=== PATIENT | female | born 1990 | race Caucasian/White ===

== ENCOUNTER 2022-11-22 07:41 | Outpatient (OUT) | payer OTHER, SELFPAY ==
[2022-11-23 08:09] LABS: Progesterone 0.1 ng/mL (.)
== END 2022-11-22 07:42 ==
LOC: LAB 07:45
PROVIDERS: PCP Family Medicine; Visit Provider Obstetrics & Gynecology
DX: N97.0 Female infertility associated with anovulation (principal)
CPT/HCPCS: 36415; 84144

== ENCOUNTER 2023-01-09 09:49 | Outpatient (OUT) | payer OTHER, SELFPAY ==
[2023-01-09 11:03] LABS: Thyroid Stimulating Hormone 0.934 uIU/mL (0.358-3.740)
[2023-01-12 12:07] LABS: Anti-Mullerian Hormone (AMH) 23.1 ng/mL (.)
== END 2023-01-09 09:50 | disposition home or self-care (01) ==
LOC: LAB 09:50
PROVIDERS: PCP Family Medicine; Visit Provider Obstetrics & Gynecology
DX: N97.9 Female infertility, unspecified (principal)
CPT/HCPCS: 36415; 84443

== ENCOUNTER 2023-02-27 15:25 | Outpatient (OUT) | payer OTHER, SELFPAY ==
[2023-02-28 05:07] LABS: Progesterone <0.1 ng/mL (.)
== END 2023-02-27 15:26 | disposition home or self-care (01) ==
LOC: LAB 15:26
PROVIDERS: PCP Family Medicine; Visit Provider Obstetrics & Gynecology
DX: N97.0 Female infertility associated with anovulation (principal)
CPT/HCPCS: 36415; 84144

== ENCOUNTER 2023-05-04 06:59 | Outpatient (OUT) | payer OTHER, SELFPAY ==
[2023-05-05 12:10] LABS: Progesterone 0.1 ng/mL (.)
== END 2023-05-04 07:00 | disposition home or self-care (01) ==
PROVIDERS: PCP Family Medicine; Visit Provider Obstetrics & Gynecology
DX: N97.0 Female infertility associated with anovulation (principal)
CPT/HCPCS: 36415; 84144

== ENCOUNTER 2023-06-22 06:44 | Outpatient (OUT) | payer OTHER, SELFPAY ==
--- OUTSIDE RECORDS SUMMARY | 2023-06-22 06:48 | XMS_ITS | CCD ---
Author Name Unknown Address [address] [place] [address] Organization [facility] Care Team Providers Care Manufacturing Director Name Role Phone Lalit Bedolla MD Primary Care Provider [phone] BARTOLOME GUTIERREZ Referring Unavailable LALIT BEDOLLA Primary Care Unavailable WILBER ., DR LOPEZ Admitting Unavailable WILBER ., DR LOPEZ Attending Unavailable [facility], DR VAZQUEZ Primary Care Unavailable WILBER ., DR LOPEZ Consulting Unavailable LALIT BEDOLLA Attending Unavailable JESSICA MERINO Attending Unavailable Medications Current Medications Medication Drug Class(es) Dates Sig (Normalized) Sig (Original) 24 hr metFORMIN hydrochloride 500 mg extended release oral tablet (1 source) Biguanide Start: 07-15-2021 take 2 tablets by mouth twice daily, then take 2 tablets by mouth twice daily metFORMIN (GLUCOPHAGE-XR) 500 MG extended release tablet Take 2 tablets by mouth 2 times daily Take 2 tablets by mouth twice daily. 60 tablet 12 07/15/2021 Active Problems Problem Classification Problem Date Documented Date Episodic/Chronic Female infertility (4 sources) Female infertility associated with anovulation; Translations: [FE INFERTILITY ASSOC W/ANOVULATION] Onset: 09-30-2022 Chronic Immunizations and screening for infectious disease (2 sources) Encounter for screening for human papillomavirus (HPV); Translations: [Encounter for screening for human papillomavirus (HPV)] Onset: 07-15-2022 Episodic Menstrual disorders (1 source) Irregular periods; Translations: [Irregular menstruation, unspecified] Onset: 10-19-2019 10-19-2019 Chronic Other endocrine disorders (1 source) Polycystic ovary syndrome; Translations: [Polycystic ovarian syndrome] Onset: 10-19-2019 10-19-2019 Chronic Results Test Name Value Interpretation Reference Range Facil ity PROGESTERONEon 10-01-2022 Progesterone 0.2 ng/mL Normal [facility] Comment on above: Result Comment: Foll icular phase 0.1 - 0.9 Luteal phase 1.8 - 23.9 Ovulation phase 0.1 - 12.0 First trimester 11.0 - 44.3 Second trimester 25.4 - 83.3 Third trimester 58.7 - 214.0 Postmenopausal 0.0 - 0.1 Performed By: #### P LORRI #### [facility] [address] [address] [address] Ruth Conte HPV DNA High Riskon 07-17-19 23 HPV Interp Normal [facility] Comment on above: Result Comment: This test amplifies and detects DNA of 14 high-risk HPV types associated with cervical cancer and its precursor lesions (HPV types 16,18, 31, 33, 35, 39, 45, 51, 52, 56, 58, 59, 66, and 68). Sensitivity may be affected by specimen collection methods, stage of infection, and the presence of interfering substances. Results should be interpreted in conjunction with other available laboratory and clinical data. A negative high-risk HPV result does not exclude the possibility of future cytologic HSIL or underlying CIN2-3 or cancer. This test is intended for medical purposes only and is not valid for the evaluation of suspected sexual abuse or for other forensic purposes. Performed By: #### H PVH #### [facility] [address] [place] [address] [phone] Paint Crew Supervisor: Gopi Yoder MD HPV Type 16 Not detected Normal [facility] Comment on above: Performed By: #### H PVH #### [facility] [address] [place] [address] [phone] Paint Crew Supervisor: Gopi Yoder MD HPV Type 18 Not detected Normal [facility] Comment on above: Performed By: #### H PVH #### [facility] [address] [place] [address] [phone] Paint Crew Supervisor: Gopi Yoder MD Other High Risk HPV Not detected Normal [facility] Comment on above: Performed By: #### H PVH #### [facility] [address] [place] [address] Paint Crew Supervisor: Gopi Yoder MD HPV DNA High Riskon 07-16-19 Source .GENITAL - NOT SPECIFIED Normal [facility] Comment on above: Performed By: #### H PVH #### [facility] [address] [place], [place] [phone] Paint Crew Supervisor: Gopi Yoder MD HPV Sample .THIN PREP Normal [facility] Comment on above: Performed By: #### H PVH #### [facility] [employer] [address] [place], [place] [phone] Paint Crew Supervisor: Gopi Yoder MD Cytologyon 07-15-2022 Cytology (NOTE) INTERPRETATION Cervical material, (ThinPrep vial, Imaging-assisted review): Specimen Adequacy: Satisfactory for evaluation. - Endocervical/transfor mation zone component present. Descriptive Diagnosis: Negative for intraepithelial lesion or malignancy. Poster: LUCIANO Roman(ASCP) Electronically Signed Out [facility]/07/22/2022 Procedure/Addendum HPV Procedure Report Date Ordered: 07/16/2022 Status: Signed Out Date Complete: 07/17/2022 By: System Interface Date Reported: 07/17/2022 Sample: HPV Type 16 Result: Not Detected Ref Range: (Not Detected) Sample: HPV Type 18 Result: Not Detected Ref Range: (Not Detected) Sample: Other High Risk HPV Result: Not Detected Ref Range: (Not Detected) Sample: HPV Interp Result: Ref Range: (Not Detected) This test amplifies and detects DNA of 14 high-risk HPV types associated with cervical cancer and its precursor lesions (HPV types 16,18, 31, 33, 35, 39, 45, 51, 52, 56, 58, 59, 66, and 68). Sensitivity may be affected by specimen collection methods, stage of infection, and the presence of interfering substances. Results should be interpreted in conjunction with other available laboratory and clinical data. A negative high-risk HPV result does not exclude the possibility of future cytologic HSIL or underlying CIN2-3 or cancer. This test is intended for medical purposes only and is not valid for the evaluation of suspected sexual abuse or for other forensic purposes. Source: A: Cervical material, (ThinPrep vial, Imaging-assisted review) Clinical History Irregular menses Z01.419 Routine coding tech exam without abnormal findings Co-Test: ThinPrep Pap with high risk HPV testing Z11.51 Encounter for screening for HPV GYNECOLOGIC CYTOLOGY REPORT Patient Name: BARBARA DELEON [facility] Rec: [id number] Path Number: [id number] [facility] ANATOMIC PATHOLOGY [address] [place] [phone] Normal [facility] Comment on above: Performed By: #### P PPVP #### [facility] [address] [place] [address] [phone] Paint Crew Supervisor: Gopi Yoder MD Encounters Encounter Date Encounter Type Care Provider Facility Start: 05-20-2023 End: 05-20-2023 ambulatory JESSICA MERINO Not Available Start: 05-05-2023 End: 05-05-2023 ambulatory LALIT BEDOLLA Not Available Start: 09-30-2022 End: 10-01-[address] JESSICA MERINO . Facility: Start: 07-15-2022 End: 07-16-2022 ambulatory [facility] Start: 07-15-2022 End: 07-16-2022 Encounter for gynecological examination (general) (routine) without abnormal findings [facility] Start: 07-15-2022 End: 07-15-2022 Subsequent hospital visit by physician Lalit Bedolla MD Other Phone: [facility] Procedures Date Procedure Procedure Detail Performing Clinician Start: 07-23-2021 Microscopic observat ion [Identifier] in Cervix by Cyto stain Lalit Bedolla MD Other Phone: Plan of Treatment Date Care Activity Detail Author Start: 11-27-2031 DTaP/Tdap/Td vaccine (7 - Td or Tdap) DTaP/Tdap/Td vaccine (7 - Td or Tdap) [facility] Start: 07-23-2024 [facility] Start: 07-18-2024 Screening for malign ant neoplasm of cervix HPV (without or with Pap) [facility] Start: 07-15-2023 End: 07-15-2023 Patient encounter procedure 07/15/2023 Office Visit Obstetrics and Gynecology Alessandro Gutierrezie Todd, LADLE WATCHER - MANAGER OF CASE MANAGEMENT [address] [place] [address] [place] [facility] Start: 01-13-2022 Influenza vaccination Flu vaccine (# 1) [facility] Start: 2005 HIV screening [facility] Start: 2002 Depression Screen Depression Screen [facility] [email or web address] Start: 09-24-1991 Varicella vaccine (1 of 2 - 2-dose childhood series) Varicella vaccine (1 of 2 - 2-dose childhood series) [facility] Immunizations Immunization Date Immunization Notes Care Provider Fa cility 09-17-1995 diphtheria, tetanus toxoids and acellular pertussis vaccine Lalit Bedolla MD Other Phone: [facility] Phone: 09-17-1995 poliovirus vaccine, inactivated Lalit Bedolla MD Other Phone: [facility] Phone: 03-29-1992 diphtheria, tetanus toxoids and acellular pertussis vaccine Lalit Bedolla MD Other Phone: [facility] Phone: 03-29-1992 poliovirus vaccine, inactivated Lalit Bedolla MD Other Phone: [facility] Phone: 12-26-1991 Hib, unspecified Lalit lopez MD Other Phone: [facility] Phone: 12-26-1991 measles, mumps and rubella virus vaccine Lalit Bedolla MD Other Phone: [employer] Phone: 03-31-1991 diphtheria, tetanus toxoids and acellular pertussis vaccine Lalit Bedolla MD Other Phone: [employer] Phone: 03-31-1991 Hib, unspecified Lalit lopez MD Other Phone: [employer] Phone: 01-25-1991 diphtheria, tetanus toxoids and acellular pertussis vaccine Lalit Bedolla MD Other Phone: [employer] Phone: 01-25-1991 Hib, unspecified Lalit lopez MD Other Phone: [employer] Phone: 01-25-1991 poliovirus vaccine, inactivated Lalit Bedolla MD Other Phone: [employer] Phone: 1990 diphtheria, tetanus toxoids and acellular pertussis vaccine Lalit Bedolla MD Other Phone: [employer] 1990 Hib, unspecified Lalit lopez MD Other Phone: [employer] Phone: 1990 poliovirus vaccine, inactivated Lalit Bedolla MD Other Phone: [employer] Phone: Payers Date Payer Category Payer Unknown [id number] 1990 Unknown [id number] 1990 Unknown [id number] 1990 Unknown [id number] 1990 Unknown [id number] 1959 Unknown [id number] Social History Date Type Detail Facility Tobacco smoking stat [facility] Never smoked tobacco [employer] Start: 07-15-2022 Alcohol intake Current drinke r of alcohol (finding) [employer] Phone: Start: 07-15-2022 History SDOH Financial 5 [employer] Phone: Start: 07-15-2022 History SDOH Food Worry 1 [employer] Phone: Start: 07-15-2022 Alcohol Comment I may have one drink every couple weeks [employer] Phone: Start: 1990 Sex Assigned At Not on file B ON [employer] Phone: Summary Purpose Family History No Family History Records FoundNo Family History Records FoundNo Family History Records Found Advance Directives No Advanced Directives Records FoundNo Advanced Directives Records FoundNo Advanced Directives Records Found Additional Source Comments Care Teams (unrecognized sec tion and content) Manufacturing Director Relationship Specialty [place] [id number] [address] PCP - General Family Medicine 04/01/16 INFORMATION SOURCE (unrecogn ized section and content) DATE CREATED AUTHOR 07/23/2022 [facility] DATE CREATED AUTHOR AUTHOR'S ORGANIZ ATION 10/05/2022 [facility] DATE CREATED AUTHOR AUTHOR'S ORGANIZ ATION 05/22/2023 [facility] Special[facility] EPIC FOR RECORDS PERTAINING TO PATIENTS WHO ARE OR HAVE BEEN ENROLLED IN A CHEMICAL DEPENDENCY/SUBSTANCEABUSE PROGRAM, SOME INFORMATION MAY BE OMITTED. This clinical summary was aggregated from multiple sources. Caution should be exercised in using it in the provision of clinical care. This summary normalizes information from multiple sources, and as a consequence, information in this document may materially change the coding, format and clinical context of patient data. In addition, data may be omitted in some cases. CLINICAL DECISIONS SHOULD BE BASED ON THE PRIMARY CLINICAL RECORDS. [facility] [employer] [facility]. provides no warranty or guarantee of the accuracy or completeness of information in this document.
[2023-06-23 04:09] LABS: Progesterone 0.1 ng/mL (.)
== END 2023-06-22 06:45 | disposition home or self-care (01) ==
LOC: LAB 06:45
PROVIDERS: PCP Family Medicine; Visit Provider Obstetrics & Gynecology
DX: N97.0 Female infertility associated with anovulation (principal)
CPT/HCPCS: 36415; 84144

== ENCOUNTER 2023-08-08 11:47 | Outpatient (OUT) | payer OTHER, SELFPAY ==
--- OUTSIDE RECORDS SUMMARY | 2023-08-08 11:51 | XMS_ITS | CCD ---
Author Name Unknown Address [address] [place], [place] [id number] Organization [facility] Care Team Providers Care Diabetes Nurse Name Role Phone Lalit Bedolla MD Primary Care Provider WILBER ., DR LOPEZ Admitting Unavailable WILBER ., DR LOPEZ Attending [facility]available [facility] VAZQUEZ Primary Care Unavailable WILBER ., DR LOPEZ Consulting Unavailable LALIT BEDOLLA Attending Unavailable JESSICA MERINO Attending Unavailable LALIT BEDOLLA Primary Care Unavailable NADJA GUTIERREZ Referring Unavailable Medications Current Medications Medication Drug Class(es) [...] for screening for human papillomavirus (HPV)] Onset: 07-15-2023 Episodic Menstrual disorders (1 source) Irregular periods; Translations: [Irregular menstruation, unspecified] Onset: 10-19-2019 10-19-2019 Chronic Other endocrine disorders (1 source) Polycystic ovary syndrome; Translations: [Polycystic ovarian syndrome] Onset: 10-19-2019 10-19-2019 Chronic Results Test Name Value Interpretation Reference Range Facil ity HPV DNA High Riskon 02-02-20 24 HPV Interp [facility] Comment on above: Result Comment: This test [...] purposes. Performed By: #### H PVH #### [facility] [employer] [address] [address] Loss Prevention/Safety District Manager: Gopi Yoder MD HPV Type 16 Not detected [facility] Comment on above: Performed By: #### H PVH #### [facility] [employer] [address] [address] Loss Prevention/Safety District Manager: Gopi Yoder MD HPV Type 18 Not detected [facility] Comment on above: Performed By: #### H PVH #### [facility] [address] [place] [address] Loss Prevention/Safety District Manager: Gopi Yoder MD Other High Risk HPV Not detected [facility] Comment on above: Performed By: #### H PVH #### [employer] [address] [place] [address] Loss Prevention/Safety District Manager: Gopi Yoder MD HPV DNA High Riskon 07-16-19 24 HPV Sample .THIN PREP [facility] Comment on above: Performed By: #### H PVH #### [facility] [address] [place] [address] Loss Prevention/Safety District Manager: oGpi Yoder MD Source CERVICAL MATERIAL [facility] Comment on above: Performed By: #### H PVH #### [facility] [address] [place] [address] Loss Prevention/Safety District Manager: Gopi Yoder MD PROGESTERONEon 10-01-2022 Progesterone 0.2 ng/mL Normal [facility] Comment on above: Result Comment: Foll icular phase 0.1 - 0.9 Luteal phase 1.8 - 23.9 Ovulation phase 0.1 - 12.0 First trimester 11.0 - 44.3 Second trimester 25.4 - 83.3 Third trimester 58.7 - 214.0 Postmenopausal 0.0 - 0.1 Performed By: #### P ROGES #### [facility] [address] [place], [place] [address] Dr. Ruth Conte Encounters Encounter Date Encounter Type Care Provider Facility Start: 07-15-2023 End: 07-16-2023 ambulatory [facility]IT [facility] Start: 07-15-2023 End: 07-16-2023 Encounter for gynecological examination (general) (routine) without abnormal findings LALIT BEDOLLA [facility] Start: 05-20-2023 End: 05-20-2023 ambulatory JESSICA MERINO Not Available Start: 05-05-2023 End: 05-05-2023 ambulatory LALIT BEDOLLA Not Available Start: 09-30-2022 End: 10-01-[address] JESSICA MERINO . Facility: Start: 07-15-2022 End: 07-15-2022 Subsequent hospital visit by physician Lalit Bedolla MD Other Phone: [facility] Procedures Date Procedure Procedure Detail Performing Clinician Start: 07-23-2021 Microscopic observat ion [Identifier] in Cervix by Cyto stain Lalit Bedolla MD Other Phone: Plan of Treatment Date Care Activity Detail Author Start: 11-27-2031 DTaP/Tdap/Td vaccine (7 - Td or Tdap) DTaP/Tdap/Td vaccine (7 - Td or Tdap) [facility] Start: 07-23-2024 Screening for malign ant neoplasm of cervix [facility] Start: 07-18-2024 Screening for malign ant neoplasm of cervix HPV (without or with Pap) [facility] Start: 07-15-2023 End: 07-15-2023 Patient encounter procedure 07/15/2023 Office Visit Obstetrics and Gynecology Nadja GutierrezCEZARN - CHILD AND YOUTH PROGRAM ASSISTANT [address] [place] [address] [facility] Start: 01-13-2022 Influenza vaccination Flu vaccine (# 1) [facility] Start: 2005 HIV screening HIV screen [facility] [employer] Start: 2002 Depression Screen [facility] Start: 09-24-1991 Varicella vaccine (1 of 2 - 2-dose childhood series) Varicella vaccine (1 of 2 - 2-dose childhood series) [facility] Immunizations Immunization Date Immunization Notes Care Provider Fa cility 09-17-1995 diphtheria, tetanus toxoids and acellular pertussis vaccine Lalit Bedolla MD Other Phone: [facility] [employer] Phone: 09-17-1995 poliovirus vaccine, inactivated Lalit Bedolla MD Other Phone: [facility] [employer] Phone: 03-29-1992 diphtheria, tetanus toxoids and acellular pertussis vaccine Lalit Bedolla MD Other Phone: [facility] [employer] Phone: 03-29-1992 poliovirus vaccine, inactivated Lalit Bedolla MD Other Phone: [facility] [employer] Phone: 12-26-1991 Hib, unspecified Lalit lopez MD Other Phone: [facility] [employer] Phone: 12-26-1991 measles, mumps and rubella virus vaccine Lalit Bedolla MD Other Phone: [employer] Phone: 03-31-1991 diphtheria, tetanus toxoids and acellular pertussis vaccine Lalit Bedolla MD Other Phone: [employer] Phone: 03-31-1991 Hib, unspecified Lalit lopez MD Other Phone: [employer] Phone: 01-25-1991 diphtheria, tetanus toxoids and acellular pertussis vaccine Lalit Bedolla MD Other Phone: [employer] Phone: 01-25-1991 Hib, unspecified Lalit lopez MD Other Phone: [employer] Phone: 01-25-1991 poliovirus vaccine, inactivated Lalit Bedolla MD Other Phone: [employer] Phone: 1990 diphtheria, tetanus toxoids and acellular pertussis vaccine Lalit Bedolla MD Other Phone: [employer] 1990 Hib, unspecified Lalit lopez MD Other Phone: [employer] Phone: 1990 poliovirus vaccine, inactivated Lalit Bedolla MD Other Phone: [employer] Phone: Payers Date Payer Category Payer Unknown [id number] 1990 Unknown [id number] 1990 Unknown [id number] 1990 Unknown [id number] 1990 Unknown [id number] [id number] 1959 Unknown [id number] Social History Date Type Detail Facility [facility] [employer] Start: 07-15-2022 Alcohol intake Current drinke r of alcohol (finding) [employer] Phone: Start: 07-15-2022 History SDOH Financial 5 [employer] Phone: Start: 07-15-2022 History SDOH Food Worry 1 [employer] Phone: Start: 07-15-2022 Alcohol Comment I may have one drink every couple weeks [employer] Phone: Start: 1990 Sex Assigned At Not on file B ON [employer] Phone: Summary Purpose Family History No Family History Records FoundNo Family History Records FoundNo Family History Records Found Advance Directives No Advanced Directives Records FoundNo Advanced Directives Records FoundNo Advanced Directives Records Found Additional Source Comments Care Teams (unrecognized sec tion and content) Diabetes Nurse Relationship Specialty Start [place] [address] [place] [address] PCP - General Family Medicine 04/01/16 INFORMATION SOURCE (unrecogn ized section and content) DATE CREATED AUTHOR 10/05/2022 [facility] pital DATE CREATED AUTHOR AUTHOR'S ORGANIZ ATION 05/22/2023 [facility] dical Specialists EPIC DATE CREATED AUTHOR AUTHOR'S ORGANIZ ATION 07/18/2023 [facility] FOR RECORDS PERTAINING TO PATIENTS WHO ARE [...] BE BASED ON THE PRIMARY CLINICAL RECORDS. [employer] [facility]. provides no warranty or guarantee of the accuracy or completeness of information in this document.
[2023-08-08 13:01] LABS: Alanine Aminotransferase 37 U/L (14-59); Albumin Globulin Ratio 0.9; Albumin Level 3.8 g/dL (3.4-5.0); Alkaline Phosphatase 71 U/L (46-116); Anion Gap 13.4; Aspartate Amino Transferase 32 U/L (15-37); BUN Creatinine Ratio 18.5; Bilirubin Total 0.7 mg/dL (0.2-1.0); Calcium 8.9 mg/dL (8.5-10.1); Carbon Dioxide 27.4 mmol/L (21.0-32.0); Chloride 103 mmol/L (98-107); Estimated GFR (African America >60 (>=60); Estimated GFR (Non-African Ame >60 (>=60); Globulin 4.2 g/dL; Glucose 77 mg/dL (74-106); Potassium 3.8 mmol/L (3.5-5.1); Sodium 140 mmol/L (136-145)
== END 2023-08-08 11:48 | disposition home or self-care (01) ==
LOC: LAB 11:48
PROVIDERS: PCP Family Medicine
DX: E28.2 Polycystic ovarian syndrome (principal)
CPT/HCPCS: 36415; 80053

== ENCOUNTER 2023-08-08 11:50 | Outpatient (OUT) | payer OTHER, SELFPAY ==
--- OUTSIDE RECORDS SUMMARY | 2023-08-08 11:54 | XMS_ITS | CCD ---
Author Name Unknown Address [address] [place], [place] [id number] Organization [facility] Care Team Providers Care Ccnp Name Role Phone Lalit Bedolla MD Primary Care Provider [phone] WILBER ., DR LOPEZ Admitting Unavailable WILBER ., DR LOPEZ Attending Unavailable [facility] DR VAZQUEZ Primary Care Unavailable WILBER ., DR LOPEZ Consulting Unavailable LAILT BEDOLLA Attending Unavailable JESSICA MERINO Attending Unavailable [...] DNA High Riskon 02-02-20 24 HPV Interp [facility] Comment on above: Result Comment: This [...] purposes. Performed By: #### H PVH #### [facility] [address] [address] [employer] Operator: Gopi Yoder MD HPV Type 16 Not detected [facility] Comment on above: Performed By: #### H PVH #### [facility] [address] [address] [employer] Operator: Gopi Yoder MD HPV Type 18 Not detected [facility] Comment on above: Performed By: #### H PVH #### [facility] [address] [place] [address] [employer] Operator: Gopi Yoder MD Other High Risk HPV Not detected [facility] Comment on above: Performed By: #### H PVH #### [facility] [address] [place] [address] [employer] Operator: Gopi Yoder MD HPV DNA High Riskon 07-16-19 24 HPV Sample .THIN PREP [facility] Comment on above: Performed By: #### H PVH #### [facility] [address] [place] [address] [employer] Operator: Gopi Yoder MD Source CERVICAL MATERIAL [facility] Comment on above: Performed By: #### H PVH #### [facility] [address] [place] [address] [employer]orem[employer] Operator: Gopi Yoder MD PROGESTERONEon 10-01-2022 Progesterone 0.2 ng/mL Normal [facility] Comment on above: Result Comment: Foll icular phase 0.1 - 0.9 Luteal phase 1.8 - 23.9 Ovulation phase 0.1 - 12.0 First trimester 11.0 - 44.3 Second trimester 25.4 - 83.3 Third trimester 58.7 - 214.0 Postmenopausal 0.0 - 0.1 Performed By: #### P ROGES #### [facility] [address] [place], [place] [address] Dr. Ruth Conte Encounters Encounter Date Encounter Type Care Provider Facility Start: 07-15-2023 End: 07-16-2023 [facility] Start: 07-15-2023 End: 07-16-2023 Encounter for gynecological examination (general) (routine) without abnormal findings LALIT BEDOLLA [facility] Start: 05-20-2023 End: 05-20-2023 ambulatory JESSICA MERNIO Not Available Start: 05-05-2023 End: 05-05-2023 ambulatory LALIT BEDOLLA Not Available Start: 09-30-2022 End: 10-01-[address] JESSICA MERINO . Facility: Start: 07-15-2022 End: 07-15-2022 Subsequent hospital visit by physician Lalit Bedolla MD Other Phone: [facility] Procedures Date Procedure Procedure Detail Performing Clinician Start: 07-23-2021 Microscopic observat ion [Identifier] in Cervix by Cyto stain Lalit Bedolla MD Other Phone: Plan of Treatment Date Care Activity Detail Author Start: 11-27-2031 DTaP/Tdap/Td vaccine (7 - Td or Tdap) DTaP/Tdap/Td vaccine (7 - Td or Tdap) [facility] Start: 07-23-2024 Screening for malign ant neoplasm of cervix [facility] Start: 07-18-2024 Screening for malign ant neoplasm of cervix HPV (without or with Pap) [facility] Start: 07-15-2023 End: 07-15-2023 Patient encounter procedure 07/15/2023 Office Visit Obstetrics and Gynecology Nadja GutierrezCE[facility] - [facility] [address] [place] [address] [facility]etric[facility] Start: 01-13-2022 Influenza vaccination Flu vaccine (# 1) [facility] Start: 2005 HIV screening HIV screen [facility] [employer] Start: 2002 Depression Screen Depression Screen [facility] Start: 09-24-1991 Varicella vaccine (1 of 2 - 2-dose childhood series) Varicella vaccine (1 of 2 - 2-dose childhood series) [facility] Immun[facility] Immunization Date Immunization Notes Care Provider Fa cility 09-17-1995 diphtheria, tetanus toxoids and acellular pertussis vaccine Lalit Bedolla MD Other Phone: [facility] [employer] Phone: 09-17-1995 poliovirus vaccine, inactivated Lalit Bedolla MD Other Phone: [facility] [employer] Phone: 03-29-1992 diphtheria, tetanus toxoids and acellular pertussis vaccine Lalit Bedolla MD Other Phone: [facility] [employer] Phone: 03-29-1992 poliovirus vaccine, inactivated Lalit Bedolla MD Other Phone: [facility] [employer] Phone: 12-26-1991 Hib, unspecified Lalit lopez MD Other Phone: [facility] [employer] Phone: 12-26-1991 measles, mumps and rubella virus vaccine Lalit Bedolla MD Other Phone: [employer] Phone: 03-31-1991 diphtheria, tetanus toxoids and acellular pertussis vaccine Lalit Bedolla MD Other Phone: [employer] Phone: 03-31-1991 Hib, unspecified Lalit lopez MD Other Phone: [employer] Phone: 01-25-1991 diphtheria, tetanus toxoids and acellular pertussis vaccine Lalit Bedolla MD Other Phone: [employer] Phone: 01-25-1991 Hib, unspecified Lalit lopez MD Other Phone: [employer] Phone: 01-25-1991 poliovirus vaccine, inactivated Lalit Bedolla MD Other Phone: [employer] Phone: 1990 diphtheria, tetanus toxoids and acellular pertussis vaccine Lalit Bedolla MD Other Phone: [facility] 1990 Hib, unspecified Lalit lopez MD Other Phone: [employer] Phone: 1990 poliovirus vaccine, inactivated Lalit Bedolla MD Other Phone: [employer] Phone: Payers Date Payer Category Payer Unknown [id number] 1990 Unknown [id number] 1990 Unknown [id number] 1990 Unknown [id number] 1990 Unknown [id number] 1959 Unknown [id number] Social History Date Type Detail Facility [facility] Start: 07-15-2022 Alcohol intake Current drinke r of alcohol (finding) [employer] Phone: Start: 07-15-2022 History SDOH Financial 5 [employer] Phone: Start: 07-15-2022 History SDOH Food Worry 1 [employer] Phone: Start: 07-15-2022 Alcohol Comment I may have one drink every couple weeks [employer] Phone: Start: 1990 Sex Assigned At Not on file B ON [employer] Phone: Summary Purpose Family History No Family History Records FoundNo Family History Records FoundNo Family History Records Found Advance Directives No Advanced Directives Records FoundNo Advanced Directives Records FoundNo Advanced Directives Records Found Additional Source Comments Care Teams (unrecognized sec tion and content) Ccnp Relationship Specialty [place] [address] [place] [address] PCP - General Family Medicine 04/01/16 INFORMATION SOURCE (unrecogn ized section and content) DATE CREATED AUTHOR 10/05/2022 [facility] DATE CREATED AUTHOR AUTHOR'S ORGANIZ ATION 05/22/2023 [facility] EPIC DATE CREATED AUTHOR AUTHOR'S ORGANIZ ATION 07/18/2023 [facility] FOR RECORDS PERTAINING TO PATIENTS WHO ARE [...] BE BASED ON THE PRIMARY CLINICAL RECORDS. [employer] [facility]. provides no warranty or guarantee of the accuracy or completeness of information in this document.
[2023-08-09 08:10] LABS: Progesterone 0.2 ng/mL (.)
== END 2023-08-08 11:51 | disposition home or self-care (01) ==
LOC: LAB 11:52
PROVIDERS: PCP Family Medicine; Visit Provider Obstetrics & Gynecology
DX: E28.2 Polycystic ovarian syndrome (principal); N97.0 Female infertility associated with anovulation
CPT/HCPCS: 36415; 80053; 84144

== ENCOUNTER 2023-11-23 06:40 | Outpatient (OUT) | payer OTHER, SELFPAY ==
--- OUTSIDE RECORDS SUMMARY | 2023-11-23 06:50 | XMS_ITS | CCD ---
Author Organization [facility] Care Team Providers Care Java Software Name Role Phone Kurtis Bedolla MD Primary Care Provider [phone] WILBER ., DR LOPEZ Admitting Unavailable WILBER ., DR LOPEZ Attending Unavailable [facility], DR VAZQUEZ Primary Care Unavailable WILBER Boyce, DR LOPEZ Consulting Unavailable KURTIS BEDOLLA Attending Unavailable JESSICA MERINO Attending Unavailable KURTIS BEDOLLA Primary Care Unavailable BARTOLOME BREWSTER Referring Unavailable Kurtis Bedolla MD Primary Care Provider KURTIS BEDOLLA Referring Unavailable KURTIS BEDOLLA Primary Care Unavailable LUIZA HERNANDEZ Attending Unavail able Medications Current Medications Medication Drug Class(es) Dates Sig (Normalized) Sig (Original) brompheniramine maleate 0.4 mg/ml / dextromethorphan hydrobromide 2 mg/ml / pseudoephedrine hydrochloride 6 mg/ml oral solution (1 source) alpha-Adrenergic Agonist, Uncompetitive X-hyccra-P-asparta te Receptor Antagonist, Sigma-1 Agonist Start: 09-14-19 24 End: 09-24-19 24 take 5-10 mL by mouth four times daily as needed for congestion brompheniramine-pseudo eph-DM 2-30-10 mg/5 mL syrup Indications: Acute rhinosinusitis Take 5-10 mL by mouth 4 (four) times a day as needed for congestion for up to 10 days. 120 mL 0 09/14/2023 09/24/2023 Active clomiPHENE citrate 50 mg oral tablet (1 source) Estrogen Agonist/Antagonist Start: 03-06-20 21 clomiPHENE (CLOMID) 50 mg tablet 1 tab daily starting day 3 of cycle for 5 days 5 tablet 0 03/06/2021 Active Inositol (1 source) INOSITOL ORAL Ta ke by mouth. 0 Active ipratropium bromide 0.021 mg/actuat metered dose nasal spray (1 source) Anticholinergic Start: 09-14-19 End: 09-24-19 take 2 spray(s) nasal route three times daily ipratropium (ATROVENT) 21 mcg (0.03 %) nasal spray Indications: Acute rhinosinusitis Administer 2 sprays into each nostril 3 (three) times a day for 10 days. 30 mL 0 09/14/2023 09/24/2023 Active medroxyPROGESTERone acetate 10 mg oral tablet (2 sources) Progestin Start: 08-29-19 Medroxyprogesterone Active MG PO August 29, 2023 12:00am Start: 04-03-2021 medroxyPROGEST ERone (PROVERA) 10 mg tablet 1 tab daily for 20 days 20 tablet 0 04/03/2021 Active 24 hr metFORMIN hydrochlorid e 500 mg extended release oral tablet (3 sources) Biguanide Start: 08-29-2023 Metformin Acti ve MG PO August 29, 2023 12:00am Start: 07-15-2021 take 2 tablets by mo uth twice daily, then take 2 tablets by mouth twice daily metFORMIN (GLUCOPHAGE-XR) 500 MG extended release tablet Take 2 tablets by mouth 2 times daily Take 2 tablets by mouth twice daily. 60 tablet 12 07/15/2021 Active Start: 07-13-2020 take 1 tablet by clifford every twenty-four hours metFORMIN XR (GLUCOPHAGE-XR) 750 mg 24 hr tablet Take 1 tablet (750 mg total) by mouth. 0 07/13/2020 Active vit 91/iron/folic/d cotto ( + DHA ORAL) (1 source) Start: 07-13-2020 vit 9 1/iron/folic/dha ( + DHA ORAL) Take 1 tablet by mouth. 0 07/13/2020 Active Problems Active Problems Problem Classification Problem Date Documented [...] [Polycystic ovarian syndrome] Onset: 10-19-2019 10-19-2019 Chronic Other upper respiratory infections (2 sources) Acute rhinosinusitis; Translations: [Acute sinusitis, unspecified] Onset: 09-14-2023 09-14-2023 Episodic Otitis media and related conditions (2 sources) Dysfunction of eustachian tube; Translations: [Unspecified Eustachian tube disorder, unspecified ear] Onset: 09-14-2023 09-14-2023 Episodic Unclassified (1 source) Earache Onset: 09-14-2023 Past or Other Problems Problem Classification Problem Date Documented Da te Episodic/Chronic Unclassified (1 source) Onset: 03-06-2021 03-06-2021 Results Test Name Value Interpretation Reference Range Facility Influenza virus B Ag [Presen ce] in Upper respiratory specimen by Rapid immunoassayon 08-29-2023 FLUBV Ag IA.rapid Ql (Nph) Negative [facility] No Panel Informationon 08-28 Influenza Type A (Rapid) Negative [facility] POC SARS CoV-2 Antigen Negative [facility] No Panel InformationOrdered By: Polly Jurado on 08-29-2023 Quick Strep (POC) [facility] HPV DNA High Riskon 07-17-19 24 HPV Interp Normal [facility] Comment on above: Result Comment: This test [...] purposes. Performed By: #### H PVH #### [address] [address] Driver/Sales Workers: Gopi Yoder MD HPV Type 16 Not detected Normal [facility] [place] [facility] Comment on above: Performed By: #### H PVH #### [address] [address] Driver/Sales Workers: Gopi Yoder MD HPV Type 18 Not detected Normal [facility] [place] [facility] Comment on above: Performed By: #### H PVH #### [address] [address] Driver/Sales Workers: Gopi Yoder MD Other High Risk HPV Not detected Normal [facility] Comment on above: Performed By: #### H PVH #### [address] [address] Driver/Sales Workers: Gopi Yoder MD HPV DNA High Riskon 07-16-19 24 HPV Sample .THIN PREP [facility] Comment on above: Performed By: #### H PVH #### [address] [address] Driver/Sales Workers: Gopi Yoder MD Source CERVICAL MATERIAL Normal [facility] Comment on above: Performed By: #### H PVH #### [address] [address] Driver/Sales Workers: Gopi Yoder MD Cytology Reporton 07-15-2023 Cytology report Cyto stain.thin prep Doc (Cvx/Vag) (NOTE) Path Number: [id number] DIAGNOSIS Imaged ThinPrep Pap - Cervical (1 monolayer slide): Specimen Adequacy: Satisfactory for evaluation. - Endocervical/transfo rmation zone component present. Descriptive Diagnosis: Negative for intraepithelial lesion or malignancy. Comments: Specimen was screened at [facility], [address] [place] [id number] [employer] Screener: CS Rescreened By: LR1 Electronically Signed Out LUCIANO Shepherd(ASCP) lr1/08/19/2023 Procedure/Addendum HPV Procedure Report Date Ordered: 07/16/2023 Status: Signed Out Date Complete: 07/17/2023 By: System Interface Date Reported: 07/17/2023 Sample: HPV Type 16 Result: Not Detected [...] abuse or for other forensic purposes. Performed at [facility], [address] [place] [address] . Source of Specimen: A: Imaged ThinPrep Pap - Cervical (1 monolayer slide) HPV Reflex?............. .........HPV Regardless Clinical History Z01.419 Routine automobile appraiser exam without abnormal findings Z11.51 Encounter for screening for HPV Processing Lab: [facility] [address] [place] [address] Interpretation performed at [facility], [address] [place], [place] [id number] This Pap Test has been evaluated with the assistance of the ThinPrep Pap Test Imaging System. The Pap smear is a screening test primarily for squamous epithelial lesions, which is subject to both false negative and false positive results. Your patient should be reminded to consult you immediately if she experiences any suspicious signs or symptoms, regardless of her Pap smear result. GYNECOLOGIC CYTOLOGY REPORT Patient Name: BARBARA FISCHER [facility] Rec: [id number] [facility] [employer] [facility] ANATOMIC PATHOLOGY [address] [place] [id number] Normal [facility] PROGESTERONEon 10-01-2022 Progesterone 0.2 ng/mL Normal [facility] Comment on above: Result Comment: Foll icular phase 0.1 - 0.9 Luteal phase 1.8 - 23.9 Ovulation phase 0.1 - 12.0 First trimester 11.0 - 44.3 Second trimester 25.4 - 83.3 Third trimester 58.7 - 214.0 Postmenopausal 0.0 - 0.1 Performed By: #### P LORRI #### [facility] [address] [place], [place] [address] Dr. Ruth Conte Vital Signs Date Time Vital Sign Value Performing Clinician Lisa ugarte 09-14-2023 08:08-0400 Body mass index (BMI) [Ratio] 54.91 kg/m2 Luiza Hernandez PATIENT REGISTRATION SPECIALIST-APPLICATIONS ENGINEERING MANAGER Work Phone: [employer] 09-14-2023 08:08-0400 Body temperature 97.5 [degF] Luiza Hernandez PATIENT REGISTRATION SPECIALIST-APPLICATIONS ENGINEERING MANAGER Work Phone: [facility] 09-14-2023 08:08-0400 Body weight 149.69 kg Luiza Hernandez PATIENT REGISTRATION SPECIALIST-APPLICATIONS ENGINEERING MANAGER [facility] Phone: [facility] 09-14-2023 08:08-0400 Diastolic blood pressure 84 mm[Hg] Luiza Hernandez PATIENT REGISTRATION SPECIALIST-APPLICATIONS ENGINEERING MANAGER Work Phone: [employer] 09-14-2023 08:08-0400 Heart rate 72 /min Luiza Hernandez PATIENT REGISTRATION SPECIALIST-APPLICATIONS ENGINEERING MANAGER Work Phone: [employer] 09-14-2023 08:08-0400 Respiratory rate 18 /min Luiza Hernandez PATIENT REGISTRATION SPECIALIST-APPLICATIONS ENGINEERING MANAGER Work Phone: [facility] 09-14-2023 08:08-0400 SaO2% (BldA) [Mass fraction] 100 % Luiza Hernandez PATIENT REGISTRATION SPECIALIST-APPLICATIONS ENGINEERING MANAGER Work Phone: [facility] 09-14-2023 08:08-0400 Systolic blood pressure 113 mm[Hg] Luiza Hernandez PATIENT REGISTRATION SPECIALIST-APPLICATIONS ENGINEERING MANAGER Work Phone: [facility] 08-29-2023 11:25-0400 Body height 165.1 cm [facility] 08-29-2023 11:25-0400 Body mass index (BMI) [Ratio] 54.1 kg/m2 [facility] 08-29-2023 11:25-0400 Body temperature 98 [degF] [facility] 08-29-2023 11:25-0400 Body weight 147.41 kg [facility] 08-29-2023 11:25-0400 Heart rate 101 /min [facility] 08-29-2023 11:25-0400 Respiratory rate 18 /min [facility] 08-29-2023 11:25-0400 SaO2% (BldA) [Mass fraction] 97 % [facility] Encounters Encounter Date Encounter Type Care Provider Facility Start: 09-14-2023 End: 09-14-2023 ambulatory [facility] Start: 09-14-2023 End: 09-14-2023 Office outpatient visit 15 minutes Luiza Hernandez APRN-APPLICATIONS ENGINEERING MANAGER Work Phone: [facility] Comment on above: Dysfunction of Eusta chian tube, unspecified laterality (Primary Dx); Acute rhinosinusitis Start: 08-29-2023 End: 08-29-2023 ambulatory [facility] Work Phone: Start: 08-29-2023 End: 08-29-2023 Patient encounter procedure [facility] Work Phone: Start: 07-15-2023 End: 07-16-2023 ambulatory KURTIS M MEINKE [facility] Start: 07-15-2023 End: 07-16-2023 Encounter for gynecological examination (general) (routine) without abnormal findings KURTIS BEDOLLA [facility] Start: 05-20-2023 End: 05-20-2023 ambulatory JESSICA MERINO Not Available Start: 05-05-2023 End: 05-05-2023 ambulatory KURTIS Soria MAGYRejiMICHAEL Not Available Start: 09-30-2022 End: 10-01-[address] JESSICA MERINO . Facility: Start: 07-15-2022 End: 07-15-2022 Subsequent hospital visit by physician Kurtis Bedolla MD Other Phone: [facility] Procedures Date Procedure Procedure Detail Performing Clinician Start: 08-29-2023 Quick Strep (POC) Start: 07-15-2023 Microscopic observat ion [Identifier] in Cervix by Cyto stain Luiza SCHREIBER Work Phone: Start: 07-23-2021 Microscopic observat ion [Identifier] in Cervix by Cyto stain Kurtis Bedolla MD Other Phone: Plan of Treatment Date Care Activity Detail Author Start: 11-27-2031 DTaP,Tdap and Td Vaccines (7 - Td or Tdap) DTaP,Tdap and Td Vaccines (7 - Td or Tdap) [facility] Start: 11-27-2031 DTaP/Tdap/Td vaccine (7 - Td or Tdap) DTaP/Tdap/Td vaccine (7 - Td or Tdap) [facility] Start: 07-15-2026 Screening for malign ant neoplasm of cervix Pap Smear [facility] Start: 07-23-2024 Screening for malign ant neoplasm of cervix [facility] Start: 07-18-2024 Screening for malign ant neoplasm of cervix HPV (without or with Pap) [facility] Start: 05-25-2024 Adult BMI Screening Adult BMI Screen ing [facility] Start: 05-25-2024 Tobacco Screening Tobacco Screening [facility] Start: 02-14-2024 Influenza vaccination Influenza Vacc ine [facility] Start: 07-15-2023 End: 07-15-2023 Patient encounter procedure 07/15/2023 Office Visit Obstetrics and Gynecology Bartolome Brewster, PATIENT REGISTRATION SPECIALIST - APPLICATIONS ENGINEERING MANAGER [address] [place] [address] [facility] Start: 02-13-2023 COVID-19 Vaccine ( season) COVID-19 Vaccine ( season) [facility] Start: 01-13-2022 Influenza vaccination Flu vaccine (# 1) [facility] Start: 2008 Adult BMI Follow Up Plan Adult [facility] Plan [facility] Start: 2005 HIV screening HIV screen [facility] [employer] [facility] [employer] Start: 2002 [facility] Screen [facility] Start: 2002 Depression Screening Depression Scre ening [facility] Start: 09-24-1991 Varicella vaccine (1 of 2 - 2-dose childhood series) Varicella vaccine (1 of 2 - 2-dose childhood series) [facility] Liquid [employer] Immunizations Immunization Date Immunization Notes Care Provider Fa cility 09-17-1995 diphtheria, tetanus toxoids and acellular pertussis vaccine Kurtis Bedolla MD Other Phone: [facility] Phone: 09-17-1995 poliovirus vaccine, inactivated Kurtis Bedolla MD Other Phone: [facility] Phone: 03-29-1992 diphtheria, tetanus toxoids and acellular pertussis vaccine Kurtis Bedolla MD Other Phone: [facility] Phone: 03-29-1992 poliovirus vaccine, inactivated Kurtis Bedolla MD Other Phone: [facility] Phone: 12-26-1991 Hib, unspecified Kurtis lopez MD Other Phone: [facility] Phone: 12-26-1991 measles, mumps and rubella virus vaccine Kurtis Bedolla MD Other Phone: [facility] Phone: 03-31-1991 diphtheria, tetanus toxoids and acellular pertussis vaccine Kurtis Bedolla MD Other Phone: [facility] Phone: 03-31-1991 Hib, unspecified Kurtis lopez MD Other Phone: [facility] Phone: 01-25-1991 diphtheria, tetanus toxoids and acellular pertussis vaccine Kurtis Bedolla MD Other Phone: [facility] Phone: 01-25-1991 Hib, unspecified Kurtis lopez MD Other Phone: [facility] Phone: 01-25-1991 poliovirus vaccine, inactivated Kurtis Bedolla MD Other Phone: [facility] Phone: 1990 diphtheria, tetanus toxoids and acellular pertussis vaccine Kurtis Bedolla MD Other Phone: [facility] 1990 Hib, unspecified Kurtis lopez MD Other Phone: [facility] Phone: 1990 poliovirus vaccine, inactivated Kurtis Bedolla MD Other Phone: [facility] Phone: Payers Date Payer Category Payer Unknown [facility] [id number] 2021-Present [phone] [address] [place] [address] [id number] 2021 Unknown [id number] 1990 Unknown [id number] 1990 Unknown [id number] 1990 Unknown [id number] 1990 Unknown [id number] 1990 Unknown [id number] 1959 Unknown [id number] Social History Date Type Detail Facility Start: 03-06-2021 End: 08-29-2023 Tobacco smoking status [facility] Never smoked tobacco [facility] Start: 07-15-2022 Alcohol intake Current drinke r of alcohol (finding) [facility] Phone: Start: 07-15-2022 History SDOH Financial 5 [facility] Work Phone: Start: 07-15-2022 History SDOH Food Worry 1 [facility] Phone: Start: 07-15-2022 Alcohol Comment I may have one drink every couple weeks [facility] Phone: Start: 1990 Sex Assigned At Not on file [facility] Phone: Start: 1990 Sex Assigned At Female F [facility] Start: 03-06-2021 Tobacco use and exposure Smokeless tobacco non-user [facility] Start: 07-16-2020 End: 09-14-2023 History of Social function [facility] Start: 07-16-2020 End: 09-14-2023 Tobacco use panel [facility] Childcare Unknown [facility] Start: 03-06-2021 Gender identity Identifies as female gender (finding) [facility] Start: 03-06-2021 Sexual orientation Heterosexual (fin ding) [facility] History of Present illness Narrative 09-14-2023 Luiza Hernandez, PATIENT REGISTRATION SPECIALIST-APPLICATIONS ENGINEERING MANAGER - 09/14/2023 8:00 AM EDT Note Date & Type Note Facility 09-14-2023 History of Present illness Narrative Subjective: Patient ID: Barbara Fischer is a 32 y.o. female. Chief Complaint Patient presents with Earache Pt presents with c/o sinus congestion and ear pressure. Reports she was treated 3 weeks ago with augmentin and steroid pack. Noted some improvement in discomfort but still experiencing cloudiness and pressure Earache There is pain in the right ear. This is a recurrent problem. The current episode started 1 to 4 weeks ago. The problem occurs constantly. The problem has been unchanged. There has been no fever. The pain is mild. Associated symptoms include coughing, headaches and rhinorrhea. Pertinent negatives include no diarrhea, rash or vomiting. She has tried antibiotics for the symptoms. The treatment provided moderate relief. There is no history of a chronic ear infection. The following portions of the patient's history were reviewed and updated as appropriate: allergies, current medications, past family history, past medical history, past social history, past surgical history and problem list. Review of Systems Constitutional: Negative for chills and fever. HENT: Positive for congestion, ear pain and rhinorrhea. Negative for trouble swallowing. Respiratory: Positive for cough. Negative for shortness of breath. Cardiovascular: Negative for chest pain. Gastrointestinal: Negative for diarrhea, nausea and vomiting. Genitourinary: Negative for decreased urine volume. Musculoskeletal: Negative for myalgias. Skin: Negative for rash. Allergic/Immunologic: Negative for immunocompromised state. Neurological: Positive for headaches. Negative for dizziness. Hematological: Does not bruise/bleed easily. History reviewed. No pertinent past medical history. History reviewed. No pertinent surgical history. Social History Tobacco Use Smoking status: Never Smokeless tobacco: Never History reviewed. No pertinent family history. No Known Allergies Current Outpatient Medications on File Prior to Visit Medication Sig Dispense Refill metFORMIN XR (GLUCOPHAGE-XR) 750 mg 24 hr tablet Take 1 tablet (750 mg total) by mouth. clomiPHENE (CLOMID) 50 mg tablet 1 tab daily starting day 3 of cycle for 5 days (Patient not taking: Reported on 05/25/2023) 5 tablet 0 INOSITOL ORAL Take by mouth. (Patient not taking: Reported on 05/25/2023) medroxyPROGESTERone (PROVERA) 10 mg tablet 1 tab daily for 20 days (Patient not taking: Reported on 09/14/2023) 20 tablet 0 vit 91/iron/folic/dha ( + DHA ORAL) Take 1 tablet by mouth. (Patient not taking: Reported on 05/25/2023) No current facility-administered medications on file prior to visit. Objective: Vitals: 09/14/23 0808 BP: 113/84 Pulse: 72 Resp: 18 Temp: 36.4 C (97.5 F) TempSrc: Temporal SpO2: 100% Weight: (Abnormal) 149.7 kg (330 lb) Patient's last menstrual period was 09/07/2023 (within days). The patient was not asked if she was . Body mass index is 54.91 kg/m . Facility age limit for growth %madhu is 20 years. Physical Exam Vitals and nursing note reviewed. Constitutional: General: She is not in acute distress. Appearance: Normal appearance. She is well-developed. She is not ill-appearing or toxic-appearing. HENT: Head: Normocephalic and atraumatic. Right Ear: Ear canal and external ear normal. Tympanic membrane is bulging. Tympanic membrane is not erythematous. Left Ear: Ear canal and external ear normal. Tympanic membrane is bulging. Tympanic membrane is not erythematous. Nose: Mucosal edema and rhinorrhea present. Rhinorrhea is clear. Mouth/Throat: Lips: [place]. Mouth: Mucous membranes are moist. Pharynx: Oropharynx is clear. Eyes: Conjunctiva/sclera: Conjunctivae normal. Cardiovascular: Rate and Rhythm: Normal rate and regular rhythm. Heart sounds: Normal heart sounds. Pulmonary: Effort: Pulmonary effort is normal. No respiratory distress. Breath sounds: Normal breath sounds. Musculoskeletal: Cervical back: Neck supple. Lymphadenopathy: Cervical: No cervical adenopathy. Skin: General: Skin is warm and dry. Capillary Refill: Capillary refill takes less than 2 seconds. Neurological: General: No focal deficit present. Mental Status: She is alert. Psychiatric: Mood and Affect: Mood normal. Assessment/Plan: Labs for this visit: Barbara was seen today for earache. Diagnoses and all orders for this visit: Dysfunction of Eustachian tube, unspecified laterality Acute rhinosinusitis - brezknumvbwpods-qkmphttwi-QI 2-30-10 mg/5 mL syrup; Take 5-10 mL by mouth 4 (four) times a day as needed for congestion for up to 10 days. - ipratropium (ATROVENT) 21 mcg (0.03 %) nasal spray; Administer 2 sprays into each nostril 3 (three) times a day for 10 days. Orders Placed or Reconciled This Encounter Medications ejkiaxlrfpiffif-mcbmxxjvt-CX 2-30-10 mg/5 mL syrup Sig: Take 5-10 mL by mouth 4 (four) times a day as needed for congestion for up to 10 days. Dispense: 120 mL Refill: 0 ipratropium (ATROVENT) 21 mcg (0.03 %) nasal spray Sig: Administer 2 sprays into each nostril 3 (three) times a day for 10 days. Dispense: 30 mL Refill: 0 Patient Instructions Follow up care is usually required after a visit to the Urgent care or Emergency Department. It is your responsibility to call the number(s) below for a follow up appointment. Your diagnosis today is a provisional one based on information available to the Emergency Department Provider or Urgent care provider. The diagnosis may change as more information becomes available to your private physician. If you develop any new, worsening, or concerning symptoms of illness, and are unable to follow up with a private physician, please return here or to the nearest Emergency Department for further care immediately. This note is dictated with the use of M*Modal.Please note that this dictation was completed with computer voice recognition software. Quite often unanticipated grammatical, syntax, homophones, and other interpretive errors are inadvertently transcribed by the computer software. Please disregard these errors. Please excuse any errors that have escaped final proofreading. I personally discussed test results with patient/parent. Suspect some lingering symptoms from recent AOM, URI Will attempt supportive therapies for ETD Education handout and discharge papers given. Paperwork explained. Denies questions or concerns. Discussed that follow up care is usually required after a visit to the Urgent care. It is your responsibility to contact your primary care provider for follow up. If symptoms are not improving, worsening, or concerning symptoms of illness develop, follow up with your primary care provider or go to the nearest Emergency Department for further care immediately. ABDOUL Pate 09/14/23 0824 documented in this encounter [employer] Instructions 09-14-2023 Patient InstructionsAttachments Note Date & Type Note Facility 09-14-2023 Instructions ABDOUL Pate - 09/14/2023 8:00 AM EDT Follow up care is usually required after a visit to the Urgent care or Emergency Department. It is your responsibility to call the number(s) below for a follow up appointment. Your diagnosis today is a provisional one based on information available to the Emergency Department Provider or Urgent care provider. The diagnosis may change as more information becomes available to your private physician. If you develop any new, worsening, or concerning symptoms of illness, and are unable to follow up with a private physician, please return here or to the nearest Emergency Department for further care immediately. The following attachments cannot be sent through Care Everywhere.Eustachian Tube Problems Discharge Instructions (Turkish)documented in this encounter [employer] Evaluation note Note Date & Type Note Facility Evaluation note No assessment information [facility] Work Phone: Evaluation note Note Date & Type Note Facility Evaluation note Diagnosis Dysfunction of Eustachian tube, unspecified laterality- Primary Acute rhinosinusitis documented in this encounter [employer] Summary Purpose Family History No Family History Records FoundNo Family History Records FoundNo Family History Records FoundNo Family History Records Found Advance Directives No Advanced Directives Records Found Advance Directive Response Recorded Date/ Time Advance Directives No August 28 11:00am Chief Complaint and Reason for Visit Chief Complaint left ear pain, runny nose, congestion, cough Additional Source Comments Care Teams (unrecognized sec tion and content) Java Software Relationship Specialty [place] [id number] [address] PCP - General Family Medicine 04/01/16 Team Status: Active Member Role Status Dates Outreach Community Primary Care Provider Active Team Status: Inactive Member Role Status Dates Polly Jurado NP-C Attending Provider Active S tart: August 29, 2023 End: August 29, 2023 Outreach Community Primary Care Provider Active Start: August 29, 2023 End: August 29, 2023 Java Software Relationship Specialty [place] [id number] [address] PCP - General Family Medicine 07/23/19 INFORMATION SOURCE (unrecogn ized section and content) DATE CREATED AUTHOR 10/05/2022 [facility] DATE CREATED AUTHOR AUTHOR'S ORGANIZ ATION 05/22/2023 [facility] EPIC DATE CREATED AUTHOR AUTHOR'S ORGANIZ ATION 08/20/2023 [facility] DATE CREATED AUTHOR AUTHOR'S ORGANIZ ATION 09/14/2023 [facility] Goals (unrecognized section and content) Goals may be documented in a n alternate sectionNot on filedocumented as of this encounter Reason for Visit (unrecogniz ed section and content) Reason Comments Earache I also have sinus co ngestion. I went to urgent 3 weeks ago for an ear infections and my ear has still be cloudy. - Entered by patientSinus irritation started 1 week ago. FOR RECORDS PERTAINING TO PATIENTS WHO ARE [...] BE BASED ON THE PRIMARY CLINICAL RECORDS. [facility]. provides no warranty or guarantee of the accuracy or completeness of information in this document.
[2023-11-24 04:08] LABS: Progesterone 0.1 ng/mL (.)
== END 2023-11-23 06:41 | disposition home or self-care (01) ==
LOC: LAB 06:44
PROVIDERS: PCP Family Medicine; Visit Provider Obstetrics & Gynecology
DX: E28.2 Polycystic ovarian syndrome (principal); N91.2 Amenorrhea, unspecified
CPT/HCPCS: 36415; 84144

== ENCOUNTER 2024-01-08 13:07 | Outpatient (OUT) | payer OTHER, SELFPAY ==
--- OUTSIDE RECORDS SUMMARY | 2024-01-08 13:27 | XMS_ITS | CCD ---
Author Organization [facility] Care Team Providers Care Metrology Manager Name Role Phone Kurtis Bedolla MD Primary Care Provider WILBER ., DR LOPEZ Admitting Unavailable WILBER ., DR LOPEZ Attending Unavailable [facility], DR VAZQUEZ Primary Care Unavailable WILBER ., DR LOPEZ Consulting Unavailable KURTIS BEDOLLA Attending Unavailable JESSICA MERINO Attending Unavailable KURTIS BEDOLLA Primary Care Unavailable BARTOLOME BREWSTER Referring Unavailable Kurtis Bedolla MD Primary Care Provider KURTIS BEDOLLA Referring Unavailable KURTIS BEDOLLA Primary Care Unavailable LUIZA HERNANDEZ Attending Unavail able ROSLYN RODRIGUEZ Attending Unavailable Medications Current Medications Medication Drug Class(es) Dates Sig (Normalized) Sig (Original) brompheniramine maleate 0.4 mg/ml / dextromethorphan hydrobromide 2 mg/ml / pseudoephedrine hydrochloride 6 mg/ml oral solution (1 source) alpha-Adrenergic Agonist, Uncompetitive C-xgexxz-D-asparta te Receptor Antagonist, Sigma-1 Agonist Start: 09-14-19 [...] Start: 07-13-2020 take 1 tablet by clifford th every twenty-four hours metFORMIN XR (GLUCOPHAGE-XR) 750 mg 24 hr tablet Take 1 tablet (750 mg total) by mouth. 0 07/13/2020 Active vit 91/iron/folic/d cotto ( + DHA ORAL) (1 source) Start: 07-13-2020 vit 9 1/iron/folic/dha ( + DHA ORAL) Take 1 tablet by mouth. 0 07/13/2020 Active Problems Active Problems Problem Classification Problem Date Documented Date Episodic/Chronic Contraceptive and procreative management (2 sources) Encounter for fertility testing; Translations: [Encounter for fertility testing] Onset: 12-10-2023 Episodic Female infertility (4 sources) Female infertility associated with anovulation; Translations: [FE INFERTILITY ASSOC W/ANOVULATION] Onset: 09-30-2022 Chronic Immunizations and screening for infectious disease (6 sources) Encounter for screening for human papillomavirus (HPV); Translations: [Encounter for screening for other viral diseases] Onset: 07-15-2023 Episodic Menstrual disorders (3 sources) Irregular periods; Translations: [Irregular menstruation, unspecified] Onset: 10-19-2019 10-19-2019 Chronic Other endocrine disorders (1 source) Polycystic ovary syndrome; Translations: [Polycystic ovarian syndrome] Onset: 10-19-2019 10-19-2019 Chronic Other nutritional; endocrine; and metabolic disorders (2 sources) Morbid (severe) obesity due to excess calories; Translations: [Morbid (severe) obesity due to excess calories (Multi)] Onset: 12-10-2023 Chronic Other nutritional; endocrine; and metabolic disorders (2 sources) Body mass index (BMI) 50.0-59.9, adult; Translations: [Body mass index (BMI) 50.0-59.9, adult (Multi)] Onset: 12-10-2023 Chronic Other screening for suspected conditions (not mental disorders or infectious disease) (6 sources) Encounter for screening for other suspected endocrine disorder; Translations: [Encounter for screening for diabetes mellitus] Onset: 12-10-2023 Episodic Other upper respiratory infections (2 sources) Acute [...] 08-29-2023 FLUBV Ag IA.rapid Ql (Nph) Negative [facility] No Panel Informationon 08-28 Influenza Type A (Rapid) Negative [facility] POC SARS CoV-2 Antigen Negative [facility] No Panel InformationOrdered By: Polly Jurado on 08-29-2023 Quick Strep (POC) [facility] HPV DNA High Riskon 07-17-19 24 HPV Interp Normal [facility] Comment on above: Result Comment: This test [...] purposes. Performed By: #### H PVH #### [facility] [address] [place] [address] Information Manager: Gopi Yoder MD HPV Type 16 Not detected [facility] Comment on above: Performed By: #### H [facility] #### [facility] [address] [place] [address] Information Manager: Gopi Yoder MD HPV Type 18 Not detected [facility] Comment on above: Performed By: #### H PV[facility] #### [facility] [address] [place] [address] Information Manager: Gopi Yoder MD Other High Risk HPV Not detected Normal [facility] Comment on above: Performed By: #### H PVH #### [facility] [address] [place] [address] Information Manager: Gopi Yoder MD HPV DNA High Riskon 07-16-19 24 HPV Sample .THIN PREP [facility] Comment on above: Performed By: #### H PVH #### [facility] [address] [place] [address] Information Manager: Gopi Yoder MD Source CERVICAL MATERIAL Normal [facility] Comment on above: Performed By: #### H [facility] #### [address] [address] Information Manager: Gopi Yoder MD Cytology Reporton 07-15-2023 Cytology report Cyto stain.thin prep Doc (Cvx/Vag) (NOTE) Path Number: [id number] DIAGNOSIS Imaged ThinPrep Pap - Cervical (1 monolayer slide): Specimen Adequacy: Satisfactory for evaluation. - Endocervical/transfo rmation zone component present. Descriptive Diagnosis: Negative for intraepithelial lesion or malignancy. Comments: Specimen was screened at [facility], [address] [place] [address] [employer] Screener: JAIR Rescreened By: ANATOLIY Electronically Signed Out LUCIANO Shepherd(ASCP) lr1/08/19/2023 Procedure/Addendum [...] or for other forensic purposes. Performed at [facility], [address] [place] [address] . Source of Specimen: A: Imaged ThinPrep Pap - Cervical (1 monolayer slide) HPV Reflex?............. .........HPV Regardless Clinical History Z01.419 Routine rum processing operator exam without abnormal findings Z11.51 Encounter for screening for HPV Processing Lab: [place] [place] [address] Interpretation performed at [facility], [facility] [place] [address] This Pap Test has been evaluated with [...] GYNECOLOGIC CYTOLOGY REPORT Patient Name: BARBARA FISCHER [facility] Rec: [id number] [facility] ANATOMIC PATHOLOGY [address] [place], [place] [address] Normal [facility] PROGESTERONEon 10-01-2022 Progesterone 0.2 ng/mL Normal [facility] Comment on above: Result Comment: Foll icular phase 0.1 - 0.9 Luteal phase 1.8 - 23.9 Ovulation phase 0.1 - 12.0 First trimester 11.0 - 44.3 Second trimester 25.4 - 83.3 Third trimester 58.7 - 214.0 Postmenopausal 0.0 - 0.1 Performed By: #### P LORRI #### [facility] [address] [place], [place] [address] Dr. Ruth Conte Vital Signs Date Time Vital Sign Value Performing Clinician Lisa ugarte 09-14-2023 08:08-0400 Body mass index (BMI) [Ratio] 54.91 kg/m2 Luiza Hernandez APRN-TARUN Work Phone: [facility] 09-14-2023 08:08-0400 Body temperature 97.5 [degF] Luiza Hernandez APRN-CONTROL INSPECTOR Work Phone: [facility] 09-14-2023 08:08-0400 Body weight 149.69 kg Luiza Hernandez RUG CLEANER-CONTROL INSPECTOR Work Phone: [facility] [employer] [facility] 09-14-2023 08:08-0400 Diastolic blood pressure 84 mm[Hg] Luiza Hernandez RUG CLEANER-CONTROL INSPECTOR Work Phone: [facility] 09-14-2023 08:08-0400 Heart rate 72 /min Luiza Hernandez RUG CLEANER-CONTROL INSPECTOR Work Phone: [facility] 09-14-2023 08:08-0400 Respiratory rate 18 /min Luiza Hernandez RUG CLEANER-CONTROL INSPECTOR Work Phone: [facility] 09-14-2023 08:08-0400 SaO2% (BldA) [Mass fraction] 100 % Luiza Hernandez RUG CLEANER-CONTROL INSPECTOR Work Phone: [facility] 09-14-2023 08:08-0400 Systolic blood pressure 113 mm[Hg] Luiza Hernandez RUG CLEANER-CONTROL INSPECTOR Work Phone: [facility] 08-29-2023 11:25-0400 Body height 165.[address] [facility] 08-29-2023 11:25-0400 Body mass index (BMI) [Ratio] 54.1 kg/m2 [facility] 08-29-2023 11:25-0400 Body temperature 98 [degF] [facility] 08-29-2023 11:25-0400 Body weight 147.[address] [facility] 08-29-2023 11:25-0400 Heart rate 101 /min [facility] 08-29-2023 11:25-0400 Respiratory rate 18 /min [facility] 08-29-2023 11:25-0400 SaO2% (BldA) [Mass fraction] 97 % [facility] Encounters Encounter Date Encounter Type Care Provider Facility Start: 12-10-2023 End: 12-10-2023 ambulatory [facility] Start: 12-10-2023 End: 12-10-2023 Encounter for blood typing ORSLYN Ty [facility] Start: 09-14-2023 End: 09-14-2023 ambulatory KURTIS BEDOLLA [facility] Start: 09-14-2023 End: 09-14-2023 Office outpatient visit 15 minutes Luiza Hernandez RUG CLEANER-CONTROL INSPECTOR Work Phone: [facility] Comment on above: Dysfunction of Eusta chian tube, unspecified laterality (Primary Dx); Acute rhinosinusitis Start: 08-29-2023 End: 08-29-2023 ambulatory [facility] Work Phone: Start: 08-29-2023 End: 08-29-2023 Patient encounter procedure [facility] Work Phone: Start: 07-15-2023 End: 07-16-2023 ambulatory KURTIS BEDOLLA [facility] Start: 07-15-2023 End: 07-16-2023 Encounter for gynecological examination (general) (routine) without abnormal findings KURTIS BEDOLLA [facility] Start: 05-20-2023 End: 05-20-2023 ambulatory JESSICA MERINO Not Available Start: 05-05-2023 End: 05-05-2023 ambulatory KURTIS BEDOLLA Not Available Start: 09-30-2022 End: 10-01-[address] JESSICA MERINO . Facility: Start: 07-15-2022 End: 07-15-2022 Subsequent hospital visit by physician Kurtis Bedolla MD Other Phone: [facility] Procedures Date Procedure Procedure Detail Performing Clinician Start: 08-29-2023 Quick Strep (POC) Start: 07-15-2023 Microscopic observat ion [Identifier] in Cervix by Cyto stain Luiza Hernandez RUG CLEANER-CONTROL INSPECTOR Work Phone: Start: 07-23-2021 Microscopic observat ion [Identifier] in Cervix by Cyto stain Kurtis Bedolla MD Other Phone: Plan of Treatment Date Care Activity Detail Author Start: 11-27-2031 DTaP,Tdap and Td Vaccines (7 - Td or Tdap) DTaP,Tdap and Td Vaccines (7 - Td or Tdap) [facility] Start: 11-27-2031 DTaP/Tdap/Td vaccine (7 - Td or Tdap) DTaP/Tdap/Td vaccine (7 - Td or Tdap) [facility] Start: 07-15-2026 Screening for malign ant neoplasm of cervix Pap Smear [facility] Start: 07-23-2024 Screening for malign [facility] Start: 07-18-2024 Screening for malign ant neoplasm of cervix HPV (without or with Pap) [facility] Start: 05-25-2024 Adult BMI Screening Adult BMI Screen ing [facility] Start: 05-25-2024 Tobacco Screening Tobacco Screening [facility] Start: 02-14-2024 Influenza vaccination Influenza Vacc ine [facility] Start: 07-15-2023 End: 07-15-2023 Patient encounter procedure 07/15/2023 Office Visit Obstetrics and Gynecology Bartolome Brewster, RUG CLEANER - CONTROL INSPECTOR [address] [place] [address] [facility] Start: 02-13-2023 COVID-19 Vaccine ( season) COVID-19 Vaccine ( season) [facility] Start: 01-13-2022 Influenza vaccination Flu vaccine (# 1) [facility] Start: 2008 Adult BMI Follow Up Plan Adult BMI Follow Up Plan [facility] Start: 2005 HIV screening HIV screen [facility] Start: 2002 Depression Screen Depression Screen [facility] Start: 2002 Depression Screening Depression Scre ening [facility] Start: 09-24-1991 Varicella vaccine (1 of 2 - 2-dose childhood series) Varicella vaccine (1 of 2 - 2-dose childhood series) [facility] Immunizations Immunization Date Immunization Notes Care Provider Tim shah 09-17-1995 diphtheria, tetanus toxoids and acellular pertussis vaccine Kurtis Bedolla MD Other Phone: [employer] Phone: 09-17-1995 poliovirus vaccine, inactivated Kurtis Bedolla MD Other Phone: [employer] Phone: 03-29-1992 diphtheria, tetanus toxoids and acellular pertussis vaccine Kurtis Bedolla MD Other Phone: [employer] Phone: 03-29-1992 poliovirus vaccine, inactivated Kurtis Bedolla MD Other Phone: [employer] Phone: 12-26-1991 Hib, unspecified Kurtis lopez MD Other Phone: [employer] Phone: 12-26-1991 measles, mumps and rubella virus vaccine Kurtis Bedolla MD Other Phone: [employer] Phone: 03-31-1991 diphtheria, tetanus toxoids and acellular pertussis vaccine Kurtis Bedolla MD Other Phone: [employer] Phone: 03-31-1991 Hib, unspecified Kurtis lopez MD Other Phone: [employer] Phone: 01-25-1991 diphtheria, tetanus toxoids and acellular pertussis vaccine Kurtis Bedolla MD Other Phone: [employer] Phone: 01-25-1991 Hib, unspecified Kurtis lopez MD Other Phone: [employer] Phone: 01-25-1991 poliovirus vaccine, inactivated Kurtis Bedolla MD Other Phone: [employer] Phone: 1990 diphtheria, tetanus toxoids and acellular pertussis vaccine Kurtis Bedolla MD Other Phone: [employer] 1990 Hib, unspecified Kurtis lopez MD Other Phone: [employer] Phone: 1990 poliovirus vaccine, inactivated Kurtis Bedolla MD Other Phone: [employer] Phone: Payers Date Payer Category Payer Unknown [facility] [id number] 2021-Present [phone] [address] [place] [address] [id number] 2021 Unknown [id number] 1990 Unknown [id number] 1990 Unknown [id number] 1990 Unknown [id number] 1990 Unknown [id number] 1990 Unknown [id number] 1990 Unknown [id number] 1959 Unknown [id number] Social History Date Type Detail Facility Start: 03-06-2021 End: 08-29-2023 Tobacco smoking status NHIS Never smoked tobacco [employer] Start: 07-15-2022 Alcohol intake Current drinke r of alcohol (finding) [employer] Phone: Start: 07-15-2022 History SDOH Financial 5 [employer] Work Phone: Start: 07-15-2022 History SDOH Food Worry 1 [employer] Phone: Start: 07-15-2022 Alcohol Comment I may have one drink every couple weeks [employer] Phone: Start: 1990 Sex Assigned At Not on file B ON [employer] Phone: Start: 1990 Sex Assigned At Female F [facility] Start: 03-06-2021 Tobacco use and exposure Smokeless tobacco non-user [facility] Start: 07-16-2020 End: 09-14-2023 History of Social function [facility] Start: 07-16-2020 End: 09-14-2023 Tobacco use panel [facility] Childcare Unknown [facility] Start: 03-06-2021 Gender identity Identifies as [facility] (finding[facility] Start: 03-06-2021 Sexual orientation Heterosexual (fin ding) [facility] History of Present illness Narrative 09-14-2023 Luiza Hernandez, RUG CLEANER-CONTROL INSPECTOR - 09/14/2023 8:00 AM EDT Note Date [...] rhinorrhea present. Rhinorrhea is clear. Mouth/Throat: Lips: [place]. Mouth: Mucous membranes are moist. Pharynx: Oropharynx [...] Eustachian tube, unspecified laterality Acute rhinosinusitis - yslyuoagpskewbr-ilfbsukvt-NT 2-30-10 mg/5 mL syrup; Take 5-10 mL by mouth 4 (four) times a day as needed for congestion for up to 10 days. - ipratropium (ATROVENT) 21 mcg (0.03 %) nasal spray; Administer 2 sprays into each nostril 3 (three) times a day for 10 days. Orders Placed or Reconciled This Encounter Medications fjswcidsmzshljm-grjtpkxaa-NP 2-30-10 mg/5 mL syrup Sig: Take 5-10 [...] Pate 09/14/23 0824 documented in this encounter [employer] Instructions 09-14-2023 Patient InstructionsAttachments Note Date & [...] through Care Everywhere.Eustachian Tube Problems Discharge Instructions (South Korean)documented in this encounter [facility] Evaluation note Note Date & Type Note Facility Evaluation note No assessment information [facility] Work Phone: Evaluation note Note Date & Type Note Facility Evaluation note Diagnosis Dysfunction of Eustachian tube, unspecified laterality- Primary Acute rhinosinusitis documented in this encounter [facility] Summary Purpose Family History No Family History [...] Care Teams (unrecognized sec tion and content) Metrology Manager Relationship Specialty [place] [address] [address] PCP - General Family Medicine 04/01/16 Team Status: Active Member Role Status Dates Outreach [facility] Primary Care Provider Active Team Status: Inactive Member Role Status Dates TERELL Mason Attending Provider Active S tart: August 29, 2023 End: August 29, 2023 Outreach Community Primary Care Provider Active Start: August 29, 2023 End: August 29, 2023 Metrology Manager Relationship Specialty [place] [address] [address] PCP - General Family Medicine 07/23/19 INFORMATION SOURCE (unrecogn ized section and content) DATE CREATED AUTHOR 10/05/2022 [facility] DATE CREATED AUTHOR AUTHOR'S ORGANIZ ATION 05/22/2023 [facility] EPIC DATE CREATED AUTHOR AUTHOR'S ORGANIZ ATION 08/20/2023 [facility] DATE CREATED AUTHOR AUTHOR'S ORGANIZ ATION 09/14/2023 [facility] DATE CREATED AUTHOR AUTHOR'S ORGANIZ ATION 12/11/2023 [facility] Goals (unrecognized section and content) Goals may [...] BE BASED ON THE PRIMARY CLINICAL RECORDS. [employer] provides no warranty or guarantee of the accuracy or completeness of information in this document.
[2024-01-08 14:06] LABS: Estimated Average Glucose 114 mg/dL; Glycohemoglobin A1C 5.6 % (4.5-6.2)
[2024-01-08 14:28] LABS: TSH W/ REFLEX FT4 0.874 uIU/mL (0.358-3.740)
[2024-01-09 04:08] LABS: Progesterone 0.2 ng/mL (.); Prolactin 16.7 ng/mL (4.8-33.4)
[2024-01-09 06:09] LABS: Rubella Antibodies, IgG 3.46 index (Immune >0.99); Varicella-Zoster V Ab, IgG 1836 index (Immune >165)
[2024-01-11 22:08] LABS: Free Testosterone(Direct) 0.5 pg/mL (0.0-4.2); Testosterone 38 ng/dL (8-60)
[2024-01-12 14:09] LABS: Anti-Mullerian Hormone (AMH) 19.8 ng/mL (.)
== END 2024-01-08 13:08 | disposition home or self-care (01) ==
LOC: LAB 13:10
PROVIDERS: PCP Family Medicine
DX: Z01.83 Encounter for blood typing (principal); N91.4 Secondary oligomenorrhea; Z13.1 Encounter for screening for diabetes mellitus; Z11.59 Encounter for screening for other viral diseases
CPT/HCPCS: 36415; 82397; 82627; 83036; 83498; 84144; 84146; 84402; 84403; 84443; 86762; 86787; 86850; 86900; 86901

== ENCOUNTER 2024-06-10 07:07 | Outpatient (OUT) | payer OTHER, SELFPAY ==
--- OUTSIDE RECORDS SUMMARY | 2024-06-10 07:11 | XMS_ITS | CCD ---
Author Organization [facility] Care Team Providers Care Clarity Specialists Name Role Phone Kurtis Bedolla MD Primary Care Provider WILBER ., DR LOPEZ Admitting Unavailable WILBER ., DR LOPEZ Attending Unavailable [facility], DR VAZQUEZ Primary Care Unavailable WILBER ., DR LOPEZ Consulting Unavailable KURTIS BEDOLLA Attending Unavailable JESSICA MERINO Attending Unavailable KURTIS BEDOLLA Primary Care Unavailable BARTOLOME BREWSTER Referring Unavailable Kurtis Bedolla MD Primary Care Provider KURTIS BEDOLLA Referring Unavailable KURTIS BEDOLLA Primary Care Unavailable LUIZA HERNANDEZ Attending Unavail able ROSLYN RODRIGUEZ Attending Unavailable CLAUDIA OROZCO Attending Unav PHIL Hannon Attending Unavailable CLAUDIA OROZCO Referring Unav ailable Unavailable Primary Care Provider Unavailabl e Medications Current Medications Medication Drug Class(es) Dates Sig (Normalized) Sig (Original) brompheniramine maleate 0.4 mg/ml / dextromethorphan hydrobromide 2 mg/ml / pseudoephedrine hydrochloride 6 mg/ml oral solution (1 source) alpha-Adrenergic Agonist, Uncompetitive L-kbnghp-E-asparta te Receptor Antagonist, Sigma-1 Agonist Start: 09-14-19 [...] tablet (1 source) Estrogen Agonist/Antagonist Start: 03-06-20 clomiPHENE (CLOMID) 50 mg tablet 1 tab daily starting day 3 of cycle for 5 days 5 tablet 0 03/06/2021 Active Ethinyl Estradiol / norgestimate (2 sources) Progestin, Estrogen Start: 12-10-19 End: 12-10-19 take 1 tablet by mouth once daily norgestimate-ethinyl estradioL (Sprintec, 28,) 0.25-35 mg-mcg tablet Indications: Secondary oligomenorrhea Take 1 tablet by mouth once daily. 28 tablet 12 12/10/2023 12/09/2024 Active Inositol (1 source) INOSITOL ORAL Ta [...] Start: 07-15-2021 take 2 tablets by [facility] twice daily, then take 2 tablets by [...] Documented Date Episodic/Chronic Contraceptive and procreative management (3 sources) Encounter for fertility testing; Translations: [Patient encounter status] Onset: 12-10-2023 Episodic Female infertility (4 sources) Female infertility associated with anovulation; Translations: [FE INFERTILITY ASSOC W/ANOVULATION] Onset: 09-30-2022 Chronic Immunizations and screening for infectious disease (8 sources) Encounter for screening for human papillomavirus (HPV); Translations: [Encounter for screening for other viral diseases] Onset: 07-15-2023 Episodic Menstrual disorders (4 sources) Irregular periods; Translations: [Irregular menstruation, unspecified] Onset: 10-19-2019 10-19-2019 Chronic Other endocrine disorders (1 source) Polycystic ovary syndrome; Translations: [Polycystic ovarian syndrome] Onset: 10-19-2019 10-19-2019 Chronic Other nutritional; endocrine; and metabolic disorders (2 sources) Morbid (severe) obesity due to excess calories; Translations: [Morbid (severe) obesity due to excess calories (Multi)] Onset: 12-10-2023 Chronic Other nutritional; endocrine; and metabolic disorders (4 sources) Body mass index (BMI) 50.0-59.9, adult; Translations: [Body mass index (BMI) 50.0-59.9, adult (Multi)] Onset: 12-10-2023 Chronic Other nutritional; endocrine; and metabolic disorders (2 sources) Obesity, unspecified; Translations: [Obesity, unspecified] Onset: 12-22-2023 Chronic Other nutritional; endocrine; and metabolic disorders (1 source) Severe obesity; Translations: [Morbid (severe) obesity due to excess calories] 12-10-2023 Chronic Other nutritional; endocrine; and metabolic disorders (1 source) Body mass index 40+ - severely obese; Translations: [Body mass index (BMI) 50.0-59.9, adult] 12-22-2023 Chronic Other nutritional; endocrine; and metabolic disorders (1 source) Morbid obesity; Translations: [Obesity, unspecified] 12-22-2023 Chronic Other screening for suspected conditions (not mental disorders or infectious disease) (9 sources) Encounter for screening for other suspected [...] Classification Problem Date Documented Da te Episodic/Chronic Administrative/social admission (3 sources) Persons encountering health services in other specified circumstances; Translations: [Patient encounter status] Onset: 12-22-2023 Episodic Unclassified (1 source) Onset: 03-06-2021 03-06-2021 Results Test Name Value Interpretation Reference Range Facility Influenza virus B Ag [Presen ce] in Upper respiratory specimen by Rapid immunoassayon 08-29-2023 FLUBV Ag IA.rapid Ql (Nph) Negative [facility] No Panel Informationon 08-28 Influenza Type A (Rapid) Negative [facility] POC SARS CoV-2 Antigen Negative [facility] No Panel InformationOrdered By: Polly Jurado on 08-29-2023 Quick Strep (POC) [facility] HPV DNA High Riskon 07-17-19 24 HPV Interp Normal [facility] Comment on above: Result Comment: This [...] purposes. Performed By: #### H PVH #### [address] [address] Patient Support Specialist: Gopi Yoder MD HPV Type 16 Not detected Normal [facility] Comment on above: Performed By: #### H PVH #### [address] [address] Patient Support Specialist: Gopi Yoder MD HPV Type 18 Not detected Normal [facility] Comment on above: Performed By: #### H PVH #### [address] [address] Patient Support Specialist: Gopi Yoder MD Other High Risk HPV Not detected Normal [facility] Comment on above: Performed By: #### H PVH #### [address] [address] Patient Support Specialist: Gopi Yoder MD HPV DNA High Riskon 07-16-19 24 HPV Sample .THIN PREP [facility] Comment on above: Performed By: #### H PVH #### [address] [address] Patient Support Specialist: Gopi Yoder MD Source CERVICAL MATERIAL Normal [facility] Comment on above: Performed By: #### H PVH #### [address] [address] Patient Support Specialist: Gopi Yoder MD Cytology Reporton 07-15-2023 Cytology report Cyto stain.thin prep Doc (Cvx/Vag) (NOTE) Path Number: [id number] DIAGNOSIS Imaged ThinPrep Pap - Cervical (1 monolayer slide): Specimen Adequacy: Satisfactory for evaluation. - Endocervical/transfo rmation zone component present. Descriptive Diagnosis: Negative for intraepithelial lesion or malignancy. Comments: Specimen was screened at [facility], [address] [place] [id number] [employer] Screener: CS Rescreened By: LR1 Electronically [...] or for other forensic purposes. Performed at [facility], [address] [place] [address] . Source of Specimen: A: Imaged ThinPrep Pap - Cervical (1 monolayer slide) HPV Reflex?............. .........HPV Regardless Clinical History Z01.419 Routine it security consulting director exam without abnormal findings Z11.51 Encounter for screening for HPV Processing Lab: [facility] [address] [place] [address] Interpretation performed at [facility], [address] [place] [address] This Pap Test has been evaluated with [...] smear result. GYNECOLOGIC CYTOLOGY REPORT Patient Name: BARBAAR FISCHER [facility] Rec: [id number] [facility] ANATOMIC PATHOLOGY [address] [place] [id number] Normal [facility] PROGESTERONEon 10-01-2022 Progesterone 0.2 ng/mL Normal [facility] Comment on above: Result Comment: Foll icular phase 0.1 - 0.9 Luteal phase 1.8 - 23.9 Ovulation phase 0.1 - 12.0 First trimester 11.0 - 44.3 Second trimester 25.4 - 83.3 Third trimester 58.7 - 214.0 Postmenopausal 0.0 - 0.1 Performed By: #### P LORRI #### [facility] [address] [place], [place] [address] Dr. Ruth Conte Vital Signs Date Time Vital Sign Value Performing Clinician Faci lity 12-22-2023 12:17-0400 Body height 165.1 cm Claudia Kern MD Work Phone: [facility] 12-22-2023 12:17-0400 Body mass index (BMI) [Ratio] 54.91 kg/m2 Claudia Kern MD Work Phone: [facility] 12-22-2023 12:17-0400 Body weight 149.69 kg Claudia Kern MD Work Phone: [facility] 12-10-2023 09:24-0400 Body height 165.1 cm Roslyn Rodriguez MD Work Phone: [facility] 12-10-2023 09:24-0400 Body mass index (BMI) [Ratio] 54.91 kg/m2 Roslyn Rodriguez MD Work Phone: [facility] 12-10-2023 09:24-0400 Body weight 149.69 kg Roslyn Rodriguez MD Work Phone: [facility] 12-10-2023 09:24-0400 Diastolic blood pressure 76 mm[Hg] Roslyn Rodriguez MD Work Phone: [facility] 12-10-2023 09:24-0400 Heart rate 47 /min Roslyn Rodriguez MD Work Phone: [facility] 12-10-2023 09:24-0400 Systolic blood pressure 116 mm[Hg] Roslyn Rodriguez MD Work Phone: [facility] 09-14-2023 08:08-0400 Body mass index (BMI) [Ratio] 54.91 kg/m2 Luiza Hernandez LICENSED PSYCHIATRIC TECHNICIAN-INPATIENT SERVICES RN Work Phone: [facility] 09-14-2023 08:08-0400 Body temperature 97.5 [degF] Luiza Hernandez LICENSED PSYCHIATRIC TECHNICIAN-INPATIENT SERVICES RN Work Phone: [facility] 09-14-2023 08:08-0400 Body weight 149.69 kg Luiza Hernandez LICENSED PSYCHIATRIC TECHNICIAN-INPATIENT SERVICES RN Work Phone: [facility] 09-14-2023 08:08-0400 Diastolic blood pressure 84 mm[Hg] Luiza Hernandez LICENSED PSYCHIATRIC TECHNICIAN-INPATIENT SERVICES RN Work Phone: [facility] 09-14-2023 08:08-0400 Heart rate 72 /min Luiza Hernandez LICENSED PSYCHIATRIC TECHNICIAN-INPATIENT SERVICES RN Work Phone: [facility] 09-14-2023 08:08-0400 Respiratory rate 18 /min Luiza Hernandez LICENSED PSYCHIATRIC TECHNICIAN-INPATIENT SERVICES RN Work Phone: [facility] 09-14-2023 08:08-0400 SaO2% (BldA) [Mass fraction] 100 % Luiza Hernandez LICENSED PSYCHIATRIC TECHNICIAN-INPATIENT SERVICES RN Work Phone: [facility] 09-14-2023 08:08-0400 Systolic blood pressure 113 mm[Hg] Luiza Hernandez LICENSED PSYCHIATRIC TECHNICIAN-INPATIENT SERVICES RN Work Phone: [facility] 08-29-2023 11:25-0400 Body height 165.1 cm [facility] 08-29-2023 11:250400 Body mass index (BMI) [Ratio] 54.1 kg/m2 [facility] 08-29-2023 11:25040 Body temperature 98 [degF] [facility] 08-29-2023 11:040 Body weight 147.41 kg [facility] 08-29-2023 11:25040 Heart rate 101 /min [facility] 08-29-2023 11:040 Respiratory rate 18 /min [facility] 08-29-2023 11:25040 SaO2% (BldA) [Mass fraction] 97 % [facility] Encounters Encounter Date Encounter Type Care Provider Facility Start: 01-14-2024 End: 01-14-2024 ambulatory [facility] Start: 12-22-2023 End: 12-22-2023 Office consultation new/estab patient 60 min Claudia Kern MD Work Phone: [facility] Comment on above: BMI 50.0-59.9, adult (Multi) (Primary Dx); Encounter for weight management; Super obesity Start: 12-22-2023 End: 12-22-2023 ambulatory CLAUDIA BURGER [facility] Ambulatory Start: 12-10-2023 End: 12-10-2023 Patient encounter procedure Roslyn Rodriguez MD Work Phone: [facility] Comment on above: Secondary oligomenor alicia (Primary Dx); Fertility testing; Screening for thyroid disorder; Screening for diabetes mellitus; Encounter for screening for other viral diseases; Encounter for Rh blood typing; Screening for STDs (sexually transmitted diseases); Screening for genetic disease carrier status; Class 3 severe obesity due to excess calories with body mass index (BMI) of 50.0 to 59.9 in adult, unspecified whether serious comorbidity present (Multi) [E66.01, Z68.43] Start: 12-10-2023 End: 12-10-2023 Patient encounter status Roslyn Rodriguez MD Work Phone: [facility] Work Phone: Start: 12-10-2023 End: 12-10-2023 ambulatory ROSLYN Ty [facility] Start: 12-10-2023 End: 12-10-2023 Encounter for blood typing ROSLYN Ty [facility] Start: 09-14-2023 End: 09-14-2023 ambulatory KURTIS BEDOLLA [facility] Start: 09-14-2023 End: 09-14-2023 Office outpatient visit 15 minutes Luiza Hernandez APRN-INPATIENT SERVICES RN Work Phone: [facility] Urgent [facility] Comment on above: Dysfunction of Eusta chian tube, unspecified laterality (Primary Dx); Acute rhinosinusitis Start: 08-29-2023 End: 08-29-2023 ambulatory [facility] Work Phone: Start: 08-29-2023 End: 08-29-2023 Patient encounter procedure [facility] Physician [facility] Work Phone: Start: 07-15-2023 End: 07-16-2023 ambulatory KURTIS BEDOLLA [facility] Start: 07-15-2023 End: 07-16-2023 Encounter for gynecological examination (general) (routine) without abnormal findings KURTIS BEDOLLA [facility] Start: 05-20-2023 End: 05-20-2023 ambulatory JESSICA MERINO Not Available Start: 05-05-2023 End: 05-05-2023 ambulatory KURTIS BEDOLLA Not Available Start: 09-30-2022 End: 10-01-[address] JESSICA MERINO . Facility: Start: 07-15-2022 End: 07-15-2022 Subsequent hospital visit by physician Kurtis Bedolla MD Other Phone: [facility] Procedures Date Procedure Procedure Detail Performing Clinician Start: 08-29-2023 Quick Strep (POC) Start: 07-15-2023 Microscopic observat ion [Identifier] in Cervix by Cyto stain Luiza Hernandez LICENSED PSYCHIATRIC TECHNICIAN-INPATIENT SERVICES RN Work Phone: Start: 07-23-2021 Microscopic observat ion [Identifier] in Cervix by Cyto stain Kurtis Bedolla MD Other Phone: Plan of Treatment Date Care Activity Detail Author Start: 2040 Zoster Vaccines (1 of 2) Zoster Vaccines (1 of 2) [facility] Start: 11-27-2031 DTaP,Tdap and Td Vaccines (7 - Td or Tdap) DTaP,Tdap and Td Vaccines (7 - Td or Tdap) [facility] Start: 11-27-2031 DTaP/Tdap/Td vaccine (7 - Td or Tdap) DTaP/Tdap/Td vaccine (7 - Td or Tdap) [facility] Start: 11-27-2031 DTaP/Tdap/Td Vaccines (7 - Td or Tdap) DTaP/Tdap/Td Vaccines (7 - Td or Tdap) [facility] Start: 07-15-2026 Screening for malignant neoplasm of cervix Pap Smear [facility] Start: 07-23-2024 Screening for malignant neoplasm of cervix [facility] Start: 07-18-2024 Screening for malignant neoplasm of cervix HPV (without or with Pap) [facility] Start: 05-25-2024 Adult BMI Screening Adult BMI Screening [facility] Start: 05-25-2024 Tobacco Screening Tobacco Screening [facility] Start: 02-14-2024 Influenza vaccination [facility] Start: 12-10-2023 End: 12-09-2024 17-Hydroxyprogesterone [Mass/volume] in Serum or Plasma 17-Hydroxyprogesterone Lab Routine Secondary oligomenorrhea Expected: 12/10/2023 (Approximate), Expires: 12/09/2024 [facility] Work Phone: Comment on above: Expected: 12/10/2023 (Approximate), Expi res: 12/09/2024 Start: 12-10-2023 End: 12-09-2024 Blood type and Indirect antibody screen panel - Blood Type And Screen Lab Routine Encounter for Rh blood typing Expected: 12/10/2023 (Approximate), Expires: 12/09/2024 [facility] Work Phone: Comment on above: Expected: 12/10/2023 (Approximate), Expi res: 12/09/2024 Start: 12-10-2023 End: 12-09-2024 Dehydroepiandrosterone sulfate (DHEA-S) [Mass/volume] in Serum or Plasma Dhea-Sulfate Lab Routine Secondary oligomenorrhea Expected: 12/10/2023 (Approximate), Expires: 12/09/2024 [facility] Work Phone: Comment on above: Expected: 12/10/2023 (Approximate), Expi res: 12/09/2024 Start: 12-10-2023 End: 12-09-2024 Hemoglobin A1c/Hemoglobin.total in Blood Hemoglobin A1C Lab Routine Screening for diabetes mellitus Expected: 12/10/2023 (Approximate), Expires: 12/09/2024 [facility] Work Phone: Comment on above: Expected: 12/10/2023 (Approximate), Expi res: 12/09/2024 Start: 12-10-2023 End: 12-09-2024 Mullerian inhibiting substance [Mass/volume] in Serum or Plasma Antimullerian Hormone (Amh) Lab Routine Fertility testing Expected: 12/10/2023 (Approximate), Expires: 12/09/2024 [facility] Work Phone: Comment on above: Expected: 12/10/2023 (Approximate), Expi res: 12/09/2024 Start: 12-10-2023 End: 12-09-2024 Progesterone [Mass/volume] in Serum or Plasma Progesterone Lab Routine Fertility testing Expected: 12/10/2023 (Approximate), Expires: 12/09/2024 [facility] Work Phone: Comment on above: Expected: 12/10/2023 (Approximate), Expi res: 12/09/2024 Start: 12-10-2023 End: 12-09-2024 Prolactin [Mass/volume] in Serum or Plasma Prolactin Lab Routine Secondary oligomenorrhea Expected: 12/10/2023 (Approximate), Expires: 12/09/2024 [facility] Work Phone: Comment on above: Expected: 12/10/2023 (Approximate), Expi res: 12/09/2024 Start: 12-10-2023 End: 12-09-2024 Rubella virus IgG Ab [Units/volume] in Serum Rubella Antibody, Igg Lab Routine Encounter for screening for other viral diseases Expected: 12/10/2023 (Approximate), Expires: 12/09/2024 [facility] Work Phone: Comment on above: Expected: 12/10/2023 (Approximate), Expi res: 12/09/2024 Start: 12-10-2023 End: 12-09-2024 Testosterone,Free and Total Testosterone,Free and Total Lab Routine Secondary oligomenorrhea Expected: 12/10/2023 (Approximate), Expires: 12/09/2024 [facility] Work Phone: Comment on above: Expected: 12/10/2023 (Approximate), Expi res: 12/09/2024 Start: 12-10-2023 End: 12-09-2024 TSH with reflex to Free T4 if abnormal TSH with reflex to Free T4 if abnormal Lab Routine Secondary oligomenorrhea Expected: 12/10/2023 (Approximate), Expires: 12/09/2024 [facility] Work Phone: Comment on above: Expected: 12/10/2023 (Approximate), Expi res: 12/09/2024 Start: 12-10-2023 End: 12-09-2024 Varicella zoster virus IgG Ab [Presence] in Serum by Immunoassay Varicella Zoster Antibody, Igg Lab Routine Encounter for screening for other viral diseases Expected: 12/10/2023 (Approximate), Expires: 12/09/2024 [facility] Work Phone: Comment on above: Expected: 12/10/2023 (Approximate), Expi res: 12/09/2024 Start: 07-15-2023 End: 07-15-2023 Patient encounter procedure 07/15/2023 Office Visit Obstetrics and Gynecology Bartolome Brewster, LICENSED PSYCHIATRIC TECHNICIAN - INPATIENT SERVICES RN [phone] [place] [address] [facility] Obstetrics [facility] Gyne[facility] Start: 02-13-2023 COVID-19 Vaccine ( season) COVID-19 Vaccine ( season) [facility] Start: 02-13-2023 COVID-19 Vaccine ( season) COVID-19 [facility]ine ( [facility] Start: 01-13-2022 Influenza vaccination Flu vaccine (#1) [facility] Start: 09-24-2011 Screening for malignant neoplasm of cervix [facility] Start: 2009 Hepatitis B Vaccines (1 of 3 - 19+ 3-dose series) Hepatitis B Vaccines (1 of 3 - 19+ 3-dose series) [facility] Start: 2008 Adult BMI Follow Up Plan Adult BMI Follow Up Plan [facility] Start: 2008 Hepatitis C screening Hepatitis C Screening [facility] Start: 2005 HIV screening HIV screen [facility] Start: 09-24-2003 Varicella vaccination Varicella Vaccines (1 of 2 - 13+ 2-dose series) [facility] Start: 2002 Depression Screen Depression Screen [facility] Start: 2002 Depression Screening Depression Screening [facility] Start: 09-24-1991 Varicella vaccine (1 of 2 - 2-dose childhood series) Varicella vaccine (1 of 2 - 2-dose childhood series) [facility] Start: 1990 HIV screening HIV Screening [facility] Start: 1990 Lipid panel Lipid Panel [facility] Start: 1990 Yearly Adult Physical Yearly Adult Physical [facility] Immunizations Immunization Date Immunization Notes Care Provider Fa cility 09-17-1995 diphtheria, tetanus toxoids and acellular pertussis vaccine Kurtis Bedolla MD Other Phone: [facility] Work Phone: 09-17-1995 poliovirus vaccine, inactivated Kurtis Bedolla MD Other Phone: [facility] Phone: 03-29-1992 diphtheria, tetanus toxoids and acellular pertussis vaccine Kurtis Bedolla MD Other Phone: [facility] Phone: 03-29-1992 poliovirus vaccine, inactivated Kurtis Bedolla MD Other Phone: [facility] Phone: 12-26-1991 Hib, unspecified Kurtis lopez MD Other Phone: [facility] Phone: 12-26-1991 measles, mumps and rubella virus vaccine Kurtis Bedolla MD Other Phone: [facility] Phone: 03-31-1991 diphtheria, tetanus toxoids and acellular pertussis vaccine Kurtis Bedolla MD Other Phone: [facility] Phone: 03-31-1991 Hib, unspecified Kurtis lopez MD Other Phone: [facility] Phone: 01-25-1991 diphtheria, tetanus toxoids and acellular pertussis vaccine Kurtis Bedolla MD Other Phone: [facility] Phone: 01-25-1991 Hib, unspecified Kurtis lopez MD Other Phone: [facility] Phone: 01-25-1991 poliovirus vaccine, inactivated Kurtis Bedolla MD Other Phone: [facility] Phone: 1990 diphtheria, tetanus toxoids and acellular pertussis vaccine Kurtis Bedolla MD Other Phone: [facility] [employer] 1990 Hib, unspecified Kurtis lopez MD Other Phone: [facility] Work Phone: 1990 poliovirus vaccine, inactivated Kurtis Bedolla MD Other Phone: [facility] Phone: Payers Date Payer Category Payer Unknown [id number] 2021 Unknown [id number] 1990 Unknown [id number] 1990 Unknown [id number] 1990 Unknown [id number] 1990 Unknown [id number] 1990 Unknown [id number] 2.16.8 [id number] 1990 Unknown [id number] 2.16.8 [id number] 1990 Unknown [id number] 2.16.8 [id number] 1990 Unknown [id number] 1959 Unknown [id number] Social History Date Type Detail Facility Start: 08-29-2023 End: 12-10-2023 Tobacco smoking status LAIS Never smoked tobacco [facility] Start: 07-15-2022 End: 12-10-2023 Alcohol intake Current drinker of alcohol (finding) [facility] Phone: Start: 07-15-2022 History SDOH Financial 5 [facility] Work Phone: Start: 07-15-2022 History SDOH Food Worry 1 [employer] Phone: Start: 07-15-2022 Alcohol Comment I may have one drink every couple weeks [facility] Work Phone: Start: 1990 Sex Assigned At Not on file [facility] Phone: Start: 1990 Sex Assigned At Female [facility] Start: 03-06-2021 End: 12-10-2023 Tobacco use and exposure [facility]ok[facility] Start: 09-14-2023 End: 12-10-2023 History of Social function [facility] Start: 09-14-2023 End: 12-10-2023 Tobacco use panel [facility] Start: 03-06-2021 Gender identity Identifies as female gender (finding) [facility] Start: 03-06-2021 Sexual orientation Heterosexual (finding) [facility] Start: 12-10-2023 Alcohol Comment Occassionally [facility] Work Phone: Start: 11-30-2023 End: 12-22-2023 Exposure to SARS-CoV-2 (event) Not sure [facility] History of Present illness Narrative 12-10-2023 Roslyn Rodriguez MD - 12/10/2023 9:15 AM EDT Note Date & Type Note Facility 12-10-2023 History of Present illness Narrative Visit Type: In Person NEW FERTILITY PATIENT VISIT Referred by: Referred by:: Jessica Jamil Accompanied today by: Who is accompanying you to your visit:: Spouse, Aamir Fischer is a 33 y.o. female who presents with Please tell us your reason for this visit today: Infertility Have you had any concerns about your fertility treatments so far? Have you had any concerns about your fertility treatments so far: No What are you goals for today's visit? What are you goals for today's visit: Options What causes of infertility have been identified on your workup so far? What causes of infertility have been identified on your workup so far: PCOS Past Infertility Treatments: Have you undergone any treatments for fertility: Yes Please summarize your fertility treatments to date. 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) FET#1- 02/2022: Programmed FET with oral estrace and IM P4--> euploid, negative FET#2- 2021- Programmed FET, added another medication (not sure what it was)--> Euploid transfer, negative Has 2 embryos remaining, 1 euploid and 1 likely mosaic Since then has tried Letrozole./Clomid and Letrozole clomid combination without ovulating Hysterosalpingogram: None Saline Infused Sonography: Thinks she had this done in [place] and was told tubes patent Has had normal diagnostic hysteroscopy at [facility] -Reports she did have lysis of adhesions on a hysteroscopy prior to FETs 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 The Uterus is homogeneous and anteverted (9.89 x 5.78 x 4.15 cm) 2. The Endometrial Stripe measurement is 0.79 cm 3. The Left Ovary is without masses or cysts 4. The Right Ovary is without masses or cysts 5. 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 Have you ever been diagnosed with a sexually transmitted disease?: No Please select all that are applicable: Have you ever had Pelvic Inflammatory Disease? Have you ever had Pelvic Inflammatory Disease?: No Have you had an abnormal PAP smear? Have you had an abnormal PAP smear?: No Date & Result of last PAP smear: 06/2023 per patient normal Have you ever had an abnormal Mammogram? Have you ever had an abnormal mammogram?: No Date & result of your last mammogram: Do you have pelvic pain? Do you have pelvic pain?: No How many times per week do you have intercourse? If applicable, how many times a week are you having intercourse, trying to get during your fertile window?: Every 2 days Do you have pain with intercourse? Do you have pain with intercourse?: No Do you use lubricants with intercourse? If applicable, what type of lubricant are you using?: Ky Do you have pain with bowel movements? Do you have pain with bowel movements?: No Do you have pain with a full bladder? Do you have pain with a full bladder?: No MENSTRUAL HISTORY LMP: When was your last menstrual period?: I do not get periods. Takes Provera monthly to get menses Menarche: If applicable, when was your first occurrence of menstruation?: Age 15 Contraception: Cycle length: Describe your bleeding: Describe your bleeding:: Average Dysmenorrhea: Are your menstrual periods painful?: No ENDOCRINE/INFERTILITY HISTORY Duration of infertility: If applicable, what is the approximate date you began trying to get ?: 1-5 years Coital Activity/week: If applicable, how many times a week are you having intercourse, trying to get during your fertile window?: Every 2 days Nipple Discharge: Do you experience any loss of milk or liquid discharge from the breasts?: No Vision changes: Are you experiencing any vision changes?: No Headaches: Are you experiencing headaches?: Yes -occasional diet related; can get migraines Excess hair growth: Are you experiencing persistent or worsening hair growth on the face, breasts or lower abdomen?: Yes Excessive hair loss: Are you experiencing loss of hair from your scalp?: Yes Acne: Are you experiencing acne?: Yes Oily skin: Oily skin?: Yes Recent weight change Weight gain: Are you experiencing any increase in weight?: Yes -Gained 15-20 lbs recently Weight loss: Are you experiencing any decrease in weight?: No Exercise more than 3 times a week: Exercise more than 3 times a week?: Yes PMH Past Medical History: Diagnosis Date Insulin resistance Polycystic ovary syndrome MEDICATIONS No current outpatient medications on file prior to visit. No current facility-administered medications on file prior to visit. 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 Have you ever been incarcerated?: No Do you have a history of domestic violence? Do you have a history of domestic violence?: No Do you feel safe at home? Do you feel safe at home?: Yes Do you have a history of any negative sexual experience such as incest or rape? 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 CANCER HISTORY Breast: Breast Cancer: Please answer Yes, No or Unsure. If Yes, please, identify which family member.: No Ovarian: Ovarian Cancer: Please answer Yes, No or Unsure. If Yes, please, identify which family member.: No Colon: Colon Cancer: Please answer Yes, No or Unsure. If Yes, please, identify which family member.: No Endometrial: Endometrial Cancer: Please answer Yes, No or Unsure. If Yes, please, identify which family member.: No FAMILY VTE HISTORY Family History of Blood Clots: Blood Clots: Please answer Yes, No or Unsure. If Yes, please, identify which family member.: Yes, Father -Patient had negative Factor V leiden and Prothrombin gene mutations testing GENETIC HISTORY Ethnic Background Patient: Partner: Genetic Disease in Family Patient: None Partner: None Defects in Family Patient: None Partner: None Genetic screening performed previously: None BMI: BMI Readings from Last 1 Encounters: 12/10/23 54.91 kg/m VITALS: BP 116/76 (BP Location: Right arm, Patient Position: Sitting, BP Cuff Size: Adult) Pulse (!) 47 Ht 1.651 m (5' 5 ) Wt 150 kg (330 lb) LMP 11/04/2023 (Approximate) BMI 54.91 kg/m ASSESSMENT 33 y.o. female with primary infertility x 4, suspected oligoovulation and the following pertinent medical issues: Obesity BMI=54 . Partner SA: Normal COUNSELING We discussed causes of infertility including hormonal, egg quality issues, structural problems such as endometriosis, adhesions, or tubal problems, uterine factors such as polyps or fibroids, and sperm issues. Reviewed evaluation of such as well. We discussed various methods for achieving in some detail including, ovulation induction, insemination, superovulation and IVF. Discussed diagnosis of PCOS and implications for fertility and long-term health including risks of endometrial hyperplasia, obesity, diabetes and cardiovascular disease. Discussed diet and exercise are first-line treatments for PCOS. Medical management may be indicated, particularly for glucose intolerance if that is found in testing. Ovulation induction is the primary treatment for fertility. We discussed the impact of obesity on fertility and outcomes, including increased risk of miscarriage, gestational diabetes, preeclampsia, IUGR, and still . We discussed the importance of weight loss for optimizing fertility and outcomes. Routine Testing Fertility Center STDs Within 1 year Genetic carrier Waiver/Completed T&S Within 1 year AMH Within 1 year TSH Within 1 year Rubella/Varicella Within 5 years PLAN Orders Placed This Encounter Procedures Antimullerian Hormone (Amh) TSH with reflex to Free T4 if abnormal Prolactin Testosterone,Free and Total Dhea-Sulfate 17-Hydroxyprogesterone Hemoglobin A1C Progesterone Type And Screen Rubella Antibody, Igg Varicella Zoster Antibody, Igg GENETIC SCREENING PATIENT Waiver PARTNER Yes Semen Analysis: Completed previous Yes Genetic screening: Waiver FOLLOW UP Consults: Weight Management consult Chart to primary nurse for care coordination and patient check list/education Enroll in Engaged MD Take vitamins, vitamin D 2000 IUs daily Discussed that pap and mammogram must be updated per ACOG guidelines before treatment can begin Discussed that treatment cannot proceed until checklist items are complete 6 week follow up with Any provider Additional testing for BMI < 18 or > 40: Will complete when ready to start fertility treatments Completion: Ectopic Risk: No Medically Complex: Yes obesity Fertility Plan Update: Plan to work on weight loss for at least 6 months Recommend GLP1 agonist or other mediical route. Can consider bariatric surgery Once weight loss (5-10% body weight minimum, recommend BMI <45 ideal) achieved can try ovulation induction with letrozole If no success would consider FET with remaining embryos After that can consider IVF again (retrieval) Counseled about contraception and menstrual cycle management- patient would like to try OCP; counseled about increased risks of DVT/PE with estrogen-containing OCP Roslyn Rodriguez 12/10/2023 9:38 AM documented in this encounter [facility] Work Phone: Instructions 12-10-2023 Patient Instructions Note Date & Type Note Facility 12-10-2023 Instructions Roslyn Rodriguez MD - 12/10/2023 9:15 AM EDT ASSESSMENT 33 y.o. female with primary infertility x 4, suspected oligoovulation and the following pertinent medical issues: Obesity BMI=54 . Partner SA: Normal COUNSELING We discussed causes of infertility including hormonal, egg quality issues, structural problems such as endometriosis, adhesions, or tubal problems, uterine factors such as polyps or fibroids, and sperm issues. Reviewed evaluation of such as well. We discussed various methods for achieving in some detail including, ovulation induction, insemination, superovulation and IVF. Discussed diagnosis of PCOS and implications for fertility and long-term health including risks of endometrial hyperplasia, obesity, diabetes and cardiovascular disease. Discussed diet and exercise are first-line treatments for PCOS. Medical management may be indicated, particularly for glucose intolerance if that is found in testing. Ovulation induction is the primary treatment for fertility. We discussed the impact of obesity on fertility and outcomes, including increased risk of miscarriage, gestational diabetes, preeclampsia, IUGR, and still . We discussed the importance of weight loss for optimizing fertility and outcomes. Routine Testing Fertility Center STDs Within 1 year Genetic carrier Waiver/Completed T&S Within 1 year AMH Within 1 year TSH Within 1 year Rubella/Varicella Within 5 years PLAN Orders Placed This Encounter Procedures Antimullerian Hormone (Amh) TSH with reflex to Free T4 if abnormal Prolactin Testosterone,Free and Total Dhea-Sulfate 17-Hydroxyprogesterone Hemoglobin A1C Progesterone Type And Screen Rubella Antibody, Igg Varicella Zoster Antibody, Igg GENETIC SCREENING PATIENT Waiver PARTNER Yes Semen Analysis: Completed previous Yes Genetic screening: Waiver FOLLOW UP Consults: Weight Management consult Chart to primary nurse for care coordination and patient check list/education Enroll in Engaged MD Take vitamins, vitamin D 2000 IUs daily Discussed that pap and mammogram must be updated per ACOG guidelines before treatment can begin Discussed that treatment cannot proceed until checklist items are complete 6 week follow up with Any provider Additional testing for BMI < 18 or > 40: Will complete when ready to start fertility treatments MD Completion: Ectopic Risk: No Medically Complex: Yes obesity Fertility Plan Update: Plan to work on weight loss for at least 6 months Recommend GLP1 agonist or other mediical route. Can consider bariatric surgery Once weight loss (5-10% body weight minimum, recommend BMI <45 ideal) achieved can try ovulation induction with letrozole If no success would consider FET with remaining embryos After that can consider IVF again (retrieval) Counseled about contraception and menstrual cycle management- patient would like to try OCP; counseled about increased risks of DVT/PE with estrogen-containing OCP Roslyn Rodriguez 12/10/2023 9:38 AM documented in this encounter [facility] Work Phone: History of Present illness Narrative 09-14-2023 Luiza Hernandez APRN-TARUN - 09/14/2023 8:00 AM EDT Note Date [...] rhinorrhea present. Rhinorrhea is clear. Mouth/Throat: Lips: [place]. Mouth: Mucous membranes are moist. Pharynx: Oropharynx [...] Eustachian tube, unspecified laterality Acute rhinosinusitis - fnmrjrfpiawicsj-uomqvoirc-KA 2-30-10 mg/5 mL syrup; Take 5-10 mL by mouth 4 (four) times a day as needed for congestion for up to 10 days. - ipratropium (ATROVENT) 21 mcg (0.03 %) nasal spray; Administer 2 sprays into each nostril 3 (three) times a day for 10 days. Orders Placed or Reconciled This Encounter Medications axqjrkjdmuxryhl-nzggdojii-[id number] 2-30-10 mg/5 mL syrup Sig: Take 5-10 [...] Department for further care immediately. ABDOUL Pate 09/14/2324 documented in this encounter [facility] Instructions 09-14-2023 Patient InstructionsAttachments Note Date & [...] through Care Everywhere.Eustachian Tube Problems Discharge Instructions (Ecuadorean)documented in this encounter [facility] Evaluation note Note Date & Type Note Facility Evaluation note No assessment information [facility] Work Phone: Evaluation note Note Date & Type Note Facility Evaluation note Diagnosis Dysfunction of Eustachian tube, unspecified laterality- Primary Acute rhinosinusitis documented in this encounter [facility] Evaluation note Note Date & Type Note Facility Evaluation note Diagnosis Secondary oligomenorrhea- Primary [place] or infrequent menstruation Fertility testing Screening for thyroid disorder Screening for diabetes mellitus Encounter for screening for other viral diseases Encounter for Rh blood typing Encounter for blood typing Screening for STDs (sexually transmitted diseases) Screening examination for venereal disease Screening for genetic disease carrier status Class 3 severe obesity due to excess calories with body mass index (BMI) of 50.0 to 59.9 in adult, unspecified whether serious comorbidity present (Multi) [E66.01, Z68.43] documented in this encounter [facility] Work Phone: Evaluation note Note Date & Type Note Facility Evaluation note Diagnosis BMI 50.0-59.9, adult (Multi)- Primary Encounter for weight management Super obesity documented in this encounter [facility] Work Phone: History of Present illness Narrative Claudia Kern MD - 12/22/2023 2:30 PM EDT Note Date & Type Note Facility History of Present illness Narrative Patient is seen at the request of Dr. Rodriguez for my opinion regarding weight management. My final recommendations will be communicated back to the requesting provider by way of shared medical record. NEW: Virtual: Holli Fischer is a 33 y.o. female with a hx of PCOS, insulin resistance, infertility who presents for weight management and obesity. Referral by Dr. Rodriguez 1. Weight history: Has struggled with weight since high school. --Any previous programs: Tried WW in high school- lost 30-40lb, 2. 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 Exercise: swims, rides bike and walks dogs 5. Appetite control: Has a problem with portion control Doing IF, stops eating after 9pm and starts eating at noon Lunch: salad/lunch meat/ chicken tenders with mac and cheese/ hard boiled eggs Dinner: protein with vegetable and carb Take out: pizza once a week Drinks: water/ coffee a couple days in the morning/ occasionally diet pop Alcohol: occasionally Any personal history of pancreatitis?: no Any personal or family history of medullary thyroid cancer or MEN (multiple endocrine neoplasia)?: no Current Outpatient Medications: norgestimate-ethinyl estradioL (Sprintec, 28,) 0.25-35 mg-mcg tablet, Take 1 tablet by mouth once daily. (Patient not taking: Reported on 12/22/2023), Disp: 28 tablet, Rfl: 12 ROS: System: normal Eyes : no visual changes Neck : no tenderness, no new lumps/bumps Respiratory : no SOB Cardiovascular : no chest pain, no palpitations Gastro-Intestinal : no abdominal concerns Neurological : no numbness or tingling in the extremities Musculoskeletal : no joint paint, no muscle pain Skin : no unusual rashes Psychiatric : no depression, no anxiety See HPI for Endocrine ROS Past Medical History: Diagnosis Date Insulin resistance Polycystic ovary syndrome Past Surgical History: Procedure Laterality Date HYSTEROSCOPY Bilateral TONSILLECTOMY Social History Socioeconomic History Marital status: Spouse name: Not on file Number of children: Not on file Years of education: Not on file Highest education level: Not on file Occupational History Not on file Tobacco Use Smoking status: Never Smokeless tobacco: Never Substance and Sexual Activity Alcohol use: Yes Comment: Occassionally Drug use: Never Sexual activity: Not on file Other Topics Concern Not on file Social History Narrative Not on file Social Determinants of Health Financial Resource Strain: Low Risk (07/15/2022) Received from [facility] Overall Financial Resource Strain (CARDIA) Difficulty of Paying Living Expenses: Not hard at all Food Insecurity: No Food Insecurity (05/25/2023) Received from [facility] [place] Hunger Screening Within the past 12 months we worried whether our food would run out before we got money to buy more.: Never True Within the past 12 months the food we bought just didn't last and we didn't have money to get more.: Never True Transportation Needs: Not on file Physical Activity: Not on file Stress: Not on file Social Connections: Not on file Intimate Partner Violence: Not on file Housing Stability: Not on file Objective Physical Exam: Last menstrual period 11/04/2023. Video Exam (Examination performed via Video enabled technology) General appearance: alert, oriented, pleasant, in NAD : yes Ill appearing : no Lethargic appearing : no Respiratory distress : no Assessment/Plan Barbara Fischer is a 33 y.o. female with a hx of PCOS, insulin resistance, infertility who presents for weight management and obesity. 1. Weight Management : Reviewed the principles of energy metabolism, caloric intake and expenditure, and rationale for a treatment program. Also reinforced need for reduced calorie, low fat diet and increased physical activity. We reviewed the possibility of starting an interdisciplinary lifestyle intervention program involving improvement of the diet, a personalized exercise program, efforts to reduce the stress and the possibility of using appetite suppressant medications in an effort to help with the weight loss process. The patient expressed interest in the plan. 2. Nutrition : I discussed trying one of the diet approaches we have here in the program : Mediterranean lifestyle, ketosis diet. The patient will be referred to the Associate Programmer for education on their diet of choice. The dietary booklet was provided in the visit today. 12/22/23: 330lb, 54.91kg/m2 3. 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 Exercise : swims, rides bike and walks dogs 6. Appetite : check hga1c Discussed AOMs She will wait on re-attempting IVF until she loses weight. Follow up in a group visit. Claudia Kern MD documented in this encounter [facility] Work Phone: Reason for referral (narrative) Consultation (Routine) - Authorized Note Date & Type Note Facility Reason for referral (narrati ve) Specialty Diagnoses / Procedures Referred By Pily lott Referred To Contact Nutrition Diagnoses BMI 50.0-59.9, adult (Multi) Claudia Orozco MD [address] [facility] [address] [place] [address] Referral ID Status Reason Start Date Expiration Date Visits Requested Visits Authorized [id number] Authorized Specialty Services Required 12/22/2023 12/21/2024 1 1 [facility] Work Phone: Summary Purpose Family History No Family History Records FoundNo Family History Records FoundNo Family History Records FoundNo Family History Records FoundNo Family History Records FoundNo Family History Records Found Advance Directives Advance Directive Response Recorded Date/ Time Advance Directives No August 28 11:00am Chief Complaint and Reason for Visit Chief Complaint left ear pain, runny nose, congestion, cough Additional Source Comments Care Teams (unrecognized sec tion and content) [facility] Relationship Specialty Start [place] [address] [address] PCP - General Family Medicine 04/01/16 Team Status: Active Member Role Status Dates Out[facility] Primary Care Provider Active Team Status: Inactive Member Role Status Dates MARLI MasonC Attending Provider Active S tart: August 29, 2023 End: August 29, 2023 [facility] Primary Care Provider Active Start: August 29, 2023 End: August 29, 2023 [facility] Relationship Specialty Start [place] [address] [address] PCP - General Family Medicine 07/23/19 INFORMATION SOURCE (unrecogn ized section and content) DATE CREATED AUTHOR 10/05/2022 [facility] DATE CREATED AUTHOR AUTHOR'S ORGANIZ ATION 05/22/2023 [facility] EPIC DATE CREATED AUTHOR AUTHOR'S ORGANIZ ATION 08/20/2023 [facility] DATE CREATED AUTHOR AUTHOR'S ORGANIZ ATION 09/14/2023 [facility] DATE CREATED AUTHOR AUTHOR'S ORGANIZ ATION [facility] DATE CREATED AUTHOR AUTHOR'S ORGANIZ ATION 04/01/2024 [facility] Ambulatory Goals (unrecognized section and content) Goals may [...] by patientSinus irritation started 1 week ago. Reason Comments [facility] Fertility Consultation Reason Comments Consult Weight management FOR RECORDS PERTAINING TO PATIENTS WHO ARE [...] BE BASED ON THE PRIMARY CLINICAL RECORDS. [employer] provides no warranty or guarantee of the accuracy or completeness of information in this document.
[2024-06-11 04:07] LABS: Progesterone 0.2 ng/mL (.)
== END 2024-06-10 07:08 | disposition home or self-care (01) ==
LOC: LAB 07:09
PROVIDERS: PCP Family Medicine; Visit Provider Obstetrics & Gynecology
DX: E28.2 Polycystic ovarian syndrome (principal)
CPT/HCPCS: 36415; 84144

== ENCOUNTER 2024-08-01 08:07 | Outpatient (OUT) | payer OTHER, SELFPAY ==
--- OUTSIDE RECORDS SUMMARY | 2024-08-01 08:23 | XMS_ITS | CCD ---
Author Organization [facility] Care Team Providers Care Supervisor Steffen House Name Role Phone Kurtis Bedolla MD Primary Care Provider [phone] WILBER ., DR LOPEZ Admitting Unavailable WILBER ., DR LOPEZ Attending Unavailable [facility] VAZQUEZ Primary Care Unavailable WILBER ., DR LOPEZ Consulting Unavailable KURTIS BEDOLLA Attending Unavailable JESSICA MARTINEZ Attending Unavailable Kurtis Bedolla MD Primary Care Provider KURTIS BEDOLLA Referring Unavailable KURTIS BEDOLLA Primary Care Unavailable LUIZA HERNANDEZ Attending Unavail able ROSLYN RODRIGUEZ Attending Unavailable Unavailable Primary Care Provider UnavailKurtis Newman MD Primary Care Provider CLAUDIA OROZCO Attending PHIL Wilkinson Attending Unavailable CLAUDIA OROZCO Referring Allyv ailKurtis Breaux MD Primary Care Provider BARTOLOME BREWSTER Referring Unavailable KURTIS BEDOLLA Primary Care Unavailable Medications Current Medications Medication Drug Class(es) Dates Sig (Normalized) Sig (Original) [id number] 200 actuat albuterol 0.09 mg/actuat metered dose inhaler (1 source) beta2-Adrenergic Agonist Start: 05-24-20 take 1-2 puff(s) by mouth every four to six hours as needed for cough albuterol sulfate HFA (PROVENTIL;VENTOLIN;WY OAIR) 108 (90 Base) MCG/ACT inhaler INHALE 1 TO 2 PUFFS BY MOUTH EVERY 4 TO 6 HOURS NEEDED FOR WHEEZING FOR COUGH FOR SHORTNESS OF BREATH 05/24/2024 Active brompheniramine maleate 0.4 mg/ml / dextromethorphan hydrobromide 2 mg/ml / pseudoephedrine hydrochloride 6 mg/ml oral solution (1 source) alpha-Adrenergic Agonist, Uncompetitive A-rsqfuf-O-asparta te Receptor Antagonist, Sigma-1 Agonist Start: 09-14-19 End: 09-24-19 24 take 5-10 mL by [...] Active medroxyPROGESTERone acetate 10 mg oral tablet (3 sources) Progestin Start: 08-29-19 Medroxyprogesterone Active MG PO August 29, 2023 12:00am Start: 04-03-2021 take 1 tablet by clifford th once daily in the morning medroxyPROGESTERone (PROVERA) 10 MG tablet Take 1 tablet by mouth every morning 07/06/2023 Active 24 hr metFORMIN hydrochlorid e 500 [...] 1 tablet by mouth. 0 07/13/2020 Active Tirzepatide (MOUNJARO) 7.5 MG/0.5ML SOAJ (1 source) Start: 01-23-2024 Tirzepatide (M OUNJARO) 7.5 MG/0.5ML SOAJ Inject into the skin 01/23/2024 Active Problems Active Problems Problem Classification Problem Date Documented Date Episodic/Chronic Contraceptive and procreative management (3 sources) Encounter for fertility testing; Translations: [Patient encounter status] Onset: 12-10-2023 Episodic Female infertility (4 sources) Female infertility associated with anovulation; Translations: [FE INFERTILITY ASSOC W/ANOVULATION] Onset: 09-30-2022 Chronic Headache; including migraine (3 sources) Migraine with aura; Translations: [Migraine with aura, not intractable, without status migrainosus] Onset: 05-05-2023 05-05-2023 Chronic Immunizations and screening for infectious disease (8 sources) Encounter for screening for other viral diseases; Translations: [Encounter for screening for infections with a predominantly sexual mode of transmission] Onset: 12-10-2023 Episodic Menstrual disorders (7 sources) Irregular periods; Translations: [Irregular menstruation, unspecified] Onset: 10-19-2019 10-19-2019 Chronic Other endocrine disorders (4 sources) Polycystic ovary syndrome; Translations: [Polycystic ovarian syndrome] [...] obesity; Translations: [Obesity, unspecified] 12-22-2023 Chronic Other nutritional; endocrine; and metabolic disorders (3 sources) Obesity caused by energy imbalance; Translations: [Morbid (severe) obesity due to excess calories] Onset: 05-05-2023 05-05-2023 Chronic Other nutritional; endocrine; and metabolic disorders (2 sources) Obesity, unspecified; Translations: [Obesity, unspecified] Onset: 12-22-2023 Chronic Other screening for suspected conditions [...] Da te Episodic/Chronic Administrative/social admission (3 sources) Patient encounter status; Translations: [Persons encountering health services in other specified circumstances] Onset: 12-22-2023 12-22-2023 Episodic Unclassified (1 source) Onset: 03-06-2021 03-06-2021 Results Test Name Value Interpretation Reference Range Facility HPV DNA High Riskon 07-20-19 25 HPV Interp Normal [facility] Comment on above: Result Comment: This test [...] purposes. Performed By: #### H PVH #### [facility] [address] [place] [id number] Psychological Operations Officer: Gopi Yoder MD HPV Type 16 Not detected Normal [facility] Comment on above: Performed By: #### H PVH #### [facility] [address] [place] [id number] Psychological Operations Officer: Gopi Yodre MD HPV Type 18 Not detected Normal [facility] Comment on above: Performed By: #### H PVH #### [facility] [address] [place] [address] Psychological Operations Officer: Gopi Yoder MD Other High Risk HPV Not detected Normal [facility] Comment on above: Performed By: #### H PVH #### [facility] [address] [place] [address] [phone] Psychological Operations Officer: Gopi Yoder MD PT HPV DNA HIGH RISKon [facility] HPV INTERP [facility] Comment on above: This test amplifies and detects DNA of [...] sexual abuse or for other forensic purposes. PT HPV SAMPLE .THIN PREP [facility] HPV TYPE 16 Not detected NOTWAT [facility] HPV TYPE 18 [facility] OTHER HIGH RISK [facility] Original Ordering Provider: BARTOLOME BREWSTER [facility] HPV DNA High Riskon 07-19-19 25 HPV Sample .THIN PREP Normal [facility] Comment on above: Performed By: #### H PVH #### [facility] [employer] [address] [place] [address] [phone] Psychological Operations Officer: Gopi Yoder MD Source CERVICAL MATERIAL Normal [facility] Comment on above: Performed By: #### H PVH #### [facility] [employer] [address] [place] [address] [phone] Psychological Operations Officer: Gopi Yoder MD Cytology Reporton 07-18-2024 Cytology report Cyto stain.thin prep Doc (Cvx/Vag) (NOTE) Path Number: [id number] DIAGNOSIS Imaged ThinPrep Pap - Cervical (1 monolayer slide): Specimen Adequacy: Satisfactory for evaluation. - Endocervical/transfo rmation zone component present. Descriptive Diagnosis: Negative for intraepithelial lesion or malignancy. Comments: Specimen was screened at [facility], [address] [place] [phone] [employer] Screener: CS Rescreened By: HOOD Electronically Signed Out LUCIANO Hinojosa(ASCP) hood/07/25/2024 Procedure/Addendum HPV Procedure Report Date Ordered: 07/19/2024 Status: Signed Out Date Complete: 07/20/2024 By: System Interface Date Reported: 07/20/2024 Sample: HPV Type 16 Result: Not Detected Ref Range: Not Detected Sample: HPV Type 18 Result: Not Detected Ref Range: Not Detected Sample: Other High Risk HPV Result: Not Detected Ref Range: Not Detected Sample: HPV Interp Result: Ref Range: This test amplifies and detects DNA of [...] or for other forensic purposes. Performed at [facility], [address] [place] [address] . Source of Specimen: A: Imaged ThinPrep Pap - Cervical (1 monolayer slide) HPV Reflex?............. .........HPV Regardless Clinical History Z01.419 Routine raw products director exam without abnormal findings Z11.51 Encounter for screening for HPV Processing Lab: [facility] [address] [place] [address] Interpretation performed at [facility], [facility] [place] [address] This Pap Test has been evaluated with [...] GYNECOLOGIC CYTOLOGY REPORT Patient Name: BARBARA FISCHER [facility] Rec: [id number] [facility] [employer] ANATOMIC PATHOLOGY [facility]. [place], [place] [address] Normal [facility] ALL PROGESTERONEon PROGESTERONE 0.2 ng/mL . [facility] Comment on above: Follicular phase 0.1 - 0.9 Luteal phase 1.8 - 23.9 Ovulation phase 0.1 - 12.0 First trimester 11.0 - 44.3 Second trimester 25.4 - 83.3 Third trimester 58.7 - 214.0 Postmenopausal 0.0 - 0.1 Performed at: [facility] [address] [phone] Psychological Operations Officer: Michel Carlos PhD, Phone: [phone] [facility] Influenza virus B Ag [Presen ce] in Upper respiratory specimen by Rapid immunoassayon 08-29-2023 FLUBV Ag IA.rapid Ql (Nph) Negative [facility] No Panel Informationon 08-28 Influenza Type A (Rapid) Negative [facility] POC SARS CoV-2 Antigen Negative [facility] No Panel InformationOrdered By: Polly Jurado on 08-29-2023 Quick Strep (POC) [facility] PROGESTERONEon 10-01-2022 Progesterone 0.2 ng/mL Normal [facility] Comment on above: Result Comment: Foll icular phase 0.1 - 0.9 Luteal phase 1.8 - 23.9 Ovulation phase 0.1 - 12.0 First trimester 11.0 - 44.3 Second trimester 25.4 - 83.3 Third trimester 58.7 - 214.0 Postmenopausal 0.0 - 0.1 Performed By: #### P LORRI #### [facility] [address] [place], [place] [address] Dr. Ruth Conte Vital Signs Date Time Vital Sign Value Performing Clinician Lisa ugarte 12-22-2023 12:17-040 Body height 165.1 cm Claudia Kern MD Work Phone: [facility] 12-22-2023 12:17-0400 Body mass index (BMI) [Ratio] 54.91 kg/m2 Claudia Kern MD Work Phone: [facility] 12-22-2023 12:17-0400 Body weight 149.69 kg Claudia Kern MD Work Phone: [facility] 12-10-2023 09:24-0400 Body height 165.1 cm Roslyn Rodriguez MD Work Phone: [facility] 12-10-2023 09:24-0400 Body mass index (BMI) [Ratio] 54.91 kg/m2 Roslyn Rodriguez MD Work Phone: [facility] 12-10-2023 09:24-0400 Body weight 149.69 kg Roslyn Rodriguez MD Work Phone: [facility] 12-10-2023 09:24-0400 Diastolic blood pressure 76 mm[Hg] Roslyn Rodriguez MD Work Phone: [facility] 12-10-2023 09:24-0400 Heart rate 47 /min Roslyn Rodriguez MD Work Phone: [facility] 12-10-2023 09:24-0400 Systolic blood pressure 116 mm[Hg] Roslyn Rodriguez MD Work Phone: [facility] 09-14-2023 08:08-0400 Body mass index (BMI) [Ratio] 54.91 kg/m2 Luiza Hernandez SOLE CONDITIONER-LUMBER KILN OPERATOR Work Phone: [facility] 09-14-2023 08:08-0400 Body temperature 97.5 [degF] Luiza Hernandez SOLE CONDITIONER-LUMBER KILN OPERATOR Work Phone: [facility] 09-14-2023 08:08-0400 Body weight 149.69 kg Luiza Hernandez SOLE CONDITIONER-LUMBER KILN OPERATOR Work Phone: [facility] 09-14-2023 08:08-0400 Diastolic blood pressure 84 mm[Hg] Luiza Hernandez SOLE CONDITIONER-LUMBER KILN OPERATOR Work Phone: [facility] 09-14-2023 08:08-0400 Heart rate 72 /min Luiza Hernandez SOLE CONDITIONER-LUMBER KILN OPERATOR Work Phone: [facility] 09-14-2023 08:08-0400 Respiratory rate 18 /min Luiza Hernandez SOLE CONDITIONER-LUMBER KILN OPERATOR Work Phone: [facility] 09-14-2023 08:08-0400 SaO2% (BldA) [Mass fraction] 100 % Luiza Hernandez SOLE CONDITIONER-LUMBER KILN OPERATOR Work Phone: [facility] 09-14-2023 08:08-0400 Systolic blood pressure 113 mm[Hg] Luiza Hernandez SOLE CONDITIONER-LUMBER KILN OPERATOR Work Phone: [facility] 08-29-2023 11:25-0400 Body height 165.1 cm [facility] [place] [facility] 08-29-2023 11:25-0400 Body mass index (BMI) [Ratio] 54.1 kg/m2 [facility] 08-29-2023 11:25-0400 Body temperature 98 [degF] [facility] 08-29-2023 11:25-0400 Body weight 147.41 kg [facility] [place] [facility] 08-29-2023 11:25-0400 Heart rate 101 /min [facility] [place] [facility] 08-29-2023 11:25-0400 Respiratory rate 18 /min [facility] 08-29-2023 11:25-0400 SaO2% (BldA) [Mass fraction] 97 % [facility] Encounters Encounter Date Encounter Type Care Provider Facility Start: 07-18-2024 End: 07-18-2024 ambulatory [facility] Start: 07-18-2024 End: 07-18-2024 Encounter for gynecological examination (general) (routine) without abnormal findings [facility] Start: 07-18-2024 End: 07-18-2024 Subsequent hospital visit by physician Kurtis Bedolla MD Work Phone: [facility] Start: 07-18-2024 End: 07-20-2024 [facility] Result Encounter Generic External Data Provider [facility] External Department Unsolicited Start: 07-18-2024 End: 07-20-2024 [facility] Result Encounter Generic External Data Provider [facility] External Department Unsolicited Start: 06-10-2024 End: 06-11-2024 [facility] Result Encounter Jessica Martinez DO Work Phone: [facility] External Department Unsolicited Start: 06-10-2024 End: 06-11-2024 [facility] Result Encounter Jessica Martinez DO Work Phone: [facility] External Department Unsolicited Start: 01-14-2024 End: 01-14-2024 ambulatory [facility] Ambulatory Start: 12-22-2023 End: 12-22-2023 Office consultation new/estab patient 60 min Claudia Kern MD Work Phone: [facility] Comment on above: BMI 50.0-59.9, adult (Multi) (Primary Dx); Encounter for weight management; Super obesity Start: 12-22-2023 End: 12-22-2023 ambulatory [facility] Amb[facility] Start: 12-10-2023 End: 12-10-2023 Patient encounter procedure Roslyn Rodriguez MD Work Phone: [facility] Comment on above: Secondary oligomenor alicia (Primary [...] encounter status Roslyn Rodriguez MD Work Phone: [facility] Work Phone: Start: 12-10-2023 End: 12-10-2023 ambulatory ROSLYN Ty [facility] Start: 12-10-2023 End: 12-10-2023 Encounter for blood typing ROSLYN Ty [facility] Start: 09-14-2023 End: 09-14-2023 ambulatory KURTIS BEDOLLA [facility] Start: 09-14-2023 End: 09-14-2023 Office outpatient visit 15 minutes Luiza Hernandez SOLE CONDITIONER-LUMBER KILN OPERATOR Work Phone: [facility] Comment on above: Dysfunction of Eusta chian tube, unspecified laterality (Primary Dx); Acute rhinosinusitis Start: 08-29-2023 End: 08-29-2023 ambulatory [facility] Work Phone: Start: 08-29-2023 End: 08-29-2023 Patient encounter procedure [facility] Work Phone: Start: 05-20-2023 End: 05-20-2023 ambulatory JESSICA MARTINEZ Not Available Start: 05-05-2023 End: 05-05-2023 ambulatory KURTIS BEDOLLA Not Available Start: 09-30-2022 End: 10-01-[address] JESSICA MARTINEZ . Facility: Start: 07-15-2022 End: 07-15-2022 Subsequent hospital visit by physician Kurtis Bedolla MD Other Phone: [facility] Procedures Date Procedure Procedure Detail Performing Clinician Start: 07-18-2024 MHPT HPV DNA HIGH RISK Generic External Data Provider Start: 06-10-2024 ALL PROGESTERONE Generi c External Data Provider Start: 08-29-2023 Quick Strep (POC) Start: 07-15-2023 Microscopic observat ion [Identifier] in Cervix by Cyto stain Luiza Hernandez SOLE CONDITIONER-LUMBER KILN OPERATOR Work Phone: Start: 07-23-2021 Microscopic observat ion [Identifier] in Cervix by Cyto stain Kurtis Bedolla MD Other Phone: Plan of Treatment Date Care Activity Detail Author Start: 2040 Zoster Vaccines (1 of 2) Zoster Vaccines (1 of 2) [facility] Start: 11-27-2031 DTaP,Tdap and Td Vaccines (7 - Td or Tdap) DTaP,Tdap and Td Vaccines (7 - Td or Tdap) [facility] Start: 11-27-2031 DTaP/Tdap/Td vaccine (7 - Td or Tdap) DTaP/Tdap/Td vaccine (7 - Td or Tdap) [facility] Start: 11-27-2031 DTaP/Tdap/Td Vaccines (7 - Td or Tdap) DTaP/Tdap/Td Vaccines (7 - Td or Tdap) [facility] Start: 07-15-2028 Screening for malignant neoplasm of cervix [facility] Start: 07-15-2026 Screening for malignant neoplasm of cervix Pap Smear [facility] Start: 07-18-2025 Depression Screen Depression Screen [facility] Start: 07-18-2025 End: 07-18-2025 Patient encounter procedure 07/18/2025 8:30 AM EST Office Visit [facility] [address] [facility] [address] [place] [address] [phone] Bartolome Brewster APRN - TARUN [address] [id number] annual [facility] Comment on above: annual Start: 07-23-2024 Screening for malignant neoplasm of cervix [facility] Start: 07-18-2024 Screening for malignant neoplasm of cervix HPV (without or with Pap) [facility] Start: 05-25-2024 Adult BMI Screening Adult BMI Screening [facility] Start: 05-25-2024 Tobacco Screening Tobacco Screening [facility] Start: 02-14-2024 COVID-19 Vaccine ( season) COVID-19 [facility]ine ( [facility] Start: 02-14-2024 Influenza vaccination [facility] Start: 01-14-2024 Influenza vaccination Flu vaccine (#1) [facility] Start: 12-10-2023 End: 12-09-2024 17-Hydroxyprogesterone [Mass/volume] in Serum or Plasma 17-Hydroxyprogesterone Lab Routine Secondary oligomenorrhea Expected: 12/10/2023 (Approximate), Expires: 12/09/2024 [facility] Work Phone: Comment on above: Expected: 12/10/2023 (Approximate), Expi res: 12/09/2024 Start: 12-10-2023 End: 12-09-2024 Blood type and Indirect antibody screen panel - Blood Type And Screen Lab Routine Encounter for Rh blood typing Expected: 12/10/2023 (Approximate), Expires: 12/09/2024 [facility] Work Phone: Comment on above: Expected: 12/10/2023 (Approximate), Expi res: 12/09/2024 Start: 12-10-2023 End: 12-09-2024 Dehydroepiandrosterone sulfate (DHEA-S) [Mass/volume] in Serum or Plasma Dhea-Sulfate Lab Routine Secondary oligomenorrhea Expected: 12/10/2023 (Approximate), Expires: 12/09/2024 [facility] Work Phone: Comment on above: Expected: 12/10/2023 (Approximate), Expi res: 12/09/2024 Start: 12-10-2023 End: 12-09-2024 Hemoglobin A1c/Hemoglobin.total in Blood Hemoglobin A1C Lab Routine Screening for diabetes mellitus Expected: 12/10/2023 (Approximate), Expires: 12/09/2024 [facility] Work Phone: Comment on above: Expected: 12/10/2023 (Approximate), Expi res: 12/09/2024 Start: 12-10-2023 End: 12-09-2024 Mullerian inhibiting substance [Mass/volume] in Serum or Plasma Antimullerian Hormone (Amh) Lab Routine Fertility testing Expected: 12/10/2023 (Approximate), Expires: 12/09/2024 [facility] Service Area Work Phone: Comment on above: Expected: 12/10/2023 (Approximate), Expi res: 12/09/2024 Start: 12-10-2023 End: 12-09-2024 Progesterone [Mass/volume] in Serum or Plasma Progesterone Lab Routine Fertility testing Expected: 12/10/2023 (Approximate), Expires: 12/09/2024 [facility] Work Phone: Comment on above: Expected: 12/10/2023 (Approximate), Expi res: 12/09/2024 Start: 12-10-2023 End: 12-09-2024 Prolactin [Mass/volume] in Serum or Plasma Prolactin Lab Routine Secondary oligomenorrhea Expected: 12/10/2023 (Approximate), Expires: 12/09/2024 [facility] Work Phone: Comment on above: Expected: 12/10/2023 (Approximate), Expi res: 12/09/2024 Start: 12-10-2023 End: 12-09-2024 Rubella virus IgG Ab [Units/volume] in Serum Rubella Antibody, Igg Lab Routine Encounter for screening for other viral diseases Expected: 12/10/2023 (Approximate), Expires: 12/09/2024 [facility] Work Phone: Comment on above: Expected: 12/10/2023 (Approximate), Expi res: 12/09/2024 Start: 12-10-2023 End: 12-09-2024 Testosterone,Free and Total Testosterone,Free and Total Lab Routine Secondary oligomenorrhea Expected: 12/10/2023 (Approximate), Expires: 12/09/2024 [facility] Work Phone: Comment on above: Expected: 12/10/2023 (Approximate), Expi res: 12/09/2024 Start: 12-10-2023 End: 12-09-2024 TSH with reflex to Free T4 if abnormal TSH with reflex to Free T4 if abnormal Lab Routine Secondary oligomenorrhea Expected: 12/10/2023 (Approximate), Expires: 12/09/2024 [facility] Work Phone: Comment on above: Expected: 12/10/2023 (Approximate), Expi res: 12/09/2024 Start: 12-10-2023 End: 12-09-2024 Varicella zoster virus IgG Ab [Presence] in Serum by Immunoassay Varicella Zoster Antibody, Igg Lab Routine Encounter for screening for other viral diseases Expected: 12/10/2023 (Approximate), Expires: 12/09/2024 [facility] Work Phone: Comment on above: Expected: 12/10/2023 (Approximate), Expi res: 12/09/2024 Start: 07-15-2023 End: 07-15-2023 Patient encounter procedure 07/15/2023 Office Visit Obstetrics and Gynecology Bartolome Brewster, SOLE CONDITIONER - LUMBER KILN OPERATOR [address] [place] [address] [facility] Start: 02-13-2023 COVID-19 Vaccine ( season) COVID-19 Vaccine (3 - 2022- season) [facility] Start: 02-13-2023 COVID-19 Vaccine ( season) COVID-19 Vaccine (2022- season[facility] Start: 01-13-2022 Influenza vaccination Flu vaccine (#1) [facility] Start: 09-24-2011 Screening for malignant neoplasm of cervix [facility] Start: 2009 Hepatitis B vaccine (1 of 3 - 19+ 3-dose series) Hepatitis B vaccine (1 of 3 - 19+ 3-dose series) [facility] Start: 2009 Hepatitis B Vaccines (1 of 3 - 19+ 3-dose series) Hepatitis B Vaccines (1 of 3 - 19+ 3-dose series) [facility] Start: 2008 Adult BMI Follow Up Plan Adult BMI [facility] Up Plan [facility] Start: 2008 Hepatitis C screening [facility] Start: 2005 HIV screening HIV screen [facility] Start: 09-24-2003 Varicella vaccination Varicella Vaccines (1 of 2 - 13+ 2-dose series) [facility] Start: 09-24-2003 Varicella vaccine (1 of 2 - 13+ 2-dose series) Varicella vaccine (1 of 2 - 13+ 2-dose series) [employer] Start: 2002 Depression Screen Depression Screen [facility] Start: 2002 Depression Screening Depression Screening [facility] Start: 09-24-1991 Varicella vaccine (1 of 2 - 2-dose childhood series) Varicella vaccine (1 of 2 - 2-dose childhood series) [facility] Start: 1990 HIV screening HIV Screening [facility] Start: 1990 Lipid panel Lipid Panel [facility] Start: 1990 Yearly Adult Physical Yearly Adult Physical [facility] Immunizations Immunization Date Immunization Notes Care Provider Fa cilimarcio 09-17-1995 diphtheria, tetanus toxoids and acellular pertussis vaccine Kurtis Bedolla MD Other Phone: [facility] Phone: 09-17-1995 poliovirus vaccine, inactivated Kurtis Bedolla MD Other Phone: [facility] Phone: 03-29-1992 diphtheria, tetanus toxoids and acellular pertussis vaccine Krutis Bedolla MD Other Phone: [facility] Phone: 03-29-1992 poliovirus vaccine, inactivated Kurtis Bedolla MD Other Phone: [facility] Phone: 12-26-1991 Hib, unspecified Kurtis lopez MD Other Phone: [facility] Phone: 12-26-1991 measles, mumps and rubella virus vaccine Kurtis Bedolla MD Other Phone: [facility] Phone: 03-31-1991 diphtheria, tetanus toxoids and acellular pertussis vaccine Kurtis Bedolla MD Other Phone: [facility] Phone: 03-31-1991 Hib, unspecified Kurtis lopez MD Other Phone: [facility] Box Phone: 01-25-1991 diphtheria, tetanus toxoids and acellular pertussis vaccine Kurtis Bedolla MD Other Phone: [facility] [employer] Phone: 01-25-1991 Hib, unspecified Kurtis lopez MD Other Phone: [facility] Box Phone: 01-25-1991 poliovirus vaccine, inactivated Kurtis Bedolla MD Other Phone: [facility] Box Phone: 1990 diphtheria, tetanus toxoids and acellular pertussis vaccine Kurtis Bedolla MD Other Phone: [facility] 1990 Hib, unspecified Kurtis lopez MD Other Phone: [facility] Box Phone: 1990 poliovirus vaccine, inactivated Kurtis Bedolla MD Other Phone: [facility] Box Phone: Payers Date Payer Category Payer Private Health Insurance [facility] Activity [employer]ocket [id number] 2021 Unknown [id number] 2021 Unknown [id number] 1990 Unknown [id number] [id number]. 2.593 1990 Unknown [id number] [id number]. 2.1259 1990 Unknown [id number] [id number]. 2.1259 1990 Unknown [id number] [id number]. 2.1286 1990 Unknown [id number] [id number]. 2.1245 1990 Unknown [id number] [id number]. 2.1244 1990 Unknown [id number] [id number]. 2.1244 1990 Unknown [id number]. [id number] 1959 Unknown [id number] Social History Date Type Detail Facility Start: 05-05-2023 End: 08-29-2023 Tobacco smoking status [facility] Never smoked tobacco [facility] Start: 07-15-2022 End: 05-20-2023 Alcohol intake Current drinker of alcohol (finding) [facility] Phone: Start: 07-15-2022 History SDOH Financial 5 [facility] [employer] Phone: Start: 07-15-2022 History SDOH Food Worry 1 [employer] Phone: Start: 07-15-2022 Alcohol Comment I may have one drink every couple weeks [facility] Work Phone: Start: 1990 Sex Assigned At Not on file [facility] [employer] Phone: Start: 1990 Sex Assigned At Female [facility] Start: 03-06-2021 End: 05-05-2023 Tobacco use and exposure Smokeless tobacco non-user [facility] [employer] Start: 05-05-2023 End: 09-14-2023 History of Social function [facility] [employer] Start: 05-05-2023 End: 09-14-2023 Tobacco use panel [facility] Unknown [facility] Start: 03-06-2021 Gender identity Identifies as female gender (finding) [facility] Start: 03-06-2021 Sexual orientation Heterosexual (finding) [facility] Start: 12-10-2023 Alcohol Comment Occassionally [facility] Work Phone: Start: 11-30-2023 End: 12-22-2023 Exposure to SARS-CoV-2 (event) Not sure [facility] Start: 05-06-2023 Alcohol Comment caffeine: 1-2 cups per day iced tea, coffee, diet pop [facility] (I/We) worried wheth er (my/our) food would run out before (I/we) got money to buy more. 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 Prior fertility history: None PMH: None PSH: None Smoking: None Alcohol Use: None Drug Use: None Medications: None Injuries: None STD: Have you ever been diagnosed with a sexually transmitted disease?: No Please select all that are applicable: SA: SA Results: Done in 2020 Was told normal FAMILY HISTORY No [...] 12/10/2023 9:38 AM documented in this encounter [facility] Work Phone: Instructions 12-10-2023 Patient Instructions Note [...] 12/10/2023 9:38 AM documented in this encounter [facility] Work Phone: History of Present illness Narrative 09-14-2023 Luiza Hernandez APRN-LUMBER KILN OPERATOR - 09/14/2023 8:00 AM EDT Note Date [...] rhinorrhea present. Rhinorrhea is clear. Mouth/Throat: Lips: [place]. Mouth: Mucous membranes are moist. Pharynx: Oropharynx [...] Eustachian tube, unspecified laterality Acute rhinosinusitis - harenjzoviivces-btioovffv-ON 2-30-10 mg/5 mL syrup; Take 5-10 mL by mouth 4 (four) times a day as needed for congestion for up to 10 days. - ipratropium (ATROVENT) 21 mcg (0.03 %) nasal spray; Administer 2 sprays into each nostril 3 (three) times a day for 10 days. Orders Placed or Reconciled This Encounter Medications emyrkarcrqlwosx-ibmahqbwl-YF 2-30-10 mg/5 mL syrup Sig: Take 5-10 [...] Pate 09/14/23 0824 documented in this encounter [facility] [employer] Instructions 09-14-2023 Patient InstructionsAttachments Note Date & [...] through Care Everywhere.Eustachian Tube Problems Discharge Instructions ([place]enezuelan)documented in this encounter [facility] Evaluation note Note Date & Type Note Facility Evaluation note No assessment information availa [facility] Work Phone: Evaluation note Note Date & Type Note Facility Evaluation note Diagnosis Dysfunction of Eustachian tube, unspecified laterality- Primary Acute rhinosinusitis documented in this encounter [facility] Evaluation note Note Date & Type [...] (Multi) [E66.01, Z68.43] documented in this encounter [facility] Work Phone: Evaluation note Note Date & Type Note Facility Evaluation note Diagnosis BMI 50.0-59.9, adult (Multi)- Primary Encounter for weight management Super obesity documented in this encounter [facility] Work Phone: History of Present illness Narrative [...] Resource Strain: Low Risk (07/15/2022) Received from [facility] Overall Financial Resource Strain (CARDIA) Difficulty of Paying Living Expenses: Not hard at all Food Insecurity: No Food Insecurity (05/25/2023) Received from [facility] Hunger Screening Within the past 12 months [...] The patient will be referred to the Wastewater Technician for education on their diet of choice. [...] Claudia Kern MD documented in this encounter [facility] Work Phone: Reason for referral (narrative) Consultation (Routine) - Authorized Note Date & Type Note Facility Reason for referral (narrati ve) Specialty Diagnoses / Procedures Referred By Pily t Referred To Contact Nutrition Diagnoses BMI 50.0-59.9, adult (Multi) Claudia Orozco MD [address] [facility] [address] [place] [address] Referral ID Status Reason Start Date Expiration Date Visits Requested Visits Authorized [id number] Authorized Specialty Services Required 12/22/2023 12/21/2024 1 1 [facility] Work Phone: Summary Purpose Family History No [...] Care Teams (unrecognized sec tion and content) Supervisor Steffen House Relationship Specialty Start Date End Date Kurtis Bedolla MD [address] [address] PCP - General Family Medicine 04/01/16 Team Status: Active Member Role Status Dates Outreach [facility] Primary Care Provider Active Team Status: Inactive Member Role Status Dates MARLI MasonC Attending Provider Active S tart: August 29, 2023 End: August 29, 2023 Outreach Community Primary Care Provider Active Start: August 29, 2023 End: August 29, 2023 Supervisor Steffen House Relationship Specialty [place] [id number] [address] PCP - General Family Medicine 07/23/19 Supervisor Steffen House Relationship Specialty Start [place] [address] [address] PCP - General Family Medicine 10/21/22 Supervisor Steffen House Relationship Specialty Start Date End Date Kurtis Bedolla MD PCP - General Family Medicine 04/01/16 INFORMATION SOURCE (unrecogn ized section and content) DATE CREATED AUTHOR 10/05/2022 [facility] DATE CREATED AUTHOR AUTHOR'S ORGANIZ ATION 05/22/2023 [facility] EPIC DATE CREATED AUTHOR AUTHOR'S ORGANIZ ATION 09/14/2023 [facility] DATE CREATED AUTHOR AUTHOR'S ORGANIZ ATION 12/11/2023 [facility] DATE CREATED AUTHOR AUTHOR'S ORGANIZ ATION 06/25/2024 [facility] DATE CREATED AUTHOR AUTHOR'S ORGANIZ ATION 07/26/2024 [facility] Goals (unrecognized section and content) Goals may [...] BE BASED ON THE PRIMARY CLINICAL RECORDS. [employer] provides no warranty or guarantee of the accuracy or completeness of information in this document.
[2024-08-01 08:59] LABS: HCG Quantitative <1 mIU/mL
== END 2024-08-01 08:08 | disposition home or self-care (01) ==
LOC: LAB 08:09
PROVIDERS: PCP Family Medicine
DX: N94.6 Dysmenorrhea, unspecified (principal)
CPT/HCPCS: 36415; 84702

== ENCOUNTER 2024-09-17 07:58 | Outpatient (OUT) | payer OTHER, SELFPAY ==
--- OUTSIDE RECORDS SUMMARY | 2024-09-17 08:02 | XMS_ITS | CCD ---
Author Organization [facility] Care Team Providers Care Marine Animal Trainer Name Role Phone Kurtis Bedolla MD Primary Care Provider JUAN ., DR LOPEZ Admitting Unavailable JUAN ., DR LOPEZ Attending Unavailable [facility] [place] DR VAZQUEZ Primary Care Unavailable JUAN ., DR LOPEZ Consulting Unavailable KURTIS BEDOLLA Referring Unavailable KURTIS BEDOLLA Primary Care Unavailable JOSÉ HERNANDEZ Attending Unavail able ROSLYN RODRIGUEZ Attending Unavailable Unavailable Primary Care Provider UnavailKurtis Newman MD Primary Care Provider Kurtis Bedolla MD Primary Care Provider BARTOLOME BREWSTER Referring Unavailable KURTIS BEDOLLA Primary Care Unavailable Unavailable Primary Care Provider UnavailCLAUDIA Patterson Attending Unav PHIL Hannon Attending Unavailable CLAUDIA OROZCO Referring Unav ailable CLAUDIA OROZCO Attending Unav ailable JESSICA MARTINEZ Referring Unavailable Dipika Cox LPN Unavailable Un available Medications Current Medications Medication Drug Class(es) Dates Sig (Normalized) Sig (Original) [id number] 200 actuat albuterol 0.09 mg/actuat metered dose inhaler (1 source) beta2-Adrener gic Agonist Start: take 1-2 puff(s) by mouth every four to six hours as needed for cough albuterol sulfate HFA (PROVENTIL;VENTOLIN;PRO AIR) 108 (90 Base) MCG/ACT inhaler INHALE 1 TO 2 PUFFS BY MOUTH EVERY 4 TO 6 HOURS NEEDED FOR WHEEZING FOR COUGH FOR SHORTNESS OF BREATH 05/24/2024 Active Ethinyl Estradiol / norgestimate (4 sources) Progestin, Estrogen Start: 4 End: 5 take 1 tablet by mouth once daily norgestimate-ethinyl estradioL (Sprintec, 28,) 0.25-35 mg-mcg tablet Indications: Secondary oligomenorrhea Take 1 tablet by mouth once daily. 28 tablet 12 12/10/2023 12/09/2024 Active medroxyPROGESTERone acetate 10 mg oral tablet (5 sources) Progestin Start: 4 Medroxyprogesterone Active MG PO August 29, 2023 12:00am Start: 07-06-2023 End: 06-24-2025 take 1 tablet by mouth once daily medroxyPROGESTERone (Provera) 10 mg tablet Indications: Female infertility Take 1 tablet (10 mg) by mouth once daily. Take days for 10 days each month get menses 10 tablet 06/24/2024 06/24/2025 Active 24 hr metFORMIN hydrochlorid e 500 mg extended release oral tablet (2 sources) Biguanide Start: 08-29-2023 Metformin Acti ve MG PO August 29, 2023 12:00am Start: 07-15-2021 take 2 tablets by mo [facility] twice daily, then take 2 tablets by mouth twice daily metFORMIN (GLUCOPHAGE-XR) 500 MG extended release tablet Take 2 tablets by mouth 2 times daily Take 2 tablets by mouth twice daily. 60 tablet 12 07/15/2021 Active tirzepatide (Mounjaro) 7.5 mg/0.5 mL pen injector (2 sources) Start: 06-19-2024 inject 7.5 mg by subcutaneous injection every week tirzepatide (Mounjaro) 7.5 mg/0.5 mL pen injector Indications: Constitutional obesity Inject 7.5 mg under the skin 1 (one) time per week. 2 mL 2 06/19/2024 Active Tirzepatide (MOUNJARO) 7.5 MG/0.5ML SOAJ (1 source) Start: 01-23-2024 Tirzepatide (M OUNJARO) 7.5 MG/0.5ML SOAJ Inject into the skin 01/23/2024 Active Completed/Discontinued Medications Medication Drug Class(es) Dates Sig (Normalized) Sig (Original) tirzepatide (Mounjaro) 5 mg/0.5 mL pen injector (1 source) Start: 03-30-2024 End: 08-08-2024 tirzepatide (Mounjaro) 5 mg/0.5 mL pen injector Indications: BMI 50.0-59.9, adult (Multi) Inject 5 mg under the skin every 7 days. 2 mL 2 03/30/2024 08/08/2024 Discontinued (Med List Cleanup) Problems Active Problems Problem Classification Problem Date Documented Date Episodic/Chronic Contraceptive and procreative management (4 sources) Encounter for fertility testing; Translations: [Patient encounter status] Onset: 12-10-2023 Episodic Female infertility (4 sources) Female infertility associated with anovulation; Translations: [FE INFERTILITY ASSOC W/ANOVULATION] Onset: 09-30-2022 Chronic Headache; including migraine (4 sources) Migraine with aura; Translations: [Migraine with aura, not intractable, without status migrainosus] Onset: 05-05-2023 05-05-2023 Chronic Immunizations and screening for infectious disease (9 sources) Encounter for screening for other viral diseases; Translations: [Encounter for screening for infections with a predominantly sexual mode of transmission] Onset: 12-10-2023 Episodic Menstrual disorders (9 sources) Irregular periods; Translations: [Irregular menstruation, unspecified] Onset: 10-19-2019 10-19-2019 Chronic Other endocrine disorders (6 sources) Polycystic ovary syndrome; Translations: [Polycystic ovarian [...] nutritional; endocrine; and metabolic disorders (2 sources) Severe obesity; Translations: [Morbid (severe) obesity due to excess calories] 12-10-2023 Chronic Other nutritional; endocrine; and metabolic disorders (2 sources) Body mass index 40+ - severely obese; Translations: [Body mass index (BMI) 50.0-59.9, adult] 12-22-2023 Chronic Other nutritional; endocrine; and metabolic disorders (1 source) Morbid obesity; Translations: [Obesity, unspecified] 12-22-2023 Chronic Other nutritional; endocrine; and metabolic disorders (4 sources) Obesity caused by energy imbalance; Translations: [Morbid (severe) obesity due to excess calories] Onset: 05-05-2023 05-05-2023 Chronic Other nutritional; endocrine; and metabolic disorders (1 source) Obese class III; Translations: [Class 3 obesity] 08-09-2024 Chronic Other nutritional; endocrine; and metabolic disorders (2 sources) Body mass index (BMI) 40.0-44.9, adult; Translations: [Body mass index (BMI) 40.0-44.9, adult (Multi)] Onset: 08-09-2024 Chronic Other nutritional; endocrine; and metabolic disorders (2 sources) Obesity, unspecified; Translations: [Obesity, unspecified] Onset: 12-22-2023 Chronic Other screening for suspected conditions (not mental disorders or infectious disease) (11 sources) Encounter for screening for other suspected endocrine disorder; Translations: [Encounter for screening for diabetes mellitus] Onset: 12-10-2023 Episodic Other upper respiratory infections (1 source) Acute sinusitis, unspecified; Translations: [Acute sinusitis, unspecified] Onset: 09-14-2023 Episodic Otitis media and related conditions (1 source) Unspecified Eustachian tube disorder, unspecified ear; Translations: [Unspecified eustachian tube disorder, unspecified ear] Onset: 09-14-2023 Episodic Unclassified (1 source) Earache Onset: 09-14-2023 Unclassified (1 source) Obesity, class 3; Translations: [Obesity, class 3] Onset: 08-09-2024 Past or Other Problems Problem Classification Problem Date Documented Da te Episodic/Chronic Administrative/social admission (4 sources) Patient encounter status; Translations: [Persons encountering health services in other specified circumstances] Onset: 12-22-2023 12-22-2023 Episodic Unclassified (1 source) Obesity, class 3; Translations: [Obesity, class 3] Onset: 08-09-2024 Unclassified (1 source) Onset: 09-14-2024 09-14-2024 Results Test Name Value Interpretation Reference Range Facility US PELVIC COMPLETE W/ TVon 0 08-30-2024 US PELVIC COMPLETE W/ TV EXAM: US PELVIC COMPLETE W/ TV HISTORY: PCOS, infertility. COMPARISON: None available. TECHNIQUE: Two-dimensional transabdominal grayscale ultrasound imaging of the pelvis was performed. Color flow Doppler imaging of the ovaries was also performed. Transvaginal was performed. FINDINGS: UTERUS 10.7 x 5.2 x 5.4 cm The uterus is anteverted in position and demonstrates a normal, homogeneous echotexture. ENDOMETRIUM 0.8 cm The endometrium demonstrates a normal, homogeneous echotexture. RIGHT OVARY 4.8 x 3.1 x 4.5 cm The right ovary demonstrates a normal echotexture with peripheral follicles. The ovarian volume is 35 mL. There is normal color Doppler flow. LEFT OVARY 5.6 x 3.3 x 4.9 cm The left ovary demonstrates a normal echotexture with peripheral follicles. The ovarian volume is 27 mL. There is normal color Doppler flow. No fluid is present within the cul-de-sac. IMPRESSION: 1. Bilateral peripheral ovarian follicles and an increased ovarian volume, consistent with polycystic ovarian syndrome. 2. Normal color Doppler flow within the bilateral ovaries. Electronically Signed:Electronicall y signed by GELACIO GAMEZ II, MD, PHD at 01-Sep-2024 08:42:54 AM [facility] Normal Not Available Comment on above: Order Comment: US PE LVIS-TRANSVAG IF INDICATED No LMP recorded. [facility] PREG QUANT HCGon 025 HCG QUANTITATIVE <1 mIU/mL [facility] [employer] Comment on above: 5-50 0.2-1 WEEK 50-500 1-2 WEEKS 100-5,000 2-3 WEEKS 500-10,000 3-4 WEEKS 1,000-50,000 4-5 WEEKS 10,000-100,000 5-6 WEEKS 15,000-200,000 6-8 WEEKS 10,000-100,000 2-3 MONTHS [facility] HPV DNA High Riskon 07-20-19 25 HPV Interp Normal [facility] Comment on above: Result Comment: This test [...] purposes. Performed By: #### H PVH #### [facility] [address] [place] [address] Advanced Nursing Professor: Gopi Yoder MD HPV Type 16 Not detected Normal [facility] Comment on above: Performed By: #### H PVH #### [facility] [address] [place] [address] Advanced Nursing Professor: Gopi Yoder MD HPV Type 18 Not detected Normal [facility] Comment on above: Performed By: #### H PVH #### [facility] [address] [place] [address] Advanced Nursing Professor: Gopi Yoder MD Other High Risk HPV Not detected Normal [facility] Comment on above: Performed By: #### H PVH #### [facility] [address] [place] [address] Advanced Nursing Professor: Gopi Yoder MD [facility] HPV DNA HIGH RISKon [facility] Comment on above: This test amplifies and [...] sexual abuse or for other forensic purposes. MHPT HPV SAMPLE .THIN PREP [facility] MHPT HPV TYPE 16 [facility] OTHER HIGH RISK HPV Not detected [facility] SOURCE CERVICAL MATERIAL [facility] Original Ordering Provider: [facility] High Riskon 07-19-19 25 HPV Sample .THIN PREP Normal [facility] Comment on above: Performed By: #### H PVH #### [address] [id number] Advanced Nursing Professor: Gopi Yoder MD Source CERVICAL MATERIAL Normal [facility] Comment on above: Performed By: #### H PVH #### [address] [id number] Advanced Nursing Professor: Gopi Yoder MD Cytology Reporton 07-18-2024 Cytology report Cyto stain.thin prep Doc (Cvx/Vag) (NOTE) Path Number: [id number] DIAGNOSIS Imaged ThinPrep Pap - Cervical (1 monolayer slide): Specimen Adequacy: Satisfactory for evaluation. - Endocervical/transfo rmation zone component present. Descriptive Diagnosis: Negative for intraepithelial lesion or malignancy. Comments: Specimen was screened at [facility], [address] [place] [id number] [employer] Screener: Rescreened By: HOOD Electronically Signed Out LUCIANO [...] for other forensic purposes. Performed at [facility], [address] [place] [id number] . Source of Specimen: A: Imaged ThinPrep Pap - Cervical (1 monolayer slide) HPV Reflex?............. .........HPV Regardless Clinical History Z01.419 Routine hospice spiritual care coordinator exam without abnormal findings Z11.51 Encounter for screening for HPV Processing Lab: [address] [phone] Interpretation performed at [facility], [address] [place] [address] This Pap Test has been evaluated with [...] GYNECOLOGIC CYTOLOGY REPORT Patient Name: BARBARA FISCHER [facility] Rec: [id number] [facility] [employer] [facility] [facility] ANATOMIC PATHOLOGY [address] [place] [address]. [place], [place] [address] Normal [facility] ALL PROGESTERONEon 4 PROGESTERONE 0.2 ng/mL . [facility] Comment on above: Follicular phase 0.1 - 0.9 Luteal phase 1.8 - 23.9 Ovulation phase 0.1 - 12.0 First trimester 11.0 - 44.3 Second trimester 25.4 - 83.3 Third trimester 58.7 - 214.0 Postmenopausal 0.0 - 0.1 Performed at: [facility] [id number] Advanced Nursing Professor: Michel Carlos PhD, Phone: [phone] [facility] Influenza virus B Ag [Presen ce] in Upper respiratory specimen by Rapid immunoassayon 08-29-2023 FLUBV Ag IA.rapid Ql (Nph) Negative [facility] No Panel Informationon 08-28 Influenza Type A (Rapid) Negative [facility] POC SARS CoV-2 Antigen Negative [facility] No Panel InformationOrdered By: Polly Jurado on 08-29-2023 Quick Strep (POC) [facility] PROGESTERONEon 10-01-2022 Progesterone 0.2 ng/mL Normal [facility] Comment on above: Result Comment: Foll icular phase 0.1 - 0.9 Luteal phase 1.8 - 23.9 Ovulation phase 0.1 - 12.0 First trimester 11.0 - 44.3 Second trimester 25.4 - 83.3 Third trimester 58.7 - 214.0 Postmenopausal 0.0 - 0.1 Performed By: #### P LORRI #### [facility] [address] [place] [address] Dr. Ruth Conte Vital Signs Date Time Vital Sign Value Performing Clinician Facility 09-14-2024 15:34-0400 Body height 165.1 cm Roslyn Rodriguez MD Work Phone: [facility] 09-14-2024 15:34-0400 Body mass index (BMI) [Ratio] 42 kg/m2 Roslyn Rodriguez MD Work Phone: [facility] 09-14-2024 15:34-0400 Body weight 114.49 kg Roslyn Rodriguez MD Work Phone: [facility] 08-09-2024 08:28-0500 Body height 165.1 cm Claudia Arrington MD Work Phone: [facility] 08-09-2024 08:28-0500 Body mass index (BMI) [Ratio] 44.6 kg/m2 Claudia Arrington MD Work Phone: [facility] 08-09-2024 08:28-0500 Body weight 121.56 kg Claudia Arrington MD Work Phone: [facility] 12-22-2023 12:17-0400 Body height 165.1 cm Claudia Arrington MD Work Phone: [facility] 12-22-2023 12:17-0400 Body mass index (BMI) [Ratio] 54.91 kg/m2 Claudia Arrington MD Work Phone: [facility] 12-22-2023 12:17-0400 Body weight 149.69 kg Claudia Arrington MD Work Phone: [facility] 12-10-2023 09:24-0400 Body height 165.1 cm Roslyn Rodriguez MD Work Phone: [facility] 12-10-2023 09:24-0400 Body mass index (BMI) [Ratio] 54.91 kg/m2 Roslyn Rodriguez MD Work Phone: [facility] 12-10-2023 09:24-0400 Body weight 149.69 kg Roslyn Rodriguez MD Work Phone: [facility] 12-10-2023 09:24-0400 Diastolic blood pressure 76 mm[Hg] Roslyn Rodriguez MD Work Phone: [facility] 12-10-2023 09:24-0400 Heart rate 47 /min Roslyn Rodriguez MD Work Phone: [facility] 12-10-2023 09:24-0400 Systolic blood pressure 116 mm[Hg] Roslyn Rodriguez MD Work Phone: [facility] 08-29-2023 11:25-0400 Body height 165.1 cm [facility] 08-29-2023 11:25-0400 Body mass index (BMI) [Ratio] 54.1 kg/m2 [facility] 08-29-2023 11:25-0400 Body temperature 98 [degF] [facility] 08-29-2023 11:25-0400 Body weight 147.41 kg [facility] 08-29-2023 11:25-0400 Heart rate 101 /min [facility] 08-29-2023 11:25-0400 Respiratory rate 18 /min [facility] 08-29-2023 11:25-0400 SaO2% (BldA) [Mass fraction] 97 % [facility] Encounters Encounter Date Encounter Type Care Provider Facility Start: 09-15-2024 End: 09-15-2024 Telemedicine consultation with patient Roslyn Rodriguez MD Work Phone: [facility] Comment on above: Screening for STDs ( sexually transmitted diseases) (Primary Dx); Class 3 severe obesity with body mass index (BMI) of 40.0 to 44.9 in adult, unspecified obesity type, unspecified whether serious comorbidity present; Thyroid disorder screening; Screening for diabetes mellitus; Primary oligomenorrhea; Fertility testing; PCOS (polycystic ovarian syndrome) [E28.2] Start: 08-30-2024 End: 08-30-2024 ambulatory JESSICA MARTINEZ Not Available Start: 08-09-2024 End: 08-09-2024 Office outpatient visit 40 minutes Claudia Arrington MD Work Phone: [facility] Comment on above: Class 3 obesity (Carla justino Dx); BMI 40.0-44.9, adult (Multi); Encounter for weight management Start: 08-09-2024 End: 08-09-2024 ambulatory CLAUDIA ARRINGTON [facility] Ambulatory Start: 08-01-2024 End: 08-01-2024 [facility] Result Encounter Generic External Data Provider [facility] External Department Unsolicited Start: 08-01-2024 End: 08-01-2024 [facility] Result Encounter Generic External Data Provider [facility] External Department Unsolicited Start: 07-18-2024 End: 07-18-2024 ambulatory BARTOLOME Xavier [facility] Start: 07-18-2024 End: 02-03-2025 Encounter for gynecological examination (general) (routine) without abnormal findings BARTOLOME [facility] Start: 07-18-2024 End: 07-18-2024 Subsequent hospital visit by physician Kurtis Bedolla MD Work Phone: [facility] Start: 07-18-2024 End: 07-20-2024 [facility] Result Encounter Generic External Data Provider [facility] External Department Unsolicited Start: 07-18-2024 End: 07-20-2024 [facility] Result Encounter Generic External Data Provider [facility] External Department Unsolicited Start: 06-10-2024 End: 06-11-2024 [facility] Result Encounter Jessica Juan DO Work Phone: [facility] External Department Unsolicited Start: 06-10-2024 End: 06-11-2024 [facility] Result Encounter Jessica Juan DO Work Phone: [facility] External Department Unsolicited Start: 01-14-2024 End: 01-14-2024 ambulatory [facility] Start: 12-22-2023 End: 12-22-2023 Office consultation new/estab patient 60 min Revmainor Arrington MD Work Phone: [facility] Comment on above: BMI 50.0-59.9, adult (Multi) (Primary Dx); Encounter for weight management; Super obesity Start: 12-22-2023 End: 12-22-2023 ambulatory CLAUDIA BURGER NURY [facility] Start: 12-10-2023 End: 12-10-2023 Patient encounter procedure Roslyn Rodriguez MD Work Phone: [facility] Comment on above: Secondary oligomenor alicia (Primary [...] encounter status Roslyn Rodriguez MD Work Phone: [facility] Work Phone: Start: 12-10-2023 End: 12-10-2023 amb[facility] Start: 12-10-2023 End: 12-10-2023 Encounter for blood typing ROSLYN [facility] Start: 09-14-2023 End: 09-14-2023 ambulatory KURTIS BEDOLLA [facility] Start: 08-29-2023 End: 08-29-2023 ambulatory [facility] Work Phone: Start: 08-29-2023 End: 08-29-2023 Patient encounter procedure [facility] Work Phone: Start: 09-30-2022 End: 10-01-[address] JESSCIA MARTINEZ . Facility: Start: 07-15-2022 End: 07-15-2022 Subsequent hospital visit by physician Kurtis Bedolla MD Other Phone: [facility] Procedures Date Procedure Procedure Detail Performing Clinician Start: 08-01-2024 [facility] PREG QUANT HCG Gene tatyana External Data Provider Start: 07-18-2024 Microscopic observat ion [Identifier] in Cervix by Cyto stain Claudia Arrington MD Work Phone: Start: 07-18-2024 MHPT HPV DNA HIGH RISK Generic External Data Provider Start: 06-10-2024 ALL PROGESTERONE Generi c External Data Provider Start: 08-29-2023 Quick Strep (POC) Start: 07-15-2023 Microscopic observat ion [Identifier] in Cervix by Cyto stain Jessica Martinez DO Work Phone: Start: 07-23-2021 Microscopic observat ion [Identifier] in Cervix by Cyto stain Kurtis Bedolla MD Other Phone: Plan of Treatment Date Care Activity Detail Author Start: 2040 Zoster Vaccines (1 of 2) Zoster Vaccines (1 of 2) [facility] Start: 11-27-2031 DTaP/Tdap/Td vaccine (7 - Td or Tdap) DTaP/Tdap/Td vaccine (7 - Td or Tdap) [facility] Start: 11-27-2031 DTaP/Tdap/Td Vaccines (7 - Td or Tdap) DTaP/Tdap/Td Vaccines (7 - Td or Tdap) [facility] Start: 07-15-2028 Screening for malignant neoplasm of cervix [facility] Start: 07-18-2027 Screening for malignant neoplasm of cervix [facility] Start: 07-15-2026 Screening for malignant neoplasm of cervix Pap Smear [facility] Start: 07-18-2025 Depression Screen Depression Screen [facility] Start: 07-18-2025 End: 07-18-2025 Patient encounter procedure 07/18/2025 8:30 AM EST Office Visit [facility] [address] [facility] [address] [place] [phone] Bartolome Brewster APRN - DRINK MIXER [address] [facility] [address] [place] [id number] annual [facility] Comment on above: annual Start: 02-13-2025 Influenza vaccination Influenza Vaccine (Season Ended) [facility] Start: 09-15-2024 End: 09-15-2025 CBC panel - Blood by Automated count CBC Lab Routine Class 3 severe obesity with body mass index (BMI) of 40.0 to 44.9 in adult, unspecified obesity type, unspecified whether serious comorbidity present Expected: 09/15/2024 (Approximate), Expires: 09/15/2025 [facility] Work Phone: Comment on above: Expected: 09/15/2024 (Approximate), Expi res: 09/15/2025 Start: 09-15-2024 End: 09-15-2025 Chlamydia trachomatis and Neisseria gonorrhoeae DNA [Identifier] in Unspecified specimen by ROBBY with probe detection C. trachomatis / N. gonorrhoeae, Amplified, Urogenital Lab Routine Screening for STDs (sexually transmitted diseases) Expected: 09/15/2024 (Approximate), Expires: 09/15/2025 [facility] Work Phone: Comment on above: Expected: 09/15/2024 (Approximate), Expi res: 09/15/2025 Start: 09-15-2024 End: 09-15-2025 Comprehensive metabolic 2000 panel - Serum or Plasma Comprehensive Metabolic Panel Lab Routine Class 3 severe obesity with body mass index (BMI) of 40.0 to 44.9 in adult, unspecified obesity type, unspecified whether serious comorbidity present Expected: 09/15/2024 (Approximate), Expires: 09/15/2025 [facility] Work Phone: Comment on above: Expected: 09/15/2024 (Approximate), Expi res: 09/15/2025 Start: 09-15-2024 End: 09-15-2025 Hemoglobin A1c/Hemoglobin.total in Blood Hemoglobin A1C Lab Routine Screening for diabetes mellitus Expected: 09/15/2024 (Approximate), Expires: 09/15/2025 [facility] Work Phone: Comment on above: Expected: 09/15/2024 (Approximate), Expi res: 09/15/2025 Start: 09-15-2024 End: 09-15-2025 Hepatitis B virus surface Ag [Presence] in Serum or Plasma by Immunoassay Hepatitis B surface antigen Lab Routine Screening for STDs (sexually transmitted diseases) Expected: 09/15/2024 (Approximate), Expires: 09/15/2025 [facility] Service Area Work Phone: Comment on above: Expected: 09/15/2024 (Approximate), Expi res: 09/15/2025 Start: 09-15-2024 End: 09-15-2025 Hepatitis C virus Ab [Presence] in Serum Hepatitis C Antibody Lab Routine Screening for STDs (sexually transmitted diseases) Expected: 09/15/2024 (Approximate), Expires: 09/15/2025 [facility] Work Phone: Comment on above: Expected: 09/15/2024 (Approximate), Expi res: 09/15/2025 Start: 09-15-2024 End: 09-15-2025 HIV 1+2 Ab+HIV1 p24 Ag [Presence] in Serum or Plasma by Immunoassay HIV 1/2 Antigen/Antibody Screen with Reflex to Confirmation Lab Routine Screening for STDs (sexually transmitted diseases) Expected: 09/15/2024 (Approximate), Expires: 09/15/2025 [facility] Work Phone: Comment on above: Expected: 09/15/2024 (Approximate), Expi res: 09/15/2025 Start: 09-15-2024 End: 09-15-2025 Lipid 1996 panel - Serum or Plasma Lipid Panel Lab Routine Class 3 severe obesity with body mass index (BMI) of 40.0 to 44.9 in adult, unspecified obesity type, unspecified whether serious comorbidity present Expected: 09/15/2024 (Approximate), Expires: 09/15/2025 [facility] Work Phone: Comment on above: Expected: 09/15/2024 (Approximate), Expi res: 09/15/2025 Start: 09-15-2024 End: 09-15-2025 Progesterone [Mass/volume] in Serum or Plasma Progesterone Lab Routine Primary oligomenorrhea Expected: 09/15/2024 (Approximate), Expires: 09/15/2025 [facility] Work Phone: Comment on above: Expected: 09/15/2024 (Approximate), Expi res: 09/15/2025 Start: 09-15-2024 End: 09-15-2025 Treponema pallidum IgG+IgM Ab [Presence] in Serum by Immunoassay Syphilis Screen with Reflex Lab Routine Screening for STDs (sexually transmitted diseases) Expected: 09/15/2024 (Approximate), Expires: 09/15/2025 [facility] Work Phone: Comment on above: Expected: 09/15/2024 (Approximate), Expi res: 09/15/2025 Start: 09-15-2024 End: 09-15-2024 Telemedicine consultation with patient 09/15/2024 1:30 PM EDT Telemedicine [place] [address] Roslyn Rodriguez MD [address] [place], [place] [id number] [facility] Start: 07-23-2024 Screening for malignant neoplasm of cervix [facility] Start: 07-18-2024 Screening for malignant neoplasm of cervix HPV (without or with Pap) [facility] Start: 02-14-2024 COVID-19 Vaccine () COVID-19 Vaccine () [facility] Start: 02-14-2024 COVID-19 Vaccine () COVID-19 Vaccine () [facility] Start: 02-14-2024 Influenza vaccination [facility] Start: 01-14-2024 Influenza vaccination Flu vaccine (#1) [facility] Start: 12-10-2023 End: 12-09-2024 17-Hydroxyprogesterone [Mass/volume] in Serum or Plasma 17-Hydroxyprogesterone Lab Routine Secondary oligomenorrhea Expected: 12/10/2023 (Approximate), Expires: 12/09/2024 [facility] Work Phone: Comment on above: Expected: 12/10/2023 (Approximate), Expi res: 12/09/2024 Start: 12-10-2023 End: 12-09-2024 Blood type and Indirect antibody screen panel - Blood Type And Screen Lab Routine Encounter for Rh blood typing Expected: 12/10/2023 (Approximate), Expires: 12/09/2024 [facility] Work Phone: Comment on above: Expected: 12/10/2023 (Approximate), Expi res: 12/09/2024 Start: 12-10-2023 End: 12-09-2024 Dehydroepiandrosterone sulfate (DHEA-S) [Mass/volume] in Serum or Plasma Dhea-Sulfate Lab Routine Secondary oligomenorrhea Expected: 12/10/2023 (Approximate), Expires: 12/09/2024 [facility] Work Phone: Comment on above: Expected: 12/10/2023 (Approximate), Expi res: 12/09/2024 Start: 12-10-2023 End: 12-09-2024 Hemoglobin A1c/Hemoglobin.total in Blood Hemoglobin A1C Lab Routine Screening for diabetes mellitus Expected: 12/10/2023 (Approximate), Expires: 12/09/2024 [facility] Work Phone: Comment on above: Expected: 12/10/2023 (Approximate), Expi res: 12/09/2024 Start: 12-10-2023 End: 12-09-2024 Mullerian inhibiting substance [Mass/volume] in Serum or Plasma Antimullerian Hormone (Amh) Lab Routine Fertility testing Expected: 12/10/2023 (Approximate), Expires: 12/09/2024 [facility] Work Phone: Comment on above: Expected: 12/10/2023 (Approximate), Expi res: 12/09/2024 Start: 12-10-2023 End: 12-09-2024 Progesterone [Mass/volume] in Serum or Plasma Progesterone Lab Routine Fertility testing Expected: 12/10/2023 (Approximate), Expires: 12/09/2024 [facility] Work Phone: Comment on above: Expected: 12/10/2023 (Approximate), Expi res: 12/09/2024 Start: 12-10-2023 End: 12-09-2024 Prolactin [Mass/volume] in Serum or Plasma Prolactin Lab Routine Secondary oligomenorrhea Expected: 12/10/2023 (Approximate), Expires: 12/09/2024 [facility] Work Phone: Comment on above: Expected: 12/10/2023 (Approximate), Expi res: 12/09/2024 Start: 12-10-2023 End: 12-09-2024 Rubella virus IgG Ab [Units/volume] in Serum Rubella Antibody, Igg Lab Routine Encounter for screening for other viral diseases Expected: 12/10/2023 (Approximate), Expires: 12/09/2024 [facility] Work Phone: Comment on above: Expected: 12/10/2023 (Approximate), Expi res: 12/09/2024 Start: 12-10-2023 End: 12-09-2024 Testosterone,Free and Total Testosterone,Free and Total Lab Routine Secondary oligomenorrhea Expected: 12/10/2023 (Approximate), Expires: 12/09/2024 [facility] Work Phone: Comment on above: Expected: 12/10/2023 (Approximate), Expi res: 12/09/2024 Start: 12-10-2023 End: 12-09-2024 TSH with reflex to Free T4 if abnormal TSH with reflex to Free T4 if abnormal Lab Routine Secondary oligomenorrhea Expected: 12/10/2023 (Approximate), Expires: 12/09/2024 [facility] Work Phone: Comment on above: Expected: 12/10/2023 (Approximate), Expi res: 12/09/2024 Start: 12-10-2023 End: 12-09-2024 Varicella zoster virus IgG Ab [Presence] in Serum by Immunoassay Varicella Zoster Antibody, Igg Lab Routine Encounter for screening for other viral diseases Expected: 12/10/2023 (Approximate), Expires: 12/09/2024 [facility] Work Phone: Comment on above: Expected: 12/10/2023 (Approximate), Expi res: 12/09/2024 Start: 07-15-2023 End: 07-15-2023 Patient encounter procedure 07/15/2023 Office Visit Obstetrics and Gynecology Bartolome Brewster, COMM[employer] WORKER - [employer] [address] [place] [address] [facility]etric[facility] Start: 02-13-2023 COVID-19 Vaccine ( season) COVID-19 Vaccine ( season) [facility] Start: 02-13-2023 COVID-19 Vaccine () COVID-19 Vaccine () [facility] Start: 01-13-2022 Influenza vaccination Flu vaccine (#1) [facility] Start: 09-24-2011 Screening for malignant neoplasm of cervix [facility] Start: 2009 Hepatitis B vaccine (1 of 3 - 19+ 3-dose series) Hepatitis B vaccine (1 of 3 - 19+ 3-dose series) [facility] Start: 2009 Hepatitis B Vaccines (1 of 3 - 19+ 3-dose series) Hepatitis B Vaccines (1 of 3 - 19+ 3-dose series) [facility] Start: 2008 Hepatitis C screening [facility] Start: 2005 HIV screening HIV screen [facility] Start: 09-24-2003 Varicella vaccination Varicella Vaccines (1 of 2 - 13+ 2-dose series) [facility] Start: 09-24-2003 Varicella vaccine (1 of 2 - 13+ 2-dose series) Varicella vaccine (1 of 2 - 13+ 2-dose series) [facility] Start: 2002 Depression Screen Depression Screen [facility] Start: 09-24-1991 Varicella vaccine (1 of 2 - 2-dose childhood series) Varicella vaccine (1 of 2 - 2-dose childhood series) [facility] Start: 1990 HIV screening HIV Screening [facility] Start: 1990 Lipid panel Lipid Panel [facility] Start: 1990 Yearly Adult Physical Yearly Adult Physical [facility] Immunizations Immunization Date Immunization Notes Care Provider Fa cility 09-17-1995 diphtheria, tetanus toxoids and acellular pertussis vaccine Kurtis Bedolla MD Other Phone: [facility] Phone: 09-17-1995 poliovirus vaccine, inactivated Kurtis Bedolla MD Other Phone: [facility] Phone: 03-29-1992 diphtheria, tetanus toxoids and acellular pertussis vaccine Kurtis Bedolla MD Other Phone: [facility] Phone: 03-29-1992 poliovirus vaccine, inactivated Kurtis Bedolla MD Other Phone: [facility] Phone: 12-26-1991 Hib, unspecified Kurtis lopez MD Other Phone: [facility] Phone: 12-26-1991 measles, mumps and rubella virus vaccine Kurtis Bedolla MD Other Phone: [facility] Phone: 03-31-1991 diphtheria, tetanus toxoids and acellular pertussis vaccine Kurtis Bedolla MD Other Phone: [facility] Phone: 03-31-1991 Hib, unspecified Kurtis lopez MD Other Phone: [facility] Phone: 01-25-1991 diphtheria, tetanus toxoids and acellular pertussis vaccine Kurtis Bedolla MD Other Phone: [facility] Phone: 01-25-1991 Hib, unspecified Krutis lopez MD Other Phone: [facility] Phone: 01-25-1991 poliovirus vaccine, inactivated Kurtis Bedolla MD Other Phone: [facility] Phone: 1990 diphtheria, tetanus toxoids and acellular pertussis vaccine Kurtis Bedolla MD Other Phone: [facility] 1990 Hib, unspecified Kurtis lopez MD Other Phone: [facility] Phone: 1990 poliovirus vaccine, inactivated Kurtis Bedolla MD Other Phone: [facility] Phone: Payers Date Payer Category Payer Private Health Insurance [id number] 2021 Unknown [id number] 2021 Unknown [id number] 1990 Unknown [id number] 1990 Unknown [id number] [id number] 1990 Unknown [id number] 1990 Unknown [id number] [id number] 1990 Unknown [id number] [id number]. [id number] 1990 Unknown [id number] [id number] [id number] 1990 Unknown [id number] 2.16.8 [id number] 1990 Unknown [id number] 1959 Unknown [id number] Social History Date Type Detail Facility Start: 08-29-2023 End: 12-10-2023 Tobacco smoking status KSIS Never smoked tobacco [facility] Start: 07-15-2022 End: 09-14-2024 Alcohol intake Current drinker of alcohol (finding) [facility] Work Phone: Start: 07-15-2022 History SDOH Financial 5 [facility] Work Phone: Start: 07-15-2022 History SDOH Food Worry 1 [facility] Work Phone: Start: 07-15-2022 Alcohol Comment I may have one drink every couple weeks [facility] Work Phone: Start: 1990 Sex Assigned At Not on file [facility] [employer] Work Phone: Start: 1990 Sex Assigned At Female F [facility] Start: 05-05-2023 End: 12-10-2023 Tobacco use and exposure Smokeless tobacco non-user [facility] Work Phone: Start: 12-10-2023 Alcohol Comment Occassionally [facility] Work Phone: Start: 12-10-2023 End: 09-14-2024 Gender identity Not on file [facility] Work Phone: Start: 11-30-2023 End: 12-22-2023 Exposure to SARS-CoV-2 (event) Not sure [facility] Start: 12-10-2023 End: 09-14-2024 History of Social function [facility] Work Phone: Start: 05-06-2023 Alcohol Comment caffeine: 1-2 cups per day iced tea, coffee, diet pop [facility] How hard is it for you to pay for the very basics like food, housing, medical care, and heating Not hard at all [employer] (I/We) worried whether (my/our) food would run out before (I/we) got money to buy more. Never true [employer] Start: 07-30-2024 End: 09-15-2024 Exposure to SARS-CoV-2 (event) Unable to assess [facility] Clinical Notes 12-10-2023 to 09-15-2024 Roslyn Rodriguez MD - 09/15/2024 1:30 PM EDTRevital L Bárbara Arrington MD - 08/09/2024 8:30 AM Maverick Rodriguez MD - 12/10/2023 9:15 AM EDTPatient Instructions Note Date & Type Note Facility 09-15-2024 History of Present illness Narrative Images from the original note were not included. Virtual or Telephone Consent: An interactive audio and video telecommunication system which permits real time communications between the patient (at the originating site) and provider (at the distant site) was utilized to provide this telehealth service and Verbal consent was requested and obtained from Barbara Fischer on this date, 09/15/24 for a telehealth visit. MD reviewed, Authorization status not noted. Follow Up Visit HPI Patient is a 33 y.o. female with Polycystic Ovarian Syndrome presenting today for follow up visit. Interval history- On Mounjaro and has made lifestyle modifications Goes to gym daily Has lost 75 lbs Stopped OCP- wasn't good at remembering to take Still does not get regular menses despite weight loss Has been doing Provera to induce menses Testing to date: Prior Labs- 2020 AMH- 19 PRL 22 TSH 0.99 HgA1C 5.2% O Positive -- -- -- -- -- -- -- -- -- -- -- -- -- -- ANTIBODY SCREEN -- -- -- -- -- NEGATIVE -- -- -- -- -- -- -- -- DHEA-SULFATE -- -- -- -- -- -- 184.0 -- -- -- -- -- -- -- PROLACTIN -- -- -- -- -- -- -- -- 16.7 -- -- -- -- -- VARICELLA-ZOSTER V AB, IGG -- -- -- -- -- -- -- -- -- 1,836 -- -- -- -- TESTOSTERONE -- -- -- -- -- -- -- -- -- -- 38 -- -- -- FREE TESTOSTERONE(DIRECT) -- -- -- -- -- -- -- -- -- -- 0.5 -- -- -- ANTI-MULLERIAN HORMONE (AMH) -- -- -- -- -- -- -- -- -- -- -- 19.8 Abnormal RUBELLA ANTIBODIES, IGG -- -- -- -- -- -- -- -- -- -- -- -- 3.46 -- -- 17-OH PROGESTERONE LCMS -- -- -- -- -- -- -- -- -- -- -- -- -- 41 -- HCG QUANTITATIVE <1 -- -- -- -- -- -- -- -- -- -- -- -- -- -- TSH 0.974 HgA1C 5.6% Hysterosalpingogram: None Saline Infused Sonography: Thinks she had this done in [place] and was told tubes patent Has had normal diagnostic hysteroscopy at [facility] -Reports she did have lysis of adhesions on a hysteroscopy prior to FETs [facility] Pelvic Ultrasound: US PELVIS (09/01/2024): FINDINGS: UTERUS 10.7 x 5.2 x 5.4 cm The uterus is anteverted in position and demonstrates a normal, homogeneous echotexture. ENDOMETRIUM 0.8 cm The endometrium demonstrates a normal, homogeneous echotexture. RIGHT OVARY 4.8 x 3.1 x 4.5 cm The right ovary demonstrates a normal echotexture with peripheral follicles. The ovarian volume is 35 mL. There is normal color Doppler flow. LEFT OVARY 5.6 x 3.3 x 4.9 cm The left ovary demonstrates a normal echotexture with peripheral follicles. The ovarian volume is 27 mL. There is normal color Doppler flow. No fluid is present within the cul-de-sac. IMPRESSION: 1. Bilateral peripheral ovarian follicles and an increased ovarian volume, consistent with polycystic ovarian syndrome. 2. Normal color Doppler flow within the bilateral ovaries. Partner SA: Aamir Fischer Partner : Partner :: 10/07/92 Done in [place] 2020 Was told normal Myriad screening: None Treatment to date: Had fertility assessment at [facility]- 2020 Was given diagnosis of PCOS Did not try IUI- went straight to IVF IVF #- 2021- 16 oocytes, 10 2pn, 4 day 5 blasts--> PGT-A 3 euploid 1 mosaic (?X chromosome) FET#- 02/2022: Programmed FET with oral estrace and IM P4--> euploid, negative FET#2- 2021- Programmed FET, added another medication (not sure what it was)--> Euploid transfer, negative Has 2 embryos remaining, 1 euploid and 1 likely mosaic Since then has tried Letrozole./Clomid and Letrozole clomid combination without ovulating Past Medical History: Diagnosis Date Insulin resistance Polycystic ovary syndrome Past Surgical History: Procedure Laterality Date HYSTEROSCOPY Bilateral TONSILLECTOMY Current Outpatient Medications on File Prior to Visit Medication Sig Dispense Refill medroxyPROGESTERone (Provera) 10 mg tablet Take 1 tablet (10 mg) by mouth once daily. Take days for 10 days each month get menses 10 tablet 0 tirzepatide (Mounjaro) 7.5 mg/0.5 mL pen injector Inject 7.5 mg under the skin 1 (one) time per week. 2 mL 2 norgestimate-ethinyl estradioL (Sprintec, 28,) 0.25-35 mg-mcg tablet Take 1 tablet by mouth once daily. (Patient not taking: Reported on 12/22/2023) 28 tablet 12 No current facility-administered medications on file prior to visit. BMI: BMI Readings from Last 1 Encounters: 09/14/24 42.00 kg/m VITALS: Ht 1.651 m (5' 5 ) Wt 114 kg (252 lb 6.4 oz) LMP 08/12/2024 (Exact Date) BMI 42.00 kg/m LMP: Patient's last menstrual period was 08/12/2024 (exact date). ASSESSMENT 33 y.o. female with primary infertility x 4 years, Polycystic Ovarian Syndrome and the following pertinent medical issues: obesity, now on weight loss medication . COUNSELING Counseling on GLP-1 Receptor Agonists and I have counseled the patient regarding the limited data on the safety of GLP-1 receptor agonists (GLP-1 Armani) during . Current evidence is insufficient to define the safety profile of these medications for individuals. Early animal studies indicated potential risks. Recent human studies have not demonstrated a significant increase in major defects associated with first-trimester exposure to GLP-1 Armani. Due to the limited scope of these studies, the potential risks of exposure cannot be fully ruled out. I have also counseled the patient that classically, discontinuation of GLP-1 RA at least 1-2 months before attempting conception has been recommended. Based on newer safety data, our practice finds it acceptable to stop the GLP-1 RA with either a positive test or the start of a treatment cycle. The patient has expressed understanding of the information provided and would like to proceed with stopping her GLP-1 RA either a positive test or the start of a treatment cycle. We discussed that recent studies have found that letrozole is superior to Clomid for ovulation induction in patients with PCOS. However, letrozole is not FDA approved may be associated with a higher risk of congenital defects, although this was not found in a recent large study of patients taking letrozole for unexplained infertility. Letrozole is also teratogenic and therefore patients must take a test and document that is negative, before starting letrozole. We also discussed that there is a increased risk of multiple gestation with letrozole approximately 9-10%. Routine Testing Fertility Center STDs Within 1 year Genetic carrier Waiver/Completed T&S Within 1 year AMH Within 1 year TSH Within 1 year Rubella/Varicella Within 5 years BMI Testing Fertility Center CBC Within 1 year CMP Within 1 year HgbA1c Within 1 year Mag, Phos, Vit D <18 Within 1 year MFM > 40 REQ Wt loss consult > 40 OPT PLAN Orders Placed This Encounter Procedures Hepatitis B surface antigen Hepatitis C Antibody HIV 1/2 Antigen/Antibody Screen with Reflex to Confirmation Syphilis Screen with Reflex C. trachomatis / N. gonorrhoeae, Amplified, Urogenital Lipid Panel CBC Comprehensive Metabolic Panel Hemoglobin A1C Progesterone FOLLOW UP Consults: None Engaged MD Take vitamins, vitamin D 2000 IUs daily Discussed that treatment cannot proceed until checklist items are complete. Additional testing for BMI < 18 or > 40: Yes. Chart to primary nurse for care coordination and patient check list/education. MD Completion: Ectopic Risk: No Medically Complex: Yes- Obesity on Mounjaro Outstanding boarding pass items: STDs, BMI >40 labs, repeat HgA1C, will need Myriad waiver Fertility Plan Update: Patient interested in trying OI again now that she has lost weight Will plan to update labs as above If P4 negative, plan provera 10 mg daily x 10 days With withdrawal bleed, as long as BP is ready, can start letrozole 7.5 mg CD3-7 x 5 days and check CD 21 P4 level If ovulatory, continue Letrozole/TIC x 3-6 cycles If does not respond to 7.5 mg letrozole, recommend step up to 7.5 mg letrozole + 100 mg Clomid x 5 days (and CD21 P4 level) If still no response will need follow up visit with me to discuss other options Given significant weight loss she would like to stay on Mounjaro until + test Roslyn Rodriguez 09/15/2024 1:35 PM documented in this encounter [facility] Work Phone: 08-09-2024 History of Present illness Narrative Subjective Barbara Fischer is a 33 y.o. female with a hx of PCOS, insulin resistance, infertility who presents for weight management and obesity. Virtual: Current Plan 1. Nutrition: Making healthier choices 2. Sleep: Stable 3. Stress: Stable 4. Exercise: Incorporating consistently- goes to the gym 5 days a week focusing on cardio, swims. Plans to add strength training. 5. Appetite control: Stable Obesity medication: Mounjaro- 7.5mg weekly 6. Prior Goals: First group meeting New Goals: Exercise- add strength training Weight trend: work on sleep hygiene- get to bed earlier Wt Readings from Last 10 Encounters: 01/14/24 147 kg (324 lb) 12/22/23 150 kg (330 lb) 12/10/23 150 kg (330 lb) Current Outpatient Medications: medroxyPROGESTERone (Provera) 10 mg tablet, Take 1 tablet (10 mg) by mouth once daily. Take days for 10 days each month get menses, Disp: 10 tablet, Rfl: 0 norgestimate-ethinyl estradioL (Sprintec, 28,) 0.25-35 mg-mcg tablet, Take 1 tablet by mouth once daily. (Patient not taking: Reported on 12/22/2023), Disp: 28 tablet, Rfl: 12 tirzepatide (Mounjaro) 5 mg/0.5 mL pen injector, Inject 5 mg under the skin every 7 days., Disp: 2 mL, Rfl: 2 tirzepatide (Mounjaro) 7.5 mg/0.5 mL pen injector, Inject 7.5 mg under the skin 1 (one) time per week., Disp: 2 mL, Rfl: 2 ROS: System: normal Eyes : no visual [...] Social History Narrative Not on file Social Drivers of Health Financial Resource Strain: Low Risk (07/15/2022) Received from [facility] [facility] [facility] Overall Financial Resource Strain (CARDIA) Difficulty of Paying Living Expenses: Not hard at all Food Insecurity: No Food Insecurity (05/25/2023) Received from [facility] Within the past 12 months [...] Stability: Not on file Objective Physical Exam: There were no vitals taken for this visit. General : alert and oriented X3, no acute distress Eyes : EOMI BMI: 44.60kg/m2 Assessment/Plan Barbara Fischer is a 33 y.o. [...] the program : Mediterranean lifestyle, ketosis diet. Has met with Phil Briggs, make some good dietary changes. 12/22/23: 330lb, 54.91kg/m2 08/09/24: 268lb, 44.60kg/m2 3. 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 Exercise : swims, rides bike and walks dogs 6. Appetite : check hga1c Discussed AOMs She will wait on re-attempting IVF until she loses weight. --on mounjaro 7.5mg/wk. 7. Goal to go to sleep earlier, up her strength training. Follow up in a group visit. Claudia Arrington MD documented in this encounter [facility] Work Phone: 12-10-2023 History of Present illness Narrative Visit [...] as clinical hirsutism Had fertility assessment at [facility]- 2020 Was given diagnosis of PCOS [...] Sonography: Thinks she had this done in [place] and was told tubes patent Has had normal diagnostic hysteroscopy at [facility] -Reports she did have lysis of adhesions on a hysteroscopy prior to FETs [facility] Pelvic Ultrasound: 2020 1. The Uterus is [...] Ectopic 0 Multiple 0 Live Births 0 [facility] HISTORY Have you ever been diagnosed with [...] facility-administered medications on file prior to visit. 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 Prior fertility history: None PMH: None PSH: None Smoking: None Alcohol Use: None Drug Use: None Medications: None Injuries: None STD: Have you ever been diagnosed with a sexually transmitted disease?: No Please select all that are applicable: SA: SA Results: Done in [place] 2020 Was told normal FAMILY HISTORY No [...] 12/10/2023 9:38 AM documented in this encounter [facility] Work Phone: 12-10-2023 Instructions Roslyn Rodriguez MD - 12/10/2023 [...] 12/10/2023 9:38 AM documented in this encounter [facility] Work Phone: Evaluation note No assessment inform ation available [facility] Work Phone: Evaluation note Diagnosis Secondary oligomenorrhea- Primary Scanty [...] (Multi) [E66.01, Z68.43] documented in this encounter [facility] Work Phone: Evaluation note* Diagnosis BMI 50.0-59.9, adult (Multi)- Primary Encounter for weight management Super obesity documented in this encounter [facility] Work Phone: Evaluation note* Diagnosis Class 3 obesity- Primary BMI 40.0-44.9, adult (Multi) Encounter for weight management documented in this encounter [facility] Work Phone: Evaluation note* Diagnosis Screening for STDs (sexually transmitted diseases)- Primary Screening examination for venereal disease Class 3 severe obesity with body mass index (BMI) of 40.0 to 44.9 in adult, unspecified obesity type, unspecified whether serious comorbidity present Thyroid disorder screening Screening for thyroid disorder Screening for diabetes mellitus Primary oligomenorrhea Scanty or infrequent menstruation Fertility testing PCOS (polycystic ovarian syndrome) [E28.2] Polycystic ovaries documented in this encounter [facility] Work Phone: History of Present illness Narrative* Claudia Arrington MD - 12/22/2023 2:30 PM EDT Patient is seen at the request of Dr. Rodriguez for my opinion regarding weight management. My final recommendations will be communicated back to the requesting provider by way of shared medical record. NEW: Virtual: Holli Fischer is a 33 y.o. female with a hx of PCOS, insulin resistance, infertility who presents forweight management and obesity. Referral by Dr. Rodriguez [...] Psychiatric : no depression, no anxiety See [facility] for Endocrine ROS Past Medical History: Diagnosis [...] Resource Strain: Low Risk (07/15/2022) Received from [facility] Overall Financial Resource Strain (CARDIA) Difficulty of Paying Living Expenses: Not hard at all Food Insecurity: No Food Insecurity (05/25/2023) Received from [facility] Site Tour Hunger Screening Within the past 12 months [...] of PCOS, insulin resistance, infertility who presents forweight management and obesity. 1. Weight Management : [...] The patient will be referred to the Boilermaker Mechanic for education on their diet of choice. [...] Follow up in a group visit. Claudia Arrington MD [facility]: Reason for referral (narrative)* Consultation (Routine) - Authorized Specialty Diagnoses / Procedures Referred By Contac t Referred To Contact Nutrition Diagnoses BMI 50.0-59.9, adult (Multi) Claudia Orozco MD [address] [facility] [address] [place] [address] Referral ID Status Reason Start Date Expiration Date Visits Requested Visits Authorized [id number] Authorized Specialty Services Required 12/22/2023 12/21/2024 1 1 [facility] Work Phone: Summary Purpose Family History No [...] Care Teams (unrecognized sec tion and content) Marine Animal Trainer Relationship Specialty [place] [address] [place] [address] PCP - General Family Medicine 04/01/16 Team Status: Active Member Role Status Dates Outreach Community Primary Care Provider Active Team Status: Inactive Member Role Status Dates TERELL Mason Attending Provider Active S tart: August 29, 2023 End: August 29, 2023 Outreach Community Primary Care Provider Active Start: August 29, 2023 End: August 29, 2023 Marine Animal Trainer Relationship Specialty [place] [address] [place] [address] PCP - General Family Medicine 10/21/22 Marine Animal Trainer Relationship Specialty Start Date End Date Kurtis Bedolla MD PCP - General Family Medicine 04/01/16 Marine Animal Trainer Relationship Specialty [place] [address] [place] [address] PCP - General Family Medicine 10/21/22 Marine Animal Trainer Relationship Specialty Start Date End Date Dipika Cox, COMMERCIAL CARPENTER Licensed Practical Nurse Reproductive Endocrinology and Infertility 09/14/24 INFORMATION SOURCE (unrecogn ized section and content) DATE CREATED AUTHOR 10/05/2022 [facility] DATE CREATED AUTHOR AUTHOR'S ORGANIZ ATION 09/14/2023 [facility] DATE CREATED AUTHOR AUTHOR'S ORGANIZ ATION 12/11/2023 [facility] DATE CREATED AUTHOR AUTHOR'S ORGANIZ ATION 07/26/2024 [facility] DATE CREATED AUTHOR AUTHOR'S ORGANIZ ATION 08/14/2024 [facility] DATE CREATED AUTHOR AUTHOR'S ORGANIZ ATION 09/03/2024 [facility] dical Specialists EPIC Goals (unrecognized section and content) Goals may be documented in a n alternate section Reason for Visit (unrecogniz ed section and content) Reason Comments [facility] Consultation Reason Comments Consult Weight management Reason Comments Follow-up Follow up for weight management group meeting FOR RECORDS PERTAINING TO PATIENTS WHO ARE [...] BE BASED ON THE PRIMARY CLINICAL RECORDS. [facility]. provides no warranty or guarantee of the accuracy or completeness of information in this document.
[2024-09-17 08:26] LABS: Basophils Percent Auto 0.4 % (0.2-2.0); Eosinophils Absolute Auto 0.1 10^3/uL (0.0-0.7); Eosinophils Percent Auto 1.1 % (0.9-7.0); Hematocrit 38.9 % (36.0-48.0); Hemoglobin 12.7 g/dL (12.0-16.0); Immature Granulocytes Abs Auto 0.02 10^3/uL (0.00-0.03); Immature Granulocytes Pct Auto 0.2 % (0.0-0.5); Lymphocytes Absolute Auto 2.8 10^3/uL (1.2-3.8); Mean Corpuscular HGB Conc 32.6 g/dL (29.9-35.2); Mean Corpuscular Hemoglobin 29.1 pg (26.7-34.0); Mean Platelet Volume 10.5 fL (9.5-13.5); Monocytes Absolute Auto 0.8 10^3/uL (0.3-0.8); Monocytes Percent Auto 7.9 % (1.7-12.0); Neutrophils Absolute Auto 6.3 10^3/uL (1.4-6.5); Neutrophils Percent Auto 62.4 % (43.0-75.0); Platelet Count 254 10^3/uL (150-450); Red Blood Count 4.37 10^6/uL (4.20-5.40); Red Cell Distribution Width 12.8 % (11.0-15.0); White Blood Count 10.1 10^3/uL (4.0-11.0)
[2024-09-17 09:10] LABS: Alanine Aminotransferase 20 U/L (14-59); Albumin Globulin Ratio 1.1; Albumin Level 3.8 g/dL (3.4-5.0); Alkaline Phosphatase 74 U/L (46-116); Anion Gap 11.3; Aspartate Amino Transferase 20 U/L (15-37); BUN Creatinine Ratio 29.3; Bilirubin Total 1.4 mg/dL (0.2-1.0); Calcium 8.6 mg/dL (8.5-10.1); Carbon Dioxide 28.7 mmol/L (21.0-32.0); Chloride 105 mmol/L (98-107); Chol HDL Ratio 2.8; Cholesterol 128 mg/dL (<=200); Estimated GFR (African America >60 (>=60 mL/min/1.73m^2); Estimated GFR (Non-African Ame >60 (>=60 mL/min/1.73m^2); Globulin 3.5 g/dL; Glucose 82 mg/dL (74-106); HDL Cholesterol 45 mg/dL (40-60); LDL Cholesterol Calculated 75.4 mg/dL; Sodium 141 mmol/L (136-145); Total Protein 7.3 g/dL (6.4-8.2); Triglycerides 38 mg/dL (<=150); VLDL CHOLESTEROL 7.6 mg/dL
[2024-09-18 07:08] LABS: HBsAg Screen Negative (Negative); HCV Antibody Non Reactive (Non Reactive); HIV Ab/p24 Ag Screen Non Reactive (Non Reactive)
[2024-09-18 15:10] LABS: Rapid Plasma Reagin, Quant Non Reactive titer (NonRea<1:1)
[2024-09-20 21:10] LABS: Neisseria gonorrhoeae, NAA Negative (Negative)
== END 2024-09-17 07:59 | disposition home or self-care (01) ==
LOC: LAB 08:01
PROVIDERS: PCP Family Medicine
DX: E66.813 Obesity, class 3 (principal); Z11.3 Encounter for screening for infections with a predominantly sexual mode of transmission; E66.01 Morbid (severe) obesity due to excess calories; Z68.41 Body mass index [BMI] 40.0-44.9, adult
CPT/HCPCS: 36415; 80053; 80061; 85025; 86592; 86803; 87340; 87389; 87491; 87591

== ENCOUNTER 2024-10-17 13:23 | Outpatient (OUT) | payer OTHER, SELFPAY ==
[2024-10-18 04:07] LABS: Progesterone 0.2 ng/mL (.)
== END 2024-10-17 13:24 | disposition home or self-care (01) ==
PROVIDERS: PCP Family Medicine
DX: N97.9 Female infertility, unspecified (principal)
CPT/HCPCS: 36415; 84144

== ENCOUNTER 2024-11-04 08:18 | Outpatient (OUT) | payer OTHER, SELFPAY ==
--- OUTSIDE RECORDS SUMMARY | 2024-11-04 07:38 | XMS_ITS ---
Author Name Auto Generated Organization OH[facility] Care Team Providers Care Counter Stitcher Name Role Phone CLAUDIA CEBALLOS Attending Unav PHIL Hannon Attending Unavailable CLAUDIA CEBALLOS Referring Unav ailable CLAUDIA CEBALLOS Attending Unav ailable ROSLYN RODRIGUEZ Attending Unavailable ROSLYN RODRIGUEZ Attending Unavailable LUIZ WANG Attending Unavailable JESSICA MERINO Referring Unavailable KURTIS WHEAT Primary Care Unavailable BARTOLOME GUTIERREZ Referring Unavailable PROBLEMS DATE TYPE CONDITION / CODE ATTENDING STATUS [facility] 09/15/2024 Admitting Diagnosis Primary oligomenorrhea / N91.3(ICD-10) ROSLYN RODRIGUEZ [facility] 08/09/2024 Admitting Diagnosis Obesity, class 3 / E66.813(ICD-10) CLAUDIA CEBALLOS [facility] 08/09/2024 Admitting Diagnosis Body mass index (BMI) 40.0-44.9, adult (Multi) / Z68.41(ICD-10) JENNYFER BALDWINKIN [facility] 07/18/2024 Admitting diagnosis Encounter for gynecological examination (general) (routine) without abnormal findings / Z01.419(ICD-10) NA [facility] 07/18/2024 Admitting diagnosis Encounter for screening for human papillomavirus (HPV) / Z11.51(ICD-10) NA [facility] 12/22/2023 Admitting Diagnosis Body mass index (BMI) 50.0-59.9, adult (Multi) / Z68.43(ICD-10) [facility] Admitting Diagnosis Persons encountering health services in other specified circumstances / Z76.89(ICD-10) [facility] Admitting Diagnosis Obesity, unspecified / E66.9(ICD-10) [facility] Admitting Diagnosis Secondary oligomenorrhea / N91.4(ICD-10) ROSLYN RODRIGUEZ [facility] 12/10/2023 Admitting Diagnosis Encounter for fertility testing / Z31.41(ICD-10) ROSLYN RODRIGUEZ [facility] 12/10/2023 Admitting Diagnosis Encounter for screening for other suspected endocrine disorder / Z13.29(ICD-10) ROSLYN RODRIGUEZ [facility] 12/10/2023 Admitting Diagnosis Encounter for screening for diabetes mellitus / Z13.1(ICD-10) ROSLYN RODRIGUEZ [facility] 12/10/2023 Admitting Diagnosis Encounter for screening for other viral diseases / Z11.59(ICD-10) ROSLYN RODRIGUEZ [facility] 12/10/2023 Admitting Diagnosis Encounter for blood typing / Z01.83(ICD-10) ROSLYN RODRIGUEZ [facility] 12/10/2023 Admitting Diagnosis Encounter for screening for infections with a predominantly sexual mode of transmission / Z11.3(ICD-10) ROSLYN RODRIGUEZ [facility] 12/10/2023 Admitting Diagnosis Encounter for nonprocreative screening for genetic disease carrier status / Z13.71(ICD-10) ROSLYN RODRIGUEZ [facility] 12/10/2023 Admitting Diagnosis Morbid (severe) obesity due to excess calories (Multi) / E66.01(ICD-10) ROSLYN RODRIGUEZ [facility] PROCEDURES No Procedure Records Found RESULTS RUBELLA AB (IGG), IMMUNE STATUS Collect ed: 09/28/2024 10:54 AM Status: F Source: [facility] Order Comment: PATIENT REFUS ED SOME TESTING; PATIENT ENCOURAGED TO RETURN. TYPE CODE TESTS RESULT OUT OF RANGE REFERENCE UNITS LAB [id number] RUBELLA AB (IGG), IMMUNE STATUS 3.96 Normal Index Result Comment: Index Interp retation ----- <0.90 Not consistent with immunity 0.90-0.99 Equivocal > or = 1.00 Consistent with immunity The presence of rubella IgG antibody suggests immunization or past or current infection with rubella virus. Performed By: #### 4439, 802 , 0781, [address] #### [facility] [address], [address] [place] [address] Collar Baster: Ryan Mena MD VARICELLA ZOSTER VIRUS ANTIB TITA (IGG) Collected: 09/28/2024 10:54 AM Status: F Source: [facility] TYPE CODE TESTS RESULT OUT OF RANGE REFERENCE UNITS LAB [id number] VARICELLA ZOSTER VIRUS ANTIBODY (IGG) 16.30 Normal S/CO Result Comment: Signal to Cut-off S/CO Interpretation --------- <1.00 Negative - Antibody not detected > or = 1.00 Positive - Antibody detected A positive result indicates that the patient has antibody to VZV but does not differentiate between an active or past infection. The clinical diagnosis must be interpreted in conjunction with the clinical signs and symptoms of the patient. This assay reliably measures immunity due to previous infection but may not be sensitive enough to detect antibodies induced by vaccination. Thus, a negative result in a vaccinated individual does not necessarily indicate susceptibility to VZV infection. A more sensitive test for vaccination-induced immunity is Varicella Zoster Virus Antibody Immunity Screen, ACIF. Performed By: #### 4439, 802 , 1005, 18428 #### [facility] [address], [address] [place] [address] Collar Baster: Ryan Mena MD TEST AUTHORIZATION Collected: 10:54 AM Status: F Source: [employer]25 films TYPE CODE TESTS RESULT OUT OF RANGE REFERENCE UNITS LAB [id number] TEST NAME: RPR (DX) W/REFL TITER AND SYP LAB [id number] TEST CODE: [id number] LAB [id number] CLIENT CONTACT: Melony HILARIOBelinda GODOY LAB [id number] REPORT ALWAYS MESSAGE SIGNATURE Result Comment: The laboratory testing on this patient was verbally requested or confirmed by the ordering physician or his or her authorized customer sales representative after contact with an employee of [employer]. Federal regulations require that we maintain on file written authorization for all laboratory testing. Accordingly we are asking that the ordering physician or his or her authorized customer sales representative sign a copy of this report and promptly return it to the client engagement specialist. Signature: LAB [id number] COMMENT Result Comment: Please have the ordering physician or his or her authorized customer sales representative sign a copy of this report and promptly return it by faxing it to: [phone] or by returning the form to your transmission repairer. Performed By: #### 4439, 802 , 1005, [address] #### [facility] [address], [address] [place] [address] Collar Baster: Ryan Mena MD RPR (DX) W/REFL TITER AND T. PALLIDUM AB, [place] Collected: 09/28/2024 10:54 AM Status: F Source: [employer]25 films TYPE CODE TESTS RESULT OUT OF RANGE REFERENCE UNITS LAB [id number] RPR (DX) W/REFL TITER AND CONFIRMATORY TESTING NON-REACTIVE Normal NON-REACTIVE Result Comment: No laboratory evidence of syphilis. If recent exposure is suspected, submit a new sample in 2-4 weeks. Your request to have a duplicate copy faxed has been acknowledged. Queued to: [phone] Performed By: #### 4439, 802 , 1004, 01296 #### [facility] [address] [facility], [address] [place] [address] Collar Baster: Ryan Mena MD BLOOD TYPE Collected: 10:52 AM Status: F Source: [facility] TYPE CODE TESTS RESULT OUT OF RANGE REFERENCE UNITS LAB 883-9([facility]) ABO group O [facility] 1305[facility] D Ag POS Result Comment: 2nd ABO test required. Order and Collect VERAB LAB 890-4([facility]) Blood group antibody screen NEG Performed By: #### 47952-1 # ### GLENROY Wiley ([id number]) [facility] ([facility] [address] [place] [address] US PELVIC COMPLETE W/ TV Observed: 08/30 8:39 AM Status: F Source: [facility] EPIC Order Comment: US PELVIS-TRA NSVAG IF INDICATED No LMP recorded. EXAM: US PELVIC COMPLETE W/ TV HISTORY: [...] Doppler flow within the bilateral ovaries. Electronically Signed:Electronically signed by GELACIO GAMEZ II, MD, PHD at 01-Sep-2024 08:42:54 AM [facility] HPV DNA HIGH RISK Collected: 12:00 AM Status: F Source: [facility] TYPE CODE TESTS RESULT OUT OF RANGE REFERENCE UNITS LAB SRCHH(LOINC) Source CERVICAL MATERIAL LAB HSAMPH(LOINC) HPV Sample .THIN PREP LAB HPV16(LOINC) HPV Type 16 Not Detected NOTDET LAB HPV18(LOINC) HPV Type 18 Not Detected NOTDET LAB OHPVIH(LOINC) Other High Risk HPV Not Detected NOTDET LAB HPVINT(LOINC) HPV Interp Result Comment: This test am plifies and detects DNA of 14 high-risk HPV [...] for other forensic purposes. Performed By: #### [facility] #### [place] [address] Button Tufter: Gopi Yoder MD CYTOLOGY REPORT Observed: 07/18/2024 12:00 AM Status: F Source: [facility] (NOTE) Path Number: [id number] DIAGNOSIS Imaged ThinPrep Pap - Cervical (1 monolayer slide): Specimen Adequacy: Satisfactory for evaluation. - Endocervical/transformation zone component present. Descriptive Diagnosis: Negative for intraepithelial lesion or malignancy. Comments: Specimen was screened at [facility], [address] [place] [address] [employer] Screener: CS Rescreened By: HOOD Electronically [...] or for other forensic purposes. Performed at [address] [address] . Source of Specimen: A: Imaged ThinPrep Pap - Cervical (1 monolayer slide) HPV Reflex?......................HPV Regardless Clinical History Z01.419 Routine intern exam without abnormal findings Z11.51 Encounter for screening for HPV Processing Lab: [address] [address] Interpretation performed at [facility], [address] [place] [address] This Pap Test has been evaluated with [...] result. GYNECOLOGIC CYTOLOGY REPORT Patient Name: BARBARA DELEON [facility] Rec: [id number] [facility] [employer] CONSULTING PATHOLOGISTS [facility] ANATOMIC PATHOLOGY [address] [place] [address]. [place], [place] [address] ALLERGIES DATE TYPE / CODE NAME / CODE REACTION SEVERITY SOURCE SYSTEMIC/[id number]( SNOMED CT) NO KNOWN ALLERGIES [facility] Ambulatory ENCOUNTERS ADMIT/DISCHARGE ACCOUNT NUMBER ADMITTING ENCOUNTER CLASS LOCATION SOURCE 11/04/2024 [id number] Ambulatory Building:[address] 10/18/2024/ 5 [id number] Ambulatory Building:[address] 10/17/2024/ 5 [id number] Ambulatory Building:[address] 10/16/2024/ 5 [id number] Ambulatory Building:[address] 09/29/2024/ 5 [id number] Ambulatory Building:[address] 09/28/2024/ 5 [id number] Ambulatory Building:[facility] 09/15/2024/ 5 [id number] Ambulatory Building:[address] 08/30/2024/ 5 [id number] Ambulatory Building:[facility] OB [facility] EPIC 08/09/2024/ 5 [id number] Ambulatory Building:DOL [id number] [place] [address] Ambulatory 07/18/2024/ 5 [id number] Ambulatory Building:ILL D [facility] 01/14/2024/ 4 [id number] Ambulatory Building:DOL [id number] [place] [address] Ambulatory 12/22/2023/ 4 [id number] Ambulatory Building:DOL [id number] [place] [address] Ambulatory 12/10/2023/ 4 [id number] Ambulatory Building:[address] PAYERS ENCOUNTER GUARANTOR PAYER SUBSCRIBER SOURCE 11/04/2024 BARBARA DELEONDOB: [id number] [place], [place] [address]Ydd: () Primary Insurance:GENERIC COMMERCIALPolicy Number: [id number] Date:2021-06-17 BARBARA AVERSDOB: [id number] [address] [facility] [place], [place] [address]Gcj: () [facility] 10/18/2024 BARBARA AVERSDOB: [facility] [place], [place] [address]Iqd: () Primary Insurance:GENERIC COMMERCIALPolicy Number: [id number] Date:2021-06-17 BARBARA AVERSDOB: [id number] [address] [facility] [place], [place] [address]Scn: (HP) [facility] 10/17/2024 BARBARA AVERSDOB: [facility] [place] [address]Zld: () Primary Insurance:GENERIC COMMERCIALPolicy Number: [id number] Date:2021-06-17 BARBARA AVERSDOB: [id number] [address] [facility] [place], [place] [address]Vpf: () [facility] 10/16/2024 BARBARA AVERSDOB: [facility] [place] [address]Frh: () Primary Insurance:GENERIC COMMERCIALPolicy Number: [id number] Date:2021-06-17 BARBARA AVERSDOB: [id number] [address] [facility] [place], [place] [address]Vdk: (HP) [facility] 09/29/2024 BARBARA AVERSDOB: [facility] [place] [address]Wvf: () Primary Insurance:GENERIC COMMERCIALPolicy Number: [id number] Date:2021-06-17 BARBARA AVERSDOB: [id number] [address] [facility] [place], [place] [address]Okv: () [facility] 09/28/2024 BARBARA AVERSDOB: [place], [place] [address]Xxw: () Primary Insurance:GENERIC COMMERCIALPolicy Number: [id number] Date:2021-06-17 BARBARA AVERSDOB: [id number] 9 [place], [place] [address]Ggx: () [facility] 09/15/2024 BARBARA AVERSDOB: [place], [place] [address]Hxs: () Primary Insurance:GENERIC COMMERCIALPolicy Number: [id number] Date:2021-06-17 BARBARA AVERSDOB: [id number] 9 [place], [place] [address]Ehq: () [facility] 08/30/2024 BARBARA S AVERSDOB: [place] [address]Crd: () [facility] Insurance:[facility] HEALTH[facility] Number: [id number] Date:2022-06-15 BARBARA S AVERSDOB: [id number] 9 [place] [address] [place] [address] 08/09/2024 BARBARA AVERSDOB: [place], [place] [address]Qex: () Primary Insurance:GENERIC COMMERCIALPolicy Number: [id number] Date:2021-06-17 BARBARA AVERSDOB: [id number] 9 [place], [place] [address]Emg: () [facility] 07/18/2024 BARBARA S AVERSDOB: [place], [place] [address]Pba: () Primary Insurance:[facility]GACY HEALTHPolicy Number: [id number] Date:2021-06-17 BARBARA S AVERSDOB: [id number] [address] [place], [place] [address]Gyp: (HP) [facility] 01/14/2024 BARBARA AVERSDOB: [facility] [place], [place] [address]Rxu: (HP) Primary Insurance:GENERIC COMMERCIALPolicy Number: [id number] Date:2021-06-17 BARBARA AVERSDOB: [id number] [address] [facility] [place], [place] [address]Snl: (HP) [facility] 12/22/2023 BARBARA AVERSDOB: [facility] [place], [place] [address]Deg: () Primary Insurance:GENERIC COMMERCIALPolicy Number: [id number] Date:2021-06-17 BARBARA AVERSDOB: [id number] [address] [facility] [place], [place] [address]Jok: () [facility] 12/10/2023 BARBARA AVERSDOB: [id number] [facility] [place] [address]Ajg: () Primary Insurance:GENERIC COMMERCIALPolicy Number: [id number] Date:2023-06-15 BARBARA AVERSDOB: [id number] [address] [facility] [place], [place] [address]Aot: () [facility]
[2024-11-05 04:07] LABS: Progesterone 0.7 ng/mL (.)
== END 2024-11-04 08:19 | disposition home or self-care (01) ==
LOC: LAB 08:20
PROVIDERS: PCP Family Medicine
DX: N97.9 Female infertility, unspecified (principal)
CPT/HCPCS: 36415; 84144

== ENCOUNTER 2024-12-12 16:18 | Outpatient (OUT) | payer OTHER, SELFPAY ==
--- OUTSIDE RECORDS SUMMARY | 2024-12-12 16:23 | XMS_ITS | Encounter Summary ---
Author Organization [facility] Address [address] [place] [address] Care Team Providers Care Counter Tender Name Role Phone Lalit Bedolla MD Primary Care Provider [phone] Reason for Visit * Reason Comments Med Refill Encounter Details Date Type Department Care Team (Late st Contact Info) Description 12/09/2023 Refill [facility] [address] [facility] [place] [address] Joe Martinez, DO [address] [facility] [place] [address] PCOS (polycystic ovarian syndrome); Amenorrhea Social History Tobacco Use Types Packs/Day Years Used Date Smoking Tobacco: Never Smokeless Tobacco: Never Alcohol Use Standard Drinks/Week Comments Yes 0 (1 standard drink = 0.6 oz pure alcohol) caffeine: 1-2 cups per day iced tea, coffee, diet pop PHQ-2 Answer Date Recorded Patient Health Questionnaire-2 Score 0 05/05/2023 Comments Unknown Sex and Gender Information Value Date Recorded Sex Assigned at Not on file Legal Sex Female 8:09 PM EDT Gender Identity Not on file Sexual Orientation Not on file documented as of this encounter Miscellaneous Notes * Telephone Encounter - Alva Chatterjee LPN - 12/14/2023 7:07 AM EDT Medication refused due to failing protocol. Requested Prescriptions Pending Prescriptions Disp Refills medroxyPROGESTERone (Provera) 10 MG tablet [Pharmacy Med Name: MEDROXYPROGESTERONE 10 MG TAB] 10 tablet 2 Sig: take 1 tablet by mouth once daily for 10 days There is no refill protocol information for this order documented in this encounter Plan of Treatment Not on file documented as of this encounter Visit Diagnoses Diagnosis PCOS (polycystic ovarian syndrome) Polycystic ovaries Amenorrhea Absence of menstruation documented in this encounter Care Teams Counter Tender Relationship Specialty [place] [address] [place] [address] PCP - General Family Medicine 10/21/22 documented as of this encounter
--- OUTSIDE RECORDS SUMMARY | 2024-12-12 16:23 | XMS_ITS | Clinical Summary ---
Author Organization [facility] Address [address] [place] [address] Care Team Providers Care Tail Dogger Name Role Phone Lalit Bedolla MD Primary Care Provider [phone] Allergies No known active allergies Medications albuterol sulfate HFA (PROVENTIL;VENT NICANOR;PROAIR) 108 (90 Base) MCG/ACT inhaler INHALE 1 TO 2 PUFFS BY MOUTH EVERY 4 TO 6 HOURS NEEDED FOR WHEEZING FOR COUGH FOR SHORTNESS OF BREATH 4 Active Tirzepatide (MOUNJARO) 7.5 MG/0.5ML SOAJ Inject into the skin 4 Active medroxyPROGESTE Casey (PROVERA) 10 MG tablet Take 1 tablet by mouth every morning for 10 days 10 tablet 5 Active Active Problems Problem Noted Date Diagnosed Date Migraine with aura and witho ut status migrainosus, not intractable 05/05/2023 Morbid (severe) obesity due to excess calories 1 07/05/2022 Irregular menses 10/19/2019 PCOS (polycystic ovarian syndrome) 10/19/2019 Immunizations Immunization Administration Dates Next Due DTaP 09/17/1995, 2,03/31/1991,1990,1990 Hib, unspecified 12/26/1991, 1,01/25/1991,1990 MMR, PRIORIX, M-M-R II, (age 12m+), SC, 0.5mL 12/26/1991 Poliovirus, IPOL, (age 6w+), SC/IM, 0.5mL 09/17/1995,03/29/1992,01/25/1991,1990 Family History Relation Name Status Comments Father Alive Maternal Grandfather Maternal Grandmother Mother Alive Paternal Grandfather Alive Paternal Grandmother Alive Sister Alive Social History Tobacco Use Types Packs/Day Years Used Date Smoking Tobacco: Never Smokeless Tobacco: Never Tobacco Cessation:Counseling Given: Not Answered Alcohol Use Standard Drinks/Week Comments Yes 0 (1 standard drink = 0.6 oz pure alcohol) I may have one drink every couple weeks Overall Financial Resource Strain (CARDIA) Answe r Date Recorded How hard is it for you to pa y for the very basics like food, housing, medical care, and heating? Not hard at all 07/15/2022 PHQ-2 Answer Date Recorded PHQ-9 Total Score 0 07/18/2024 Hunger Vital Sign Answer Date Recorded Within the past 12 months, y ou worried that your food would run out before you got the money to buy more. Never true 07/15/19 23 Within the past 12 months, t he food you bought just didn't last and you didn't have money to get more. Never true 07/15/2022 Food Insecurity Answer Date Recorded Within the past 12 months, y ou worried that your food would run out before you got the money to buy more. 1 07/15/2022 Within the past 12 months, t he food you bought just didn't last and you didn't have money to get more. 1 07/15/2022 Comments No Sex and Gender Information Value Date Recorded Sex Assigned at Not on file Legal Sex Female 5:01 PM EST Gender Identity Not on file Sexual Orientation Not on file Last Filed Vital Signs Vital Sign Reading Time Taken Comments Blood Pressure 118/70 07/18/2024 8:25 AM EST Pulse 97 07/15/2022 8:00 AM EST Temperature 36.5 C (97.7 F) 07/13/2020 10:02 AM EST Respiratory Rate 15 06/28/2015 4:10 PM EST Oxygen Saturation - - Inhaled Oxygen Concentration - - Weight 126.1 kg (278 lb) 07/18/2024 8:25 AM EST Height 165.1 cm (5' 5 ) 07/18/2024 8:25 AM EST Body Mass Index 46.26 07/18/2024 8:25 AM EST Plan of Treatment Upcoming Encounters Date Type Department Care Team (Late st Contact Info) Description 07/18/2025 8:30 AM EST Office Visit [facility] Obstetrics & Gynecology [address] [place] [phone] Nadja Brewster APRN - PLATE WORKER HELPER [address] [place] [address] annual Health Maintenance Due Date Last Done Comments Varicella vaccine (1 of 2 - 13+ 2-dose series) 09/24/2003 HIV screen 2005 Hepatitis C screen 2008 Hepatitis B vaccine (1 of 3 - 19+ 3-dose series) 2009 COVID-19 Vaccine ( season) 2024 03/31/2022, 08/17/2020, 07/27/2020 Flu vaccine (Season Ended) 2025 Depression Screen 07/18/2025 07/18/2024, 07/18/2024 Pap smear 07/18/2027 07/18/2024, 06/17, 07/15/2022, Additional history exists Cervical cancer screen 07/18/2029 HPV (without or with Pap) 07/18/20292024, 07/15/2023, 07/15/2022, Additional history exists DTaP/Tdap/Td vaccine (7 - Td or Tdap) 11/27/2031 11/26/2021, 09/17/1995, 03/29/1992, Additional history exists Hib vaccine Completed 12/26/1991, 03/15, 01/25/1991, Additional history exists Polio vaccine Completed 09/17/1995, 03/15, 01/25/1991, Additional history exists HPV vaccine Aged Out No longer eligi ble based on patient's age to complete this topic Hepatitis A vaccine Aged Out No longe r eligible based on patient's age to complete this topic Meningococcal (ACWY) vaccine Aged Out No longer eligible based on patient's age to complete this topic Meningococcal B vaccine Aged Out No l onger eligible based on patient's age to complete this topic Pneumococcal 0-49 years Vaccine Aged Out No longer eligible based on patient's age to complete this topic Procedures Procedure Name Priority Date/Time Associated Diagnosis Comments HUMAN PAPILLOMAVIRUS (HPV) DNA PROBE THIN PREP HIGH RISK Routine 07/18/2024 12:00 AM EST GAS MASK INSPECTOR CYTOLOGY Routine 07/18/2024 12:00 AM EST from Last 3 Months or Most Recently Relevant to Health Maintenance Results * Human papillomavirus (HPV) DNA probe thin prep high risk (07/18/2024 12:00 AM EST) Specimen Description CERVICAL MATERIAL 07/18/2024 12:00 AM [employer] HPV Sample .THIN PREP 07/18/2024 12:00 AM [employer] HPV, Genotype 16 Not Detected Not Detected 07/18/2024 12:00 AM [employer] HPV, Genotype 18 Not Detected Not Detected 07/18/2024 12:00 AM [employer] HPV, High Risk Other Not Detected Not Detected 07/18/2024 12:00 AM [employer] HPV, Interpretation 07/18/2024 12:00 AM [employer] Comment: This test amplifies and detects DNA [...] sexual abuse or for other forensic purposes. CERVICAL MATERIAL 07/18/2024 Nadja Brewster ALLEY WORKER - PLATE WORKER HELPER HEMATOLOGY ORDERABLES Fi nal Result [address] [address], [facility] [phone] * GAS MASK INSPECTOR Cytology (07/18/2024 12:00 AM EST) Cytology Report Path Number: [id number] DIAGNOSIS Imaged ThinPrep Pap - Cervical (1 monolayer slide): Specimen Adequacy: Satisfactory for evaluation. - Endocervical/trans formation zone component present. Descriptive Diagnosis: Negative for intraepithelial lesion or malignancy. Comments: Specimen was screened at [facility], [facility] [address] [employer] Screener: JAIR Rescreened By: HOOD Electronically Signed Out LUCIANO [...] or for other forensic purposes. Performed at [facility], [address] [place] [address] . Source of Specimen: A: Imaged ThinPrep Pap - Cervical (1 monolayer slide) HPV Reflex?........... ...........HPV Regardless Clinical History Z01.419 Routine finished carpet inspector exam without abnormal findings Z11.51 Encounter for screening for HPV Processing Lab: [place] [place] [address] Interpretation performed at [facility], [facility] [place] [address] This Pap Test has been evaluated with the assistance of the frintitPrep Pap Test Imaging System. The Pap smear is a screening test primarily for squamous epithelial lesions, which is subject to both false negative and false positive results. Your patient should be reminded to consult you immediately if she experiences any suspicious signs or symptoms, regardless of her Pap smear result. GYNECOLOGIC CYTOLOGY REPORT Patient Name: BROOK FISCHER. [facility] Rec: [id number] [employer] CONSULTING PATHOLOGISTS [facility] [address] [facility]. [place], [place] [address] [employer] CERVICAL MATERIAL 07/18/2024 025 7:25 AM EST Nadja Brewster ALLEY WORKER - PLATE WORKER HELPER PATHOLOGY/CYTOLOGY ORDER CHAD Final Result [address] [address], [facility] [phone] [employer] from Last 3 Months or Most Recently Relevant to Health Maintenance Insurance [facility] [employer] Care Teams Tail Dogger Relationship Specialty Start Date End Date Lalit Bedolla MD PCP - General Family Medicine 04/01/16
--- OUTSIDE RECORDS SUMMARY | 2024-12-12 16:23 | XMS_ITS | Encounter Summary ---
Author Organization [facility] Address [address] [place] [address] Care Team Providers Care Casualty Insurance Claim Adjuster Name Role Phone Lalit Bedolla MD Primary Care Provider [phone] Reason for Visit * Reason Comments Med Refill Encounter Details Date Type Department Care Team (Late st Contact Info) Description 10/12/2023 Refill [facility] [address] [place] [id number] Joe Martinez, DO [address] [facility] [place] [address] PCOS (polycystic ovarian syndrome); Amenorrhea Social History [...] encounter Miscellaneous Notes * Telephone Encounter - Rehana Hardwick LPN - 10/19/2023 9:21 AM EDT Patient called and LMOM resting call back. 4:50 pm Called patient and patient voiced that she is on Day 45 of cycle and has not started yet. Informed patient that Provera would be sent to pharmacy with 2 refills. Advised patient to take UPT prior to starting medication. PVU Informed patient that if she does not conceive this cycle then she is able to obtain refill on Provera once she is a week late for cycle (Day 35) with negative UPT. PVU and would like to confirm that once she starts her cycle she will be obtaining Femera and Clomid to assist with fertility. Informed patient that nursing would talk with provider to ensure that both meds will be sent. Rehana Hardwick LPN * Telephone Encounter - Alva Chatterjee LPN - 10/13/2023 9:17 AM EDT Medication refused due to failing protocol. Requested Prescriptions Pending Prescriptions Disp Refills medroxyPROGESTERone (Provera) 10 MG tablet [Pharmacy Med Name: MEDROXYPROGESTERONE 10 MG TAB] 10 tablet 0 Sig: take 1 tablet by mouth once daily for 10 days There is no refill protocol information for this order documented in this encounter Plan of Treatment Not on file documented as of this encounter Visit Diagnoses Diagnosis PCOS (polycystic ovarian syndrome) Polycystic ovaries Amenorrhea Absence of menstruation documented in this encounter Care Teams Casualty Insurance Claim Adjuster Relationship Specialty [place] [address] [place] [address] PCP - General Family Medicine 10/21/22 documented as of this encounter
--- OUTSIDE RECORDS SUMMARY | 2024-12-12 16:23 | XMS_ITS | Clinical Summary ---
Author Organization [facility] Address [address] [place] [address] Phone Care Team Providers Care Marine Pipe Welder Name Role Phone Dipika Cox LPN Unavailable Un available Allergies No known active allergies Medications norgestimate-ethin yl estradioL (Sprintec, 28,) 0.25-35 mg-mcg tabletIndications: Secondary oligomenorrhea Take 1 tablet by mouth once daily. 28 tablet 12 12/10/19 24 Active Additional Information Patient not taking.Reported on 12/22/2023 medroxyPROGESTERon e (Provera) 10 mg tabletIndications: Female infertility Take 1 tablet (10 mg) by mouth once daily. Take days for 10 days each month get menses 10 tablet 06/24/19 25 026 Active letrozole (Femara) 2.5 mg tabletIndications: Female infertility Take 3 tablets (7.5 mg total) by mouth once daily. Take 3 tablets by mouth cycle days 3-7 after negative urine test every cycle before starting letrozole. 15 tablet 10/01/19 25 025 Active clomiPHENE (Clomid) 50 mg tabletIndications: Female infertility Take 2 tablets (100 mg) by mouth once daily. Cycle days 3-7 10 tablet 10/19/19 25 026 Active letrozole (Femara) 2.5 mg tabletIndications: Female infertility Take 2 tablets (5 mg total) by mouth once daily. Take 2 tablets by mouth cycle days 3-7 after negative urine test every cycle before starting letrozole. 10 tablet 10/19/19 25 025 Active tirzepatide, weight loss, (Zepbound) 10 mg/0.5 mL injectionIndicatio ns:BMI 39.0-39.9,adult Inject 10 mg under the skin every 7 days. 4 each 2 11/17/19 25 Active tirzepatide (Mounjaro) 7.5 mg/0.5 mL pen injectorIndication s:Constitutional obesity Inject 7.5 mg under the skin 1 (one) time per week. 2 mL 2 06/19/19 25 025 Discontin ued(Dose adjustmen t) Encounters Date Type Department Care Team Description 12/12/2024 11:20 PM EDT Orders Only [facility] [address] [place] [address] Arrived 12/12/2024 Telephone [facility] [address] [place] [phone] Yariel Roldan MD 11/16/2024 1:00 PM EDT Office Visit [address] [place] [address] Karl Orozco MD BMI 39.0-39.9,adult; BMI 30.0-30.9,adult 11/16/2024 Travel 11/08/2024 11:20 PM EDT Orders Only [facility] [address] [place] [address] 11/04/2024 11:05 PM EDT Orders Only [facility] [address] [place] [phone] 10/18/2024 11:05 PM EDT Orders Only [facility] [address] [place] [address] 10/18/2024 Orders Only [facility] [address] [place] [address] Dipika Cox LPN Female infertility 10/17/2024 11:35 PM EDT Orders Only [facility] [address] [place] [address] 10/16/2024 11:00 PM EDT Orders Only [facility] [address] [place] [address] 09/30/2024 Telephone [facility] [address] [place] [address] Yariel Roldan MD 09/29/2024 12:45 PM EDT Telemedicine [facility] [address] [place] [address] Tere Sanders, WINDOW/DISTRIBUTION CLERK-AEROPLANE PILOT Female infertility [N97.9] (Primary Dx) 09/29/2024 Travel 09/28/2024 1:50 PM EDT Lab [facility] [address] [place] [address] Encounter for blood typing (Primary Dx); Encounter for Rh blood typing 09/28/2024 Orders Only [facility] [address] [place] [address] Dulce Maria Zarate MD 09/28/2024 Orders Only [facility] [address] [place] [address] Dipika Cox, DOCTOR OF OPTOMETRY Female infertility 09/20/2024 Orders Only [facility] [address] [place] [address] Dipika Cox, DOCTOR OF OPTOMETRY 09/15/2024 1:30 PM EDT Telemedicine [facility] [address] [place] [address] Dulce Maria Zarate MD Screening for STDs (sexually transmitted diseases) (Primary Dx); Class 3 severe obesity with body mass index (BMI) of 40.0 to 44.9 in adult, unspecified obesity type, unspecified whether serious comorbidity present; Thyroid disorder screening; Screening for diabetes mellitus; Primary oligomenorrhea; Fertility testing; PCOS (polycystic ovarian syndrome) [E28.2] 09/15/2024 Travel from Last 3 Months Social History Tobacco Use Types Packs/Day Years Used Date Smoking Tobacco: Never Smokeless Tobacco: Never Tobacco Cessation:Counseling Given: Not Answered Alcohol Use Standard Drinks/Week Comments Yes 0 (1 standard drink = 0.6 oz pur e alcohol) Occassionally PHQ-2 Answer Date Recorded Patient Health Questionnaire-2 Score 0 09/29/2024 Comments No Sex and Gender Information Value Date Recorded Sex Assigned at Not on file Legal Sex Female 8:19 AM EST Gender Identity Not on file Sexual Orientation Not on file Last Filed Vital Signs Vital Sign Reading Time Taken Comments Blood Pressure 116/76 12/10/2023 9:24 AM EDT Pulse 47 12/10/2023 9:24 AM EDT Temperature - - Respiratory Rate - - Oxygen Saturation - - Inhaled Oxygen Concentration - - Weight 108 kg (237 lb) 11/16/2024 1:14 PM EDT Height 165.1 cm (5' 5 ) 11/16/2024 1:14 PM EDT Body Mass Index 39.44 11/16/2024 1:14 PM EDT Plan of Treatment Upcoming Encounters Date Type Department Care Team (Late st Contact Info) Description 12/12/2024 11:20 PM EDT Orders Only [facility] [address] [place] [address] Arrived 12/22/2024 9:30 AM EDT Nutrition [facility] [address] [place] [address] [address] [place] [address] 03/30/2025 2:00 PM EDT Telemedicine [facility] [address] [place] [phone] Dulce Maria Zarate MD [address] [place] [address] Health Maintenance Due Date Last Done Comments HIV Screening 1990 Lipid Panel 1990 Varicella Vaccines (1 of 2 - 13+ 2-dose series) 09/24/2003 Hepatitis C Screening 2008 Hepatitis B Vaccines (1 of 3 - 19+ 3-dose series) 2009 HPV/Cotest 09/24/2011 COVID-19 Vaccine (2 - season) 2024 03/31/2022 Influenza Vaccine (Season Ended) 2025 Yearly Adult Physical 07/19/2025 07/18/2024 , 07/15/2023, 07/15/2022, Additional history exists Cervical Cancer Screening 07/18/2027 Pap Smear 07/18/2027 07/18/2024 DTaP/Tdap/Td Vaccines (7 - Td or Tdap) 11/27/2031 11/26/2021, 09/17/1995, 03/29/1992, Additional history exists Zoster Vaccines (1 of 2) 2040 HIB Vaccines Completed 12/26/1991, 03/15, 01/25/1991, Additional history exists MMR Vaccines Completed 12/26/1991 IPV Vaccines Completed 09/17/1995, 03/15, 01/25/1991, Additional history exists HPV Vaccines (No Doses Required) Completed Hepatitis A Vaccines Aged Out No long er eligible based on patient's age to complete this topic Meningococcal Vaccine Aged Out No page john eligible based on patient's age to complete this topic Pneumococcal Vaccine: Pediatrics and At-Risk Adult Patients Aged Out No longer eligible based on patient's age to complete this topic Rotavirus Vaccines Aged Out No longer eligible based on patient's age to complete this topic Procedures Procedure Name Priority Date/Time Associated Diagnosis Comments PROGESTERONE Routine 11/04/2024 [facility] (DX) W/REFL TITER AND T. PALLIDUM AB, [place] Routine 09/28/2024 10:54 AM EDT VARICELLA ZOSTER ANTIBODY, IGG Routine 09/28/2024 10:54 AM EDT RUBELLA ANTIBODY, IGG Routine 09/28/2024 10:54 AM EDT PHLEB CHARGE - VENIPUNCTURE (LAB USE ONLY) Routine 09/28/2024 10:52 AM EDT Encounter for blood typing TYPE AND SCREEN Routine 09/28/2024 10:52 AM EDT Encounter for Rh blood typing from Last 3 Months Results * Progesterone (11/04/2024) Progesterone External 0.7 ng/mL [facility] Blood Venous blood specimen / Unknown 11/04/2024 [place] Provider LAB BLOOD ORDERABLES Zamzam newton Result [facility] [address] [place] [address] [id number] * [facility] (DX) W/REFL TITER AND T. PALLIDUM AB, [place] (09/28/2024 10:54 AM EDT) [facility] (DX) W/REFL TITER AND CONFIRMATORY TESTING NON-REACT HARISH NON-REACT HARISH [facility] [facility] Comment: No laboratory evidence of syphilis. If recent exposure is suspected, submit a new sample in 2-4 weeks. Your request to have a duplicate copy faxed has been acknowledged. Queued to: [id number] 09/28/2024 10:5 4 AM EDT 09/28/2024 10:55 AM EDT [facility]arrative [facility] - 09/30/2024 12:22 PM EDT PATIENT REFUSED SOME TESTING; PATIENT ENCOURAGED TO RETURN. Dulce Maria Zarate MD LAB BLOOD ORDERABLES Final Result [facility] [employer] [facility] [address] [place] [address] * Rubella Antibody, IgG (09/28/2024 10:54 AM EDT) [facility] RUBELLA AB (IGG), IMMUNE STATUS 3.96 Index [facility] [place] Comment: Index Interpretation ----- <0.90 Not consistent with immunity 0.90-0.99 Equivocal > or = 1.00 Consistent with immunity The presence of rubella IgG antibody suggests immunization or past or current infection with rubella virus. 09/28/2024 10:5 4 AM EDT 09/28/2024 10:55 AM EDT [facility] - 09/30/2024 12:22 PM EDT PATIENT REFUSED SOME TESTING; PATIENT ENCOURAGED TO RETURN. Dulce Maria Zarate MD LAB BLOOD ORDERABLES Final Result [facility] [employer] [address] [facility], [address] [place] [address] * Varicella Zoster Antibody, IgG (09/28/2024 10:54 AM EDT) [facility] VARICELLA ZOSTER VIRUS ANTIBODY (IGG) 16.30 S/CO [facility] Comment: Signal to Cut-off S/CO Interpretation --------- [...] Varicella Zoster Virus Antibody Immunity Screen, ACIF. 09/28/2024 10:5 4 AM EDT 09/28/2024 10:55 AM EDT [facility] - 09/30/2024 12:22 PM EDT PATIENT REFUSED SOME TESTING; PATIENT ENCOURAGED TO RETURN. Dulce Maria Zarate MD LAB BLOOD ORDERABLES Final Result Performing Organization Address City/[facility]/ZIP Co de Phone Number [facility] [address] [place] [address] * Phleb Charge - Venipuncture (Lab Use Only) (09/28/2024 10:52 AM EDT) Blood Venous blood specimen / Unknown Venipuncture / Unknown 09/28/2024 10:52 AM EDT 09/28/2024 1:50 PM EDT Dulce Maria Zarate MD LAB BLOOD ORDERABLES Final Result Performing Organization Address [facility] Co de Phone Number [facility] [address] [place] [address] * Type And Screen (09/28/2024 10:52 AM EDT) ABO TYPE O 09/28/2024 4:34 PM EDT [facility] BLOOD BANK Rh TYPE POS 09/28/2024 4:34 PM EDT [facility] Comment:2nd ABO test require d. Order and Collect VERAB ANTIBODY SCREEN NEG 4:34 PM EDT [facility] BLOOD [facility] Blood Venous blood specimen / Unknown Venipuncture / Unknown 09/28/2024 10:52 AM EDT 09/28/2024 1:50 PM EDT Dulce Maria Zarate MD LAB BLOOD BANK TEST ORDERA BLES Final Result Performing Organization Address [facility] Co de Phone Number [facility] BLOOD BANK [id number] [place], [place] [id number] from Last 3 Months Insurance GENERIC COMMERCIAL GENERIC COMMERCIAL Care Teams Marine Pipe Welder Relationship Specialty Start Date End Date Dipika Cox LPN Licensed Practical Nurse Reproductive Endocrinology and Infertility 09/14/24
--- OUTSIDE RECORDS SUMMARY | 2024-12-12 16:23 | XMS_ITS | Clinical Summary ---
Author Organization [facility] Address [address] [place] [address] Care Team Providers Care Chief Operator Hydroformer Name Role Phone Lalit Bedolla MD Primary Care Provider [phone] Allergies No known active allergies Medications Tirzepatide (Mounjaro) 7.5 MG/0.5ML solution auto-injector 5 Active medroxyPROGESTE Casey (Provera) 10 MG tabletIndicatio ns:PCOS (polycystic ovarian syndrome),Ameno rrhea Take 1 tablet (10 mg) by mouth Daily for 10 days 10 tablet 2 4 11/15/19 25 Discontinued medroxyPROGESTE Casey (Provera) 10 MG tabletIndicatio ns:PCOS (polycystic ovarian syndrome),Ameno rrhea Take 1 tablet (10 mg) by mouth Daily for 10 days 10 tablet 5 11/15/19 25 Discontinued Active Problems Problem Noted Date Diagnosed Date Amenorrhea 05/10/2024 Migraine with aura and witho ut status migrainosus, not intractable 05/05/2023 Morbid (severe) obesity due to excess calories 1 07/05/2022 PCOS (polycystic ovarian syndrome) 10/19/2019 Encounters Date Type Department Care Team Description 11/14/2024 2:30 PM EDT Office Visit [facility] [address] [place] [id number] Deanna Graf NP Plantar wart, right foot (Primary Dx); Class 3 severe obesity due to excess calories without serious comorbidity with body mass index (BMI) of 40.0 to 44.9 in adult ([facility]) 11/14/2024 Bamboo flowsheet [facility] [address] [place] [address] Deanna Graf NP 11/14/2024 Travel 11/04/2024 Clinisync Result Encounter [facility] External Department Unsolicited Provider, Generic External Data 10/17/2024 Clinisync Result Encounter [facility] External Department Unsolicited Provider, Generic External Data 09/17/2024 Clinisync Result Encounter [facility] External Department Unsolicited Provider, Generic External Data 09/16/2024 Telephone [facility] [address] [address] Rehana Hardwick LPN from Last 3 Months Family History Medical History Relation Name Comments No Known Problems Sister Relation Name Status Comments Father Alive Maternal Grandmother Alive Mother Alive Sister Social History Tobacco Use Types Packs/Day Years Used Date Smoking Tobacco: Never Smokeless Tobacco: Never Tobacco Cessation:Counseling Given: Not Answered Alcohol Use Standard Drinks/Week Comments Yes 0 (1 standard drink = 0.6 oz pure alcohol) caffeine: 1-2 cups per day iced tea, coffee, diet pop B1300 Health Literacy Answer Date Recor ded How often do you need to hav e someone help you when you read instructions, pamphlets, or other written material from your doctor or pharmacy? Never 11/14/2024 Humiliation, Afraid, Rape, and Kick questionnair e Answer Date Recorded Within the last year, have y ou been afraid of your partner or ex-partner? No 11/14/2024 Within the last year, have y ou been humiliated or emotionally abused in other ways by your partner or ex-partner? No Within the last year, have y ou been kicked, hit, slapped, or otherwise physically hurt by your partner or ex-partner? No 11/14/2024 Within the last year, have y ou been raped or forced to have any kind of sexual activity by your partner or ex-partner? No 11/14/2024 Social Connection and Isolat ion Panel [NHANES] Answer Date Recorded In a typical week, how many times do you talk on the phone with family, friends, or neighbors? Three times a week 11/14/2024 How often do you get togethe r with friends or relatives? Once a week 11/14/2024 How often do you attend chur or confucianist services? More than 4 times per year 11/14/2024 Do you belong to any clubs o r organizations such as hoahaoism groups, unions, fraternal or athletic groups, or school groups? Yes 11/14/2024 How often do you attend meet ings of the clubs or organizations you belong to? 1 to 4 times per year 11/14/2024 Are you , , di vorced, , never , or living with a partner? 11/14/2024 AUDIT-C Answer Date Recorded Q1: How often do you have a drink containing alc ohol? 2-4 times a month 11/14/2024 Q2: How many drinks containi ng alcohol do you have on a typical day when you are drinking? 1 or 2 11/14/2024 Q3: How often do you have si x or more drinks on one occasion? Less than monthly 11/14/2024 Overall Financial Resource Strain (CARDIA) Answe r Date Recorded How hard is it for you to pa y for the very basics like food, housing, medical care, and heating? Not hard at all 11/14/2024 PHQ-2 Answer Date Recorded Patient Health Questionnaire-2 Score 0 11/14/2024 [facility] - Occupational Stress Questionnaire Answer Date Recorded Do you feel stress - tense, restless, nervous, or anxious, or unable to sleep at night because your mind is troubled all the time - these days? Only a little 11/14/2024 Exercise Vital Sign Answer Date Recorde d On average, how many days pe r week do you engage in moderate to strenuous exercise (like a brisk walk)? 5 days 11/14/2024 On average, how many minutes do you engage in exercise at this level? 70 min 11/14/2024 Hunger Vital Sign Answer Date Recorded Within the past 12 months, y ou worried that your food would run out before you got the money to buy more. Never true 11/15/19 25 Within the past 12 months, t he food you bought just didn't last and you didn't have money to get more. Never true 11/14/2024 PRAPARE - Transportation Answer Date Re corded In the past 12 months, has l ack of transportation kept you from medical appointments or from getting medications? No 07/2024 In the past 12 months, has l ack of transportation kept you from meetings, work, or from getting things needed for daily living? No 11/14/2024 Housing Stability Vital Sign Answer Yuniel e Recorded In the last 12 months, was t here a time when you were not able to pay the mortgage or rent on time? No 11/14/2024 In the past 12 months, how m any times have you moved where you were living? 0 11/14/2024 At any time in the past [address] [facility], were you homeless or living in a skilled nursing (including now)? No 11/14/2024 Comments Unknown Sex and Gender Information Value Date Recorded Sex Assigned at Not on file Legal Sex Female 8:09 PM EDT Gender Identity Not on file Sexual Orientation Not on file Last Filed Vital Signs Vital Sign Reading Time Taken Comments Blood Pressure 108/68 11/14/2024 2:12 PM EDT Pulse 63 11/14/2024 2:12 PM EDT Temperature 36.2 C (97.2 F) 11/14/2024 2:12 PM EDT Respiratory Rate - - Oxygen Saturation 99% 11/14/2024 2:12 PM EDT Inhaled Oxygen Concentration - - Weight 110 kg (242 lb) 11/14/2024 2:12 PM EDT Height 165.1 cm (5' 5 ) 11/14/2024 2:12 PM EDT Body Mass Index 40.27 11/14/2024 2:12 PM EDT Plan of Treatment Health Maintenance Due Date Last Done Comments Influenza Vaccine (Season Ended) 2025 Pap Smear 07/18/2027 07/18/2024, 08/2024, 07/15/2023, Additional history exists Cervical Cancer Screening 07/18/2029 HPV/Cotest 07/18/2029 07/18/2024, 08/2024, 07/15/2023, Additional history exists Procedures Procedure Name Priority Date/Time Associated Diagnosis Comments ALL PROGESTERONE Routine 11/04/2024 8:32 AM EDT ALL PROGESTERONE Routine 10/17/2024 1:32 PM EDT HBSAG SCREEN Routine 09/17/2024 8:12 AM EDT ALL HEPATITIS C AB Routine 09/17/2024 8: 12 AM EDT RAPID PLASMA REAGIN, QUANT Routine 09/17/2024 8:12 AM EDT HIV AB/P24 AG WITH REFLEX Routine 09/17/2024 8:12 AM EDT ALL LIPID PROFILE (FASTING) Routine 09/17/2024 8:12 AM EDT [facility] CMP (CMP) (FOR REMOTE [facility] USE) Routine 09/17/2024 8:12 AM EDT ALL CBC WITH AUTO DIFF Routine 8:12 AM EDT CHLAMYDIA/GC AMPLIFICATION Routine 09/17/2024 8:06 AM EDT from Last 3 Months Results * ALL PROGESTERONE (11/04/2024 8:32 AM EDT) Only the most recent of2 resultswithin the time period is included. PROGESTERONE 0.7 . ng/mL [facility] Comment: Follicular phase 0.1 - 0.9 Luteal phase 1.8 - 23.9 Ovulation phase 0.1 - 12.0 First trimester 11.0 - 44.3 Second trimester 25.4 - 83.3 Third trimester 58.7 - 214.0 Postmenopausal 0.0 - 0.1 Performed at: - [facility] [id number] Access Lead: Michel Carlos PhD, Phone: [phone] 11/04/2024 8:32 AM EDT 11/04/2024 8:33 AM EDT Narrative CLINISY[facility] - 11/05/2024 4:07 AM EDT Generic External Data Provider CLINISYNC F inal Result Performing Organization Address [facility] Co de Phone Number [facility] * HBSAG SCREEN (09/17/2024 8:12 AM EDT) Pathologist [facility] HBSAG SCREEN Negative Negative [facility] Comment: Performed at: [address] [id number] Access Lead: Michel Carlos PhD, Phone: [phone] 09/17/2024 8:12 AM EDT 09/17/2024 8:14 AM EDT Narrative CLINISYNC - 09/18/2024 3:10 PM EDT Generic External Data Provider LAB BLOOD ORDERAB LES Final Result Performing Organization Address [facility] Phone Number [facility] * RAPID PLASMA REAGIN, QUANT (09/17/2024 8:12 AM EDT) [facility] RAPID PLASMA REAGIN, QUANT Non Reactive NonRea<1: 1 titer [facility] Comment: Please Note: This test does not meet current guidelines for screening and diagnosis of syphilis. This test is intended for following treatment response in patients being treated for syphilis infection. To screen for syphilis infection, a reflex cascade that includes both RPR and a treponema-specific assay should be utilized, such as Treponema pallidum (Syphilis) Screening [place] (930384) or Rapid Plasma Reagin (RPR) Test With Reflex to Quantitative RPR and Confirmatory Treponema pallidum Antibodies (136300). Performed at: [address] [id number] Access Lead: Michel Carlos PhD, Phone: [phone] 09/17/2024 8:12 AM EDT 09/17/2024 8:14 AM EDT Narrative CLINISYNC - 09/18/2024 3:10 PM EDT Generic External Data Provider LAB BLOOD ORDERAB LES Final Result Performing Organization Address [facility]/State/ZIP Co de Phone Number ZURDOIL JORGE LUIS * HIV AB/P24 AG WITH REFLEX (09/17/2024 8:12 AM EDT) HIV AB/P24 AG SCREEN Non Reactive Non Reactive TB Comment: HIV-1/HIV-2 antibodies and HIV-1 p24 antigen were NOT detected. There is no laboratory evidence of HIV infection. HIV Negative Performed at: - [facility] [id number] Access Lead: Michel Carlos PhD, Phone: [phone] 09/17/2024 8:12 AM EDT 09/17/2024 8:14 AM EDT Narrative CLINISYNC - 09/18/2024 7:08 AM EDT us Generic External Data Provider LAB BLOOD ORDERAB LES Final Result Performing Organization Address City/[facility]/ZIP Co de Phone Number MICHI KANG * (ABNORMAL) [facility] CMP (CMP) (FOR REMOTE [facility] USE) (09/17/2024 8:12 AM EDT) SODIUM 141 136 - 145 mmol/L [facility] POTASSIUM 4.0 3.5 - 5.1 mmol/L [facility] CHLORIDE 105 98 - 107 mmol/L [facility] CARBON DIOXIDE 28.7 21.0 - 32.0 mmol/L [facility] ANION GAP 11.3 TBH GLUCOSE 82 74 - 106 mg/dL TB BLOOD UREA NITROGEN 17.0 7.0 - 18.0 mg/dL [facility] CREATININE 0.58 0.55 - 1.02 mg/dL TBH TBH EGFR-AF FRENCH >60 >=60 mL/min/1. 73m 2 TBH TBH EGFR-NON AF FRENCH >60 >=60 mL/min/1. 73m 2 TBH BUN CREATININE RATIO 29.3 TBH CALCIUM 8.6 8.5 - 10.1 mg/dL [facility] BILIRUBIN TOTAL 1.4(H) 0.2 - 1.0 mg/dL [facility] ASPARTATE AMINO TRANSFERASE 20 15 - 37 U/L [facility] ALANINE AMINOTRANSFERASE 20 14 - 59 U/L TBH ALKALINE PHOSPHATASE 74 46 - 116 U/L TBH TOTAL PROTEIN 7.3 6.4 - 8.2 g/dL TBH ALBUMIN LEVEL 3.8 3.4 - 5.0 g/dL TBH GLOBULIN 3.5 g/dL TBH ALBUMIN GLOBULIN RATIO 1.1 TB 09/17/2024 8:12 AM EDT 09/17/2024 8:14 AM EDT Narrative CLINISYNC - 09/17/2024 9:14 AM EDT Generic External Data Provider CLINISYNC F inal Result Performing Organization Address [facility] de Phone Number CLINISYNC TB * ALL LIPID PROFILE (FASTING) (09/17/2024 8:12 AM EDT) TRIGLYCERIDES 38 <=150 mg/dL [facility] CHOLESTEROL 128 <=200 mg/dL TB HDL CHOLESTEROL 45 40 - 60 mg/dL TB Comment: > or =60 mg/dl - LOW CARDIOVASCULAR RISK <40 mg/dl - HIGH CARDIOVASCULAR RISK LDL CHOLESTEROL CALCULATED 75.4 mg/dL TB Comment: <100 mg/dl OPTIMAL 100-129 mg/dl NEAR OR ABOVE OPTIMAL 130-159 mg/dl BORDERLINE HIGH 160-189 mg/dl HIGH >190 mg/dl VERY HIGH VLDL CHOLESTEROL 7.6 mg/dL TB CHOL HDL RATIO 2.8 TB Comment: 3.3 - 4.4 LOW RISK 4.4 - 7.1 AVERAGE RISK 7.1 - 11.0 MODERATE RISK >11.0 HIGH RISK 09/17/2024 8:12 AM EDT 09/17/2024 8:14 AM EDT Narrative CLINISYNC - 09/17/2024 9:14 AM EDT Generic External Data Provider CLINISYNC F inal Result Performing Organization Address [facility] Co de Phone Number CLIN[facility]NC TB * ALL HEPATITIS C AB (09/17/2024 8:12 AM EDT) HCV ANTIBODY Non Reactive Non Reactive TB Comment: HCV antibody alone does not differentiate between previously resolved infection and active infection. Equivocal and Reactive HCV antibody results should be followed up with an HCV RNA test to support the diagnosis of active HCV infection. 09/17/2024 8:12 AM EDT 09/17/2024 8:14 AM EDT Narrative CLINISYNC - 09/18/2024 3:10 PM EDT us Generic External Data Provider [facility] F inal Result [facility] * ALL CBC WITH AUTO DIFF (09/17/2024 8:12 AM EDT) Pathologist [facility] WBC 10.1 4.0 - 11.0 10 3/uL TBH TBH RBC 4.37 4.20 - 5.40 10 6/uL TBH TBH HGB 12.7 12.0 - 16.0 g/dL TBH TB HCT 38.9 36.0 - 48.0 % TBH TBH MCV 89.0 81.0 - 99.0 fL TBH TBH MCH 29.1 26.7 - 34.0 pg TBH TBH MCHC 32.6 29.9 - 35.2 g/dL TBH TBH RDW 12.8 11.0 - 15.0 % TBH TBH PLT 254 150 - 450 10 3/uL TBH TBH MPV 10.5 9.5 - 13.5 fL TBH NEUTROPHILS PERCENT AUTO 62.4 43.0 - 75.0 % TBH LYMPHOCYTES PERCENT AUTO 28.0 20.5 - 60.0 % TBH MONOCYTES PERCENT AUTO 7.9 1.7 - 12.0 % TBH TBH EO % 1.1 0.9 - 7.0 % TBH BASOPHILS PERCENT AUTO 0.4 0.2 - 2.0 % TBH IMMATURE GRANULOCYTES PCT AUTO 0.2 0.0 - 0.5 % TBH NEUTROPHILS ABSOLUTE AUTO 6.3 1.4 - 6.5 10 3/uL TBH LYMPHOCYTES ABSOLUTE AUTO 2.8 1.2 - 3.8 10 3/uL TBH MONOCYTES ABSOLUTE AUTO 0.8 0.3 - 0.8 10 3/uL TBH TBH EO # 0.1 0.0 - 0.7 10 3/uL TBH BASOPHILS ABSOLUTE AUTO 0.0 0.0 - 0.1 10 3/uL TBH IMMATURE GRANULOCYTES ABS AUTO 0.02 0.00 - 0.03 10 3/uL TBH 09/17/2024 8:12 AM EDT 09/17/2024 8:14 AM EDT Narrative CLINISYNC - 09/17/2024 8:37 AM EDT Generic External Data Provider CLINISYNC F inal Result [facility] * CHLAMYDIA/GC AMPLIFICATION (09/17/2024 8:06 AM EDT) CHLAMYDIA TRACHOMATIS, ROBBY Negative Negative TBH NEISSERIA GONORRHOEAE, ROBBY Negative Negative [facility] Comment: Performed at: = - [facility] [id number] Access Lead: Julieta Goncalves MD, Phone: [phone] 09/17/2024 8:06 AM EDT 09/17/2024 8:14 AM EDT Narrative CLINISYIL - 09/20/2024 9:10 PM EDT URINE Generic External Data Provider LAB BLOOD ORDERAB LES Final Result Performing Organization Address City/[facility] Co de Phone Number [facility] from Last 3 Months Insurance [facility] Care Teams Chief Operator Hydroformer Relationship Specialty [place] [address] [place] [address] PCP - General Family Medicine 10/21/22
--- OUTSIDE RECORDS SUMMARY | 2024-12-12 16:23 | XMS_ITS | Encounter Summary ---
Author Organization [facility] Address [address] [place] [address] Phone Care Team Providers Care Assembly Inspector Helper Name Role Phone Dipika Cox LPN Unavailable Un available Encounter Details Date Type Department Care Team (Late st Contact Info) Description 12/12/2024 Telephone Dillon Carlos [address] [facility] [address] [place] [address] Yariel Roldan MD [address] [place], [facility] [address] [place], [place] [id number] Social History Tobacco Use Types Packs/Day Years [...] as of this encounter Miscellaneous Notes * Addendum Note - Tatum Pickens LPN - 12/12/2024 12:35 PM EDTAddended by: TATUM PICKENS on: 12/12/2024 12:35 PM Modules accepted: Orders * Telephone Encounter - Tatum Pickens LPN - 12/12/2024 12:25 PM EDT Returned call to patient . Patient currently LMP 11/03. Patient currently CD 40. Patient added to noon huddle for provera labs. Will review results with provider and contact patient with plan. 12/12/24 at 12:34 PM - Tatum Pickens LPN * Telephone Encounter - Cathie Chavez V - 12/12/2024 12:01 PM EDT Reason for call: Patient is calling to talk to a nurse about doing another Clomid /Letrozole combo.She usually has to start provera to start her cycle. Notes: documented in this encounter Plan of Treatment Upcoming Encounters Date Type Department Care Team (Late st Contact Info) Description 12/12/2024 11:20 PM EDT Orders Only Dillon Carlos [address] [place] [address] Arrived 12/22/2024 9:30 AM EDT Nutrition [facility] [address] [place] [phone] Shara Gambino, RD, LD [address] [place] [address] 03/30/2025 2:00 PM EDT Telemedicine Dillon Carlos [address] [place] [address] Dulce Maria Zarate MD [address] [place] [address] Scheduled Orders Name Type Priority Associated Diagnoses Orde r Schedule Progesterone Lab STAT Female infertility Expected: 12/12/2024 (Approximate), Expires: 12/12/2025 [facility] HCG, TOTAL, QN Lab STAT Encounter for preprocedural laboratory examination Expected: 12/12/2024 (Approximate), Expires: 12/12/2025 documented as of this encounter Visit Diagnoses Diagnosis Female infertility Female infertility of unspecified origin Encounter for preprocedural laboratory examination documented in this encounter Additional Health Concerns Assessment Noted Time A fall risk assessment has been complete d for the patient 09/29/2024 12:06 PM EDT documented as of this encounter Care Teams Assembly Inspector Helper Relationship Specialty Start Date End Date Dipika Cox LPN Licensed Practical Nurse Reproductive Endocrinology and Infertility 09/14/24 documented as of this encounter
--- OUTSIDE RECORDS SUMMARY | 2024-12-12 16:23 | XMS_ITS | Encounter Summary ---
Author Organization [facility] Address [address] [place] [address] Care Team Providers Care Programmable Logic Controller Assembler Name Role Phone Lalit Bedolla MD Primary Care Provider [phone] Encounter Details Date Type Department Care Team (Late st Contact Info) Description 01/14/2024 Abstract [facility] [address] [place] [address] Rehana Hardwick LPN Social History Tobacco Use Types Packs/Day Years [...] on file documented as of this encounter Plan of Treatment Not on file documented as of this encounter Visit Diagnoses Not on filedocumented in this encounter Care Teams Programmable Logic Controller Assembler Relationship Specialty [place] [address] [place] [address] PCP - General Family Medicine 10/21/22 documented as of this encounter
[2024-12-12 17:28] LABS: HCG Quantitative <1 mIU/mL
[2024-12-14 04:07] LABS: Progesterone 0.1 ng/mL (.)
== END 2024-12-12 16:19 | disposition home or self-care (01) ==
LOC: LAB 16:21
PROVIDERS: PCP Family Medicine
DX: Z01.812 Encounter for preprocedural laboratory examination (principal); N97.9 Female infertility, unspecified
CPT/HCPCS: 36415; 84144; 84702

== ENCOUNTER 2025-01-03 09:38 | Outpatient (OUT) | payer OTHER, SELFPAY ==
--- OUTSIDE RECORDS SUMMARY | 2025-01-02 15:54 | XMS_ITS | Encounter Summary ---
Author Organization [facility] Address [address] [place] [place] [address] Care Team Providers Care Wood Borer Name Role Phone Lalit Bedolla MD Primary Care Provider [phone] Reason for Visit * Reason Comments Med Refill Encounter Details Date Type Department Care Team (Late st Contact Info) Description 12/09/2023 Refill [facility] [address] [facility] [place] [address] Joe Martinez, DO [address] [facility] [place] [address] PCOS (polycystic ovarian syndrome); Amenorrhea Social History [...] menstruation documented in this encounter Care Teams Wood Borer Relationship Specialty [place] [address] [place] [address] PCP - General Family Medicine 10/21/22 documented as of this encounter
--- OUTSIDE RECORDS SUMMARY | 2025-01-02 15:54 | XMS_ITS | Clinical Summary ---
Author Organization [facility] Address [address] [place] [address] Phone Care Team Providers Care Azure Architect Name Role Phone Dipika Cox LPN Unavailable [...] menses 10 tablet 06/24/19 25 026 Active clomiPHENE (Clomid) 50 mg tabletIndications: Female [...] days. 4 each 2 11/17/19 25 Active medroxyPROGESTERon e (Provera) 10 mg tabletIndications: Female infertility Take 1 tablet (10 mg) by mouth once daily. 10 tablet 12/15/19 25 026 Active letrozole (Femara) 2.5 mg tabletIndications: Female infertility Take 3 tablets (7.5 mg total) by mouth once daily. Take 3 tablets by mouth cycle days 3-7 after negative urine test every cycle before starting letrozole. 15 tablet 10/01/19 25 025 medroxyPROGESTERon e (Provera) 10 mg tabletIndications: Female infertility Take 1 tablet (10 mg) by mouth once daily. 10 tablet 12/15/19 25 025 Discontinu ed(Reorder ) Encounters Date Type Department Care Team Description 12/14/2024 11:45 PM EDT Orders Only GENESIS Carlos [address] [place] [address] Female infertility 12/14/2024 Orders Only GENESIS Carlos [address] [place] [address] Mary Dawn LPN Female infertility 12/13/2024 11:30 PM EDT Orders Only GENESIS Carlos [address] [place] [address] 12/12/2024 11:20 PM EDT Orders Only GENESIS Carlos [address] [place] [phone] 12/12/2024 Telephone Dillon Carlos [address] [place] [address] Yariel Roldan MD 11/16/2024 1:00 PM EDT Office Visit [address] [place] [address] Karl Orozco MD BMI 39.0-39.9,adult; BMI 30.0-30.9,adult 11/16/2024 Travel 11/08/2024 11:20 PM EDT Orders Only GENESIS Carlos [address] [place] [address] 11/04/2024 11:05 PM EDT Orders Only Dillon Carlos [address] [place] [address] 10/18/2024 11:05 PM EDT Orders Only GENESIS Carlos [address] [place] [address] 10/18/2024 Orders Only Dillon Parkon [address] [place] [address] Dipika Cox, GRANITE CUTTER Female infertility 10/17/2024 11:35 PM EDT Orders Only Dillon Carlos [address] [place] [address] 10/16/2024 11:00 PM EDT Orders Only Dillon Carlos [address] [place] [phone] from Last 3 Months Social History Tobacco [...] Care Team (Late st Contact Info) Description 03/30/2025 2:00 PM EDT Telemedicine Dillon Pearce Breanna [address] [place] [address] Dulce Maria Zarate MD [address] [place] [address] Health Maintenance Due Date Last Done Comments HIV Screening 1990 Lipid Panel 1990 Varicella Vaccines (1 of 2 - 13+ 2-dose series) 09/24/2003 Hepatitis C Screening 2008 Hepatitis B Vaccines (1 of 3 - 19+ 3-dose series) 2009 HPV/Cotest 09/24/2011 HPV Vaccines (1 - 3-dose standard series) 2017 COVID-19 Vaccine (2 - Pfizer risk series) 04/21/2022 03/31/2022 Influenza Vaccine (#1) 2025 Yearly Adult Physical 07/19/2025 07/18/2024 , 07/15/2023, 07/15/2022, Additional history exists Cervical Cancer Screening 07/18/2027 Pap Smear 07/18/2027 07/18/2024 DTaP/Tdap/Td Vaccines (7 - Td or Tdap) 11/27/2031 11/26/2021, 09/17/1995, 03/29/1992, Additional history exists Zoster Vaccines (1 of 2) 2040 HIB Vaccines Completed 12/26/1991, 03/15, 01/25/1991, Additional history exists MMR Vaccines Completed 12/26/1991 IPV Vaccines Completed 09/17/1995, 03/15, 01/25/1991, Additional history exists Hepatitis A Vaccines Aged Out No long [...] Date/Time Associated Diagnosis Comments PROGESTERONE Routine 11/04/2024 from Last 3 Months Results * Progesterone (11/04/2024) Progesterone External 0.7 ng/mL [facility] Blood Venous blood specimen / Unknown 11/04/2024 us Historical Provider LAB BLOOD ORDERABLES Zamzam newton Result [facility] [address] [address] from Last 3 Months Insurance [employer] Care Teams Azure Architect Relationship Specialty Start Date End Date Dipika Cox LPN Licensed Practical Nurse Reproductive Endocrinology and Infertility 09/14/24
--- OUTSIDE RECORDS SUMMARY | 2025-01-02 15:54 | XMS_ITS | Clinical Summary ---
Author Organization [employer] Address [id number] [address] [place] [address] Care Team Providers Care Programmer Or Analyst Name Role Phone Lalit Bedolla MD Primary Care Provider [phone] Allergies No known active allergies Medications vit 91/iron/folic/d cotto ( + DHA ORAL) Take 1 tablet by mouth. 1 Active metFORMIN XR (GLUCOPHAGE-XR) 750 mg 24 hr tablet Take 1 tablet (750 mg total) by mouth. 1 Active INOSITOL ORAL Take by mouth. A ctive clomiPHENE (CLOMID) 50 mg tablet 1 tab daily starting day 3 of cycle for 5 days 5 tablet 1 Active Additional Information Patient not taking.Reported on 05/25/2023 medroxyPROGESTE Casey (PROVERA) 10 mg tablet 1 tab daily for 20 days 20 tablet 1 Active Additional Information Patient not taking.Reported on 09/14/2023 Active Problems No known active problems Social History Tobacco Use Types Packs/Day Years Used Date Smoking Tobacco: Never Smokeless Tobacco: Never Childcare Answer Date Recorded Childcare Unknown 11/23/2018 Employment Answer Date Recorded Employment Unknown 11/23/2018 Hunger Screening Answer Date Recorded Within the past 12 months we worried whether our food would run out before we got money to buy more. Never True 05/25/2023 Within the past 12 months th e food we bought just didn't last and we didn't have money to get more. Never True 05/25/2023 Purpose - Life Answer Date Recorded Purpose and direction in life Unknown Comments No Sex and Gender Information Value Date Recorded Sex Assigned at Female 03/06/2021 8:51 AM EDT Legal Sex Female 8:43 PM EDT Gender Identity Female 03/06/2021 8:51 AM EDT Sexual Orientation Straight 03/06/2021 8: 51 AM EDT Last Filed Vital Signs Vital Sign Reading Time Taken Comments Blood Pressure 113/84 09/14/2023 8:08 AM EDT Pulse 72 09/14/2023 8:08 AM EDT Temperature 36.4 C (97.5 F) 09/14/2023 8:08 AM EDT Respiratory Rate 18 09/14/2023 8:08 AM EDT Oxygen Saturation 100% 09/14/2023 8:08 AM EDT Inhaled Oxygen Concentration - - Weight 149.7 kg (330 lb) 09/14/2023 8:08 AM EDT Height 165.1 cm (5' 5 ) 05/25/2023 4:43 PM EST Body Mass Index 54.91 05/25/2023 4:43 PM EST Plan of Treatment Health Maintenance Due Date Last Done Comments Depression Screening 2002 COVID-19 Vaccine (2023-2 5 season) 2024 03/31/2022, 08/17/2020, 07/27/2020 Adult BMI Screening 09/13/2024 09/14/2023 Tobacco Screening 09/13/2024 09/14/2023 Influenza Vaccine 02/13/2025 Pap Smear 07/15/2026 07/15/2023, 06/17, 07/15/2022, Additional history exists DTaP,Tdap and Td Vaccines (7 - Td or Tdap) 11/27/2031 11/26/2021, 09/17/1995, 03/29/1992, Additional history exists Medical Devices Not on file Procedures Procedure Name Priority Date/Time Associated Diagnosis Comments HIGH RISK HPV W/GIANNI Routine 07/15/2021 10:07 AM EST from Last 3 Months or Most Recently Relevant to Health Maintenance Results * High risk HPV w/gianni (07/15/2021 10:07 AM EST) Hpv specimen type ThinPrep 07/16/2021 10:07 AM EST [facility] Hpv 16 Negative Negative^N egative 07/17/2021 1:23 PM EST [facility] Hpv 18 Negative Negative^N egative 07/17/2021 1:23 PM EST [facility] Other high risk hpv Negative Negative^N egative 07/17/2021 1:23 PM EST [facility] Comment: HPV types 31,33,35,39,45,52,56,58,59,66 and 68 DNA were undetectable. THINP 07/15/2021 10:0 7 AM EST 07/16/2021 10:07 AM EST Nadja Brewster LICENSED OCCUPATIONAL THERAPIST-PEGA DEVELOPER LAB BLOOD ORDERABLES Final Result [facility] [address] [place] [address] from Last 3 Months or Most Recently Relevant to Health Maintenance Insurance [facility] Care Teams Programmer Or Analyst Relationship Specialty [place] [address] [place] [address] PCP - General Family Medicine 07/23/19
--- OUTSIDE RECORDS SUMMARY | 2025-01-02 15:54 | XMS_ITS | Encounter Summary ---
Author Organization [facility] Address [address] [place] [address] Care Team Providers Care Relief Worker Name Role Phone Lalit Bedolla MD Primary Care Provider [phone] Encounter Details Date Type Department Care Team (Late st Contact Info) Description 01/14/2024 Abstract [facility] [address] [place] [address] Rehana Hardwick LPN Social History Tobacco [...] on filedocumented in this encounter Care Teams Relief Worker Relationship Specialty [place] [address] [place] [address] PCP - General Family Medicine 10/21/22 documented as of this encounter
--- OUTSIDE RECORDS SUMMARY | 2025-01-02 15:54 | XMS_ITS | Clinical Summary ---
Author Organization [facility] Address [address], [address] [place] [address] Care Team Providers Care River Transportation Worker Name Role Phone Lalit Bedolla MD Primary Care Provider [phone] Allergies No known active allergies Medications albuterol [...] Description 07/18/2025 8:30 AM EST Office Visit [facility] Obstetrics & Gynecology [address] [place] [phone] Nadja Brewster APRN - VIDEO SYSTEMS ENGINEER [address] [place] [address] annual Health Maintenance Due Date Last Done Comments Varicella vaccine (1 of 2 - 13+ 2-dose series) 09/24/2003 HIV screen 2005 Hepatitis C screen 2008 Hepatitis B vaccine (1 of 3 - 19+ 3-dose series) 2009 COVID-19 Vaccine ( season) 2024 03/31/2022, 08/17/2020, 07/27/2020 Flu vaccine (#1) 01/13/2025 Depression Screen 07/18/2025 07/18/2024, 07/18/2024 Pap smear [...] HIGH RISK Routine 07/18/2024 12:00 AM EST INFECTION CONTROL COORDINATOR CYTOLOGY Routine 07/18/2024 12:00 AM EST from Last 3 Months or Most Recently Relevant to Health Maintenance Results * Human papillomavirus (HPV) DNA probe thin prep high risk (07/18/2024 12:00 AM EST) Specimen Description CERVICAL MATERIAL 07/18/2024 12:00 AM [facility] HPV Sample .THIN PREP 07/18/2024 12:00 AM [facility] HPV, Genotype 16 Not Detected Not Detected 07/18/2024 12:00 AM [facility] HPV, Genotype 18 Not Detected Not Detected 07/18/2024 12:00 AM [facility] HPV, High Risk Other Not Detected Not Detected 07/18/2024 12:00 AM [facility] HPV, Interpretation 07/18/2024 12:00 AM [facility] Comment: This test amplifies and detects DNA [...] for other forensic purposes. CERVICAL MATERIAL 07/18/2024 us Nadja Brewster LEAN LEADER - VIDEO SYSTEMS ENGINEER HEMATOLOGY ORDERABLES Fi nal Result [address] [address], [facility] [phone] * INFECTION CONTROL COORDINATOR Cytology (07/18/2024 12:00 AM EST) Cytology Report Path Number: [id number] DIAGNOSIS Imaged ThinPrep Pap - Cervical (1 monolayer slide): Specimen Adequacy: Satisfactory for evaluation. - Endocervical/trans formation zone component present. Descriptive Diagnosis: Negative for intraepithelial lesion or malignancy. Comments: Specimen was screened at [facility], [facility] [address] Cytotech Screener: JAIR Rescreened By: HOOD Electronically [...] or for other forensic purposes. Performed at [facility], [address] [place] [address] . Source of Specimen: A: Imaged ThinPrep Pap - Cervical (1 monolayer slide) HPV Reflex?........... ...........HPV Regardless Clinical History Z01.419 Routine parts sales manager exam without abnormal findings Z11.51 Encounter for screening for HPV Processing Lab: [place] [address] [place] [address] Interpretation performed at [facility], [facility] [place] [address] This Pap Test has been evaluated with the assistance of the IntellistreamPrep Pap Test Imaging System. The Pap smear is a screening test primarily for squamous epithelial lesions, which is subject to both false negative and false positive results. Your patient should be reminded to consult you immediately if she experiences any suspicious signs or symptoms, regardless of her Pap smear result. GYNECOLOGIC CYTOLOGY REPORT Patient Name: BROOK FISCHER. [facility] Rec: [id number] [facility] ANATOMIC PATHOLOGY [address] [place], [place] [address] [employer] CERVICAL MATERIAL 07/18/2024 025 7:25 AM EST Nadja Brewster LEAN LEADER - VIDEO SYSTEMS ENGINEER PATHOLOGY/CYTOLOGY ORDER CHAD Final Result Performing Organization Address City/State/[facility] Co de Phone Number [address] [address], [facility] [phone] [employer] from Last 3 Months or Most Recently Relevant to Health Maintenance Insurance [facility] Care Teams River Transportation Worker Relationship Specialty Start Date End Date Lalit Bedolla MD PCP - General Family Medicine 04/01/16
--- OUTSIDE RECORDS SUMMARY | 2025-01-02 15:54 | XMS_ITS | Encounter Summary ---
Author Organization [facility] Address [address] [place] [address] Care Team Providers Care Information Security Specialist Name Role Phone Lalit Bedolla MD Primary Care Provider [phone] Reason for Visit * Reason Comments Med Refill Encounter Details Date Type Department Care Team (Late st Contact Info) Description 10/12/2023 Refill [facility] [address] [place] [address] Joe Martinez, DO [address] [place] [address] PCOS (polycystic ovarian syndrome); Amenorrhea Social History [...] menstruation documented in this encounter Care Teams Information Security Specialist Relationship Specialty [place] [address] [place] [address] PCP - General Family Medicine 10/21/22 documented as of this encounter
--- OUTSIDE RECORDS SUMMARY | 2025-01-02 15:54 | XMS_ITS | Clinical Summary ---
Author Organization [facility] Address [address] [place] [address] Care Team Providers Care Street Light Repairer Name Role Phone Lalit Bedolla MD Primary Care Provider [phone] Allergies No known active allergies Medications Tirzepatide (Mounjaro) 7.5 MG/0.5ML solution auto-injector 08/15/2024 Activ e Active Problems Problem Noted Date Diagnosed Date Amenorrhea 05/10/2024 Migraine with aura and witho ut status migrainosus, not intractable 05/05/2023 Morbid (severe) obesity due to excess calories 1 07/05/2022 PCOS (polycystic ovarian syndrome) 10/19/2019 Encounters Date Type Department Care Team Description 12/12/2024 Clinisync Result Encounter [facility] External Department Unsolicited Provider, Generic External Data 11/14/2024 2:30 PM EDT Office Visit [facility] [address] [place] [address] Deanna Graf NP Plantar wart, right foot (Primary Dx); Class 3 severe obesity due to excess calories without serious comorbidity with body mass index (BMI) of 40.0 to 44.9 in adult ([facility]) 11/14/2024 Bamboo flowsheet [facility] [address] [place] [address] Deanna Graf NP 11/14/2024 Travel 11/04/2024 Clinisync Result Encounter NOMS External Department Unsolicited Provider, Generic External Data 10/17/2024 Clinisync Result Encounter [facility] External Department Unsolicited Provider, Generic External Data from Last 3 Months Family History Medical [...] 11/14/2024 How often do you attend chur ch or scientology services? More than 4 times per year 11/14/2024 Do you belong to any clubs o r organizations such as spiritism groups, unions, fraternal or athletic groups, or [...] Recorded Patient Health Questionnaire-2 Score 0 11/14/2024 [facility] Occup[facility] ional Health - Occupational Stress Questionnaire Answer Date Recorded [...] any time in the past 12 m [facility], were you homeless or living in a custodial (including now)? No 11/14/2024 Comments Unknown Sex [...] Due Date Last Done Comments Influenza Vaccine (#1) 2025 Pap Smear 07/18/2027 07/18/2024, 02/0 08/2024, 07/15/2023, Additional history exists Cervical Cancer Screening 07/18/2029 HPV/Cotest 07/18/2029 07/18/2024, 02/0 08/2024, 07/15/2023, Additional history exists Procedures Procedure Name Priority Date/Time Associated Diagnosis Comments ALL PROGESTERONE Routine 12/12/2024 4:26 PM EDT [facility] PREG QUANT HCG Routine 12/12/2024 4: 26 PM EDT ALL PROGESTERONE Routine 11/04/2024 8:32 AM EDT ALL PROGESTERONE Routine 10/17/2024 1:32 PM EDT from Last 3 Months Results * TB PREG QUANT HCG (12/12/2024 4:26 PM EDT) HCG QUANTITATIVE <1 mIU/mL [facility] Comment: 5-50 0.2-1 WEEK 50-500 1-2 WEEKS 100-5,000 2-3 WEEKS 500-10,000 3-4 WEEKS 1,000-50,000 4-5 WEEKS 10,000-100,000 5-6 WEEKS 15,000-200,000 6-8 WEEKS 10,000-100,000 2-3 MONTHS 12/12/2024 4:26 PM EDT 12/12/2024 4:27 PM EDT Narrative [facility] - 12/12/2024 5:28 PM EDT Generic External Data Provider [facility] F inal Result [facility] * ALL PROGESTERONE (12/12/2024 4:26 PM EDT) Only the most recent of3 resultswithin the time period is included. PROGESTERONE 0.1 . ng/mL TB Comment: Follicular phase 0.1 - 0.9 Luteal phase 1.8 - 23.9 Ovulation phase 0.1 - 12.0 First trimester 11.0 - 44.3 Second trimester 25.4 - 83.3 Third trimester 58.7 - 214.0 Postmenopausal 0.0 - 0.1 Performed at: [facility] [id number] [place] Gauger: Michel Carlos PhD, Phone: [phone] 12/12/2024 4:26 PM EDT 12/12/2024 4:27 PM EDT Narrative [facility] - 12/14/2024 4:07 AM EDT Generic External Data Provider [facility] F inal Result [facility] TB from Last 3 Months Insurance [facility] Care Teams Street Light Repairer Relationship Specialty [place] [address] [place], [place] [id number] PCP - General Family Medicine 10/21/22
[2025-01-03 09:45] LABS: Hematocrit 37.4 % (36.0-48.0); Hemoglobin 12.3 g/dL (12.0-16.0); Immature Granulocytes Abs Auto 0.04 10^3/uL (0.00-0.03); Immature Granulocytes Pct Auto 0.4 % (0.0-0.5); Lymphocytes Absolute Auto 2.6 10^3/uL (1.2-3.8); Mean Corpuscular HGB Conc 32.9 g/dL (29.9-35.2); Mean Corpuscular Hemoglobin 29.4 pg (26.7-34.0); Mean Corpuscular Volume 89.3 fL (81.0-99.0); Platelet Count 267 10^3/uL (150-450); Red Blood Count 4.19 10^6/uL (4.20-5.40); White Blood Count 11.0 10^3/uL (4.0-11.0)
[2025-01-03 09:49] LABS: Alanine Aminotransferase 27 U/L (14-59); Albumin Globulin Ratio 1.1; Albumin Level 3.8 g/dL (3.4-5.0); Alkaline Phosphatase 80 U/L (46-116); Anion Gap 12.3; Aspartate Amino Transferase 20 U/L (15-37); Blood Urea Nitrogen 15.0 mg/dL (7.0-18.0); Calcium 8.8 mg/dL (8.5-10.1); Carbon Dioxide 29.8 mmol/L (21.0-32.0); Chloride 103 mmol/L (98-107); Cholesterol 122 mg/dL (<=200); Estimated GFR (African America >60 (>=60 mL/min/1.73m^2); Estimated GFR (Non-African Ame >60 (>=60 mL/min/1.73m^2); Globulin 3.5 g/dL; Glucose 82 mg/dL (74-106); HDL Cholesterol 44 mg/dL (40-60); Potassium 4.1 mmol/L (3.5-5.1); Sodium 141 mmol/L (136-145); Total Protein 7.3 g/dL (6.4-8.2); Triglycerides 45 mg/dL (<=150); VLDL CHOLESTEROL 9.0 mg/dL
--- OUTSIDE RECORDS SUMMARY | 2025-01-04 09:41 | XMS_ITS | Clinical Summary ---
Author Organization [facility] Address [address] [place] [address] Care Team Providers Care Neck Cutter Name Role Phone Lalit Bedolla MD Primary Care Provider [phone] Allergies No known active allergies Medications albuterol [...] Description 07/18/2025 8:30 AM EST Office Visit [facility] Obstetrics & Gynecology [address] [place] [phone] Nadja Brewster APRN - DIRECTOR OF ANESTHESIA SERVICES [address] [place] [address] annual Health Maintenance Due Date Last Done [...] HIGH RISK Routine 07/18/2024 12:00 AM EST BICYCLE RACER CYTOLOGY Routine 07/18/2024 12:00 AM EST from Last 3 Months or Most Recently Relevant to Health Maintenance Results * Human papillomavirus (HPV) DNA probe thin prep high risk (07/18/2024 12:00 AM EST) Specimen Description CERVICAL MATERIAL 07/18/2024 12:00 AM [facility] HPV Sample .THIN PREP 07/18/2024 12:00 AM [facility] HPV, Genotype 16 Not Detected Not Detected 07/18/2024 12:00 AM [facility] HPV, Genotype 18 Not Detected Not Detected 07/18/2024 12:00 AM [facility] HPV, High Risk Other Not Detected Not Detected 07/18/2024 12:00 AM [facility] HPV, Interpretation 07/18/2024 12:00 AM [facility] Comment: This test amplifies and detects DNA [...] purposes. CERVICAL MATERIAL 07/18/2024 us Nadja Brewster TUBE MAKER - DIRECTOR OF ANESTHESIA SERVICES HEMATOLOGY ORDERABLES Fi nal Result [address] [address], [facility] [phone] * BICYCLE RACER Cytology (07/18/2024 12:00 AM EST) Cytology Report Path Number: [id number] DIAGNOSIS Imaged ThinPrep Pap - Cervical (1 monolayer slide): Specimen Adequacy: Satisfactory for evaluation. - Endocervical/trans formation zone component present. Descriptive Diagnosis: Negative for intraepithelial lesion or malignancy. Comments: Specimen was screened at [facility], [facility] [address] Cytotech Screener: JAIR Rescreened By: HOOD Electronically [...] for other forensic purposes. Performed at [facility], [address] [place] [address] . Source of Specimen: A: Imaged ThinPrep Pap - Cervical (1 monolayer slide) HPV Reflex?........... ...........HPV Regardless Clinical History Z01.419 Routine nuclear fuel processing technician exam without abnormal findings Z11.51 Encounter for screening for HPV Processing Lab: [place] [address] [place] [address] Interpretation performed at [facility], [facility] [place] [address] This Pap Test has been evaluated with the assistance of the HALSCIONPrep Pap Test Imaging System. The Pap smear is a screening test primarily for squamous epithelial lesions, which is subject to both false negative and false positive results. Your patient should be reminded to consult you immediately if she experiences any suspicious signs or symptoms, regardless of her Pap smear result. GYNECOLOGIC CYTOLOGY REPORT Patient Name: BROOK FISCHER. [facility] Rec: [id number] [facility] ANATOMIC PATHOLOGY [address] [place], [place] [address] [email or web address] CERVICAL MATERIAL 07/18/2024 025 7:25 AM EST Nadja Brewster TUBE MAKER - DIRECTOR OF ANESTHESIA SERVICES PATHOLOGY/CYTOLOGY ORDER CHAD Final Result Performing Organization Address City/State/[facility] Co de Phone Number [address] [address], [facility] [phone] [email or web address] from Last 3 Months or Most Recently Relevant to Health Maintenance Insurance [facility] [employer] Care Teams Neck Cutter Relationship Specialty Start Date End Date Lalit Bedolla MD PCP - General Family Medicine 04/01/16
--- OUTSIDE RECORDS SUMMARY | 2025-01-04 09:41 | XMS_ITS | Encounter Summary ---
Author Organization [facility] Address [address] [place] [address] Care Team Providers Care Scallop Shucker Name Role Phone Lalit Bedolla MD Primary Care Provider [phone] Encounter Details Date Type Department Care Team (Late st Contact Info) Description 01/14/2024 Abstract [facility] [address] [place] [address] Rehana Hardwick LPN Social History Tobacco [...] on filedocumented in this encounter Care Teams Scallop Shucker Relationship Specialty [place] [address] [place] [address] PCP - General Family Medicine 10/21/22 documented as of this encounter
--- OUTSIDE RECORDS SUMMARY | 2025-01-04 09:41 | XMS_ITS | Encounter Summary ---
Author Organization [facility] Address [address] [place] [address] Care Team Providers Care Bus Steward Name Role Phone Lalit Bedolla MD Primary Care Provider [phone] Reason for Visit * Reason Comments Med Refill Encounter Details Date Type Department Care Team (Late st Contact Info) Description 12/09/2023 Refill [facility] [address] [place] [place] [address] Joe Martinez, DO [address] [place] [address] PCOS (polycystic ovarian syndrome); Amenorrhea Social History [...] menstruation documented in this encounter Care Teams Bus Steward Relationship Specialty [place] [address] [place] [address] PCP - General Family Medicine 10/21/22 documented as of this encounter
--- OUTSIDE RECORDS SUMMARY | 2025-01-04 09:41 | XMS_ITS | Clinical Summary ---
Author Organization [employer] Address [id number] [address] [place] [address] Care Team Providers Care Computerized Mill Recorder Name Role Phone Lalit Bedolla MD Primary Care Provider [phone] Allergies No known active allergies Medications vit [...] Negative Negative^N egative 07/17/2021 1:23 PM EST [facility] Hpv 18 Negative Negative^N egative 07/17/2021 1:23 PM EST [facility] Other high risk hpv Negative Negative^N egative 07/17/2021 1:23 PM EST [facility] Comment: HPV types 31,33,35,39,45,52,56,58,59,66 and 68 DNA were undetectable. THINP 07/15/2021 10:0 7 AM EST 07/16/2021 10:07 AM EST Nadja Brewster ELECTORAL OFFICER-GROUP RESERVATIONS COORDINATOR LAB BLOOD ORDERABLES Final Result [facility] [address] [place] [address] from Last 3 Months or Most Recently Relevant to Health Maintenance Insurance [facility] Care Teams Computerized Mill Recorder Relationship Specialty [place] [address] [place] [address] PCP - General Family Medicine 07/23/19
--- OUTSIDE RECORDS SUMMARY | 2025-01-04 09:41 | XMS_ITS | Clinical Summary ---
Author Organization [facility] Address [address] [place] [address] Care Team Providers Care Profile Trimmer Name Role Phone Lalit Bedolla MD Primary Care Provider Allergies No known active allergies Medications Tirzepatide [...] 11/14/2024 2:30 PM EDT Office Visit [facility] [address] [place] [address] Deanna Graf NP Plantar wart, right foot (Primary Dx); Class 3 severe obesity due to excess calories without serious comorbidity with body mass index (BMI) of 40.0 to 44.9 in adult ([facility]) 11/14/2024 Bamboo flowsheet [facility] [address] [place] [address] Deanna Graf NP 11/14/2024 Travel 11/04/2024 Clinisync [...] often do you attend chur ch or jainism services? More than 4 times per year 11/14/2024 Do you belong to any clubs o r organizations such as worship groups, unions, fraternal or athletic groups, or [...] Recorded Patient Health Questionnaire-2 Score 0 11/14/2024 [facility] Health - Occupational Stress [...] any time in the past 12 m [facility], were you homeless or living in a fci (including now)? No 11/14/2024 Comments Unknown Sex [...] 4:26 PM EDT) HCG QUANTITATIVE <1 mIU/mL [facility] Comment: 5-50 0.2-1 WEEK 50-500 1-2 WEEKS [...] 214.0 Postmenopausal 0.0 - 0.1 Performed at: [facility] [id number] Edge Bander Operator: Michel Carlos PhD, Phone: [phone] 12/12/2024 4:26 PM EDT 12/12/2024 4:27 PM EDT Narrative [facility] - 12/14/2024 4:07 AM EDT Generic External Data Provider [facility] F inal Result [facility] TB from Last 3 Months Insurance [facility] Care Teams Profile Trimmer Relationship Specialty Start [place] [address] [place], [place] [id number] PCP - General Family Medicine 10/21/22
--- OUTSIDE RECORDS SUMMARY | 2025-01-04 09:41 | XMS_ITS | Clinical Summary ---
Author Organization [facility] Address [address] [place] [address] Phone Care Team Providers Care Film Processing Shift Supervisor Name Role Phone Dipika Cox LPN Unavailable [...] EDT Orders Only GENESIS Carlos [address] [place] [address] Female infertility 12/14/2024 Orders Only GENESIS Carlos [address] [place] [address] Mary Dawn LPN Female infertility 12/13/2024 11:30 PM EDT Orders Only GENESIS Carlos [address] [place] [address] 12/12/2024 11:20 PM EDT Orders Only GENESIS Carlos [address] [place] [phone] 12/12/2024 Telephone Dillon Carlos [address] [place] [address] Yariel Roldan MD 11/16/2024 1:00 PM EDT Office Visit [address] [place] [address] Karl Orozco MD BMI 39.0-39.9,adult; BMI 30.0-30.9,adult 11/16/2024 Travel 11/08/2024 11:20 PM EDT Orders Only GENESIS Carlos [address] [place] [address] 11/04/2024 11:05 PM EDT Orders Only Dillon Carlos [address] [place] [address] 10/18/2024 11:05 PM EDT Orders Only GENESIS Carlos [address] [place] [address] 10/18/2024 Orders Only Dillon Parkon [address] [place] [address] Dipika Cox, CAFETERIA OPERATOR Female infertility 10/17/2024 11:35 PM EDT Orders Only Dillon Carlos [address] [place] [address] 10/16/2024 11:00 PM EDT Orders Only Dillon Carlos [address] [place] [phone] from Last 3 Months Social History Tobacco [...] Dillon Pearce Breanna [address] [place] [address] Dulce Maria Zarate MD [address] [place] [address] Health Maintenance Due Date Last Done Comments [...] [place] Result [facility] [address] [address] from Last 3 Months Insurance GENERIC COMMERCIAL GENERIC COMMERCIAL Care Teams Film Processing Shift Supervisor Relationship Specialty Start Date End Date Dipika Cox LPN Licensed Practical Nurse Reproductive Endocrinology and Infertility 09/14/24
--- OUTSIDE RECORDS SUMMARY | 2025-01-04 09:41 | XMS_ITS | Encounter Summary ---
Author Organization [facility] Address [address] [place] [address] Care Team Providers Care Mortgage Protection Sales Name Role Phone Lalit Bedolla MD Primary Care Provider [phone] Reason for Visit * Reason Comments Med Refill Encounter Details Date Type Department Care Team (Late st Contact Info) Description 10/12/2023 Refill [facility] [address] [address] Joe Martinez, DO [address] [place] [address] PCOS (polycystic ovarian syndrome); Amenorrhea Social History [...] menstruation documented in this encounter Care Teams Mortgage Protection Sales Relationship Specialty [place] [address] [place] [address] PCP - General Family Medicine 10/21/22 documented as of this encounter
--- OUTSIDE RECORDS SUMMARY | 2025-01-04 09:59 | XMS_ITS | CCD ---
Author Organization [facility] Care Team Providers Care Publicity Manager Name Role Phone Kurtis Bedolla MD Primary Care Provider WILBER ., DR LOPEZ Admitting Unavailable WILBER ., DR LOPEZ Attending Unavailable [facility], DR VAZQUEZ Primary Care Unavailable WILBER ., DR LOPEZ Consulting Unavailable KURTIS BEDOLLA Referring Unavailable KURTIS BEDOLLA Primary Care Unavailable JOSÉ HERNANDEZ Attending Unavail able Unavailable Primary Care Provider UnavailKurtis Newman MD Primary Care Provider [phone] Kurtis Bedolla MD Primary Care Provider BARTOLOME BREWSTER Referring Unavailable KURTIS BEDOLLA Primary Care Unavailable Unavailable Primary Care Provider UnavailDipika Ford LPN Unavailable Un available JESSICA MARTINEZ Referring Unavailable DELMI GRAF Attending Unavailable CLAUDIA OROZCO Attending Unav PHIL Hannon Attending Unavailable CLAUDIA OROZCO L Referring Unav ailable CLAUDIA OROZCO Attending Unav ailable CLAUDIA OROZCO Attending Unav ailable ROSLYN RODRIGUEZ Attending Unavailable TERE SANDERS Attending Unavailable Medications Current Medications Medication Drug Class(es) Dates Sig (Normalized) Sig (Original) [id number] 200 actuat albuterol 0.09 mg/actuat metered dose inhaler (1 source) beta2-Adrenergic Agonist Start: 05-24-2024 take 1-2 puff(s) by mouth every four to six hours as needed for cough albuterol sulfate HFA (PROVENTIL;VENTOLIN; PROAIR) 108 (90 Base) MCG/ACT inhaler INHALE 1 TO 2 PUFFS BY MOUTH EVERY 4 TO 6 HOURS NEEDED FOR WHEEZING FOR COUGH FOR SHORTNESS OF BREATH 05/24/2024 Active clomiPHENE citrate 50 mg oral tablet (1 source) Estrogen Agonist/Antagoni st Start: 10-18-2024 End: 10-18-2025 clomiPHENE (Clomid) 50 mg tablet Indications: Female infertility Take 2 tablets (100 mg) by mouth once daily. Cycle days 3-7 10 tablet 10/18/2024 10/18/2025 Active Ethinyl Estradiol / norgestimate (6 sources) Progestin, Estrogen Start: 12-10-2023 End: 12-09-2024 take 1 tablet by mouth once daily norgestimate-ethinyl estradioL (Sprintec, 28,) 0.25-35 mg-mcg tablet Indications: Secondary oligomenorrhea Take 1 tablet by mouth once daily. 28 tablet 12 12/10/2023 12/09/2024 Active letrozole 2.5 mg oral tablet (2 sources) Aromatase Inhibitor Start: 10-18-2024 End: 01-16-2025 take 2 tablets by mouth once daily, then take 2 tablets by mouth once daily, then take 3-7 tablets by mouth once letrozole (Femara) 2.5 mg tablet Indications: Female infertility Take 2 tablets (5 mg total) by mouth once daily. Take 2 tablets by mouth cycle days 3-7 after negative urine test every cycle before starting letrozole. 10 tablet 10/18/2024 01/16/2025 Active Start: 09-30-2024 End: 12-29-2024 take 3 tablets by mouth once daily, then take 3 tablets by mouth once daily, then take 3-7 tablets by mouth once letrozole (Femara) 2.5 mg tablet Indications: Female infertility Take 3 tablets (7.5 mg total) by mouth once daily. Take 3 tablets by mouth cycle days 3-7 after negative urine test every cycle before starting letrozole. 15 tablet 09/30/2024 12/29/2024 Active medroxyPROGESTERone acetate 10 mg oral tablet (15 sources) Progestin Start: 08-29-2023 Medroxyprogest erone Active MG PO August 29, 2023 12:00am [...] 07-15-2021 take 2 tablets by mo [facility] twice daily, then take 2 tablets by mouth twice daily metFORMIN (GLUCOPHAGE-XR) 500 MG extended release tablet Take 2 tablets by mouth 2 times daily Take 2 tablets by mouth twice daily. 60 tablet 12 07/15/2021 Active Tirzepatide (MOUNJARO) 7.5 MG/0.5ML SOAJ (1 source) Start: 01-23-2024 Tirzepatide (M OUNJARO) 7.5 MG/0.5ML SOAJ Inject into the skin 01/23/2024 Active Tirzepatide (Mounjaro) 7.5 MG/0.5ML solution auto-injector (3 sources) Start: 08-15-2024 Tirzepatide (M ounjaro) 7.5 MG/0.5ML solution auto-injector 08/15/2024 Active tirzepatide, weight loss, (Zepbound) 10 mg/0.5 mL injection (1 source) Start: 11-16-2024 tirzepatide, w eight loss, (Zepbound) 10 mg/0.5 mL injection Indications: BMI 39.0-39.9,adult Inject 10 mg under the skin every 7 days. 4 each 2 11/16/2024 Active Completed/Discontinued Medications Medication Drug Class(es) Dates Sig (Normalized) Sig (Original) tirzepatide (Mounjaro) 5 mg/0.5 mL pen injector (1 source) Start: 03-30-2024 End: 08-08-2024 tirzepatide (Mounjaro) 5 mg/0.5 mL pen injector Indications: BMI 50.0-59.9, adult (Multi) Inject 5 mg under the skin every 7 days. 2 mL 2 03/30/2024 08/08/2024 Discontinued (Med List Cleanup) tirzepatide (Mounjaro) 7.5 mg/0.5 mL pen injector (4 sources) Start: 06-19-2024 End: 11-16-2024 inject 7.5 mg by subcutaneous injection every week tirzepatide (Mounjaro) 7.5 mg/0.5 mL pen injector Indications: Constitutional obesity Inject 7.5 mg under the skin 1 (one) time per week. 2 mL 2 06/19/2024 11/16/2024 Discontinued (Dose adjustment) Start: 06-19-2024 inject 7.5 mg by sub cutaneous injection every week tirzepatide (Mounjaro) 7.5 mg/0.5 mL pen injector Indications: Constitutional obesity Inject 7.5 mg under the skin 1 (one) time per week. 2 mL 2 06/19/2024 Active Problems Active Problems Problem Classification Problem Date Documented Da te Episodic/Chronic Female infertility (7 sources) Female infertility associated with anovulation; Translations: [Female infertility] Onset: 09-30-2022 Chronic Headache; including migraine (10 sources) Migraine with aura; Translations: [Migraine with aura, not intractable, without status migrainosus] Onset: 05-05-2023 05-05-2023 Chronic Menstrual disorders (15 sources) Irregular periods; Translations: [Irregular menstruation, unspecified] Onset: 10-19-2019 10-19-2019 Chronic Other endocrine disorders (12 sources) Polycystic ovary syndrome; Translations: [Polycystic ovarian syndrome] Onset: 10-19-2019 10-19-2019 Chronic Other nutritional; endocrine; and metabolic disorders (4 sources) Severe obesity; Translations: [Morbid (severe) obesity due to excess calories] 12-10-2023 Chronic Other nutritional; endocrine; and metabolic disorders (2 sources) Body mass index 40+ - severely obese; Translations: [Body mass index (BMI) 50.0-59.9, adult] 12-22-2023 Chronic Other nutritional; endocrine; and metabolic disorders (1 source) Morbid obesity; Translations: [Obesity, unspecified] 12-22-2023 Chronic Other nutritional; endocrine; and metabolic disorders (10 sources) Obesity caused by energy imbalance; Translations: [Morbid (severe) obesity due to excess calories] Onset: 05-05-2023 05-05-2023 Chronic Other nutritional; endocrine; and metabolic disorders (1 source) Obese class III; Translations: [Class 3 obesity] 08-09-2024 Chronic Other nutritional; endocrine; and metabolic disorders (4 sources) Body mass index 30+ - obesity; Translations: [Body mass index (BMI) 39.0-39.9, adult] 11-16-2024 Chronic Other nutritional; endocrine; and metabolic disorders (2 sources) Body mass index (BMI) 39.0-39.9, adult; Translations: [Body mass index (BMI) 39.0-39.9, adult] Onset: 11-16-2024 Chronic Other nutritional; endocrine; and metabolic disorders (2 sources) Body mass index (BMI) 30.0-30.9, adult; Translations: [Body mass index (BMI) 30.0-30.9, adult] Onset: 11-16-2024 Chronic Other nutritional; endocrine; and metabolic disorders (4 sources) Body mass index (BMI) 40.0-44.9, adult; Translations: [Body mass index (BMI) 40.0-44.9, adult (Multi)] Onset: 08-09-2024 Chronic Other nutritional; endocrine; and metabolic disorders (2 sources) Body mass index (BMI) 50.0-59.9, adult; Translations: [Body mass index (BMI) 50.0-59.9, adult (Multi)] Onset: 12-22-2023 Chronic Other nutritional; endocrine; and metabolic disorders (2 sources) Obesity, unspecified; Translations: [Obesity, unspecified] Onset: 12-22-2023 Chronic Other nutritional; endocrine; and metabolic disorders (2 sources) Morbid (severe) obesity due to excess calories; Translations: [Morbid (severe) obesity due to excess calories (Multi)] Onset: 09-15-2024 Chronic Other upper respiratory infections (1 source) Acute sinusitis, unspecified; Translations: [Acute sinusitis, unspecified] Onset: 09-14-2023 Episodic Otitis media and related conditions (1 source) Unspecified Eustachian tube disorder, unspecified ear; Translations: [Unspecified eustachian tube disorder, unspecified ear] Onset: 09-14-2023 Episodic Unclassified (1 source) Earache Onset: 04-01-2024 Unclassified (2 sources) Obesity, class 3; Translations: [Obesity, class 3] Onset: 08-09-2024 Viral infection (2 sources) Plantar wart of right foot; Translations: [Plantar wart] 11-14-2024 Episodic Past or Other Problems Problem Classification Problem Date Documented Da te Episodic/Chronic Administrative/social admission (2 sources) Persons encountering health services in other specified circumstances; Translations: [Persons encountering health services in other specified circumstances] Onset: 12-22-2023 Episodic Contraceptive and procreative management (2 sources) Encounter for fertility testing; Translations: [Encounter for fertility testing] Onset: 09-15-2024 Episodic Immunizations and screening for infectious disease (16 sources) Patient encounter status; Translations: [Encounter for screening for other viral diseases] Onset: 07-18-2024 12-10-2023 Episodic Other screening for suspected conditions (not mental disorders or infectious disease) (4 sources) Encounter for screening for other suspected endocrine disorder; Translations: [Encounter for screening for diabetes mellitus] Onset: 09-15-2024 Episodic Unclassified (3 sources) Onset: 09-14-2024 Resolved: 09-29-2024 09-14-2024 Unclassified (2 sources) Obesity, class 3; Translations: [Obesity, class 3] Onset: 08-09-2024 Results Test Name Value Interpretation Reference Range Facility [facility] PREG QUANT HCGon 12-12- 025 HCG QUANTITATIVE <1 mIU/mL [facility] Comment on above: 5-50 0.2-1 WEEK 50-500 1-2 WEEKS 100-5,000 2-3 WEEKS 500-10,000 3-4 WEEKS 1,000-50,000 4-5 WEEKS 10,000-100,000 5-6 WEEKS 15,000-200,000 6-8 WEEKS 10,000-100,000 2-3 MONTHS [facility] ALL PROGESTERONEon 5 PROGESTERONE 0.2 ng/mL . [facility] are Comment on above: Follicular phase 0. 1 - 0.9 Luteal phase 1.8 - 23.9 Ovulation phase 0.1 - 12.0 First trimester 11.0 - 44.3 Second trimester 25.4 - 83.3 Third trimester 58.7 - 214.0 Postmenopausal 0.0 - 0.1 Performed at: [facility] - [address] [id number] Serology Teacher: Michel Carlos PhD, Phone: [phone] [facility] W/REFL TITER AND T. PALLIDUM AB, MEon 09-30-2024 RPR (DX) W/REFL TITER AND CONFIRMATORY TESTING Non-Reactive Normal NON-REACTIVE [facility] Comment on above: Result Comment: No laboratory evidence of syphilis. If recent exposure is suspected, submit a new sample in 2-4 weeks. Your request to have a duplicate copy faxed has been acknowledged. Queued to: [phone] Performed By: #### 4 439, 802, 1004, [id number] #### [facility] [address], [address] [place] [address] Certified Registered Nurse Practitioner: Ryan Mena MD RUBELLA AB (IGG), IMMUNE STA [facility] 09-30-2024 RUBELLA AB (IGG), IMMUNE STATUS 3.96 Index Normal [facility] Comment on above: Order Comment: PATIE NT REFUSED SOME TESTING; PATIENT ENCOURAGED TO RETURN. Result Comment: Inde x Interpretation ----- <0.90 Not consistent with immunity 0.90-0.99 Equivocal > or = 1.00 Consistent with immunity The presence of rubella IgG antibody suggests immunization or past or current infection with rubella virus. Performed By: #### 4 439, 802, 1001, 40443 #### [facility] [address], [address] [place] [address] Certified Registered Nurse Practitioner: Ryan Mena MD TEST AUTHORIZATIONon 025 CLIENT CONTACT: Melony GODOY [facility] Comment on above: Performed By: #### 4 439, 802, 1003, 88577 #### [facility] [place] [address] Certified Registered Nurse Practitioner: Ryan Mena MD COMMENT Normal [facility] Comment on above: Result Comment: Plea se have the ordering physician or his or her authorized inside outside sales representative sign a copy of this report and promptly return it by faxing it to: [phone] or by returning the form to your plate gauger. Performed By: #### 4 439, 802, 1005, 74505 #### [facility] [place] [address] Certified Registered Nurse Practitioner: Ryan Mena MD REPORT ALWAYS MESSAGE SIGNATURE Normal [facility] Comment on above: Result Comment: The laboratory testing on this patient was verbally requested or confirmed by the ordering physician or his or her authorized inside outside sales representative after contact with an employee of [facility]. Federal regulations require that we maintain on file written authorization for all laboratory testing. Accordingly we are asking that the ordering physician or his or her authorized inside outside sales representative sign a copy of this report and promptly return it to the manager client support. Signature: Performed By: #### 4 439, 802, 1005, 47124 #### [facility] [place] [address] Certified Registered Nurse Practitioner: Ryan Mena MD TEST CODE: [id number] [employer] Comment on above: Performed By: #### 4 439, 802, 1005, 68799 #### [facility] [place] [address] Certified Registered Nurse Practitioner: Ryan Mena MD TEST NAME: RPR (DX) W/REFL TITER AND SYP Normal [facility] Comment on above: Performed By: #### 4 439, 802, 1005, 35548 #### [facility] [place] [address] Certified Registered Nurse Practitioner: Ryan Mena MD VARICELLA ZOSTER VIRUS ANTIB TITA (IGG)on 09-30-2024 VARICELLA ZOSTER VIRUS ANTIBODY (IGG) 16.30 S/CO Normal [facility] Comment on above: Result Comment: Signal to Cut-off S/CO Interpretation [...] Antibody Immunity Screen, ACIF. Performed By: #### 4 439, 802, 1005, 34545 #### [facility] [place] [id number] [facility], [address] [place] [address] Certified Registered Nurse Practitioner: Ryan Mena MD Blood type and Indirect anti body screen panel (Bld)on 09-28-2024 ABO group Nom (Bld) O [facility] Comment on above: Performed By: #### 3 4532-2 #### GLENROY Wiley ([id number]) [facility] ([facility]) [address] [place] [address] Blood group antibody screen Ql Negative [facility] Comment on above: Performed By: #### 3 4532-2 #### GLENROY Wiley ([id number]) [facility] ([facility]) [address] [place] [address] D Ag Ql (Bld) Positive [facility] Comment on above: Result Comment: 2nd ABO test required. Order and Collect VERAB Performed By: #### 3 4532-2 #### GLENROY Wiley ([id number]) [facility] ([facility]) [address] [place] [address] ALL CBC WITH AUTO DIFFon BASOPHILS ABSOLUTE AUTO 0 N [facility] Basophils/100 WBC (Bld) 0.4 % 0.2 - 2.0 % [facility] Eosinophils/100 WBC (Bld) 1.1 % 0.9 - 7.0 % [facility] Erythrocyte distribution width (RBC) [Ratio] 12.8 % 11.0 - 15.0 % [facility] Hematocrit (Bld) [Volume fraction] 38.9 % 36.0 - 48.0 % [facility] Hem[facility] (Bld) [Mass/Vol] 12.7 g/dL 12.0 - 16.0 g/dL [facility] IMMATURE GRANULOCYTES ABS AUTO 0.02 [facility] Immature granulocytes/100 WBC (Bld) 0.2 % 0.0 - 0.5 % [facility] LYMPHOCYTES ABSOLUTE AUTO 2.8 [facility] Lymphocytes/100 WBC (Bld) 28 % 20.5 - 60.0 % [facility] MCH (RBC) [Entitic mass] 29.1 pg 26.7 - 34.0 pg [facility] MCHC (RBC) [Mass/Vol] 32.6 g/dL 29.9 - 35.2 g/dL [facility] MCV (RBC) [Entitic vol] 89 fL 81.0 - 99.0 fL [facility] MONOCYTES ABSOLUTE AUTO 0.8 N [facility] Monocytes/100 WBC (Bld) 7.9 % 1.7 - 12.0 % [facility] NEUTROPHILS ABSOLUTE AUTO 6.3 [facility] Neutrophils/100 WBC (Bld) 62.4 % 43.0 - 75.0 % [facility] Platelet mean volume (Bld) [Entitic vol] 10.5 fL 9.5 - 13.5 fL [facility]O # 0.1 [facility] e TB PLT 254 [facility] e TB RBC 4.37 [facility] e TB WBC 10.1 [facility] e [facility] e US PELVIC COMPLETE W/ TVon 0 - US PELVIC COMPLETE W/ TV EXAM: US [...] Doppler flow within the bilateral ovaries. Electronically Signed:Electronical ly signed by GELACIO GAMEZ II, MD, PHD at 01-Sep-2024 08:42:54 AM [facility] Normal Not Available Comment on above: Order Comment: US PE LVIS-TRANSVAG IF INDICATED No LMP recorded. [facility] PREG QUANT HCGon 025 HCG QUANTITATIVE <1 mIU/mL [facility] Comment on above: 5-50 0.2-1 WEEK 50-500 1-2 WEEKS 100-5,000 2-3 WEEKS 500-10,000 3-4 WEEKS 1,000-50,000 4-5 WEEKS 10,000-100,000 5-6 WEEKS 15,000-200,000 6-8 WEEKS 10,000-100,000 2-3 MONTHS [facility] HPV DNA High Riskon 07-20-19 25 HPV Interp Normal [facility] Comment on above: Result Comment: This [...] other forensic purposes. Performed By: #### H [facility] #### [facility] [employer] [address] [place] [id number] Serology Teacher: Gopi Yoder MD HPV Type 16 Not detected Normal [facility] Comment on above: Performed By: #### H PVH #### [facility] [employer] [address] [place] [address] [id number] Serology Teacher: Gopi Yoder MD HPV Type 18 Not detected Normal [facility] Comment on above: Performed By: #### H PVH #### [facility] [employer] [address] [place] [address] [id number] Serology Teacher: Gopi Yoder MD Other High Risk HPV Not detected Normal [facility] Comment on above: Performed By: #### H PVH #### [facility] [employer] [address] [place] [address] [id number] Serology Teacher: Gopi Yoder MD MHPT HPV DNA HIGH RISKon MHPT HPV INTERP [facility] Comment on above: This test amplifies and [...] forensic purposes. MHPT HPV SAMPLE .THIN PREP [facility] MHPT HPV TYPE 16 Not detected [facility] MHPT HPV TYPE 18 Not detected [facility] MHPT OTHER HIGH RISK HPV Not detected NOTWYT [facility] MHPT SOURCE CERVICAL MATERIAL [facility] Original Ordering Provider: BARTOLOME BREWSTER [facility] HPV DNA High Riskon 07-19-19 HPV Sample .THIN PREP [facility] Comment on above: Performed By: #### H PVH #### [address] [address] Serology Teacher: Gopi Yoder MD Source CERVICAL MATERIAL Normal [facility] Comment on above: Performed By: #### H PVH #### [address] [id number] Serology Teacher: Gopi Yoder MD Cytology Reporton 07-18-2024 Cytology report Cyto stain.thin prep Doc (Cvx/Vag) (NOTE) Path Number: [id number] DIAGNOSIS Imaged ThinPrep Pap - Cervical (1 monolayer slide): Specimen Adequacy: Satisfactory for evaluation. - Endocervical/transf ormation zone component present. Descriptive Diagnosis: Negative for intraepithelial lesion or malignancy. Comments: Specimen was screened at [facility], [address] [place] [id number] [employer] Screener: Rescreened By: HOOD Electronically Signed Out LUCIANO Hinojosa(ASCP) hodo/07/25/2024 Procedure/Addendum HPV Procedure Report Date Ordered: 07/19/2024 [...] or for other forensic purposes. Performed at [facility], [address] [place] [id number] . Source of Specimen: A: Imaged ThinPrep Pap - Cervical (1 monolayer slide) HPV Reflex?............ ..........HPV Regardless Clinical History Z01.419 Routine distribution center manager exam without abnormal findings Z11.51 Encounter for screening for HPV Processing Lab: [address] [address] Interpretation performed at [facility], [address] [place] [address] This Pap Test has been evaluated with [...] GYNECOLOGIC CYTOLOGY REPORT Patient Name: BARBARA FISCHER [facility] Rec: [id number] [facility] ANATOMIC PATHOLOGY [address] [place], [place] [address] Normal [facility] ALL PROGESTERONEon 4 PROGESTERONE 0.2 ng/mL . [facility] are Comment on above: Follicular phase 0.1 - 0.9 Luteal phase 1.8 - 23.9 Ovulation phase 0.1 - 12.0 First trimester 11.0 - 44.3 Second trimester 25.4 - 83.3 Third trimester 58.7 - 214.0 Postmenopausal 0.0 - 0.1 Performed at: [facility] [address] [id number] Serology Teacher: Michel Carlos PhD, Phone: [phone] [facility] Influenza virus B Ag [Presen ce] in Upper respiratory specimen by Rapid immunoassayon 08-29-2023 FLUBV Ag IA.rapid Ql (Nph) Negative [facility] No Panel Informationon 08-28 Influenza Type A (Rapid) Negative [facility] POC SARS CoV-2 Antigen Negative [facility] No Panel InformationOrdered By: Polly Jurado on 08-29-2023 Quick Strep (POC) [facility] PROGESTERONEon 10-01-2022 Progesterone 0.2 ng/mL Normal [facility] Comment on above: Result Comment: Foll icular phase 0.1 - 0.9 Luteal phase 1.8 - 23.9 Ovulation phase 0.1 - 12.0 First trimester 11.0 - 44.3 Second trimester 25.4 - 83.3 Third trimester 58.7 - 214.0 Postmenopausal 0.0 - 0.1 Performed By: #### P LORRI #### [facility] [address] [place] [address] Dr. Ruth Conte Vital Signs Date Time Vital Sign Value Performing Clinician Facility 11-16-2024 13:14-0400 Body height 165.1 cm Claudia Kern MD Work Phone: [facility] 11-16-2024 13:14-0400 Body mass index (BMI) [Ratio] 39.44 kg/m2 Claudia Kern MD Work Phone: [facility] 11-16-2024 13:14-0400 Body weight 107.5 kg Claudia Kern MD Work Phone: [facility] 11-14-2024 14:12-0400 Body height 165.1 cm Delmi Graf NP Work Phone: [facility] 11-14-2024 14:12-0400 Body mass index (BMI) [Ratio] 40.27 kg/m2 Delmi Graf NP Work Phone: [facility] 11-14-2024 14:12-0400 Body temperature 97.2 [degF] Delmi Graf NP Work Phone: [facility] 11-14-2024 14:12-0400 Body weight 109.77 kg Delmi Graf NP Work Phone: [facility] 11-14-2024 14:12-0400 Diastolic blood pressure 68 mm[Hg] Delmi Graf NP Work Phone: [facility] 11-14-2024 14:12-0400 Heart rate 63 /min Delmi Graf JUNIOR PROGRAMMER ANALYST Work Phone: [facility] 11-14-2024 14:12-0400 SaO2% (BldA) [Mass fraction] 99 % Delmi Graf JUNIOR PROGRAMMER ANALYST Work Phone: [facility] 11-14-2024 14:12-0400 Systolic blood pressure 108 mm[Hg] Delmi Graf JUNIOR PROGRAMMER ANALYST Work Phone: [facility] 09-29-2024 12:07-0400 Body height 165.1 cm Tere Sanders HEMAL-SYSTEMS OPERATOR Work Phone: [facility] 09-29-2024 12:07-0400 Body mass index (BMI) [Ratio] 41.35 kg/m2 Tere Sanders HEMAL-SYSTEMS OPERATOR Work Phone: [facility] 09-29-2024 12:07-0400 Body weight 112.72 kg Tere Tommy RECIO-SYSTEMS OPERATOR Work Phone: [facility] 09-14-2024 15:34-0400 Body height 165.1 cm Roslyn Rodriguez MD Work Phone: [facility] 09-14-2024 15:34-0400 Body mass index (BMI) [Ratio] 42 kg/m2 Roslyn Rodriguez MD Work Phone: [facility] 09-14-2024 15:34-0400 Body weight 114.49 kg Roslyn Rodriguez MD Work Phone: [facility] 08-09-2024 08:28-0500 Body height 165.1 cm Claudia Kern MD Work Phone: [facility] 08-09-2024 08:28-0500 Body mass index (BMI) [Ratio] 44.6 kg/m2 Claudia Kern MD Work Phone: [facility] 08-09-2024 08:28-0500 Body weight 121.56 kg Claudia Kern MD Work Phone: [facility] 12-22-2023 12:17-0400 Body height 165.1 cm Claudia Kern MD Work Phone: [facility] 12-22-2023 12:17-0400 Body mass index (BMI) [Ratio] 54.91 kg/m2 Claudia Kern MD Work Phone: [facility] 12-22-2023 12:17-0400 Body weight 149.69 kg Claudia Kern MD Work Phone: [facility] 12-10-2023 09:24-0400 Body height 165.1 cm Roslyn Rodriguez MD Work Phone: [facility] 12-10-2023 09:24-0400 Body mass index (BMI) [Ratio] 54.91 kg/m2 Roslyn Rodriguez MD Work Phone: [facility] 12-10-2023 09:24-0400 Body weight 149.69 kg Roslyn Rodriguez MD Work Phone: [facility] 12-10-2023 09:24-0400 Diastolic blood pressure 76 mm[Hg] Roslyn Rodriguez MD Work Phone: [facility] 12-10-2023 09:24-0400 Heart rate 47 /min Roslyn Rodriguez MD Work Phone: [facility] 12-10-2023 09:24-0400 Systolic blood pressure 116 mm[Hg] Roslyn Rodriguez MD Work Phone: [facility] 08-29-2023 11:25-040 Body height 165.1 cm [facility] 08-29-2023 11:25-0400 Body mass index (BMI) [Ratio] 54.1 kg/m2 [facility] 08-29-2023 11:25-040 Body temperature 98 [degF] [facility] 08-29-2023 11:25-040 Body weight 147.41 kg [facility] 08-29-2023 11:25-0400 Heart rate 101 /min [facility] 08-29-2023 11:25-0400 Respiratory rate 18 /min [facility] 08-29-2023 11:25-0400 SaO2% (BldA) [Mass fraction] 97 % [facility] Encounters Encounter Date Encounter Type Care Provider Facility Start: 12-14-2024 End: 12-14-2024 ambulatory [facility] Start: 12-13-2024 End: 12-13-2024 ambulatory [facility] Start: 12-12-2024 End: 12-12-2024 Clinisync Result Encounter Generic External Data Provider [facility] External Department Unsolicited Start: 12-12-2024 End: 12-12-2024 Clinisync Result Encounter Generic External Data Provider [facility] External Department Unsolicited Start: 12-12-2024 End: 12-12-2024 ambulatory [facility] Start: 11-16-2024 End: 11-16-2024 Office outpatient visit 40 minutes Claudia Kern MD Work Phone: [facility] Comment on above: BMI 39.0-39.9,adult; BMI 30.0-30.9,adult Start: 11-16-2024 End: 11-16-2024 ambulatory [facility] Start: 11-14-2024 End: 11-14-2024 Office outpatient visit 15 minutes Delmi Graf JUNIOR PROGRAMMER ANALYST Work Phone: [facility] Comment on above: Plantar wart, right foot (Primary Dx); Class 3 severe obesity due to excess calories without serious comorbidity with body mass index (BMI) of 40.0 to 44.9 in adult Start: 11-14-2024 End: 11-14-2024 ambulatory DELMI GRAF Not Available Start: 11-14-2024 End: 11-14-2024 Bamboo flowsheet Delmi Graf JUNIOR PROGRAMMER ANALYST Work Phone: [facility] Start: 11-14-2024 End: 11-14-2024 Bamboo flowsheet Delmi Graf JUNIOR PROGRAMMER ANALYST Work Phone: [facility] Start: 11-08-2024 End: 11-08-2024 [facility] Start: 11-04-2024 End: 11-04-2024 ambulatory [facility] Start: 10-18-2024 End: 10-18-2024 ambulatory [facility] Start: 10-17-2024 End: 10-18-2024 Clinisync Result Encounter Generic External Data Provider [facility] External Department Unsolicited Start: 10-17-2024 End: 10-18-2024 Clinisync Result Encounter Generic External Data Provider [facility] External Department Unsolicited Start: 10-17-2024 End: 10-17-2024 [facility] Start: 10-16-2024 End: 10-16-2024 [facility] Start: 09-29-2024 End: 09-29-2024 Telemedicine consultation with patient Tere Sanders LUMBER DRIVER-SYSTEMS OPERATOR Work Phone: [facility] Comment on above: Female infertility [ N97.9] (Primary Dx) Start: 09-29-2024 End: 09-29-2024 ambulatory TERE SANDERS [facility] [place] [facility] Start: 09-28-2024 End: 09-28-2024 [facility] Start: 09-28-2024 End: 09-28-2024 Encounter for blood typing [facility] Start: 09-17-2024 End: 09-17-2024 Clinisync Result Encounter Generic External Data Provider [facility] External Department Unsolicited Start: 09-17-2024 End: 09-17-2024 Clinisync Result Encounter Generic External Data Provider [facility] External Department Unsolicited Start: 09-15-2024 End: 09-15-2024 Telemedicine consultation with [...] testing; PCOS (polycystic ovarian syndrome) [E28.2] Start: 09-15-2024 End: 09-15-2024 ambulatory ROSLYN [facility] Start: 08-30-2024 End: 08-30-2024 ambulatory JESSICA MARTINEZ Not Available Start: 08-09-2024 End: 08-09-2024 Office outpatient visit 40 minutes Claudia Kern MD Work Phone: [facility] Comment on above: Class 3 obesity (Carla tere Dx); BMI 40.0-44.9, adult (Multi); Encounter for weight management Start: 08-09-2024 End: 08-09-2024 [facility] Start: 08-01-2024 End: 08-01-2024 Clinisync Result Encounter Generic External Data Provider [facility] External Department Unsolicited Start: 08-01-2024 End: 08-01-2024 Clinisync Result Encounter Generic External Data Provider [facility] External Department Unsolicited Start: 07-18-2024 End: 07-18-2024 ambulatory [facility] Start: 07-18-2024 End: 07-18-2024 Encounter for gynecological examination (general) (routine) without abnormal findings [facility] Start: 07-18-2024 End: 07-18-2024 Subsequent hospital visit by physician Kurtis Bedolla MD Work Phone: [facility] Start: 07-18-2024 End: 07-20-2024 Clinisync [...] Department Unsolicited Start: 01-14-2024 End: 01-14-2024 ambulatory PHIL Todd [facility] Ambulatory Start: 12-22-2023 End: 12-22-2023 Office consultation new/estab patient 60 min Revital Saurabh Kern MD Work Phone: [facility] Comment on above: BMI 50.0-59.9, adult (Multi) (Primary Dx); Encounter for weight management; Super obesity Start: 12-22-2023 End: 12-22-[address] [facility] Start: 12-10-2023 End: 12-10-2023 Patient encounter procedure Roslyn Rodriguez MD Work Phone: [facility] Comment on above: Secondary oligomenor alicia (Primary [...] encounter status Roslyn Rodriguez MD Work Phone: [facility] Work Phone: Start: 09-14-2023 End: 09-14-2023 ambulatory [facility] Start: 08-29-2023 End: 08-29-2023 ambulatory [facility] Work Phone: Start: 08-29-2023 End: 08-29-2023 Patient encounter procedure [facility] Work Phone: Start: 09-30-2022 End: 10-01-[address] JESSICA MARTINEZ . Facility: Start: 07-15-2022 End: 07-15-2022 Subsequent hospital visit by physician Kurtis Bedolla MD Other Phone: [facility] Procedures Date Procedure Procedure Detail Performing Clinician Start: 12-12-2024 [facility] PREG QUANT HCG Gene tatyana External Data Provider Start: 10-17-2024 ALL PROGESTERONE Generi c External Data Provider Start: 09-17-2024 ALL CBC WITH AUTO DIFF Generic External Data Provider Start: 08-01-2024 [facility] PREG QUANT HCG Gene tatyana External Data Provider Start: 07-18-2024 Microscopic observat ion [Identifier] in Cervix by Cyto stain Claudia Kern MD Work Phone: Start: 07-18-2024 MHPT HPV [...] of 2) Zoster Vaccines (1 of 2) [facility] Start: 11-27-2031 DTaP/Tdap/Td vaccine (7 - Td or Tdap) DTaP/Tdap/Td vaccine (7 - Td or Tdap) [facility] Start: 11-27-2031 DTaP/Tdap/Td Vaccines (7 - Td or Tdap) DTaP/Tdap/Td Vaccines (7 - Td or Tdap) [facility] Start: 07-18-2029 Screening for malignant neoplasm of cervix [facility] Start: 07-15-2028 Screening for malignant neoplasm of cervix [facility] Start: 07-18-2027 Screening for malignant neoplasm of cervix [facility] Start: 07-15-2026 Screening for malignant neoplasm of cervix Pap Smear [facility] Start: 02-03-2026 Depression Screen Depression Screen [facility] Start: 07-18-2025 End: 07-18-2025 Patient encounter procedure 07/18/2025 8:30 AM EST Office Visit [facility] [address] [place] [address] Bartolome Brewster APRN - SYSTEMS OPERATOR [address] [place] [address] annual [facility] Comment on above: annual Start: 02-13-2025 Influenza vaccination Influenza Vaccine (Season Ended) [facility] Start: 11-14-2024 End: 11-14-2024 Patient encounter procedure 11/14/2024 2:30 PM EDT Office Visit [facility] [address] [place] [id number] [place] [address] [place] [address] Arrived [facility] Comment on above: Arrived Start: 09-15-2024 End: 09-15-2025 CBC panel - Blood by Automated count CBC Lab Routine Class 3 severe obesity with body mass index (BMI) of 40.0 to 44.9 in adult, unspecified obesity type, unspecified whether serious comorbidity present Expected: 09/15/2024 (Approximate), Expires: 09/15/2025 [facility] Work Phone: Comment on above: Expected: 09/15/2024 (Approximate), Expi res: 09/15/2025 Start: 09-15-2024 End: 09-15-2025 Chlamydia trachomatis and Neisseria gonorrhoeae DNA [Identifier] in Unspecified specimen by ROBBY with probe detection C. trachomatis / N. gonorrhoeae, Amplified, Urogenital Lab Routine Screening for STDs (sexually transmitted diseases) Expected: 09/15/2024 (Approximate), Expires: 09/15/2025 [facility] Work Phone: Comment on above: Expected: 09/15/2024 (Approximate), Expi res: 09/15/2025 Start: 09-15-2024 End: 09-15-2025 Comprehensive metabolic 2000 panel - Serum or Plasma Comprehensive Metabolic Panel Lab Routine Class 3 severe obesity with body mass index (BMI) of 40.0 to 44.9 in adult, unspecified obesity type, unspecified whether serious comorbidity present Expected: 09/15/2024 (Approximate), Expires: 09/15/2025 [facility] Work Phone: Comment on above: Expected: 09/15/2024 (Approximate), Expi res: 09/15/2025 Start: 09-15-2024 End: 09-15-2025 Hemoglobin A1c/Hemoglobin.total in Blood Hemoglobin A1C Lab Routine Screening for diabetes mellitus Expected: 09/15/2024 (Approximate), Expires: 09/15/2025 [facility] Work Phone: Comment on above: Expected: 09/15/2024 (Approximate), Expi res: 09/15/2025 Start: 09-15-2024 End: 09-15-2025 Hepatitis B virus surface Ag [Presence] in Serum or Plasma by Immunoassay Hepatitis B surface antigen Lab Routine Screening for STDs (sexually transmitted diseases) Expected: 09/15/2024 (Approximate), Expires: 09/15/2025 [facility] Service Area Work Phone: Comment on above: Expected: 09/15/2024 (Approximate), Expi res: 09/15/2025 Start: 09-15-2024 End: 09-15-2025 Hepatitis C virus Ab [Presence] in Serum Hepatitis C Antibody Lab Routine Screening for STDs (sexually transmitted diseases) Expected: 09/15/2024 (Approximate), Expires: 09/15/2025 [facility] Work Phone: Comment on above: Expected: 09/15/2024 (Approximate), Expi res: 09/15/2025 Start: 09-15-2024 End: 09-15-2025 HIV 1+2 Ab+HIV1 p24 Ag [Presence] in Serum or Plasma by Immunoassay HIV 1/2 Antigen/Antibody Screen with Reflex to Confirmation Lab Routine Screening for STDs (sexually transmitted diseases) Expected: 09/15/2024 (Approximate), Expires: 09/15/2025 [facility] Work Phone: Comment on above: Expected: 09/15/2024 (Approximate), Expi res: 09/15/2025 Start: 09-15-2024 End: 09-15-2025 Lipid 1996 panel - Serum or Plasma Lipid Panel Lab Routine Class 3 severe obesity with body mass index (BMI) of 40.0 to 44.9 in adult, unspecified obesity type, unspecified whether serious comorbidity present Expected: 09/15/2024 (Approximate), Expires: 09/15/2025 [facility] Work Phone: Comment on above: Expected: 09/15/2024 (Approximate), Expi res: 09/15/2025 Start: 09-15-2024 End: 09-15-2025 Progesterone [Mass/volume] in Serum or Plasma Progesterone Lab Routine Primary oligomenorrhea Expected: 09/15/2024 (Approximate), Expires: 09/15/2025 [facility] Work Phone: Comment on above: Expected: 09/15/2024 (Approximate), Expi res: 09/15/2025 Start: 09-15-2024 End: 09-15-2025 Treponema pallidum IgG+IgM Ab [Presence] in Serum by Immunoassay Syphilis Screen with Reflex Lab Routine Screening for STDs (sexually transmitted diseases) Expected: 09/15/2024 (Approximate), Expires: 09/15/2025 [facility] Work Phone: Comment on above: Expected: 09/15/2024 (Approximate), Expi res: 09/15/2025 Start: 09-15-2024 End: 09-15-2024 Telemedicine consultation with patient 09/15/2024 1:30 PM EDT Telemedicine [facility] [address] [place] [address] Roslyn Rodriguez MD [address] [place] [address] [facility] Start: 07-23-2024 Screening for malignant neoplasm of cervix [facility] Start: 07-18-2024 Screening for malignant neoplasm of cervix HPV (without or with Pap) [facility] Start: 02-14-2024 COVID-19 Vaccine ( season) COVID-19 Vaccine () [facility] Start: 02-14-2024 COVID-19 Vaccine () COVID-19 Vaccine () [facility] Start: 02-14-2024 Influenza vaccination [facility] Start: 01-14-2024 Influenza vaccination Flu vaccine (#1) [facility] Start: 12-10-2023 End: 12-09-2024 17-Hydroxyprogesterone [Mass/volume] in Serum or Plasma 17-Hydroxyprogesterone Lab Routine Secondary oligomenorrhea Expected: 12/10/2023 (Approximate), Expires: 12/09/2024 [facility] Work Phone: Comment on above: Expected: 12/10/2023 (Approximate), Expi res: 12/09/2024 Start: 12-10-2023 End: 12-09-2024 Blood type and Indirect antibody screen panel - Blood Type And Screen Lab Routine Encounter for Rh blood typing Expected: 12/10/2023 (Approximate), Expires: 12/09/2024 [facility] Work Phone: Comment on above: Expected: 12/10/2023 (Approximate), Expi res: 12/09/2024 Start: 12-10-2023 End: 12-09-2024 Dehydroepiandrosterone sulfate (DHEA-S) [Mass/volume] in Serum or Plasma Dhea-Sulfate Lab Routine Secondary oligomenorrhea Expected: 12/10/2023 (Approximate), Expires: 12/09/2024 [facility] Work Phone: Comment on above: Expected: 12/10/2023 (Approximate), Expi res: 12/09/2024 Start: 12-10-2023 End: 12-09-2024 Hemoglobin A1c/Hemoglobin.total in Blood Hemoglobin A1C Lab Routine Screening for diabetes mellitus Expected: 12/10/2023 (Approximate), Expires: 12/09/2024 [facility] Work Phone: Comment on above: Expected: 12/10/2023 (Approximate), Expi res: 12/09/2024 Start: 12-10-2023 End: 12-09-2024 Mullerian inhibiting substance [Mass/volume] in Serum or Plasma Antimullerian Hormone (Amh) Lab Routine Fertility testing Expected: 12/10/2023 (Approximate), Expires: 12/09/2024 [facility] Service Area Work Phone: Comment on above: Expected: 12/10/2023 (Approximate), Expi res: 12/09/2024 Start: 12-10-2023 End: 12-09-2024 Progesterone [Mass/volume] in Serum or Plasma Progesterone Lab Routine Fertility testing Expected: 12/10/2023 (Approximate), Expires: 12/09/2024 [facility] Work Phone: Comment on above: Expected: 12/10/2023 (Approximate), Expi res: 12/09/2024 Start: 12-10-2023 End: 12-09-2024 Prolactin [Mass/volume] in Serum or Plasma Prolactin Lab Routine Secondary oligomenorrhea Expected: 12/10/2023 (Approximate), Expires: 12/09/2024 [facility] Work Phone: Comment on above: Expected: 12/10/2023 (Approximate), Expi res: 12/09/2024 Start: 12-10-2023 End: 12-09-2024 Rubella virus IgG Ab [Units/volume] in Serum Rubella Antibody, Igg Lab Routine Encounter for screening for other viral diseases Expected: 12/10/2023 (Approximate), Expires: 12/09/2024 [facility] Work Phone: Comment on above: Expected: 12/10/2023 (Approximate), Expi res: 12/09/2024 Start: 12-10-2023 End: 12-09-2024 Testosterone,Free and Total Testosterone,Free and Total Lab Routine Secondary oligomenorrhea Expected: 12/10/2023 (Approximate), Expires: 12/09/2024 [facility] Work Phone: Comment on above: Expected: 12/10/2023 (Approximate), Expi res: 12/09/2024 Start: 12-10-2023 End: 12-09-2024 TSH with reflex to Free T4 if abnormal TSH with reflex to Free T4 if abnormal Lab Routine Secondary oligomenorrhea Expected: 12/10/2023 (Approximate), Expires: 12/09/2024 [facility] Work Phone: Comment on above: Expected: 12/10/2023 (Approximate), Expi res: 12/09/2024 Start: 12-10-2023 End: 12-09-2024 Varicella zoster virus IgG Ab [Presence] in Serum by Immunoassay Varicella Zoster Antibody, Igg Lab Routine Encounter for screening for other viral diseases Expected: 12/10/2023 (Approximate), Expires: 12/09/2024 [facility] Work Phone: Comment on above: Expected: 12/10/2023 (Approximate), Expi res: 12/09/2024 Start: 07-15-2023 End: 07-15-2023 Patient encounter procedure 07/15/2023 Office Visit Obstetrics and Gynecology Bartolome Brewster, LUMBER DRIVER - SYSTEMS OPERATOR [address] [place] [address] [facility] Start: 02-13-2023 COVID-19 Vaccine ( season) COVID-19 Vaccine ( season) [facility] Start: 02-13-2023 COVID-19 Vaccine ( season) COVID-19 Vaccine ( season) [facility] Start: 01-13-2022 Influenza vaccination Flu vaccine (#1) [facility] Start: 09-24-2011 Screening for malignant neoplasm of cervix [facility] Start: 2009 Hepatitis B vaccine (1 of 3 - 19+ 3-dose series) Hepatitis B vaccine (1 of 3 - 19+ 3-dose series) [facility] Start: 2009 Hepatitis B Vaccines (1 of 3 - 19+ 3-dose series) Hepatitis B Vaccines (1 of 3 - 19+ 3-dose series) [facility] Start: 2008 Hepatitis C screening [facility] Start: 2005 HIV screening HIV screen [facility] Start: 09-24-2003 Varicella vaccination Varicella Vaccines (1 of 2 - 13+ 2-dose series) [facility] Start: 09-24-2003 Varicella vaccine (1 of 2 - 13+ 2-dose series) Varicella vaccine (1 of 2 - 13+ 2-dose series) [facility] Start: 2002 Depression Screen Depression Screen [facility] Start: 09-24-1991 Varicella vaccine (1 of 2 - 2-dose childhood series) Varicella vaccine (1 of 2 - 2-dose childhood series) [facility] [employer] Start: 1990 HIV screening HIV Screening [facility] Start: 1990 Lipid panel Lipid Panel [facility] Start: 1990 Yearly Adult Physical Yearly Adult Physical [facility] Immunizations Immunization Date Immunization Notes Care Provider Tim shah 09-17-1995 diphtheria, tetanus toxoids and acellular pertussis vaccine Kurtis Bedolla MD Other Phone: [facility] [employer] Phone: 09-17-1995 poliovirus vaccine, inactivated Kurtis Bedolla MD Other Phone: [facility] Phone: 03-29-1992 diphtheria, tetanus toxoids and acellular pertussis vaccine Kurtis Bedolla MD Other Phone: [facility] Phone: 03-29-1992 poliovirus vaccine, inactivated Kurtis Bedolla MD Other Phone: [facility] Phone: 12-26-1991 Hib, unspecified Kurtis lopez MD Other Phone: [facility] Phone: 12-26-1991 measles, mumps and rubella virus vaccine Kurtis Bedolla MD Other Phone: [facility] Phone: 03-31-1991 diphtheria, tetanus toxoids and acellular pertussis vaccine Kurtis Bedolla MD Other Phone: [facility] Phone: 03-31-1991 Hib, unspecified Kurtis lopez MD Other Phone: [facility] Phone: 01-25-1991 diphtheria, tetanus toxoids and acellular pertussis vaccine Kurtis Bedolla MD Other Phone: [facility] Phone: 01-25-1991 Hib, unspecified Kurtis lopez MD Other Phone: [facility] Phone: 01-25-1991 poliovirus vaccine, inactivated Kurtis Bedolla MD Other Phone: [facility] Phone: 1990 diphtheria, tetanus toxoids and acellular pertussis vaccine Kurtis Bedolla MD Other Phone: [facility] 1990 Hib, unspecified Kurtis lopez MD Other Phone: [facility] Phone: 1990 poliovirus vaccine, inactivated Kurtis Bedolla MD Other Phone: [facility] Phone: Payers Date Payer Category Payer Private Health Insurance [id number] 2021 Unknown [id number] 2021 Unknown [id number] 1990 Unknown [id number] 2.16.84 [id number] 1990 Unknown [id number] 2.16.8 [id number] 1990 Unknown [id number] 2.16. 840.1.451480.3.579.2.175 1990 Unknown [id number] 2.16.84 [id number] 1990 Unknown [id number] 2.16.84 0.1.183913.3.579.2.1259 1990 Unknown [id number] 2.16. [id number] 1990 Unknown [id number] 2.16. [id number] 1990 Unknown [id number] 2.16.8 40.1.994952.3.579.2.1244 1990 Unknown [id number] 2.16.8 40.1.873292.3.579.2.1244 1990 Unknown [id number] 2.16. 840.1.907305.3.579.2.1245 1990 Unknown [id number] 2.16. 840.1.492497.3.579.2.1245 1990 Unknown [id number] 2.16. 840.1.670286.3.579.2.1245 1990 Unknown [id number] 2.16. 840.1.919434.3.579.2.1245 1990 Unknown [id number] 2.16. 840.1.385836.3.579.2.1245 1990 Unknown [id number] 2.16. 840.1.180468.3.579.2.1245 1990 Unknown [id number] 2.16. 840.1.258441.3.579.2.124 1990 Unknown [id number] 2.16. 840.1.963360.3.579.2.1245 1990 Unknown [id number] 2.16. 840.1.455759.3.579.2.124 1990 Unknown [id number] 2.16. [id number] 1990 Unknown [id number] 2.16. [id number] 1959 Unknown [id number] Social History Date Type Detail Facility Start: 05-05-2023 End: 08-29-2023 Tobacco smoking status [facility] Never smoked tobacco [facility] Start: 07-15-2022 End: 11-14-2024 Alcohol intake Current drinker of alcohol (finding) [facility] Phone: Start: 07-15-2022 History SDOH Financial 5 [employer] Work Phone: Start: 07-15-2022 History SDOH Food Worry 1 [employer] Phone: Start: 07-15-2022 Alcohol Comment I may have one drink every couple weeks [facility] Phone: Start: 1990 Sex Assigned At Not on file [facility] Phone: Start: 1990 Sex Assigned At Female [facility] Start: 05-05-2023 End: 12-10-2023 Tobacco use and exposure Smokeless tobacco non-user [facility] Work Phone: Start: 12-10-2023 Alcohol Comment Occassionally [facility] Work Phone: Start: 12-10-2023 End: 11-14-2024 Gender identity Not on file [facility] Work Phone: Start: 11-30-2023 End: 12-22-2023 Exposure to SARS-CoV-2 (event) Not sure [facility] Start: 12-10-2023 End: 11-14-2024 History of Social function [facility] Work Phone: Start: 05-06-2023 Alcohol Comment caffeine: 1-2 cups per day iced tea, coffee, diet pop [facility] How hard is it for y ou to pay for the very basics like food, housing, medical care, and heating Not hard at all [employer] (I/We) worried khushboo bright (my/our) food would run out before (I/we) got money to buy more. Never true [facility] Start: 07-30-2024 End: 09-29-2024 Exposure to SARS-CoV-2 (event) Unable to assess [facility] How often do you nee d to have someone help you when you read instructions, pamphlets, or other written material from your doctor or pharmacy [SILS] Never [facility] Within the last year , have you been afraid of your partner or ex-partner? No [facility] Do you belong to any clubs or organizations such as mandaen groups, unions, fraternal or athletic groups, or school groups? Yes [facility] Are you now , , , , never or living with a partner? [facility] How often to you hav e a drink containing alcohol? 2-4 times a month [facility] How many standard dr inks containing alcohol do you have on a typical day? 1 or 2 [facility] How often do you hav e 6 or more drinks on 1 occasion? Less than monthly [facility] Do you feel stress - tense, restless, nervous, or anxious, or unable to sleep at night because your mind is troubled all the time - these days [OSQ] Only a little [facility] Functional Status Date Assessment Result Facility 11-14-2024 Patient Health [facility] ionnaire 2 item (PHQ-2) [Reported] [facility] 11-14-2024 Total score [AUDIT-C] 3 11/15/19 11:57 AM EDT Mychart, Generic [facility] 11-14-2024 How often to you hav e a drink containing alcohol? 2-4 times a month 11/14/2024 11:57 AM EDT Mychart, Generic 2-4 times a month [facility] 11-14-[address] inks containing alcohol do you have on a typical day? 1 or 2 11/14/2024 11:57 AM EDT Mychart, Generic 1 or 2 [facility] 11-14-2024 How often do you hav e 6 or more drinks on 1 occasion? Less than monthly 11/14/2024 11:57 AM EDT Mychart, Generic Less than monthly [facility] 09-29-2024 [facility]ly [facility] suicide s everity rating scale screener - recent [C-SSRS] [facility] Work Phone: 09-29-2024 Patient Health Quest ionnaire 2 item (PHQ-2) [Reported] [facility] Work Phone: Clinical Notes 12-10-2023 to 11-16-2024 Claudia Kern MD - 11/16/2024 1:00 PM Niko Graf NP - 11/14/2024 2:30 PM Brenda Sanders APRN-TARUN - 09/29/2024 12:45 PM Kristina Rodriguez MD - 09/15/2024 1:30 PM EDT Note Date & Type Note Facility 11-16-2024 History of Present illness Narrative Holli Fischer is a 34 y.o. female with a hx of PCOS, insulin resistance, infertility who presents for weight management and obesity. Virtual: Current Plan 1. Nutrition: Mediterranean Diet 2. Sleep: Stable 3. Stress: Stable 4. Exercise: exercising 5-6 days a week at the gym 5. Appetite control: Increased Obesity medication: Mounjaro- 7.5mg weekly- will send 10mg today 6. Prior Goals: Partially Met New Goals: Exercise- add strength training to 3 days a week Weight trend: Wt Readings from Last 10 Encounters: 09/29/24 113 kg (248 lb 8 oz) 09/14/24 114 kg (252 lb 6.4 oz) 08/09/24 122 kg (268 lb) 01/14/24 147 kg (324 lb) 12/22/23 150 kg (330 lb) 12/10/23 150 kg (330 lb) Current Medications[1] ROS: System: normal Eyes : no visual [...] no anxiety See HPI for Endocrine ROS Medical History[2] Surgical History[3] Social History Socioeconomic History Marital status: Spouse name: Not on file Number of children: Not on file Years of education: Not on file Highest education level: Not on file Occupational History Not on file Tobacco Use Smoking status: Never Smokeless tobacco: Never Substance and Sexual Activity Alcohol use: Yes Comment: Occassionally Drug use: Never Sexual activity: Defer Other Topics Concern Not on file Social History Narrative Not on file Social Drivers of Health Financial Resource Strain: Low Risk (07/15/2022) Received from [facility] Overall Financial Resource Strain (CARDIA) Difficulty of Paying Living Expenses: Not hard at all Food Insecurity: No Food Insecurity (05/25/2023) Received from [facility] Hunger Screening Within the past 12 [...] no acute distress Eyes : EOMI BMI: 39.44kg/m2 Assessment/Plan Barbara Fischer is a 34 y.o. female with a hx of PCOS, [...] changes. 12/22/23: 330lb, 54.91kg/m2 08/09/24: 268lb, 44.60kg/m2 11/16/24: 237lb, 39.44kg/m2 3. 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 Exercise : swims, rides bike and walks dogs 6. Appetite : check hga1c Discussed AOMs She will wait on re-attempting IVF until she loses weight. --on mounjaro 7.5mg/wk --> increase to 10mg/wk. 7. Goal: to meet with Phil Briggs RD. To add ST 3x/wk. Follow up in a group visit. Revital Saurabh Kern MD [1] Current Outpatient Medications: clomiPHENE (Clomid) 50 mg tablet, Take 2 tablets (100 mg) by mouth once daily. Cycle days 3-7, Disp: 10 tablet, Rfl: 0 letrozole (Femara) 2.5 mg tablet, Take 3 tablets (7.5 mg total) by mouth once daily. Take 3 tablets by mouth cycle days 3-7 after negative urine test every cycle before starting letrozole., Disp: 15 tablet, Rfl: 0 letrozole (Femara) 2.5 mg tablet, Take 2 tablets (5 mg total) by mouth once daily. Take 2 tablets by mouth cycle days 3-7 after negative urine test every cycle before starting letrozole., Disp: 10 tablet, Rfl: 0 medroxyPROGESTERone (Provera) 10 mg tablet, Take 1 tablet (10 mg) by mouth once daily. Take days for 10 days each month get menses, Disp: 10 tablet, Rfl: 0 norgestimate-ethinyl estradioL (Sprintec, 28,) 0.25-35 mg-mcg tablet, Take 1 tablet by mouth once daily. (Patient not taking: Reported on 12/22/2023), Disp: 28 tablet, Rfl: 12 tirzepatide (Mounjaro) 7.5 mg/0.5 mL pen injector, Inject 7.5 mg under the skin 1 (one) time per week., Disp: 2 mL, Rfl: 2 [2] Past Medical History: Diagnosis Date Insulin resistance Polycystic ovary syndrome [3] Past Surgical History: Procedure Laterality Date HYSTEROSCOPY Bilateral TONSILLECTOMY documented in this encounter [facility] Work Phone: 11-14-2024 History of Present illness Narrative Images from the original note were not included. Barbara Fischer is a 34 y.o. female presents with chief complaint of Plantar Warts (Wart on right toe ) HPI: Patient presents today with complaints of plantar wart to right 3rd toe. She states she had noticed a few days ago when she started having pain that toe. She also has large calluses. Patient has been working out frequently due to trying to lose weight. She is down about 100 lb from last year. She is taking Mounjaro 7.5 mg weekly currently. She is seeing an insurance assistant in [place] due to fertility issues in attempting to lose weight before completing her next round of IVF. She does have a group nutrition follow-up with her insurance assistant video call scheduled for Thursday. She will follow-up with them as previously planned. At this time, we will send her a referral to Podiatry for the plantar wart of her right 3rd toe. SUBJECTIVE: MEDICATIONS: Current Outpatient Medications Medication Instructions Tirzepatide (Mounjaro) 7.5 MG/0.5ML solution auto-injector ALLERGIES: No Known Allergies REVIEW OF SYMPTOMS: Review of Systems Constitutional: Negative. HENT: Negative. Eyes: Negative. Respiratory: Negative. Cardiovascular: Negative. Gastrointestinal: Negative. Genitourinary: Negative. Musculoskeletal: Negative. Skin: Positive for wound. Neurological: Negative. Psychiatric/Behavioral: Negative. All other systems reviewed and are negative. Hematological: Negative. Endocrine: Negative. Allergic/Immunologic: Negative. OBJECTIVE: Visit Vitals BP 108/68 (BP Location: Left arm, Patient Position: Sitting, BP Cuff Size: Adult) Pulse 63 Temp 97.2 F Ht 5' 5 Wt 242 lb SpO2 99% BMI 40.27 kg/m Smoking Status Never BSA 2.25 m Physical Exam Vitals and nursing note reviewed. Constitutional: Appearance: Normal appearance. HENT: Head: Normocephalic and atraumatic. Right Ear: External ear normal. Left Ear: External ear normal. Nose: Nose normal. Mouth/Throat: Mouth: Mucous membranes are moist. Pharynx: Oropharynx is clear. Eyes: Extraocular Movements: Extraocular movements intact. Conjunctiva/sclera: Conjunctivae normal. Cardiovascular: Rate and Rhythm: Normal rate and regular rhythm. Pulses: Normal pulses. Heart sounds: Normal heart sounds. Pulmonary: Effort: Pulmonary effort is normal. Breath sounds: Normal breath sounds. Abdominal: General: Abdomen is flat. Bowel sounds are normal. Palpations: Abdomen is soft. Musculoskeletal: General: Normal range of motion. Cervical back: Normal range of motion and neck supple. Feet: Feet: Right foot: Skin integrity: Callus and dry skin present. Left foot: Skin integrity: Callus and dry skin present. Skin: General: Skin is warm and dry. Capillary Refill: Capillary refill takes less than 2 seconds. Neurological: General: No focal deficit present. Mental Status: She is alert and oriented to person, place, and time. Psychiatric: Mood and Affect: Mood normal. Behavior: Behavior normal. Thought Content: Thought content normal. Judgment: Judgment normal. ASSESSMENT AND PLAN: Assessment/Plan Diagnoses and all orders for this visit: Plantar wart, right foot Class 3 severe obesity due to excess calories without serious comorbidity with body mass index (BMI) of 40.0 to 44.9 in adult Podiatry referral. Follow up if symptoms worsen or fail to improve. documented in this encounter [facility] 09-29-2024 History of Present illness Narrative Boarding Pass Oral TIC/IUI Age: 33 y.o. Provider: Roslyn Rodriguez MD Primary Nurse: Chetan Reasons for Treatment: Polycystic Ovarian Syndrome Last BMI 09/14/24 : 42.00 kg/m Past Medical History: Diagnosis Date Insulin resistance Polycystic ovary syndrome Date Done Consultation Results/Comments 09/15/2024 Medication Protocol Fertility Plan Update: Patient interested in trying [...] to stay on Mounjaro until + test 09/27/2024 Authorization to Share [x] Procedure Order Placed [] Date Done Female Labs Results/Comments 09/28/2024 T&S (Q 1 Year) ABO TYPE O Rh TYPE POS Comment: 2nd ABO test required. Order and Collect VERAB ANTIBODY SCREEN 09/17/2024 Hep B sAg NEGATIVE 09/17/2024 Hep C AB Non reactive 09/17/2024 HIV Non- reactive Syphilis 09/17/2024 GC/CT GC: NEGATIVE CT: NEGATIVE 01/08/2024 Rubella (Q 5 Years) IMMUNE 01/08/2024 Varicella (Q 5 Years) IMMUNE 09/27/2024 Carrier Screening Myriad 2bP: Declined N/A 09/21/2024 BUSINESS EDITOR Waiver [x] Date Done Male Labs (required if IUI) Results/Comments TEMO FISCHER ( ) Hep B sAg Hep C AB HIV Syphilis GC/CT GC: CT: 09/27/2024 Carrier Screening Declined N/A Semen Analysis Volume(mL): Count(million): Motility(%): Motile Count(million): Boarding Pass BMI Checklist (BMI > 40 or < 18) Date Done Testing Results 09/17/24 CBC normal 09/17/24 CMP normal HgbA1C 5.4% NA MFM clearance required: BMI > 40 with co-morbidities BMI > 45- all patients Clearance Letter-Provider Reviewed: NA No results found for requested labs within last 365 days. Additional Labs (BMI < 18) Magnesium: No results found for requested labs within last 365 days. Phosphate: No results found for requested labs within last 365 days. Vitamin D: No results found for requested labs within last 365 days. Weight Loss / Nutrition Consult (must be offered for BMI > 40) Letrozole: 3 tablet(s) a day, cycle days 3-7 Note: 1st day of full flow is cycle day 1 Have sexual intercourse approximately every other day for 1 week beginning cycle day 11 You don't need temperature charts or LH predictor kits because normal cycle lengths indicate ovulatory cycles. If you are planning inseminations, you will use LH predictor kits for timing If normal 28 - 32 day cycle, repeat above for a total of 3 cycles Call office if: cycles longer than 35 days not after 3 regular cycles Side effects of Letrozole may include: acne headache hot flushes leg cramps nausea If side effects are severe, alternative medications may be available. Letrozole has a 8-10% chance of twins and less than 1 % chance of triplets. Progesterone: May be given to bring on a period if you have not had a period after 40 days and a home test is negative. Continue to take Progesterone if you have light bleeding. Expect to bleed within 2 weeks of finishing Progesterone Letrozole is used for ovulation inductions. Letrozole is not a FDA approved medication for infertility treatment and may be associated with an increased for of congenital defects, although this was not found in a recent large study of patient taking letrozole for unexplained infertility. Letrozole is teratogenic therefore a urine test should be taken prior to taking the medication. MD Completion: Ectopic Risk: No Medically Complex: Yes-Obesity on Mounjaro Boarding pass reviewed with: Protocol: Letrozole 7.5mg with TI x 3 cycles. Plan on cd 21 progesterone the first cycle to confirm ovulation. Sperm: partner Testing up to date. yes Procedure order placed. NA Boarding pass approved for 3 cycles/until 01/06 -HgA1c needs updated. Patient will get syphillis results to us and then cleared to proceed. Patient will call tomorrow. She is cd 4 today. Will add on the huddle for 10/16/24 for a progesterone check. She will call to let us know what lab she wants the order sent to. Tere Saurabh Sanders 09/29/24 12:55 PM documented in this encounter [facility] Work Phone: 09-15-2024 History of Present illness Narrative Images [...] Sonography: Thinks she had this done in [place] and was told tubes patent Has had normal diagnostic hysteroscopy at [facility] -Reports she did have lysis of adhesions on a hysteroscopy prior to FETs BUSINESS EDITOR Pelvic Ultrasound: US PELVIS (09/01/2024): FINDINGS: UTERUS [...] flow within the bilateral ovaries. Partner SA: Temo Fischer Partner : Partner :: 10/07/92 Done in [place] 2020 Was told normal Myriad screening: None Treatment to date: Had fertility assessment at [facility]- 2020 Was given diagnosis of PCOS [...] 09/15/2024 1:35 PM documented in this encounter [facility] Work Phone: 08-09-2024 History of Present illness Narrative Holli Fischer is a 33 y.o. female [...] Resource Strain: Low Risk (07/15/2022) Received from [facility] Overall Financial Resource Strain (CARDIA) Difficulty of Paying Living Expenses: Not hard at all Food Insecurity: No Food Insecurity (05/25/2023) Received from [facility] Hunger Screening Within the past 12 months [...] lifestyle, ketosis diet. Has met with Phil Bakerp, make some good dietary changes. 12/22/23: 330lb, [...] Claudia Kern MD documented in this encounter [facility] Work Phone: 12-10-2023 History of Present illness Narrative Visit Type: In Person NEW FERTILITY PATIENT VISIT Referred by: Referred by:: Jessica Jamil Accompanied today by: Who is accompanying you to your visit:: Spouse, Temo Fischer is a 33 y.o. female who [...] as clinical hirsutism Had fertility assessment at [facility]- 2020 Was given diagnosis of PCOS [...] Sonography: Thinks she had this done in [place] and was told tubes patent Has had normal diagnostic hysteroscopy at [facility] -Reports she did have lysis of adhesions on a hysteroscopy prior to FETs BUSINESS EDITOR Pelvic Ultrasound: 2020 1. 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 Prior fertility history: None PMH: None PSH: None Smoking: None Alcohol Use: None Drug Use: None Medications: None Injuries: None STD: Have you ever been diagnosed with a sexually transmitted disease?: No Please select all that are applicable: SA: SA Results: Done in [place] 2020 Was told normal FAMILY HISTORY No [...] 12/10/2023 9:38 AM documented in this encounter [facility] Work Phone: 12-10-2023 Instructions Roslyn Rodriguez MD [...] 12/10/2023 9:38 AM documented in this encounter [facility] Work Phone: Evaluation note No assessment inform ation available [facility] Work Phone: Evaluation note Diagnosis Secondary oligomenorrhea- [...] (Multi) [E66.01, Z68.43] documented in this encounter [facility] Work Phone: Evaluation note* Diagnosis BMI 50.0-59.9, adult (Multi)- Primary Encounter for weight management Super obesity documented in this encounter [facility] Work Phone: Evaluation note* Diagnosis Class 3 obesity- Primary BMI 40.0-44.9, adult (Multi) Encounter for weight management documented in this encounter [facility] Work Phone: Evaluation note* Diagnosis Screening for [...] [E28.2] Polycystic ovaries documented in this encounter [facility] Work Phone: Evaluation note* Diagnosis Female infertility [N97.9]- Primary Female infertility of unspecified origin documented in this encounter [facility] Work Phone: Evaluation note* Diagnosis Plantar wart, right foot- Primary Plantar wart Class 3 severe obesity due to excess calories without serious comorbidity with body mass index (BMI) of 40.0 to 44.9 in adult [facility] Diagnosis BMI 39.0-39.9,adult BMI 30.0-30.9,adult documented in this encounter [facility] Work Phone: History of Present illness Narrative* Revmainor Kern MD - 12/22/2023 2:30 PM EDT Patient [...] Resource Strain: Low Risk (07/15/2022) Received from [facility] Overall Financial Resource Strain (CARDIA) Difficulty of Paying Living Expenses: Not hard at all Food Insecurity: No Food Insecurity (05/25/2023) Received from [facility] Hunger Screening Within the past 12 [...] The patient will be referred to the Injection Molding Machine Setter for education on their diet of choice. [...] visit. Claud[facility]ern [facility] Reason for referral (narrative)* Consultation (Routine) - Authorized Specialty Diagnoses / Procedures Referred By Pily t Referred To Contact Nutrition Diagnoses BMI 50.0-59.9, adult (Multi) Claudia Orozco MD [address] [facility] [address] [place] [address] Referral ID Status Reason Start Date Expiration Date Visits Requested Visits Authorized [id number] Authorized Specialty Services Required 12/22/2023 12/21/2024 1 1 [facility] Work Phone: Summary Purpose Family History [...] Care Teams (unrecognized sec tion and content) Publicity Manager Relationship Specialty [place] [id number] [address] PCP - General Family Medicine 04/01/16 Team Status: Active Member Role Status Dates Outreach Community Primary Care Provider Active Team Status: Inactive Member Role Status Dates Polly Jurado NP-C Attending Provider Active S tart: August 29, 2023 End: August 29, 2023 Outreach [facility] Primary Care Provider Active Start: August 29, 2023 End: August 29, 2023 Publicity Manager Relationship Specialty [place] [address] [address] PCP - General Family Medicine 10/21/22 Publicity Manager Relationship Specialty Start Date End Date Kurtis Bedolla MD PCP - General Family Medicine 04/01/16 Publicity Manager Relationship Specialty Start [place] [address] [address] PCP - General Family Medicine 10/21/22 Publicity Manager Relationship Specialty Start Date End Date Dipika Cox LPN Licensed Practical Nurse Reproductive Endocrinology and Infertility 09/14/24 Publicity Manager Relationship Specialty Start [place] [address] [address] PCP - General Family Medicine 10/21/22 Publicity Manager Relationship Specialty Start Date End Date Dipika Cox LPN Licensed Practical Nurse Reproductive Endocrinology and Infertility 09/14/24 Publicity Manager Relationship Specialty [place] [address] [place] [address] PCP - General Family Medicine 10/21/22 Publicity Manager Relationship Specialty [place] [address] [place] [address] PCP - General Family Medicine 10/21/22 Publicity Manager Relationship Specialty Start Date End Date Dipika Cox LPN Licensed Practical Nurse Reproductive Endocrinology and Infertility 09/14/24 INFORMATION SOURCE (unrecogn ized section and content) DATE CREATED AUTHOR 10/05/2022 [facility] DATE CREATED AUTHOR AUTHOR'S ORGANIZ ATION 09/14/2023 [facility] DATE CREATED AUTHOR AUTHOR'S ORGANIZ ATION 07/26/2024 [facility] DATE CREATED AUTHOR AUTHOR'S ORGANIZ ATION 10/02/2024 [facility] DATE CREATED AUTHOR AUTHOR'S ORGANIZ ATION 11/15/2024 [facility] EP[facility] DATE CREATED AUTHOR AUTHOR'S ORGANIZ ATION 11/20/2024 [facility] DATE CREATED AUTHOR AUTHOR'S ORGANIZ ATION 12/18/2024 [facility] Goals (unrecognized section and content) Goals may be documented in a n alternate section Reason for Visit (unrecogniz ed section and content) Reason Comments [facility] [place] Fertility Consultation Reason Comments Consult Weight management Reason Comments Follow-up Follow up for weight management group meeting Reason Comments Lyssa Warts Wart on right toe Reason Comments Follow-up Follow up for weight [...] BE BASED ON THE PRIMARY CLINICAL RECORDS. [facility] [employer] [facility]. provides no warranty or guarantee of the accuracy or completeness of information in this document.
[2025-01-04 11:10] LABS: Rapid Plasma Reagin, Quant Non Reactive titer (NonRea<1:1)
[2025-01-05 06:08] LABS: Neisseria gonorrhoeae, NAA Negative (Negative)
== END 2025-01-03 09:39 | disposition home or self-care (01) ==
LOC: LAB 01-04 09:38
PROVIDERS: PCP Family Medicine; Visit Provider Obstetrics & Gynecology
DX: E66.813 Obesity, class 3 (principal); Z68.41 Body mass index [BMI] 40.0-44.9, adult; Z11.3 Encounter for screening for infections with a predominantly sexual mode of transmission; Z13.1 Encounter for screening for diabetes mellitus
CPT/HCPCS: 36415; 80053; 80061; 83036; 85025; 86592; 86803; 87340; 87389; 87491; 87591

== ENCOUNTER 2025-01-24 07:23 | Outpatient (OUT) | payer OTHER, SELFPAY ==
--- OUTSIDE RECORDS SUMMARY | 2025-01-16 09:45 | XMS_ITS | Encounter Summary ---
Author Organization [facility] Address [address] [place] [address] Phone Care Team Providers Care Lead Janitor Name Role Phone Dipika Cox LPN Unavailable Un available Reason for Visit * Reason Comments Patient Education Nutrition Counseling * Consultation (Routine) - Authorized Specialty Diagnoses / Procedures Referred By Contac t Referred To Contact Nutrition Diagnoses BMI 39.0-39.9,adult Karl Orozco MD [address] [facility], [place] [address] [place] [address] Phone: tel: fax: Referral ID Status Reason Start Date Expiration Date Visits Requested Visits Authorized [id number] Authorized Specialty Services Required 11/16/2024 11/16/2025 1 1 Encounter Details Date Type Department Care Team (Late st Contact Info) Description 01/16/2025 9:45 AM EDT Telemedicine Clinical Support [address] [place] [address], [address] [facility] [address], [place] [address] BMI 37.0-37.9, adult (Primary Dx); Dietary counseling Social History Tobacco Use Types Packs/Day Years Used Date Smoking Tobacco: Never Smokeless Tobacco: Never Alcohol Use Standard Drinks/Week Comments Yes 1 (1 standard drink = 0.6 oz pur e alcohol) Occassionally PHQ-2 Answer Date Recorded Patient Health Questionnaire-2 Score 0 09/29/2024 Comments No Sex and Gender Information Value Date Recorded Sex Assigned at Not on file Legal Sex Female 8:19 AM EST Gender Identity Not on file Sexual Orientation Not on file documented as of this encounter Last Filed Vital Signs Vital Sign Reading Time Taken Comments Blood Pressure - - Pulse - - Temperature - - Respiratory Rate - - Oxygen Saturation - - Inhaled Oxygen Concentration - - Weight 103 kg (228 lb) 01/16/2025 9:51 AM EDT verbally reported Height 165.1 cm (5' 5 ) 01/16/2025 9:51 AM EDT Body Mass Index 37.94 01/16/2025 9:51 AM EDT documented in this encounter Patient Instructions * Patient Instructions* Lexie Briggs RD, LD - 01/16/2025 9:45 AM EDT - Please continue to incorporate healthy eating following the Mediterranean Diet eating guidelines. - Continue to aim for a source of healthy protein and fiber rich foods at meals. - Continue to pre-plan healthy meals for the week and limit indulgences to once weekly as discussed. - Consider tracking daily food intake for accountability with food choices and portions occasionally to ensure you are in a calorie deficit for ongoing weight loss and aim for 1550 calories daily. - Keep up the great work with your daily water intakes. - Keep up the great work with your weekly exercise. - Follow-up as scheduled for the group classes in March. documented in this encounter Progress Notes * Lexie Briggs RD, LD - 01/16/2025 9:45 AM EDT Follow-up Nutrition Assessment Interval History: Patient presents for follow-up nutrition appointment for weight management/desireto lose weight. Since last nutrition visit on 01/14/24, pt with an approximate 100 lbs weight loss. Pt states she is feeling great and is very pleased with weight loss to date with goals to decrease weight further. Still taking medication Mounjaro but states she is at a plateau (last 2-3 weeks) and wonders if things need to be adjusted with food and or exercise. Still incorporating healthy eating consistently with only occasional indulgences with things like ice cream. Reports incorporating high fiber and lean protein food sources at meals consistently. Drinking mostly water throughout the day and coffee in am. [facility], elliptical and bike for a totalof 75 minutes at a time). Does make sure to change resistance intensities on the various machines. [facility], as well as is happy to report that she has signed up for a 5K to participate in soon. See all interventions/recommendations below as discussed during visit this day. Nutrition Interventions/Recommendations from last visit scheduled on 01/14/24: - Please refer to your book entitled: Your Mediterranean Meal Plan, and follow Mediterranean Diet eating guidelines as reviewed. - The Healthy Plate style of eating can be a helpful tool for incorporating healthy balanced meals in appropriate portions. (Healthy Plate: Start with a 9- inch diameter plate. Fill 1/2 the plate withnon-starchy vegetables, 1/4 of the plate with whole grains or starchy vegetables, and 1/4 of the plate with a lean source of protein. - Consider pre-planning healthy meals for the week. Refer to your book for both menu and recipe ideas to get you started. - Further recipes can also be found at: [email or web address] - Incorporate strategies of mindful eating every day. Practice staying in tune with your body's hunger cues and eat only when truly hungry. Avoid emotional eating/eating when not hungry. - Keep up the great work with your daily water intakes and weekly exercise. - Follow-up as scheduled for the group classes with Dr. Bárbara Kern. - Follow-up with nutrition as needed prior to group class. 2 Adherence to recommendations and patient stated goals: Yes Anthropometrics: Height: Ht Readings from Last 1 Encounters: 01/16/25 1.651 m (5' 5 ) Weight: Wt Readings from Last 10 Encounters: 11/16/24 108 kg (237 lb) 09/29/24 113 kg (248 lb 8 oz) 09/14/24 114 kg (252 lb 6.4 oz) 08/09/24 122 kg (268 lb) 01/14/24 147 kg (324 lb) 12/22/23 150 kg (330 lb) 12/10/23 150 kg (330 lb) Current BMI: BMI Readings from Last 1 Encounters: 01/16/25 39.44 kg/m?? Malnutrition Screening: Significant Unintentional weight loss: No Eating less than 75% of usual intake for more than 2 weeks: No Potential Signs of Inflammation: No Recommended Malnutrition Diagnosis: No malnutrition identified Patient reported Information: - Feeling great and so pleased with 100 lbs weight loss. - Happy to report that she has signed up for a 5K to participate in soon. - Still taking medication Mounjaro but states she is at a plateau (last 2-3 weeks) and wonders if things need to be adjusted with food and or exercise. - Still incorporating healthy eating consistently with only occasional indulgences with things likeice cream. - Incorporating high fiber and lean protein sources at meals. - Drinking mostly water throughout the day and coffee in am. - [facility] ([facility] machine, elliptical and bike for a total of 75 minutes at a time). Does make sure to change resistance intensities on the various machines. - Going to start a resistance class soon as well. Nutrition Diagnosis: Food and nutrition-related knowledge deficit related to lack of prior exposureto information as evidenced by patient has no prior knowledge of need for food and nutrition-related recommendations. Readiness to Learn: Cognitive ability: Alert and oriented Motivation to learn: Interested Family Support: Unable to assess- family not present Instruction provided to: Patient Patient learns best by: Multiple methods Factors affecting learning: None Physical limitations affecting learning: None Education Materials Provided: None this visit Nutrition Interventions/Recommendations for 01/16/2025: - Please continue to incorporate healthy eating following the Mediterranean Diet eating guidelines. - Continue to aim for a source of healthy protein and fiber rich foods at meals. - Continue to pre-plan healthy meals for the week and limit indulgences to once weekly as discussed. - Consider tracking daily food intake for accountability with food choices and portions occasionally to ensure you are in a calorie deficit for ongoing weight loss and aim for 1550 calories daily. - Keep up the great work with your daily water intakes. - Keep up the great work with your weekly exercise. - Follow-up as scheduled for the group classes in March. Nutrition Monitoring & Evaluation: adherence to recommendations and patient stated goals Need for follow-up: As scheduled for Doris Gonsalves APRN-LIGHTNING PROTECTION INSTALLER Shared Medical Appointment (SMA) Referred by: Dr. Bárbara Kern [facility] Billing Type: Medical Nutrition Re-Assessment, each 15 min increment, for 2 increments. SIGNATURE: Lexie Briggs RD, CSCONSTANCE, LD, CDCES DATE: 01/16/2025 documented in this encounter Plan of Treatment Upcoming Encounters Date Type Department Care Team (Late st Contact Info) Description 01/24/2025 11:30 PM EDT Orders Only Dillon Carlos [address] [place] [address] Arrived 03/22/2025 1:00 PM EDT Office Visit [facility] [address] [facility] [address] [place] [address] Doris Gonsalves, TWISTING DEPARTMENT END FINDER-LIGHTNING PROTECTION INSTALLER [address] [facility] [address] [place], [place] [id number] 03/30/2025 2:00 PM EDT Telemedicine Dillon Carlos [address] [place] [address] Dulce Maria Zarate MD [address] [place] [address] documented as of this encounter Visit Diagnoses Diagnosis BMI 37.0-37.9, adult- Primary Dietary counseling Dietary surveillance and counseling documented in this encounter Additional Health Concerns Assessment Noted Time A fall risk assessment has been complete d for the patient 09/29/2024 12:06 PM EDT documented as of this encounter Care Teams Lead Janitor Relationship Specialty Start Date End Date Dipika Cox LPN Licensed Practical Nurse Reproductive Endocrinology and Infertility 09/14/24 documented as of this encounter
--- OUTSIDE RECORDS SUMMARY | 2025-01-24 07:25 | XMS_ITS | Encounter Summary ---
Author Organization [facility] Address [address] [place] [address] Phone Care Team Providers Care Plane Tender Name Role Phone Dipika Cox LPN Unavailable Un available Encounter Details Date Type Department Care Team (Late st Contact Info) Description 01/06/2025 Orders Only GENESIS Carlos [address] [place] [address] Dipika Cox LPN Female infertility Social History Tobacco Use Types Packs/Day Years [...] as of this encounter Plan of Treatment Upcoming Encounters Date Type Department Care Team (Late st Contact Info) Description 01/24/2025 11:30 PM EDT Orders Only GENESIS Carlos [address] [place] [address] Arrived 03/22/2025 1:00 PM EDT Office Visit [facility] [address] [place] [address] Doris Gonsalves, SHOE HANDLER-RETAIL BRAND AMBASSADOR [address] [place] [address] 03/30/2025 2:00 PM EDT Telemedicine Dillon Carlos [address] [place] [address] [address] Dulce Maria Zarate MD [address] [place] [address] Scheduled Orders Name Type Priority Associated Diagnoses Orde r Schedule (Lab Collect) Progesterone Lab STAT Female infertility Expected: 01/06/2025 (Approximate), Expires: 01/06/2026 documented as of this encounter Visit Diagnoses Diagnosis Female infertility Female infertility of unspecified origin documented in this encounter Additional Health Concerns Assessment Noted Time A fall risk assessment has been complete d for the patient 09/29/2024 12:06 PM EDT documented as of this encounter Care Teams Plane Tender Relationship Specialty Start Date End Date Dipika Cox LPN Licensed Practical Nurse Reproductive Endocrinology and Infertility 09/14/24 documented as of this encounter
--- OUTSIDE RECORDS SUMMARY | 2025-01-24 07:25 | XMS_ITS | Clinical Summary ---
Author Organization [facility] Address [address] [place] [address] Phone Care Team Providers Care Dispatcher Radio Name Role Phone Dipika Cox LPN Unavailable [...] 3-7 10 tablet 10/19/19 25 026 Active tirzepatide, weight loss, (Zepbound) 10 mg/0.5 mL injectionIndicatio ns:BMI 39.0-39.9,adult Inject 10 mg under the skin every 7 days. 4 each 2 11/17/19 25 Active medroxyPROGESTERon e (Provera) 10 mg tabletIndications: Female infertility Take 1 tablet (10 mg) by mouth once daily. 10 tablet 12/15/19 25 026 Active clomiPHENE (Clomid) 50 mg tabletIndications: Female infertility Take 2 tablets (100 mg) by mouth once daily. Cycle days 3-7 10 tablet 01/07/20 25 026 Active letrozole (Femara) 2.5 mg tabletIndications: Female infertility Take 3 tablets (7.5 mg total) by mouth once daily. Take 3 tablets by mouth cycle days 3-7 after negative urine test every cycle before starting letrozole. 15 tablet 01/07/20 25 025 Active letrozole (Femara) 2.5 mg tabletIndications: Female infertility Take 3 tablets (7.5 mg total) by mouth once daily. Take 3 tablets by mouth cycle days 3-7 after negative urine test every cycle before starting letrozole. 15 tablet 10/01/19 25 025 letrozole (Femara) 2.5 mg tabletIndications: Female infertility Take 2 tablets (5 mg total) by mouth once daily. Take 2 tablets by mouth cycle days 3-7 after negative urine test every cycle before starting letrozole. 10 tablet 10/19/19 25 025 Encounters Date Type Department Care Team Description 01/16/2025 9:45 AM EDT Telemedicine Clinical Support [address] [place] [phone] Lexie Briggs RD, LD BMI 37.0-37.9, adult (Primary Dx); Dietary counseling 01/06/2025 Orders Only GENESIS Carlos [address] [place] [address] Dipika Cox LPN Female infertility 01/06/2025 Telephone GENESIS Carlos [address] [place] [address] Noemi Anna MD 12/14/2024 11:45 PM EDT Orders Only GENESIS Carlos [address] [place] [address] Female infertility 12/14/2024 Orders Only GENESIS Carlos [address] [place] [address] Mary Dawn LPN Female infertility 12/13/2024 11:30 PM EDT Orders Only GENESIS Carlos [address] [place] [address] 12/12/2024 11:20 PM EDT Orders Only GENESIS Carlos [address] [place] [address] 12/12/2024 Telephone Dillon Carlos [address] [place] [address] Yariel Roldan MD 11/16/2024 1:00 PM EDT Office Visit [address] [place] [address] Karl Orozco MD BMI 39.0-39.9,adult; BMI 30.0-30.9,adult 11/16/2024 Travel 11/08/2024 11:20 PM EDT Orders Only GENESIS Carlos [address] [place] [address] 11/04/2024 11:05 PM EDT Orders Only GENESIS Carlos [address] [place] [address] from Last 3 Months Social History Tobacco Use Types Packs/Day Years Used Date Smoking Tobacco: Never Smokeless Tobacco: Never Tobacco Cessation:Counseling Given: Not Answered Alcohol Use Standard Drinks/Week Comments Yes 1 [...] Mass Index 37.94 01/16/2025 9:51 AM EDT Plan of Treatment Upcoming Encounters Date Type Department Care Team (Late st Contact Info) Description 01/24/2025 11:30 PM EDT Orders Only Carranza Ramses Breanna [address] [place] [address] Arrived 03/22/2025 1:00 PM EDT Office Visit [facility] [address] [facility] [address] [facility] [address] [place] [address] Doris Gonsalves, RN STAFFING-DRUG INSPECTOR [address] [facility] [address] [place], [place] [phone] 03/30/2025 2:00 PM EDT Telemedicine Dillon Carlos [address] [place] [address] Dulce Maria Zarate MD [address] [place], [place] [phone] Health Maintenance Due Date Last Done Comments HIV Screening 1990 Lipid Panel 1990 Hepatitis C Screening 2008 Hepatitis B Vaccines [...] Zamzam [place] Result [facility] [address] [place] [address] [address] from Last 3 Months Insurance GENERIC COMMERCIAL GENERIC COMMERCIAL Care Teams Dispatcher Radio Relationship Specialty Start Date End Date Dipika Cox LPN Licensed Practical Nurse Reproductive Endocrinology and Infertility 09/14/24
--- OUTSIDE RECORDS SUMMARY | 2025-01-24 07:25 | XMS_ITS | Clinical Summary ---
Author Organization [facility] Address [address] [facility] [facility] [place] [address] Care Team Providers Care Site Controller Name Role Phone Lalit Bedolla MD Primary Care Provider Allergies No known active allergies Medications albuterol [...] Description 07/18/2025 8:30 AM EST Office Visit [facility] Obstetrics & Gynecology [address] [facility] [place] [phone] Nadja Brewster APRN - DOORMAKER [address] [place] [address] annual Health Maintenance Due Date Last Done [...] 03/15, 01/25/1991, Additional history exists HPV vaccine (No Doses Required) Completed Hepatitis A vaccine Aged Out No longe [...] HIGH RISK Routine 07/18/2024 12:00 AM EST AIR CARGO AGENT CYTOLOGY Routine 07/18/2024 12:00 AM EST from Last 3 Months or Most Recently Relevant to Health Maintenance Results * Human papillomavirus (HPV) DNA probe thin prep high risk (07/18/2024 12:00 AM EST) Specimen Description CERVICAL MATERIAL 07/18/2024 12:00 AM [employer] HPV Sample .THIN PREP 07/18/2024 12:00 AM [employer] HPV, Genotype 16 Not Detected Not Detected 07/18/2024 12:00 AM [employer] HPV, Genotype 18 Not Detected Not Detected 07/18/2024 12:00 AM [employer] HPV, High Risk Other Not Detected Not Detected 07/18/2024 12:00 AM [employer] HPV, Interpretation 07/18/2024 12:00 AM [employer] Comment: This test amplifies and detects DNA [...] forensic purposes. CERVICAL MATERIAL 07/18/2024 Nadja Brewster COLD STORAGE SUPERINTENDENT - DOORMAKER HEMATOLOGY ORDERABLES Fi nal Result [address] [address], [facility] [phone] * AIR CARGO AGENT Cytology (07/18/2024 12:00 AM EST) Cytology Report Path Number: [id number] DIAGNOSIS Imaged ThinPrep Pap - Cervical (1 monolayer slide): Specimen Adequacy: Satisfactory for evaluation. - Endocervical/trans formation zone component present. Descriptive Diagnosis: Negative for intraepithelial lesion or malignancy. Comments: Specimen was screened at [facility], [facility] [address] [employer] Screener: JAIR Rescreened By: HOOD Electronically [...] for other forensic purposes. Performed at [facility], [address] [place] [id number] . Source of Specimen: A: Imaged ThinPrep Pap - Cervical (1 monolayer slide) HPV Reflex?........... ...........HPV Regardless Clinical History Z01.419 Routine licensed pesticide applicator exam without abnormal findings Z11.51 Encounter for screening for HPV Processing Lab: [facility] [address] [place] [address] Interpretation performed at [facility], [facility] [place] [address] This Pap Test has been evaluated with the assistance of the [employer] Pap Test Imaging System. The Pap smear is a screening test primarily for squamous epithelial lesions, which is subject to both false negative and false positive results. Your patient should be reminded to consult you immediately if she experiences any suspicious signs or symptoms, regardless of her Pap smear result. GYNECOLOGIC CYTOLOGY REPORT Patient Name: BROOK FISCHER. [facility] Rec: [id number] [employer] [facility] PATHOLOGISTS [facility] ANATOMIC PATHOLOGY [address] [facility]. [place], [place] [address] [facility] [employer] CERVICAL MATERIAL 07/18/2024 025 7:25 AM EST Nadja Brewster COLD STORAGE SUPERINTENDENT - DOORMAKER PATHOLOGY/CYTOLOGY ORDER CHAD Final Result [address] [address], [facility] [phone] [facility] [employer] from Last 3 Months or Most Recently Relevant to Health Maintenance Insurance [facility] [employer] Care Teams Site Controller Relationship Specialty Start Date End Date Lalit Bedolla MD PCP - General Family Medicine 04/01/16
--- OUTSIDE RECORDS SUMMARY | 2025-01-24 07:25 | XMS_ITS | Encounter Summary ---
Author Organization [facility] Address [address] [facility] [place] [address] Care Team Providers Care Swing Driver Name Role Phone Lalit Bedolla MD Primary Care Provider [phone] Reason for Visit * Reason Comments Med Refill Encounter Details Date Type Department Care Team (Late st Contact Info) Description 10/12/2023 Refill SHERRON SHOOK [address] [place] [phone] Joe Martinez DO [address] [place] [address] PCOS (polycystic ovarian syndrome); Amenorrhea Social History [...] menstruation documented in this encounter Care Teams Swing Driver Relationship Specialty [place] [address] [place] [address] PCP - General Family Medicine 10/21/22 documented as of this encounter
--- OUTSIDE RECORDS SUMMARY | 2025-01-24 07:25 | XMS_ITS | Encounter Summary ---
Author Organization [facility] Address [address] [place] [address] Care Team Providers Care Formal Wear Rental Clerk Name Role Phone Lalit Bedolla MD Primary Care Provider [phone] Encounter Details Date Type Department Care Team (Late st Contact Info) Description 01/14/2024 Abstract [facility] [address] [place] [address] [place] [address] Rehana Hardwick LPN Social History Tobacco [...] on filedocumented in this encounter Care Teams Formal Wear Rental Clerk Relationship Specialty [place] [address] [place] [address] PCP - General Family Medicine 10/21/22 documented as of this encounter
--- OUTSIDE RECORDS SUMMARY | 2025-01-24 07:25 | XMS_ITS | Encounter Summary ---
Author Organization [facility] Address [address] [place] [address] Phone Care Team Providers Care Maintenance Helper Name Role Phone Romulo Melo LPN Unavailable Un available Encounter Details Date Type Department Care Team (Late st Contact Info) Description 01/06/2025 Telephone Dillon Carlos [address] [place] [address] [address] Noemi Anna MD [address] [place] [id number] Social History Tobacco Use Types Packs/Day Years [...] encounter Miscellaneous Notes * Telephone Encounter - Romulo Melo LPN - 01/06/2025 9:35 AM EDT Patient called with menses for TIC cycle Cycle #: 2 Medication: Letrozole and Clomid Ovulation: Sperm Source: partner fresh Approved donor sperm number: Luteal Support: Additional Medications: currently taking Mounjaro until (+) Boarding Pass signed off: IUI order pended: Additional Information: letrozole 7.5 mg CD3-7 x 5 days [...] to stay on Mounjaro until + test Returned call to patient, patient verified pharmacy. Message sent to front end application developer to add patient to noon hudaddis on 01/24 for cd 22. Patient started today cd 5 due to labs. Patient aware if no ovulationshe will need FUV with . Patient verbalized understanding and agreeable with plan. romulo melo 01/06/25 3:31 PM * Telephone Encounter - Cathie Chavez V - 01/06/2025 9:33 AM EDT Reason for call: reporting start of cycle LMP:01/02/25 Treatment type: timed intercourse Note: documented in this encounter Plan of Treatment Upcoming Encounters Date Type Department Care Team (Late st Contact Info) Description 01/24/2025 11:30 PM EDT Orders Only Dillon Carlos [address] [place] [phone] Arrived 03/22/2025 1:00 PM EDT Office Visit [facility] [address] [place] [address] Doris Gonsalves, RESEARCH INSTRUCTOR-ADMINISTRATIVE LIAISON [address] [place] [address] 03/30/2025 2:00 PM EDT Telemedicine Dillon Carlos [address] [place] [address] Dulce Maria Zarate MD [address] [place] [address] documented as of this encounter Visit Diagnoses Not on filedocumented in this encounter Additional Health Concerns Assessment Noted Time A fall risk assessment has been complete d for the patient 09/29/2024 12:06 PM EDT documented as of this encounter Care Teams Maintenance Helper Relationship Specialty Start Date End Date Romulo Melo LPN Licensed Practical Nurse Reproductive Endocrinology and Infertility 09/14/24 documented as of this encounter
--- OUTSIDE RECORDS SUMMARY | 2025-01-24 07:25 | XMS_ITS | Clinical Summary ---
Author Organization [facility] Address [address] [place] [address] Care Team Providers Care [employer] Name Role Phone Lalit Bedolla MD Primary Care Provider [phone] Allergies No known active allergies Medications Tirzepatide (Mounjaro) 7.5 MG/0.5ML solution auto-injector 08/15/2024 Activ e Active Problems Problem Noted Date Diagnosed Date Amenorrhea 05/10/2024 Migraine with aura and witho ut status migrainosus, not intractable 05/05/2023 Morbid (severe) obesity due to excess calories 1 07/05/2022 PCOS (polycystic ovarian syndrome) 10/19/2019 Encounters Date Type Department Care Team Description 01/03/2025 Clinisync Result Encounter [facility] External Department Unsolicited Provider, Generic External Data 12/12/2024 Clinisync Result Encounter [facility] External Department Unsolicited Provider, Generic External Data 11/14/2024 2:30 PM EDT Office Visit [facility] Family Medicine [address] [place] [id number] Deanna Graf NP Plantar wart, right foot (Primary Dx); Class 3 severe obesity due to excess calories without serious comorbidity with body mass index (BMI) of 40.0 to 44.9 in adult ([facility]) 11/14/2024 [facility]amboo [facility] [address] [place] [phone] Deanna Graf NP 11/14/2024 Travel 11/04/2024 Clinisync [...] often do you attend chur ch or jew services? More than 4 times per year 11/14/2024 Do you belong to any clubs o r organizations such as voodoo groups, unions, fraternal or athletic groups, or [...] Recorded Patient Health Questionnaire-2 Score 0 11/14/2024 [facility] - Occupational [...] any time in the past [address] [facility], were you homeless or living in a group home (including now)? No 11/14/2024 Comments Unknown Sex [...] Procedure Name Priority Date/Time Associated Diagnosis Comments HBSAG SCREEN Routine 01/03/2025 8:56 AM EDT ALL HEPATITIS C AB Routine 01/03/2025 8: 56 AM EDT RAPID PLASMA REAGIN, QUANT Routine 01/03/2025 8:56 AM EDT CHLAMYDIA/GC AMPLIFICATION Routine 01/03/2025 8:49 AM EDT ALL PROGESTERONE Routine 12/12/2024 4:26 PM EDT [facility] PREG QUANT HCG Routine 12/12/2024 4: 26 PM EDT ALL PROGESTERONE Routine 11/04/2024 8:32 AM EDT from Last 3 Months Results * HBSAG SCREEN (01/03/2025 8:56 AM EDT) [facility] HBSAG SCREEN Negative Negative [facility] Comment: Performed at: [address] [id number] [employer] Coating Machine Operator: Michel Carlos PhD, Phone: [phone] 01/03/2025 8:56 AM EDT 01/03/2025 9:19 AM EDT Narrative [facility] - 01/04/2025 11:10 AM EDT Generic External Data Provider LAB BLOOD ORDERAB LES Final Result Performing Organization Address [facility] Co de Phone Number [facility] * RAPID PLASMA REAGIN, QUANT (01/03/2025 8:56 AM EDT) [facility] RAPID PLASMA REAGIN, QUANT Non Reactive NonRea<1: 1 titer [facility] Comment: Please Note: This test does not meet current guidelines for screening and diagnosis of syphilis. This test is intended for following treatment response in patients being treated for syphilis infection. To screen for syphilis infection, a reflex cascade that includes both RPR and a treponema-specific assay should be utilized, such as Treponema pallidum (Syphilis) Screening [place] (122031) or Rapid Plasma Reagin (RPR) Test With Reflex to Quantitative RPR and Confirmatory Treponema pallidum Antibodies (160650). Performed at: [address] [id number] Roll Coating Machine Operator: Michel Carlos PhD, Phone: [phone] 01/03/2025 8:56 AM EDT 01/03/2025 9:19 AM EDT Narrative [facility] - 01/04/2025 11:10 AM EDT Generic External Data Provider LAB BLOOD ORDERAB LES Final Result Performing Organization Address [facility]/ZIP Co de Phone Number [facility] * ALL HEPATITIS C AB (01/03/2025 8:56 AM EDT) Pathologist [facility] HCV ANTIBODY Non Reactive Non Reactive [facility] Comment: HCV antibody alone does not differentiate between previously resolved infection and active infection. Equivocal and Reactive HCV antibody results should be followed up with an HCV RNA test to support the diagnosis of active HCV infection. 01/03/2025 8:56 AM EDT 01/03/2025 9:19 AM EDT Narrative [facility] - 01/04/2025 11:10 AM EDT Generic External Data Provider [facility] F inal Result Performing Organization Address City/[facility]/ZIP Co de Phone Number [facility] * CHLAMYDIA/GC AMPLIFICATION (01/03/2025 8:49 AM EDT) Pathologist [facility] CHLAMYDIA TRACHOMATIS, ROBBY Negative Negative TB NEISSERIA GONORRHOEAE, ROBBY Negative Negative [facility] Comment: Performed at: [facility] [id number] Roll Coating Machine Operator: Julieta Goncalves MD, Phone: [phone] 01/03/2025 8:49 AM EDT 01/03/2025 9:23 AM EDT Narrative [facility] - 01/05/2025 6:08 AM EDT URINE [facility] External Data Provider LAB BLOOD ORDERAB LES Final Result Performing Organization Address City/[facility] Co de Phone Number [facility] * [facility] PREG QUANT HCG (12/12/2024 4:26 PM EDT) Pathologist [facility] HCG QUANTITATIVE <1 mIU/mL [facility] Comment: 5-50 0.2-1 WEEK 50-500 1-2 WEEKS 100-5,000 2-3 WEEKS 500-10,000 3-4 WEEKS 1,000-50,000 4-5 WEEKS 10,000-100,000 5-6 WEEKS 15,000-200,000 6-8 WEEKS 10,000-100,000 2-3 MONTHS 12/12/2024 4:26 PM EDT 12/12/2024 4:27 PM EDT Narrative [facility] - 12/12/2024 5:28 PM EDT Generic External Data Provider [facility] F inal Result Performing Organization Address [facility] de Phone Number [facility] * ALL PROGESTERONE (12/12/2024 4:26 PM EDT) Only the most recent of2 resultswithin the time period is included. PROGESTERONE 0.1 . ng/mL [facility] Comment: Follicular phase 0.1 - 0.9 Luteal phase 1.8 - 23.9 Ovulation phase 0.1 - 12.0 First trimester 11.0 - 44.3 Second trimester 25.4 - 83.3 Third trimester 58.7 - 214.0 Postmenopausal 0.0 - 0.1 Performed at: [facility] [id number] Roll Coating Machine Operator: Michel Carlos PhD, Phone: [phone] 12/12/2024 4:26 PM EDT 12/12/2024 4:27 PM EDT Narrative [facility] - 12/14/2024 4:07 AM EDT Generic External Data Provider [facility] F inal Result Performing Organization Address [facility] de Phone Number [facility] from Last 3 Months Insurance [employer] Care Teams [employer] Relationship Specialty [place] [address] [place], [place] [phone] PCP - General Family Medicine 10/21/22
--- OUTSIDE RECORDS SUMMARY | 2025-01-24 07:25 | XMS_ITS | Clinical Summary ---
Author Organization [employer] Address [id number] [address] [place] [address] Care Team Providers Care [employer] Machine Operator Name Role Phone Lalit Bedolla MD Primary Care Provider [phone] Allergies No known active allergies Medications vit [...] Negative Negative^N egative 07/17/2021 1:23 PM EST [facility] Hpv 18 Negative Negative^N egative 07/17/2021 1:23 PM EST [facility] Other high risk hpv Negative Negative^N egative 07/17/2021 1:23 PM EST [facility] Comment: HPV types 31,33,35,39,45,52,56,58,59,66 and 68 DNA were undetectable. THINP 07/15/2021 10:0 7 AM EST 07/16/2021 10:07 AM EST Nadja Brewster [employer] LAB BLOOD ORDERABLES Final Result [facility] [address] [place] [address] from Last 3 Months or Most Recently Relevant to Health Maintenance Insurance [facility] Care Teams Glass Production Machine Operator Relationship Specialty [place] [address] [place] [address] PCP - General Family Medicine 07/23/19
--- OUTSIDE RECORDS SUMMARY | 2025-01-24 07:25 | XMS_ITS | Encounter Summary ---
Author Organization [facility] Address [address] [facility] [place] [address] Care Team Providers Care Music Therapy Teacher Name Role Phone Lalit Bedolla MD Primary Care Provider [phone] Reason for Visit * Reason Comments Med Refill Encounter Details Date Type Department Care Team (Late st Contact Info) Description 12/09/2023 Refill [facility] [address] [place] [id number] Joe Martinez DO [address] [place] [address] PCOS (polycystic ovarian syndrome); Amenorrhea Social History [...] menstruation documented in this encounter Care Teams Music Therapy Teacher Relationship Specialty [place] [address] [place] [address] PCP - General Family Medicine 10/21/22 documented as of this encounter
--- OUTSIDE RECORDS SUMMARY | 2025-01-24 07:30 | XMS_ITS | CCD ---
Author Organization [facility] Care Team Providers Care Clinical Documentation Manager Name Role Phone Kurtis Bedolla MD Primary Care Provider [phone] JUAN ., DR LOPEZ Admitting Unavailable JUAN ., DR LOPEZ Attending Unavailable [facility] [place] VAZQUEZ Primary Care Unavailable JUAN ., DR LOPEZ Consulting Unavailable KURTIS BEDOLLA Referring Unavailable KURTIS BEDOLLA Primary Care Unavailable JOSÉ HERNANDEZ Attending Unavail able Unavailable Primary Care Provider UnavailKurtis Newman MD Primary Care Provider [phone] Kurtis Bedolla MD Primary Care Provider BARTOLOME BREWSTER Referring Unavailable KURTIS BEDOLLA Primary Care Unavailable Unavailable Primary Care Provider UnavailDipika Ford LPN Unavailable Un available JESSICA MARTINEZ Referring Unavailable DELMI GRAF Attending Unavailable ROSLYN RODRIGUEZ Attending Unavailable TERE SANDERS Attending Unavailable PHIL FINCH Attending Unavailable CLAUDIA OROZCO Referring Unav ailable CLAUDIA OROZCO Attending Unav ailable CLAUDIA OROZCO Attending Unav ailable Medications Current Medications Medication Drug Class(es) Dates Sig (Normalized) Sig (Original) [id number] 200 actuat albuterol 0.09 mg/actuat metered dose [...] 12:00am Start: 07-15-2021 take 2 tablets by [facility] twice daily, then take 2 tablets [...] Active Tirzepatide (Mounjaro) 7.5 MG/0.5ML solution auto-injector (4 sources) Start: 08-15-2024 Tirzepatide (M ounjaro) 7.5 [...] infertility] Onset: 09-30-2022 Chronic Headache; including migraine (11 sources) Migraine with aura; Translations: [Migraine with aura, not intractable, without status migrainosus] Onset: 05-05-2023 05-05-2023 Chronic Menstrual disorders (16 sources) Irregular periods; Translations: [Irregular menstruation, unspecified] Onset: 10-19-2019 10-19-2019 Chronic Other endocrine disorders (13 sources) Polycystic ovary syndrome; Translations: [Polycystic ovarian [...] Chronic Other nutritional; endocrine; and metabolic disorders (11 sources) Obesity caused by energy imbalance; Translations: [...] excess calories (Multi)] Onset: 09-15-2024 Chronic Other nutritional; endocrine; and metabolic disorders [...] (BMI) 30.0-30.9, adult] Onset: 11-16-2024 Chronic Other upper respiratory infections (1 source) Acute sinusitis, unspecified; Translations: [Acute sinusitis, unspecified] Onset: 09-14-2023 Episodic Otitis media and related conditions (1 source) Unspecified Eustachian tube disorder, unspecified ear; Translations: [Unspecified eustachian tube disorder, unspecified ear] Onset: 09-14-2023 Episodic Unclassified (1 source) Earache Onset: 09-14-2023 Unclassified (2 sources) Obesity, class 3; Translations: [Obesity, class 3] Onset: 08-09-2024 Unclassified (2 sources) Patient Education; Translations: [Patient Education] Onset: 01-16-2025 Unclassified (2 sources) Nutrition Counseling; Translations: [Nutrition Counseling] Onset: 01-16-2025 Viral infection (2 sources) Plantar wart of right foot; Translations: [Plantar wart] 11-14-2024 Episodic Past or Other Problems Problem Classification Problem Date Documented Da te Episodic/Chronic Administrative/social admission (2 sources) Persons encountering health services in other specified circumstances; Translations: [Persons encountering health services in other specified circumstances] Onset: 08-09-2024 Episodic Contraceptive and procreative management (2 sources) [...] Test Name Value Interpretation Reference Range Facility ALL HEPATITIS C ABon 025 HCV ANTIBODY Non-Reactive Non Reactive [facility] Comment on above: HCV antibody alone d oes not differentiate between previously resolved infection and active infection. Equivocal and Reactive HCV antibody results should be followed up with an HCV RNA test to support the diagnosis of active HCV infection. HBSAG SCREENon 01-04-2025 HBSAG SCREEN Negative Negative [facility] are Comment on above: Performed at: [address] [id number] Office Admin: Michel Carlos PhD, Phone: [phone] No Panel Informationon 01-04 [facility]AGIN, QUANTon 01-04-2025 RAPID PLASMA REAGIN, QUANT Non-Reactive NonRea<1:1 titer [facility] Comment on above: Please Note: This te st does not meet current guidelines for screening and diagnosis of syphilis. This test is intended for following treatment response in patients being treated for syphilis infection. To screen for syphilis infection, a reflex cascade that includes both RPR and a treponema-specific assay should be utilized, such as Treponema pallidum (Syphilis) Screening [place] (098188) or Rapid Plasma Reagin (RPR) Test With Reflex to Quantitative RPR and Confirmatory Treponema pallidum Antibodies (353137). Performed at: [address] [id number] Office Admin: Michel Carlos PhD, Phone: [phone] [facility] PREG QUANT HCGon 12-12- 025 HCG QUANTITATIVE <1 mIU/mL [facility] Comment on above: 5-50 0.2-1 WEEK 50-500 1-2 WEEKS 100-5,000 2-3 WEEKS 500-10,000 3-4 WEEKS 1,000-50,000 4-5 WEEKS 10,000-100,000 5-6 WEEKS 15,000-200,000 6-8 WEEKS 10,000-100,000 2-3 MONTHS [facility] ALL PROGESTERONEon 5 PROGESTERONE 0.2 ng/mL . [facility] are Comment on above: Follicular phase 0.1 - 0.9 Luteal phase 1.8 - 23.9 Ovulation phase 0.1 - 12.0 First trimester 11.0 - 44.3 Second trimester 25.4 - 83.3 Third trimester 58.7 - 214.0 Postmenopausal 0.0 - 0.1 Performed at: [facility] [address] [id number] Office Admin: Michel Carlos PhD, Phone: [phone] [facility] RPR (DX) W/REFL TITER AND T. PALLIDUM AB, IAon 09-30-2024 RPR (DX) W/REFL TITER AND CONFIRMATORY TESTING Non-Reactive Normal NON-REACTIVE [facility] Comment on above: Result Comment: No laboratory evidence of syphilis. If recent exposure is suspected, submit a new sample in 2-4 weeks. Your request to have a duplicate copy faxed has been acknowledged. Queued to: [phone] Performed By: #### 4 984, 763, 1155, 71557 #### [facility] [address], [address] [place] [id number] Rescue Worker: Ryan Mena MD RUBELLA AB (IGG), IMMUNE STA TUSon 09-30-2024 RUBELLA AB (IGG), IMMUNE STATUS 3.96 [...] virus. Performed By: #### 4 439, 802, 1005, 08033 #### [facility] [address], [address] [place] [address] Rescue Worker: Ryan Mena MD TEST AUTHORIZATIONon CLIENT CONTACT: Melony GODOY Normal [facility] Comment on above: Performed By: #### 4 439, 802, 1005, 11165 #### [facility] [address], [address] [place] [address] Rescue Worker: Ryan Mena MD COMMENT Normal [facility] Comment on above: Result Comment: Plea se have the ordering physician or his or her authorized senior account representative sign a copy of this report and promptly return it by faxing it to: [phone] or by returning the form to your yard switcher. Performed By: #### 4 439, 802, 1005, 16178 #### [facility] [address], [address] [place] [address] Rescue Worker: Ryan Mena MD REPORT ALWAYS MESSAGE SIGNATURE Normal [facility] Comment on above: Result Comment: The laboratory testing on this patient was verbally requested or confirmed by the ordering physician or his or her authorized senior account representative after contact with an employee of [employer]. Federal regulations require that we maintain on file written authorization for all laboratory testing. Accordingly we are asking that the ordering physician or his or her authorized senior account representative sign a copy of this report and promptly return it to the client experience consultant. Signature: Performed By: #### 4 439, 802, 1005, 93734 #### [facility] [address], [address] [place] [address] Rescue Worker: Ryan Mena MD TEST CODE: [id number] Normal [facility] Comment on above: Performed By: #### 4 439, 802, 1005, 86573 #### [facility] [address], [address] [place] [address] Rescue Worker: Ryan Mena MD TEST NAME: RPR (DX) W/REFL TITER AND SYP Normal [facility] Comment on above: Performed By: #### 4 439, 802, 1005, 17825 #### [facility] [address] [address] Rescue Worker: Ryan Mena MD VARICELLA ZOSTER VIRUS ANTIB TITA (IGG)on 09-30-2024 VARICELLA ZOSTER VIRUS ANTIBODY (IGG) 16.30 S/CO Normal [facility] Comment on above: Result Comment: Signal to [...] Performed By: #### 4 439, 802, 1005, 70938 #### [facility] [address], [address] [place] [address] Rescue Worker: Ryan Mena MD Blood type and Indirect anti body screen panel (Bld)on 09-28-2024 ABO group Nom (Bld) O [facility] Comment on above: Performed By: #### 3 4532-2 #### GLENROY Wiley ([id number]) [facility] ([facility]) [address] [address] [id number] Blood group antibody screen Ql Negative [facility] Comment on above: Performed By: #### 3 4532-2 #### GLENROY Wiley ([id number]) [facility] ([facility]) [address] [address] [id number] D Ag Ql (Bld) Positive [facility] Comment on above: Result Comment: 2nd ABO test required. Order and Collect VERAB Performed By: #### 3 4532-2 #### GLENROY Wiley ([id number]) [facility] ([facility]) [address] [address] [id number] ALL CBC WITH AUTO DIFFon BASOPHILS ABSOLUTE AUTO 0 N [facility] Basophils/100 WBC (Bld) 0.4 % 0.2 - 2.0 % [facility] Eosinophils/100 WBC (Bld) 1.1 % 0.9 - 7.0 % [facility] Erythrocyte distribution width (RBC) [Ratio] 12.8 % 11.0 - 15.0 % [facility] Hematocrit (Bld) [Volume fraction] 38.9 % 36.0 - 48.0 % [facility] Hem[facility] (Bld) [Mass/Vol] 12.7 g/dL 12.0 - 16.0 g/dL [facility] IMMATURE GRANULOCYTES ABS AUTO 0.02 [facility] Immature granulocytes/100 WBC (Bld) 0.2 % 0.0 - 0.5 % [facility] LYMPHOCYTES ABSOLUTE AUTO 2.8 [facility] Lymphocytes/100 WBC (Bld) 28 % 20.5 - 60.0 % [facility] MCH (RBC) [Entitic mass] 29.1 pg 26.7 - 34.0 pg [facility] MCHC (RBC) [Mass/Vol] 32.6 g/dL 29.9 - 35.2 g/dL [facility] MCV (RBC) [Entitic vol] 89 fL 81.0 - 99.0 fL [facility] MONOCYTES ABSOLUTE AUTO 0.8 N [facility] Monocytes/100 WBC (Bld) 7.9 % 1.7 - 12.0 % [facility] NEUTROPHILS ABSOLUTE AUTO 6.3 [facility] Neutrophils/100 WBC (Bld) 62.4 % 43.0 - 75.0 % [facility] Platelet mean volume (Bld) [Entitic vol] 10.5 fL 9.5 - 13.5 fL [facility] EO # 0.1 [facility] PLT 254 [facility] RBC 4.37 [facility] WBC 10.1 [facility] US PELVIC COMPLETE W/ TVon 0 08-30-2024 [...] II, MD, PHD at 01-Sep-2024 08:42:54 AM [facility] Normal Not Available Comment on above: [...] Healthcar e HPV DNA High Riskon 07-20-19 HPV Interp Normal [facility] Comment on above: Result Comment: This [...] purposes. Performed By: #### H PVH #### [employer] [address] [place] [address] Office Admin: Gopi Yoder MD HPV Type 16 Not detected [facility] Comment on above: Performed By: #### H PVH #### [employer] [address] [place] [id number] Office Admin: Gopi Yoder MD HPV Type 18 Not detected [facility] Comment on above: Performed By: #### H PVH #### [employer] [address] [place] [address] Office Admin: Gopi Yoder MD Other High Risk HPV Not detected Normal [facility] Comment on above: Performed By: #### H PVH #### [employer] [address] [place] [id number] Office Admin: Gopi Yoder MD [facility] HPV DNA HIGH RISKon PT HPV INTERP [facility] Comment on above: This test amplifies and [...] forensic purposes. MHPT HPV SAMPLE .THIN PREP [facility] MHPT HPV TYPE 16 Not detected [facility] TYPE 18 Not detected [facility] OTHER HIGH RISK HPV Not detected [facility] CERVICAL MATERIAL [facility] Original Ordering Provider: BARTOLOME BREWSTER [facility] e HPV DNA High Riskon 07-19-19 25 HPV Sample .THIN PREP Normal [facility] Comment on above: Performed By: #### H PVH #### [address] [address] Office Admin: Gopi Yoder MD Source CERVICAL MATERIAL Normal [facility] Comment on above: Performed By: #### H PVH #### [address] [address] Office Admin: Gopi Yoder MD Cytology Reporton 07-18-2024 Cytology report Cyto stain.thin prep Doc (Cvx/Vag) (NOTE) Path Number: [id number] DIAGNOSIS Imaged ThinPrep Pap - Cervical (1 monolayer slide): Specimen Adequacy: Satisfactory for evaluation. - Endocervical/transf ormation zone component present. Descriptive Diagnosis: Negative for intraepithelial lesion or malignancy. Comments: Specimen was screened at [facility], [address] [place] [address] [employer] Screener: Rescreened By: JONATAN Electronically Signed Out LUCIANO Hinojosa(ASCP) jl/07/25/2024 Procedure/Addendum HPV Procedure Report Date Ordered: 07/19/2024 [...] or for other forensic purposes. Performed at [address] [address] . Source of Specimen: A: Imaged ThinPrep Pap - Cervical (1 monolayer slide) HPV Reflex?............ ..........HPV Regardless Clinical History Z01.419 Routine general office dispatcher exam without abnormal findings Z11.51 Encounter for screening for HPV Processing Lab: [address] [place] [address] Interpretation performed at [address] [address] This Pap Test has been evaluated with [...] GYNECOLOGIC CYTOLOGY REPORT Patient Name: BARBARA FISCHER [facility] Rec: [id number] [facility] ANATOMIC PATHOLOGY [facility]. [place], [place] [address] Normal [facility] ALL PROGESTERONEon PROGESTERONE 0.2 ng/mL . [facility] are Comment on above: Follicular phase 0.1 - 0.9 Luteal phase 1.8 - 23.9 Ovulation phase 0.1 - 12.0 First trimester 11.0 - 44.3 Second trimester 25.4 - 83.3 Third trimester 58.7 - 214.0 Postmenopausal 0.0 - 0.1 Performed at: [facility] [id number] Office Admin: Michel Carlos PhD, Phone: [phone] [facility] e Influenza virus B Ag [Presen ce] in Upper respiratory specimen by Rapid immunoassayon 08-29-2023 FLUBV Ag IA.rapid Ql (Nph) Negative [facility] No Panel Informationon 08-28 Influenza Type A (Rapid) Negative [facility] POC SARS CoV-2 Antigen Negative [facility] No Panel InformationOrdered By: Polly Jurado on 08-29-2023 Quick Strep (POC) [facility] PROGESTERONEon 10-01-2022 Progesterone 0.2 ng/mL Normal [facility] Comment on above: Result Comment: Foll icular phase 0.1 - 0.9 Luteal phase 1.8 - 23.9 Ovulation phase 0.1 - 12.0 First trimester 11.0 - 44.3 Second trimester 25.4 - 83.3 Third trimester 58.7 - 214.0 Postmenopausal 0.0 - 0.1 Performed By: #### P LORRI #### [facility] [address] [address] [address] Ruth Conte Vital Signs Date Time Vital Sign Value Performing Clinician Facility 11-16-2024 13:14-040 Body height 165.1 cm Claudia Kern MD Work Phone: [facility] 11-16-2024 13:14-0400 Body mass index (BMI) [Ratio] 39.44 kg/m2 Claudia Kern MD Work Phone: [facility] 11-16-2024 13:140400 Body weight 107.5 kg Claudia Kern MD Work Phone: [facility] 11-14-2024 14:12-0400 Body height 165.1 cm Delmi Graf RUBBER ENGRAVER Work Phone: [facility] 11-14-2024 14:12-0400 Body mass index (BMI) [Ratio] 40.27 kg/m2 Delmijayesh Graf RUBBER ENGRAVER Work Phone: [facility] 11-14-2024 14:12-0400 Body temperature 97.2 [degF] Delmi Graf RUBBER ENGRAVER Work Phone: [facility] 11-14-2024 14:12-0400 Body weight 109.77 kg Delmijayesh Graf RUBBER ENGRAVER Work Phone: [facility] 11-14-2024 14:12-0400 Diastolic blood pressure 68 mm[Hg] Delmijayesh Graf RUBBER ENGRAVER Work Phone: [facility] 11-14-2024 14:12-0400 Heart rate 63 /min Delmijayesh Graf RUBBER ENGRAVER Work Phone: [facility] 11-14-2024 14:12-0400 SaO2% (BldA) [Mass fraction] 99 % Delmi Graf RUBBER ENGRAVER Work Phone: [facility] 11-14-2024 14:12-0400 Systolic blood pressure 108 mm[Hg] Delmi Graf RUBBER ENGRAVER Work Phone: [facility] 09-29-2024 12:07-0400 Body height 165.1 cm Tere SCHREIBER Work Phone: [facility] 09-29-2024 12:07-0400 Body mass index (BMI) [Ratio] 41.35 kg/m2 Tere SCHREIBER Work Phone: [facility] 09-29-2024 12:07-0400 Body weight 112.72 kg Tere SCHREIBER Work Phone: [facility] 09-14-2024 15:34-0400 Body height 165.1 cm Roslyn Rodriguez MD Work Phone: [facility] 09-14-2024 15:34-0400 Body mass index (BMI) [Ratio] 42 kg/m2 Roslyn Rodriguez MD Work Phone: [facility] 09-14-2024 15:34-0400 Body weight 114.49 kg Roslyn Rodriguez MD Work Phone: [facility] 08-09-2024 08:28-0500 Body height 165.1 cm Claudia Kern MD Work Phone: [facility] 08-09-2024 08:28-0500 Body mass index (BMI) [Ratio] 44.6 kg/m2 Claudia Kern MD Work Phone: [facility] 08-09-2024 08:28-0500 Body weight 121.56 kg Claudia Kern MD Work Phone: [facility] 12-22-2023 12:17-0400 Body height 165.1 cm Claudia Kren MD Work Phone: [facility] 12-22-2023 12:17-0400 Body mass index (BMI) [Ratio] 54.91 kg/m2 Claudia Kern MD Work Phone: [facility] 12-22-2023 12:17-0400 Body weight 149.69 kg Claudia Kern MD Work Phone: [facility] 12-10-2023 09:24-0400 Body height 165.1 cm Roslyn Rodriguez MD Work Phone: [facility] 12-10-2023 09:24-0400 Body mass index (BMI) [Ratio] 54.91 kg/m2 Roslyn Rodriguez MD Work Phone: [facility] 12-10-2023 09:24-0400 Body weight 149.69 kg Roslyn Rodriguez MD Work Phone: [facility] 12-10-2023 09:24-0400 Diastolic blood pressure 76 mm[Hg] Roslyn Rodriguez MD Work Phone: [facility] 12-10-2023 09:24-0400 Heart rate 47 /min Roslyn Rodriguez MD Work Phone: [facility] 12-10-2023 09:24-0400 Systolic blood pressure 116 mm[Hg] Roslyn Rodriguez MD Work Phone: [facility] 08-29-2023 11:25-0400 Body height 165.1 cm [facility] 08-29-2023 11:25-0400 Body mass index (BMI) [Ratio] 54.1 kg/m2 [facility] 08-29-2023 11:25-0400 Body temperature 98 [degF] [facility] 08-29-2023 11:25-0400 Body weight 147.41 kg [facility] 08-29-2023 11:25-0400 Heart rate 101 /min [facility] 08-29-2023 11:25-0400 Respiratory rate 18 /min [facility] 08-29-2023 11:25-0400 SaO2% (BldA) [Mass fraction] 97 % [facility] Encounters Encounter Date Encounter Type Care Provider Facility Start: 01-16-2025 End: 01-16-2025 ambulatory [facility] Ambulatory Start: 01-03-2025 End: 01-04-2025 [facility] Result Encounter Generic External Data Provider [facility] External [facility] Unsolicited Start: 01-03-2025 End: 01-04-2025 [facility] Result Encounter Generic External Data Provider [facility] External Department Unsolicited Start: 12-14-2024 End: 12-14-2024 ambulatory [facility] Start: 12-13-2024 End: 12-13-2024 ambulatory [facility] Start: 12-12-2024 End: 12-12-2024 [facility] Result Encounter Generic External Data Provider [facility] External Department Unsolicited Start: 12-12-2024 End: 12-12-2024 [facility] Result Encounter Generic External Data Provider [facility] External Department Unsolicited Start: 12-12-2024 End: 12-12-2024 ambulatory [facility] Start: 11-16-2024 End: 11-16-2024 Office outpatient visit 40 minutes Claudia Kern MD Work Phone: [facility] Comment on above: BMI 39.0-39.9,adult; BMI 30.0-30.9,adult Start: 11-16-2024 End: 11-16-2024 ambulatory [facility] Saurabh BURGER [facility] Ambulatory Start: 11-14-2024 End: 11-14-2024 Office outpatient visit 15 minutes Delmi Graf NP Work Phone: [facility] Comment on above: Plantar wart, right foot (Primary Dx); Class 3 severe obesity due to excess calories without serious comorbidity with body mass index (BMI) of 40.0 to 44.9 in adult Start: 11-14-2024 End: 11-14-2024 ambulatory DELMI GRAF Not Available Start: 11-14-2024 End: 11-14-2024 Georgesboo flowsheet Delmi Graf RUBBER ENGRAVER Work Phone: [facility] Start: 11-14-2024 End: 11-14-2024 Georgesboo flowsheet Delmi Graf RUBBER ENGRAVER Work Phone: [facility] Start: 11-08-2024 End: 11-08-2024 ambulatory [facility] Start: 11-04-2024 End: 11-04-2024 ambulatory [facility] Start: 10-18-2024 End: 10-18-2024 ambulatory [facility] Start: 10-17-2024 End: 10-18-2024 [facility] Result Encounter Generic External Data Provider [facility] External Department Unsolicited Start: 10-17-2024 End: 10-18-2024 [facility] Result Encounter Generic External Data Provider [facility] External Department Unsolicited Start: 10-17-2024 End: 10-17-2024 ambulatory [facility] Start: 10-16-2024 End: 10-16-2024 ambulatory ROSLYN [facility] Start: 09-29-2024 End: 09-29-2024 Telemedicine consultation with patient Tere Sanders [employer]OCKSTITCH [employer]LL[employer]TER[employer] Work Phone: [facility] Comment on above: Female infertility [ N97.9] (Primary Dx) Start: 09-29-2024 End: 09-29-2024 ambulatory TERE SANDERS [facility] Start: 09-28-2024 End: 09-28-2024 ambulatory [facility] Start: 09-28-2024 End: 09-28-2024 Encounter for blood typing [facility] Start: 09-17-2024 End: 09-17-2024 [facility] Result Encounter Generic External Data Provider [facility] External Department Unsolicited Start: 09-17-2024 End: 09-17-2024 [facility] Result Encounter Generic External Data Provider [facility] External Department Unsolicited Start: 09-15-2024 End: 09-15-2024 Telemedicine consultation with patient Roslyn Melony Tessa CHAVEZ Work Phone: [facility] Comment on above: Screening for STDs ( sexually transmitted diseases) (Primary Dx); Class 3 severe obesity with body mass index (BMI) of 40.0 to 44.9 in adult, unspecified obesity type, unspecified whether serious comorbidity present; Thyroid disorder screening; Screening for diabetes mellitus; Primary oligomenorrhea; Fertility testing; PCOS (polycystic ovarian syndrome) [E28.2] Start: 09-15-2024 End: 09-15-2024 [facility] Start: 08-30-2024 End: 08-30-2024 ambulatory JESSICA JUAN Not Available Start: 08-09-2024 End: 08-09-2024 Office outpatient visit 40 minutes Claudia Kern MD Work Phone: [facility] Comment on above: Class 3 obesity (Carla tere Dx); BMI 40.0-44.9, adult (Multi); Encounter for weight management Start: 08-09-2024 End: 08-09-2024 [facility] Start: 08-01-2024 End: 08-01-2024 [facility] Result Encounter Generic External Data Provider [facility] External Department Unsolicited Start: 08-01-2024 End: 08-01-2024 [facility] Result Encounter Generic External Data Provider [facility] External Department Unsolicited Start: 07-18-2024 End: 07-18-2024 ambulatory [facility] Start: 07-18-2024 End: 07-18-2024 Encounter for gynecological examination (general) (routine) without abnormal findings [facility] Start: 07-18-2024 End: 07-18-2024 Subsequent hospital visit by physician Kurtis Bedolla MD Work Phone: [facility] Start: 07-18-2024 End: 07-20-2024 [...] Work Phone: [facility] Department Unsolicited Start: 12-22-2023 End: 12-22-2023 Office consultation new/estab patient 60 min Claudia Kern MD Work Phone: [facility] Comment on above: BMI 50.0-59.9, adult (Multi) (Primary Dx); Encounter for weight management; Super obesity Start: 12-10-2023 End: 12-10-2023 Patient encounter procedure Roslyn S Weinerman MD Work Phone: [facility] Comment on above: Secondary oligomenor alicia (Primary [...] encounter status Roslyn Rodriguez MD Work Phone: [facility] Work Phone: Start: 09-14-2023 End: 09-14-2023 ambulatory KURTIS BEDOLLA [facility] Start: 08-29-2023 End: 08-29-2023 ambulatory [facility] Work Phone: Start: 08-29-2023 End: 08-29-2023 Patient encounter procedure [facility] Work Phone: Start: 09-30-2022 End: 10-01-[address] JESSICA MARTINEZ . Facility: Start: 07-15-2022 End: 07-15-2022 Subsequent hospital visit by physician Kurtis Bedolla MD Other Phone: [facility] Procedures Date Procedure Procedure Detail Performing Clinician Start: 01-03-2025 ALL HEPATITIS C AB Gene tatyana External Data Provider Start: 01-03-2025 HBSAG SCREEN Generic Ex ternal Data Provider Start: 01-03-2025 RAPID PLASMA REAGIN, QUANT Generic External Data Provider Start: 12-12-2024 [facility] PREG QUANT HCG Gene tatyana External Data Provider Start: 10-17-2024 ALL PROGESTERONE Generi c External Data Provider Start: 09-17-2024 ALL CBC WITH AUTO DIFF Generic External Data Provider Start: 08-01-2024 [facility] PREG QUANT HCG Gene tatyana External Data Provider Start: 07-18-2024 Microscopic observat ion [Identifier] in Cervix by Cyto stain Claudia Kern MD Work Phone: Start: 07-18-2024 MHPT HPV DNA HIGH RISK Generic External Data Provider Start: 06-10-2024 ALL PROGESTERONE Generi c External Data Provider Start: 08-29-2023 Quick Strep (POC) Start: 07-15-2023 Microscopic observat ion [Identifier] in Cervix by Cyto stain Jessicablayne Martinez Work Phone: Start: 07-23-2021 Microscopic observat ion [Identifier] in Cervix by Cyto stain Kurtis Bedolla MD Other Phone: Plan of Treatment Date Care Activity Detail Author Start: 2040 Zoster Vaccines (1 of 2) Zoster Vaccines (1 of 2) [facility] Start: 11-27-2031 DTaP/Tdap/Td vaccine (7 - Td or Tdap) DTaP/Tdap/Td vaccine (7 - Td or Tdap) [facility] Start: 11-27-2031 DTaP/Tdap/Td Vaccines (7 - Td or Tdap) DTaP/Tdap/Td Vaccines (7 - Td or Tdap) [facility] Start: 07-18-2029 Screening for malignant neoplasm of cervix [facility] Start: 07-15-2028 Screening for malignant neoplasm of cervix [facility] Start: 07-18-2027 Screening for malignant neoplasm of cervix [facility] Start: 07-15-2026 Screening for malignant neoplasm of cervix Pap Smear [facility] Start: 07-18-2025 Depression Screen Depression Screen [facility] Start: 07-18-2025 End: 07-18-2025 Patient encounter procedure 07/18/2025 8:30 AM EST Office Visit [facility] [address] [facility] [address] [place] [phone] Bartolome Brewster APRN - TARUN [address] [facility] [address] [place] [id number] annual [facility] Comment on above: annual Start: 02-13-2025 Influenza vaccination [facility] Start: 11-14-2024 End: 11-14-2024 Patient encounter procedure 11/14/2024 2:30 PM EDT Office Visit [facility] [address] [place] [phone] Gee GrafysELOISA lopez [address] [place], [place] [id number] Arrived [facility] Comment on above: Arrived Start: 09-15-2024 End: 09-15-2025 CBC panel - Blood by Automated count CBC Lab Routine Class 3 severe obesity with body mass index (BMI) of 40.0 to 44.9 in adult, unspecified obesity type, unspecified whether serious comorbidity present Expected: 09/15/2024 (Approximate), Expires: 09/15/2025 [facility] Work Phone: Comment on above: Expected: 09/15/2024 (Approximate), Expi res: 09/15/2025 Start: 09-15-2024 End: 09-15-2025 Chlamydia trachomatis and Neisseria gonorrhoeae DNA [Identifier] in Unspecified specimen by ROBBY with probe detection C. trachomatis / N. gonorrhoeae, Amplified, Urogenital Lab Routine Screening for STDs (sexually transmitted diseases) Expected: 09/15/2024 (Approximate), Expires: 09/15/2025 [facility] Work Phone: Comment on above: Expected: 09/15/2024 (Approximate), Expi res: 09/15/2025 Start: 09-15-2024 End: 09-15-2025 Comprehensive metabolic 2000 panel - Serum or Plasma Comprehensive Metabolic Panel Lab Routine Class 3 severe obesity with body mass index (BMI) of 40.0 to 44.9 in adult, unspecified obesity type, unspecified whether serious comorbidity present Expected: 09/15/2024 (Approximate), Expires: 09/15/2025 [facility] Work Phone: Comment on above: Expected: 09/15/2024 (Approximate), Expi res: 09/15/2025 Start: 09-15-2024 End: 09-15-2025 Hemoglobin A1c/Hemoglobin.total in Blood Hemoglobin A1C Lab Routine Screening for diabetes mellitus Expected: 09/15/2024 (Approximate), Expires: 09/15/2025 [facility] Work Phone: Comment on above: Expected: 09/15/2024 (Approximate), Expi res: 09/15/2025 Start: 09-15-2024 End: 09-15-2025 Hepatitis B virus surface Ag [Presence] in Serum or Plasma by Immunoassay Hepatitis B surface antigen Lab Routine Screening for STDs (sexually transmitted diseases) Expected: 09/15/2024 (Approximate), Expires: 09/15/2025 [facility] Service Area Work Phone: Comment on above: Expected: 09/15/2024 (Approximate), Expi res: 09/15/2025 Start: 09-15-2024 End: 09-15-2025 Hepatitis C virus Ab [Presence] in Serum Hepatitis C Antibody Lab Routine Screening for STDs (sexually transmitted diseases) Expected: 09/15/2024 (Approximate), Expires: 09/15/2025 [facility] Work Phone: Comment on above: Expected: 09/15/2024 (Approximate), Expi res: 09/15/2025 Start: 09-15-2024 End: 09-15-2025 HIV 1+2 Ab+HIV1 p24 Ag [Presence] in Serum or Plasma by Immunoassay HIV 1/2 Antigen/Antibody Screen with Reflex to Confirmation Lab Routine Screening for STDs (sexually transmitted diseases) Expected: 09/15/2024 (Approximate), Expires: 09/15/2025 [facility] Work Phone: Comment on above: Expected: 09/15/2024 (Approximate), Expi res: 09/15/2025 Start: 09-15-2024 End: 09-15-2025 Lipid 1996 panel - Serum or Plasma Lipid Panel Lab Routine Class 3 severe obesity with body mass index (BMI) of 40.0 to 44.9 in adult, unspecified obesity type, unspecified whether serious comorbidity present Expected: 09/15/2024 (Approximate), Expires: 09/15/2025 [facility] Work Phone: Comment on above: Expected: 09/15/2024 (Approximate), Expi res: 09/15/2025 Start: 09-15-2024 End: 09-15-2025 Progesterone [Mass/volume] in Serum or Plasma Progesterone Lab Routine Primary oligomenorrhea Expected: 09/15/2024 (Approximate), Expires: 09/15/2025 [facility] Work Phone: Comment on above: Expected: 09/15/2024 (Approximate), Expi res: 09/15/2025 Start: 09-15-2024 End: 09-15-2025 Treponema pallidum IgG+IgM Ab [Presence] in Serum by Immunoassay Syphilis Screen with Reflex Lab Routine Screening for STDs (sexually transmitted diseases) Expected: 09/15/2024 (Approximate), Expires: 09/15/2025 [facility] Work Phone: Comment on above: Expected: 09/15/2024 (Approximate), Expi res: 09/15/2025 Start: 09-15-2024 End: 09-15-2024 Telemedicine consultation with patient 09/15/2024 1:30 PM EDT Telemedicine Dillon Carlos [address] [phone] Roslyn Rodriguez MD [address] [place] [address] Dillon Carlos Start: 07-23-2024 Screening for malignant neoplasm of cervix [facility] Start: 07-18-2024 Screening for malignant neoplasm of cervix HPV (without or with Pap) [facility] Start: 02-14-2024 COVID-19 Vaccine () COVID-19 Vaccine () [facility] Start: 02-14-2024 COVID-19 Vaccine ( season) COVID-19 Vaccine () [facility] Start: 02-14-2024 Influenza vaccination [facility] Start: 01-14-2024 Influenza vaccination Flu vaccine (#1) [facility] Start: 12-10-2023 End: 12-09-2024 17-Hydroxyprogesterone [Mass/volume] in Serum or Plasma 17-Hydroxyprogesterone Lab Routine Secondary oligomenorrhea Expected: 12/10/2023 (Approximate), Expires: 12/09/2024 [facility] Work Phone: Comment on above: Expected: 12/10/2023 (Approximate), Expi res: 12/09/2024 Start: 12-10-2023 End: 12-09-2024 Blood type and Indirect antibody screen panel - Blood Type And Screen Lab Routine Encounter for Rh blood typing Expected: 12/10/2023 (Approximate), Expires: 12/09/2024 [facility] Work Phone: Comment on above: Expected: 12/10/2023 (Approximate), Expi res: 12/09/2024 Start: 12-10-2023 End: 12-09-2024 Dehydroepiandrosterone sulfate (DHEA-S) [Mass/volume] in Serum or Plasma Dhea-Sulfate Lab Routine Secondary oligomenorrhea Expected: 12/10/2023 (Approximate), Expires: 12/09/2024 [facility] Work Phone: Comment on above: Expected: 12/10/2023 (Approximate), Expi res: 12/09/2024 Start: 12-10-2023 End: 12-09-2024 Hemoglobin A1c/Hemoglobin.total in Blood Hemoglobin A1C Lab Routine Screening for diabetes mellitus Expected: 12/10/2023 (Approximate), Expires: 12/09/2024 [facility] Work Phone: Comment on above: Expected: 12/10/2023 (Approximate), Expi res: 12/09/2024 Start: 12-10-2023 End: 12-09-2024 Mullerian inhibiting substance [Mass/volume] in Serum or Plasma Antimullerian Hormone (Amh) Lab Routine Fertility testing Expected: 12/10/2023 (Approximate), Expires: 12/09/2024 [facility] Service Area Work Phone: Comment on above: Expected: 12/10/2023 (Approximate), Expi res: 12/09/2024 Start: 12-10-2023 End: 12-09-2024 Progesterone [Mass/volume] in Serum or Plasma Progesterone Lab Routine Fertility testing Expected: 12/10/2023 (Approximate), Expires: 12/09/2024 [facility] Work Phone: Comment on above: Expected: 12/10/2023 (Approximate), Expi res: 12/09/2024 Start: 12-10-2023 End: 12-09-2024 Prolactin [Mass/volume] in Serum or Plasma Prolactin Lab Routine Secondary oligomenorrhea Expected: 12/10/2023 (Approximate), Expires: 12/09/2024 [facility] Work Phone: Comment on above: Expected: 12/10/2023 (Approximate), Expi res: 12/09/2024 Start: 12-10-2023 End: 12-09-2024 Rubella virus IgG Ab [Units/volume] in Serum Rubella Antibody, Igg Lab Routine Encounter for screening for other viral diseases Expected: 12/10/2023 (Approximate), Expires: 12/09/2024 [facility] Work Phone: Comment on above: Expected: 12/10/2023 (Approximate), Expi res: 12/09/2024 Start: 12-10-2023 End: 12-09-2024 Testosterone,Free and Total Testosterone,Free and Total Lab Routine Secondary oligomenorrhea Expected: 12/10/2023 (Approximate), Expires: 12/09/2024 [facility] Work Phone: Comment on above: Expected: 12/10/2023 (Approximate), Expi res: 12/09/2024 Start: 12-10-2023 End: 12-09-2024 TSH with reflex to Free T4 if abnormal TSH with reflex to Free T4 if abnormal Lab Routine Secondary oligomenorrhea Expected: 12/10/2023 (Approximate), Expires: 12/09/2024 [facility] Work Phone: Comment on above: Expected: 12/10/2023 (Approximate), Expi res: 12/09/2024 Start: 12-10-2023 End: 12-09-2024 Varicella zoster virus IgG Ab [Presence] in Serum by Immunoassay Varicella Zoster Antibody, Igg Lab Routine Encounter for screening for other viral diseases Expected: 12/10/2023 (Approximate), Expires: 12/09/2024 [facility] Work Phone: Comment on above: Expected: 12/10/2023 (Approximate), Expi res: 12/09/2024 Start: 07-15-2023 End: 07-15-2023 Patient encounter procedure 07/15/2023 Office Visit Obstetrics and Gynecology Bartolome Brewster APRN - [employer] [id number] [facility] [address] [place] [address] [facility] Start: 02-13-2023 COVID-19 Vaccine (2022- season) COVID-19 Vaccine (3 - 2022-24 season) [facility] Start: 02-13-2023 COVID-19 Vaccine ( season) COVID-19 Vaccine ( season) [facility] Start: 01-13-2022 Influenza vaccination Flu vaccine (#1) [facility] Start: 09-24-2011 Screening for malignant neoplasm of cervix [facility] Start: 2009 Hepatitis B vaccine (1 of 3 - 19+ 3-dose series) Hepatitis B vaccine (1 of 3 - 19+ 3-dose series) [facility] Start: 2009 Hepatitis B Vaccines (1 of 3 - 19+ 3-dose series) Hepatitis B Vaccines (1 of 3 - 19+ 3-dose series) [facility] Start: 2008 Hepatitis C screening [facility] Start: 2005 HIV screening HIV screen [facility] Start: 09-24-2003 Varicella vaccination Varicella Vaccines (1 of 2 - 13+ 2-dose series) [facility] Start: 09-24-2003 Varicella vaccine (1 of 2 - 13+ 2-dose series) Varicella vaccine (1 of 2 - 13+ 2-dose series) [facility] Start: 2002 Depression Screen Depression Screen [facility] Start: 09-24-1991 Varicella vaccine (1 of 2 - 2-dose childhood series) Varicella vaccine (1 of 2 - 2-dose childhood series) [facility] Start: 1990 HIV screening HIV Screening [facility] Start: 1990 Lipid panel Lipid Panel [facility] Start: 1990 Yearly Adult Physical Yearly Adult Physical [facility] Immunizations Immunization Date Immunization Notes Care Provider Fa cility 09-17-1995 diphtheria, tetanus toxoids and acellular pertussis vaccine Kurtis Bedolla MD Other Phone: [facility] Phone: 09-17-1995 poliovirus vaccine, inactivated Kurtis Bedolla MD Other Phone: [facility] Phone: 03-29-1992 diphtheria, tetanus toxoids and acellular pertussis vaccine Kurtis Bedolla MD Other Phone: [facility] Phone: 03-29-1992 poliovirus vaccine, inactivated Kurtis Bedolla MD Other Phone: [facility] Phone: 12-26-1991 Hib, unspecified Kurtis lopez MD Other Phone: [facility] Phone: 12-26-1991 measles, mumps and rubella virus vaccine Kurtis Bedolla MD Other Phone: [facility] Phone: 03-31-1991 diphtheria, tetanus toxoids and acellular pertussis vaccine Kurtis Bedolla MD Other Phone: [facility] Phone: 03-31-1991 Hib, unspecified Kurtis lopez MD Other Phone: [facility] Phone: 01-25-1991 diphtheria, tetanus toxoids and acellular pertussis vaccine Kurtis Bedolla MD Other Phone: [facility] Phone: 01-25-1991 Hib, unspecified Kurtis lopez MD Other Phone: [facility] Phone: 01-25-1991 poliovirus vaccine, inactivated Kurtis Bedolla MD Other Phone: [facility] Phone: 1990 diphtheria, tetanus toxoids and acellular pertussis vaccine Kurtis Bedolla MD Other Phone: [facility] 1990 Hib, unspecified Kurtis lopez MD Other Phone: [facility] Phone: 1990 poliovirus vaccine, inactivated Kurtis Bedolla MD Other Phone: [facility] Phone: Payers Date Payer Category Payer Private Health Insurance [id number] 2021 Unknown [id number] 2021 Unknown [id number] 1990 Unknown [id number] 2.16.84 [id number] 1990 Unknown [id number] 2.16.8 [id number] 1990 Unknown [id number] 2.16. 840.1.870243.3.579.2.175 1990 Unknown [id number] 2.16.84 0.1.573669.3.579.2.1259 1990 Unknown [id number] 2.16.84 0.1.151142.3.579.2.1259 1990 Unknown [id number] 2.16. 840.1.670343.3.579.2.1245 1990 Unknown [id number] 2.16. [id number] 1990 Unknown [id number] 2.16. 840.1.874362.3.579.2.1244 1990 Unknown [id number] 2.16. 840.1.922622.3.579.2.1244 1990 Unknown [id number] 2.16. 840.1.473573.3.579.2.1244 1990 Unknown [id number] 2.16. 840.1.327754.3.579.2.1244 1990 Unknown [id number] 2.16. 840.1.372998.3.579.2.1244 1990 Unknown [id number] 2.16. 840.1.599658.3.579.2.1244 1990 Unknown [id number] 2.16. 840.1.925937.3.579.2.1244 1990 Unknown [id number] 2.16. 840.1.870908.3.579.2.1244 1990 Unknown [id number] 2.16. [id number] 1990 Unknown [id number] 2.16. [id number] 1990 Unknown [id number] 2.16. [id number] 1990 Unknown [id number] 2.16. [id number] 1959 Unknown [id number] Social History Date Type Detail Facility Start: 05-05-2023 End: 08-29-2023 Tobacco smoking status NHIS Never smoked tobacco [facility] Start: 07-15-2022 End: 11-14-2024 Alcohol intake Current drinker of alcohol (finding) [facility] Phone: Start: 07-15-2022 History SDOH Financial 5 [facility] Work Phone: Start: 07-15-2022 History SDOH Food Worry 1 [facility] Phone: Start: 07-15-2022 Alcohol Comment I may have one drink every couple weeks [facility] Work Phone: Start: 1990 Sex Assigned At Not on file [facility] Phone: Start: 1990 Sex Assigned At Female [facility] Start: 05-05-2023 End: 12-10-2023 Tobacco use and exposure Smokeless tobacco non-user [facility] Work Phone: Start: 12-10-2023 Alcohol Comment Occassionally [facility] Work Phone: Start: 12-10-2023 End: 11-14-2024 Gender identity Not on file [facility] Work Phone: Start: 11-30-2023 End: 12-22-2023 Exposure to SARS-CoV-2 (event) Not sure [facility] Start: 12-10-2023 End: 11-14-2024 History of Social function [facility] Work Phone: Start: 05-06-2023 Alcohol Comment caffeine: 1-2 cups per day iced tea, coffee, diet pop [facility] How hard is it for y ou to pay for the very basics like food, housing, medical care, and heating Not hard at all [facility] (I/We) worried khushboo deangelo (my/our) food would run out before (I/we) got money to buy more. Never true [facility] Start: 07-30-2024 End: 09-29-2024 Exposure to SARS-CoV-2 (event) Unable to assess [facility] How often do you nee d to have someone help you when you read instructions, pamphlets, or other written material from your doctor or pharmacy [SILS] Never [facility] Within the last year , have you been afraid of your partner or ex-partner? No [facility] Do you belong to any clubs or organizations such as moravian groups, unions, fraternal or athletic groups, or [...] - these days [OSQ] Only a little [facility] Functional Status Date Assessment Result Facility 11-14-2024 Patient Health Quest ionnaire 2 item (PHQ-2) [Reported] [facility] 11-14-2024 Total score [AUDIT-C] 3 11/15/19 11:57 AM EDT Mychart, Generic [facility] 11-14-2024 How often to you hav e a drink containing alcohol? 2-4 times a month 11/14/2024 11:57 AM EDT Mychart, Generic 2-4 times a month [facility] Healthcare 11-14-[address] inks containing alcohol do you have on a typical day? 1 or 2 11/14/2024 11:57 AM EDT Mychart, Generic 1 or 2 [facility] 11-14-2024 How often do you hav e 6 or more drinks on 1 occasion? Less than monthly 11/14/2024 11:57 AM EDT Mychart, Generic Less than monthly [facility] 09-29-2024 [place] - suicide s everity rating scale screener - recent [C-SSRS] [facility] Work Phone: 09-29-2024 Patient Health Quest ionnaire 2 item (PHQ-2) [Reported] [facility] Work Phone: Clinical Notes 12-10-2023 to 11-16-2024 Revital Saurabh Kern MD - 11/16/2024 1:00 PM Niko Graf NP - 11/14/2024 2:30 PM EDTMmary Sanders APRN-TARUN - 09/29/2024 12:45 PM EDTRaravindra Rodriguez MD - 09/15/2024 1:30 PM EDT Note Date & Type Note Facility 11-16-2024 History of Present illness Narrative Subjective Barbara Fischer is a 34 y.o. female [...] Strain: Low Risk (07/15/2022) [facility] Overall Financial Resource Strain (CARDIA) Difficulty of Paying Living Expenses: Not hard at all Food Insecurity: No Food Insecurity (05/25/2023) Received from [facility] Button Hunger Screening Within the past 12 months [...] lifestyle, ketosis diet. Has met with Phil Finch, make some good dietary changes. 12/22/23: 330lb, [...] 10mg/wk. 7. Goal: to meet with Phil Finch RD. To add ST 3x/wk. Follow up [...] HYSTEROSCOPY Bilateral TONSILLECTOMY documented in this encounter [facility] Work Phone: 11-14-2024 History of Present illness [...] mg weekly currently. She is seeing an fresh foods clerk in [place] due to fertility issues in attempting to lose weight before completing her next round of IVF. She does have a group nutrition follow-up with her fresh foods clerk video call scheduled for Thursday. She will [...] fail to improve. documented in this encounter [facility] 09-29-2024 History of Present illness Narrative Boarding [...] Carrier Screening Myriad 2bP: Declined N/A 09/21/2024 [employer] ABATEMENT TECHNICIAN Waiver [x] Date Done Male Labs (required [...] she wants the order sent to. Tere Sanders 09/29/24 12:55 PM documented in this encounter [facility] Work Phone: 09-15-2024 History of Present illness Narrative Images from the original note were not included. Virtual or Telephone Consent: An interactive audio and video telecommunication system which permits real time communications between the patient (at the originating site) and provider (at the distant site) was utilized to provide this telehealth service and Verbal consent was requested and obtained from Barbara Amado on this date, 09/15/24 for a telehealth visit. reviewed, Authorization status not noted. Follow Up [...] Sonography: Thinks she had this done in [place] and was told tubes patent Has had normal diagnostic hysteroscopy at [facility] -Reports she did have lysis of adhesions on a hysteroscopy prior to FETs [employer] ABATEMENT TECHNICIAN Pelvic Ultrasound: US PELVIS (09/01/2024): FINDINGS: UTERUS [...] Partner : Partner :: [birth year] Done in [place] 2020 Was told normal Myriad screening: None Treatment to date: Had fertility assessment at [facility]- 2020 Was given diagnosis of PCOS [...] 09/15/2024 1:35 PM documented in this encounter [facility] Work Phone: 08-09-2024 History of Present [...] Strain: Low Risk (07/15/2022) [facility] Overall Financial Resource Strain (CARDIA) Difficulty of Paying Living Expenses: Not hard at all Food Insecurity: No Food Insecurity (05/25/2023) Received from [facility] Hunger Screening Within the past 12 months [...] lifestyle, ketosis diet. Has met with Phil Finch, make some good dietary changes. 12/22/23: 330lb, [...] Claudia Kern MD documented in this encounter [facility] Work Phone: 12-10-2023 History of Present [...] as clinical hirsutism Had fertility assessment at [facility] [place]- 2020 Was given diagnosis of PCOS Did [...] Sonography: Thinks she had this done in [place] and was told tubes patent Has had normal diagnostic hysteroscopy at [facility] [place] -Reports she did have lysis of adhesions on a hysteroscopy prior to FETs [employer] ABATEMENT TECHNICIAN Pelvic Ultrasound: 2020 1. 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 Prior fertility history: None PMH: None PSH: None Smoking: None Alcohol Use: None Drug Use: None Medications: None Injuries: None STD: Have you ever been diagnosed with a sexually transmitted disease?: No Please select all that are applicable: SA: SA Results: Done in [place] 2020 Was told normal FAMILY HISTORY No [...] 12/10/2023 9:38 AM documented in this encounter [facility] Work Phone: 12-10-2023 Instructions Roslyn Rodriguez [...] 12/10/2023 9:38 AM documented in this encounter [facility] Work Phone: Evaluation note No assessment inform ation available [facility] Work Phone: Evaluation note Diagnosis [...] (Multi) [E66.01, Z68.43] documented in this encounter [facility] Work Phone: Evaluation note* Diagnosis BMI 50.0-59.9, adult (Multi)- Primary Encounter for weight management Super obesity documented in this encounter [facility] Work Phone: Evaluation note* Diagnosis Class 3 obesity- Primary BMI 40.0-44.9, adult (Multi) Encounter for weight management documented in this encounter [facility] Work Phone: Evaluation note* Diagnosis Screening [...] [E28.2] Polycystic ovaries documented in this encounter [facility] Work Phone: Evaluation note* Diagnosis Female infertility [N97.9]- Primary Female infertility of unspecified origin documented in this encounter [facility] Work Phone: Evaluation note* Diagnosis Plantar wart, right foot- Primary Plantar wart Class 3 severe obesity due to excess calories without serious comorbidity with body mass index (BMI) of 40.0 to 44.9 in adult [facility] Diagnosis BMI 39.0-39.9,adult BMI 30.0-30.9,adult documented in this encounter [facility] Work Phone: History of Present illness Narrative* Claudia Kern MD - 12/22/2023 2:30 PM [...] Strain: Low Risk (07/15/2022) [facility] Overall Financial Resource Strain (CARDIA) Difficulty of Paying Living Expenses: Not hard at all Food Insecurity: No Food Insecurity (05/25/2023) Received from [facility] Hunger Screening Within the past 12 months [...] The patient will be referred to the Foundation Maker for education on their diet of choice. [...] visit. [facility] Reason for referral (narrative)* Consultation (Routine) - Authorized Specialty Diagnoses / Procedures Referred By Pily t Referred To Contact Nutrition Diagnoses BMI 50.0-59.9, adult (Multi) Claudia Orozco MD [address] [facility] [address] [place] [address] Referral ID Status Reason Start Date Expiration Date Visits Requested Visits Authorized [id number] Authorized Specialty Services Required 12/22/2023 12/21/2024 1 1 [facility] Work Phone: Summary Purpose Family History No Family History Records FoundNo Family History Records FoundNo Family History Records FoundNo Family History Records FoundNo Family History Records FoundNo Family History Records FoundNo Family History Records Found Advance Directives No Advanced Directives Records Found Advance Directive Response Recorded Date/ Time Advance Directives No August 28 024 11:00am Chief Complaint and Reason for Visit Chief Complaint left ear pain, runny nose, congestion, cough Additional Source Comments Care Teams (unrecognized sec tion and content) Clinical Documentation Manager Relationship Specialty [place] [id number] [address] PCP - General Family Medicine 04/01/16 Team Status: Active Member Role Status Dates Outreach Community Primary Care Provider Active Team Status: Inactive Member Role Status Dates Polly Rhiannon , RUBBER ENGRAVER-C Attending Provider Active S tart: August 29, 2023 End: August 29, 2023 [facility] Community Primary Care Provider Active Start: August 29, 2023 End: August 29, 2023 Clinical Documentation Manager Relationship Specialty [place] [address] [place] [address] PCP - General Family Medicine 10/21/22 Clinical Documentation Manager Relationship Specialty Start Date End Date Kurtis Bedolla MD PCP - General Family Medicine 04/01/16 Clinical Documentation Manager Relationship Specialty Start [place] [address] [place] [address] PCP - General Family Medicine 10/21/22 Clinical Documentation Manager Relationship Specialty Start Date End Date Dipika Cox LPN Licensed Practical Nurse Reproductive Endocrinology and Infertility 09/14/24 Clinical Documentation Manager Relationship Specialty Start [place] [address] [place] [address] PCP - General Family Medicine 10/21/22 Clinical Documentation Manager Relationship Specialty Start Date End Date Dipika Cox LPN Licensed Practical Nurse Reproductive Endocrinology and Infertility 09/14/24 Clinical Documentation Manager Relationship Specialty Start [place] [address] [place] [address] PCP - General Family Medicine 10/21/22 Clinical Documentation Manager Relationship Specialty Start [place] [address] [place] [address] PCP - General Family Medicine 10/21/22 Clinical Documentation Manager Relationship Specialty Start Date End Date Dipika Cox LPN Licensed Practical Nurse Reproductive Endocrinology and Infertility 09/14/24 INFORMATION SOURCE (unrecogn ized section and content) DATE CREATED AUTHOR 10/05/2022 [facility] DATE CREATED AUTHOR AUTHOR'S ORGANIZ ATION 09/14/2023 [facility] DATE CREATED AUTHOR AUTHOR'S ORGANIZ ATION 07/26/2024 [facility] DATE CREATED AUTHOR AUTHOR'S ORGANIZ ATION 10/02/2024 [facility] DATE CREATED AUTHOR AUTHOR'S ORGANIZ ATION 11/15/2024 [facility] DATE CREATED AUTHOR AUTHOR'S ORGANIZ ATION 01/07/2025 [facility] DATE CREATED AUTHOR AUTHOR'S ORGANIZ ATION 01/17/2025 [facility] Ambulatory Goals (unrecognized section and content) Goals may be documented in a n alternate section Reason for Visit (unrecogniz ed section and content) Reason Comments [facility] Reason Comments Consult Weight management Reason Comments Follow-up Follow up for weight management group meeting Reason Comments Plantar Warts Wart on right toe Reason Comments [...] BE BASED ON THE PRIMARY CLINICAL RECORDS. [employer] [facility]. provides no warranty or guarantee of the accuracy or completeness of information in this document.
== END 2025-01-24 07:24 | disposition home or self-care (01) ==
LOC: LAB 07:23
PROVIDERS: PCP Family Medicine; Visit Provider Obstetrics & Gynecology
DX: N91.3 Primary oligomenorrhea (principal)
CPT/HCPCS: 36415; 84144

== ENCOUNTER 2025-03-29 10:41 | Outpatient (OUT) | payer OTHER, SELFPAY ==
--- OUTSIDE RECORDS SUMMARY | 2025-03-29 10:48 | XMS_ITS | CCD ---
Author Organization [facility] Care Team Providers Care Calf Skinner Name Role Phone Lalit Bedolla MD Primary Care Provider WILBER ., DR LOPEZ Admitting Unavailable WILBER ., DR LOPEZ Attending Unavailable [facility], DR VAZQUEZ Primary Care Unavailable WILBER ., DR LOPEZ Consulting Unavailable LALIT BEDOLLA Referring Unavailable LALIT BEDOLLA Primary Care Unavailable JOSÉ HERNANDEZ Attending Unavail able Unavailable Primary Care Provider UnavailLalit Newman MD Primary Care Provider [phone] Lalit Bedolla MD Primary Care Provider NADJA BREWSTER Referring Unavailable LALIT BEDOLLA Primary Care Unavailable Unavailable Primary Care Provider UnavailDipika Ford LPN Unavailable Un available JOE MARTINEZ Referring Unavailable DEANNA GRAF Attending Unavailable ROSLYN RODRIGUEZ Attending Unavailable JUSTINO SANDERS Attending Unavailable KAMRYN DRAPER Attending Unavailable LEXIE FINCH Attending Unavailable [facility]FRE [facility] Referring Unav ailable JORGEBREE BECERRA Attending Unavailable GORODESJUN NURY, REVITAL L Referring Unav ailable GORODESKI NURY, REVITAL L Attending Unav ailable ALINEODESJUN NURY, REVITAL L Attending Unav ailable Medications Current Medications Medication Drug Class(es) Dates Sig (Normalized) Sig (Original) [id number] 200 actuat albuterol 0.09 mg/actuat metered dose [...] Active clomiPHENE citrate 50 mg oral tablet (5 sources) Estrogen Agonist/Antagoni st Start: 10-18-2024 End: 01-06-2026 clomiPHENE (Clomid) 50 mg tablet Indications: Female infertility Take 2 tablets (100 mg) by mouth once daily. Cycle days 3-7 10 tablet 01/06/2025 01/06/2026 Active Ethinyl Estradiol / norgestimate (8 sources) Progestin, Estrogen Start: 12-10-2023 take 1 tablet by mouth once daily norgestimate-ethinyl estradioL (Sprintec, 28,) 0.25-35 mg-mcg tablet Indications: Secondary oligomenorrhea Take 1 tablet by mouth once daily. 28 tablet 12 12/10/2023 Active Start: 12-10-2023 End: 12-09-2024 take 1 tablet by mouth once daily norgestimate-ethinyl estradioL (Sprintec, 28,) 0.25-35 mg-mcg tablet Indications: Secondary oligomenorrhea Take 1 tablet by mouth once daily. 28 tablet 12 12/10/2023 12/09/2024 Active letrozole 2.5 mg oral tablet (4 sources) Aromatase Inhibitor Start: 01-06-2025 End: 04-06-2025 take 3 tablets by mouth once daily, then take 3 tablets by mouth once daily, then take 3-7 tablets by mouth once letrozole (Femara) 2.5 mg tablet Indications: Female infertility Take 3 tablets (7.5 mg total) by mouth once daily. Take 3 tablets by mouth cycle days 3-7 after negative urine test every cycle before starting letrozole. 15 tablet 01/06/2025 04/06/2025 Active Start: 10-18-2024 End: 01-16-2025 take 2 tablets [...] Active medroxyPROGESTERone acetate 10 mg oral tablet (19 sources) Progestin Start: 08-29-2023 Medroxyprogest erone Active MG PO August 29, 2023 12:00am Start: 07-06-2023 End: 12-14-2025 take 1 tablet by mouth once daily medroxyPROGESTERone (Provera) 10 mg tablet Indications: Female infertility Take 1 tablet (10 mg) by mouth once daily. 10 tablet 12/14/2024 12/14/2025 Active 24 hr metFORMIN hydrochlorid e 500 mg extended release oral tablet (2 sources) Biguanide Start: 08-29-2023 Metformin Acti ve MG PO August 29, 2023 12:00am Start: 07-15-2021 take 2 tablets by mo [facility] twice daily, then take 2 tablets [...] Active Tirzepatide (Mounjaro) 7.5 MG/0.5ML solution auto-injector (5 sources) Start: 08-15-2024 Tirzepatide (M ounjaro) 7.5 MG/0.5ML solution auto-injector 08/15/2024 Active tirzepatide, weight loss, (Zepbound) 10 mg/0.5 mL injection (3 sources) Start: 03-01-2025 tirzepatide, w eight loss, (Zepbound) 10 mg/0.5 mL injection Indications: BMI 37.0-37.9, adult Inject 10 mg under the skin every 7 days. 4 each 2 03/01/2025 Active Start: 11-16-2024 tirzepatide, w eight loss, (Zepbound) [...] Date Documented Da te Episodic/Chronic Female infertility (8 sources) Female infertility associated with anovulation; Translations: [Female infertility] Onset: 09-30-2022 Chronic Headache; including migraine (12 sources) Migraine with aura; Translations: [Migraine with aura, not intractable, without status migrainosus] Onset: 05-05-2023 05-05-2023 Chronic Menstrual disorders (17 sources) Irregular periods; Translations: [Irregular menstruation, unspecified] Onset: 10-19-2019 10-19-2019 Chronic Other endocrine disorders (18 sources) Polycystic ovary syndrome; Translations: [Polycystic ovarian syndrome] Onset: 10-19-2019 10-19-2019 Chronic Other female genital disorders (3 sources) H/O: Disorder; Translations: [Personal history of other diseases of the female genital tract] Onset: 02-27-2025 02-27-2025 Episodic Other nutritional; endocrine; and metabolic disorders (4 [...] Chronic Other nutritional; endocrine; and metabolic disorders (12 sources) Obesity caused by energy imbalance; Translations: [Morbid (severe) obesity due to excess calories] Onset: 05-05-2023 05-05-2023 Chronic Other nutritional; endocrine; and metabolic disorders (1 source) Obese class III; Translations: [Class 3 obesity] 08-09-2024 Chronic Other nutritional; endocrine; and metabolic disorders (9 sources) Body mass index 30+ - obesity; Translations: [Body mass index (BMI) 39.0-39.9, adult] Onset: 02-27-2025 11-16-2024 Chronic Other nutritional; endocrine; and metabolic disorders (3 sources) Obese class II; Translations: [Obesity, class 2] Onset: 02-27-2025 02-27-2025 Chronic Other nutritional; endocrine; and metabolic disorders (3 sources) Insulin resistance; Translations: [Insulin resistance] Onset: 02-27-2025 02-27-2025 Chronic Other nutritional; endocrine; and metabolic disorders [...] [Body mass index (BMI) 39.0-39.9, adult] Onset: 02-23-2025 Chronic Other nutritional; endocrine; and metabolic disorders [...] for diabetes mellitus] Onset: 09-15-2024 Episodic Unclassified (5 sources) Onset: 09-14-2024 Resolved: 03-13-2025 09-14-2024 Unclassified (2 sources) Obesity, class 3; Translations: [Obesity, class 3] Onset: 08-09-2024 Results Test Name Value Interpretation Reference Range Facility ALL PROGESTERONEon PROGESTERONE 0.2 ng/mL . [facility] are Comment on above: Follicular phase 0.1 - 0.9 Luteal phase 1.8 - 23.9 Ovulation phase 0.1 - 12.0 First trimester 11.0 - 44.3 Second trimester 25.4 - 83.3 Third trimester 58.7 - 214.0 Postmenopausal 0.0 - 0.1 Performed at: [employer] [facility] [place] [address] Assistant Loan Processor: Michel Carlos PhD, Phone: [phone] [facility] opendorse e ALL HEPATITIS C ABon 025 HCV ANTIBODY Non-Reactive Non Reactive [facility] Comment on above: HCV antibody alone d oes not differentiate between previously resolved infection and active infection. Equivocal and Reactive HCV antibody results should be followed up with an HCV RNA test to support the diagnosis of active HCV infection. HBSAG SCREENon 01-04-2025 HBSAG SCREEN Negative Negative [facility] are Comment on above: Performed at: - [facility] [address] [id number] Assistant Loan Processor: Michel Carlos PhD, Phone: [phone] No Panel Informationon 01-04 [facility] RAPID PLASMA REAGIN, QUANTon 01-04-2025 RAPID PLASMA REAGIN, QUANT Non-Reactive NonRea<1:1 titer [facility] Comment on above: Please Note: This te st does not meet current guidelines for screening and diagnosis of syphilis. This test is intended for following treatment response in patients being treated for syphilis infection. To screen for syphilis infection, a reflex cascade that includes both RPR and a treponema-specific assay should be utilized, such as Treponema pallidum (Syphilis) Screening [place] (305509) or Rapid Plasma Reagin (RPR) Test With Reflex to Quantitative RPR and Confirmatory Treponema pallidum Antibodies (180033). Performed at: [facility] [address] [id number] Assistant Loan Processor: Michel Carlos PhD, Phone: [phone] [facility] PREG QUANT HCGon 025 HCG QUANTITATIVE <1 mIU/mL [facility] Comment on above: 5-50 0.2-1 WEEK 50-500 1-2 WEEKS 100-5,000 2-3 WEEKS 500-10,000 3-4 WEEKS 1,000-50,000 4-5 WEEKS 10,000-100,000 5-6 WEEKS 15,000-200,000 6-8 WEEKS 10,000-100,000 2-3 MONTHS [facility] ALL PROGESTERONEon 5 PROGESTERONE 0.2 ng/mL . [facility] are Comment on above: Follicular phase 0.1 - 0.9 Luteal phase 1.8 - 23.9 Ovulation phase 0.1 - 12.0 First trimester 11.0 - 44.3 Second trimester 25.4 - 83.3 Third trimester 58.7 - 214.0 Postmenopausal 0.0 - 0.1 Performed at: [facility] [address] [id number] Assistant Loan Processor: Michel Carlos PhD, Phone: [phone] [facility] [address] [facility] RPR (DX) W/REFL TITER AND T. PALLIDUM AB, IAon 09-30-2024 RPR (DX) W/REFL TITER AND CONFIRMATORY TESTING Non-Reactive Normal NON-REACTIVE [facility] Comment on above: Result Comment: No laboratory evidence of syphilis. If recent exposure is suspected, submit a new sample in 2-4 weeks. Your request to have a duplicate copy faxed has been acknowledged. Queued to: [phone] Performed By: #### 4 436, 821, 7729, 16417 #### [facility] [address], [address] [place] [phone] Customer Support Executive: Ryan Mena MD RUBELLA AB (IGG), IMMUNE STA Fran 09-30-2024 RUBELLA AB (IGG), IMMUNE STATUS 3.96 [...] Performed By: #### 4 439, 802, 1005, 31152 #### [facility] [address], [address] [place] [address] Customer Support Executive: Ryan Mena MD TEST AUTHORIZATIONon CLIENT CONTACT: Melony GODOY Normal [facility] Comment on above: Performed By: #### 4 439, 802, 1005, 36574 #### [facility] [address], [address] [place] [address] Customer Support Executive: Ryan Mena MD COMMENT Normal [facility] Comment on above: Result Comment: Plea se have the ordering physician or his or her authorized product representative sign a copy of this report and promptly return it by faxing it to: [phone] or by returning the form to your 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 Performed By: #### 4 439, 802, 1005, 00005 #### [facility] [address], [address] [place] [address] Customer Support Executive: Ryan Mena MD REPORT ALWAYS MESSAGE SIGNATURE Normal [facility] Comment on above: Result Comment: The laboratory testing on this patient was verbally requested or confirmed by the ordering physician or his or her authorized product representative after contact with an employee of [employer]. Federal regulations require that we maintain on file written authorization for all laboratory testing. Accordingly we are asking that the ordering physician or his or her authorized product representative sign a copy of this report and promptly return it to the client relation specialist. Signature: Performed By: #### 4 439, 802, 1005, 30067 #### [facility] [address], [address] [place] [address] Customer Support Executive: Ryan Mena MD TEST CODE: [id number] Normal [facility] Comment on above: Performed By: #### 4 439, 802, 100, 06325 #### [facility] [address], [address] [place] [address] Customer Support Executive: Ryan Mena MD TEST NAME: RPR (DX) W/REFL TITER AND SYP Normal [facility] Comment on above: Performed By: #### 4 439, 802, 100, 43429 #### [facility] [address], [address] [place] [address] Customer Support Executive: Ryan Mena MD VARICELLA ZOSTER VIRUS ANTIB [...] Performed By: #### 4 439, 802, 1005, 14965 #### [facility] [address], [address] [place] [address] Customer Support Executive: Ryan Mena MD Blood type and Indirect anti body screen panel (Bld)on 09-28-2024 ABO group Nom (Bld) O Normal [facility] Comment on above: Performed By: #### 3 4532-2 #### GLENROY Wiley ([id number]) [facility] [address] [place] [address] Blood group antibody screen Ql Negative [facility] Comment on above: Performed By: #### 3 4532-2 #### GLENROY Wiley ([id number]) [facility] [address] [place] [address] D Ag Ql (Bld) Positive [facility] Comment on above: Result Comment: 2nd ABO test required. Order and Collect VERAB Performed By: #### 3 4532-2 #### GLENROY Wiley ([id number]) [facility] [address] [place] [address] ALL CBC WITH AUTO DIFFon BASOPHILS ABSOLUTE AUTO 0 N [facility] Basophils/100 WBC (Bld) 0.4 % 0.2 - 2.0 % [facility] Eosinophils/100 WBC (Bld) 1.1 % 0.9 - 7.0 % [facility] Erythrocyte distribution width (RBC) [Ratio] 12.8 % 11.0 - 15.0 % [facility] Hematocrit (Bld) [Volume fraction] 38.9 % 36.0 - 48.0 % [facility] Hemoglobin (Bld) [Mass/Vol] 12.7 g/dL 12.0 - 16.0 g/dL [facility] IMMATURE GRANULOCYTES ABS AUTO 0.02 [facility] Immature granulocytes/100 WBC (Bld) 0.2 % 0.0 - 0.5 % [facility] LYMPHOCYTES ABSOLUTE AUTO 2.8 [facility] Lymphocytes/100 WBC (Bld) 28 % 20.5 - 60.0 % [facility] MCH (RBC) [Entitic mass] 29.1 pg 26.7 - 34.0 pg [facility] MCHC (RBC) [Mass/Vol] 32.6 g/dL 29.9 - 35.2 g/dL [facility] MCV (RBC) [Entitic vol] 89 fL 81.0 - 99.0 fL [facility] MONOCYTES ABSOLUTE AUTO 0.8 N [facility] Monocytes/100 WBC (Bld) 7.9 % 1.7 - 12.0 % [facility] NEUTROPHILS ABSOLUTE AUTO 6.3 [facility] Neutrophils/100 WBC (Bld) 62.4 % 43.0 - 75.0 % [facility] Platelet mean volume (Bld) [Entitic vol] 10.5 fL 9.5 - 13.5 fL [facility] Healthc are TBH EO # 0.1 [facility] Healthcar e TBH PLT 254 [facility] RBC 4.37 [facility] Healthcar e TBH WBC 10.1 [facility] Healthcar e [facility] Healthcar e US PELVIC COMPLETE W/ TVon [...] II, MD, PHD at 01-Sep-2024 08:42:54 AM [facility] Normal Not Available Comment on above: Order [...] High Riskon 07-20-19 25 HPV Interp Normal [facility] Comment on above: Result Comment: [...] purposes. Performed By: #### H PVH #### [employer] [address] [place] [address] Assistant Loan Processor: Gopi Yoder MD HPV Type 16 Not detected [facility] Comment on above: Performed By: #### H PVH #### [facility] [address] [place] [phone] Assistant Loan Processor: Gopi Yoder MD HPV Type 18 Not detected [facility] Comment on above: Performed By: #### H PVH #### [facility] [address] [place] [address] Assistant Loan Processor: Gopi Yoder MD Other High Risk HPV Not detected [facility] Comment on above: Performed By: #### H PVH #### [employer] [address] [place], [place] [phone] Loan Processor: Gopi Yoder MD MHPT HPV DNA HIGH RISKon PT HPV INTERP [facility] Comment on above: This test amplifies [...] MHPT HPV SAMPLE .THIN PREP [facility] TYPE 16 Not detected NOTDET [facility] TYPE 18 Not detected NOTDET [facility] OTHER HIGH RISK HPV Not [facility]ERVICAL MATERIAL [facility] Original Ordering Provider: NADJA BREWSTER [facility] Healthcar e HPV DNA High Riskon 07-19-19 25 HPV Sample .THIN PREP Normal [facility] Comment on above: Performed By: #### H PVH #### [address] [id number] Assistant Loan Processor: Gopi Yoder MD Source CERVICAL MATERIAL Normal [facility] Comment on above: Performed By: #### H PVH #### [place] [id number] [place], [place] [id number] Assistant Loan Processor: Gopi Yoder MD Cytology Reporton 07-18-2024 Cytology report Cyto stain.thin prep Doc (Cvx/Vag) (NOTE) Path Number: [id number] DIAGNOSIS Imaged ThinPrep Pap - Cervical (1 monolayer slide): Specimen Adequacy: Satisfactory for evaluation. - Endocervical/transf ormation zone component present. Descriptive Diagnosis: Negative for intraepithelial lesion or malignancy. Comments: Specimen was screened at [facility], [address] [place] [id number] [employer] Screener: CS Rescreened By: HOOD Electronically [...] or for other forensic purposes. Performed at [facility], [facility] [place] [address] . Source of Specimen: A: Imaged ThinPrep Pap - Cervical (1 monolayer slide) HPV Reflex?............ 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 findings Z11.51 Encounter for screening for HPV Processing Lab: [facility] [address] [place] [address] Interpretation performed at [facility], [address] [place] [address] This Pap Test has been evaluated with [...] GYNECOLOGIC CYTOLOGY REPORT Patient Name: BARBARA FISCHER [facility] Rec: [id number] [facility] [email or web address] [facility] ANATOMIC PATHOLOGY [address] [place] [phone] Normal [facility] ALL PROGESTERONEon PROGESTERONE 0.2 ng/mL . [facility] are Comment on above: Follicular phase 0.1 - 0.9 Luteal phase 1.8 - 23.9 Ovulation phase 0.1 - 12.0 First trimester 11.0 - 44.3 Second trimester 25.4 - 83.3 Third trimester 58.7 - 214.0 Postmenopausal 0.0 - 0.1 Performed at: [address] [id number] Assistant Loan Processor: Michel Carlos PhD, Phone: [phone] [facility] Influenza virus B Ag [Presen ce] in Upper respiratory specimen by Rapid immunoassayon 08-29-2023 FLUBV Ag IA.rapid Ql (Nph) Negative [facility] No Panel Informationon 08-28 Influenza Type A (Rapid) Negative [facility] POC SARS CoV-2 Antigen Negative [facility] No Panel InformationOrdered By: Polly Jurado on 08-29-2023 Quick Strep (POC) [facility] PROGESTERONEon 10-01-2022 Progesterone 0.2 ng/mL Normal [facility] Comment on above: Result Comment: Foll icular phase 0.1 - 0.9 Luteal phase 1.8 - 23.9 Ovulation phase 0.1 - 12.0 First trimester 11.0 - 44.3 Second trimester 25.4 - 83.3 Third trimester 58.7 - 214.0 Postmenopausal 0.0 - 0.1 Performed By: #### P LORRI #### [facility] [address] [place], [place] [address] Dr. Ruth Conte Vital Signs Date Time Vital Sign Value Performing Clinician Facility 03-13-2025 13:26-0400 Body height 165.1 cm Kamryn Draper MD Work Phone: [facility] 03-13-2025 13:26-0400 Body mass index (BMI) [Ratio] 37.38 kg/m2 Kamryn Draper MD Work Phone: [facility] 03-13-2025 13:26-0400 Body weight 101.88 kg Kamryn Draper MD Work Phone: [facility] 02-23-2025 13:47-0400 Body height 165.1 cm Bree Jorge 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 Work Phone: [facility] 02-23-2025 13:47-0400 Body mass index (BMI) [Ratio] 37.67 kg/m2 Bree Jorge 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 Work Phone: [facility] 02-23-2025 13:47-0400 Body weight 102.69 kg Bree Jorge 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 Work Phone: [facility] 11-16-2024 13:14-0400 Body height 165.1 cm Karl Arrington MD Work Phone: [facility] 11-16-2024 13:14-0400 Body mass index (BMI) [Ratio] 39.44 kg/m2 Karl Arrington MD Work Phone: [facility] 11-16-2024 13:14-0400 Body weight 107.5 kg Karl Arrington MD Work Phone: [facility] 11-14-2024 14:12-0400 Body height 165.1 cm Deanna Graf NP Work Phone: [facility] 11-14-2024 14:12-0400 Body mass index (BMI) [Ratio] 40.27 kg/m2 Deanna Graf CIGARETTE TIPPER Work Phone: [facility] 11-14-2024 14:12-0400 Body temperature 97.2 [degF] Deanna Graf NP Work Phone: [facility] 11-14-2024 14:12-0400 Body weight 109.77 kg Deanna Graf CIGARETTE TIPPER Work Phone: [facility] 11-14-2024 14:12-0400 Diastolic blood pressure 68 mm[Hg] Deanna Graf CIGARETTE TIPPER Work Phone: [facility] 11-14-2024 14:12-0400 Heart rate 63 /min Deanna Graf CIGARETTE TIPPER Work Phone: [facility] 11-14-2024 14:12-0400 SaO2% (BldA) [Mass fraction] 99 % Deanna Graf CIGARETTE TIPPER Work Phone: [facility] 11-14-2024 14:12-0400 Systolic blood pressure 108 mm[Hg] Deanna Graf CIGARETTE TIPPER Work Phone: [facility] 09-29-2024 12:07-0400 Body height 165.1 cm Justino Tommy RECIO-MOBILE PET GROOMER Work Phone: [facility] 09-29-2024 12:07-0400 Body mass index (BMI) [Ratio] 41.35 kg/m2 Justino Sanders HEMAL-MOBILE PET GROOMER Work Phone: [facility] 09-29-2024 12:07-0400 Body weight 112.72 kg Justino Sanders HEMAL-MOBILE PET GROOMER Work Phone: [facility] 09-14-2024 15:34-0400 Body height 165.1 cm Roslyn Rodriguez MD Work Phone: [facility] 09-14-2024 15:34-0400 Body mass index (BMI) [Ratio] 42 kg/m2 Roslyn Rodriguez MD Work Phone: [facility] 09-14-2024 15:34-0400 Body weight 114.49 kg Roslyn Rodriguez MD Work Phone: [facility] 08-09-2024 08:28-0500 Body height 165.1 cm Karl Arrington MD Work Phone: [facility] 08-09-2024 08:28-0500 Body mass index (BMI) [Ratio] 44.6 kg/m2 Karl Arrington MD Work Phone: [facility] 08-09-2024 08:28-0500 Body weight 121.56 kg Karl Arrington MD Work Phone: [facility] 12-22-2023 12:17-0400 Body height 165.1 cm Karl Arrington MD Work Phone: [facility] 12-22-2023 12:17-0400 Body mass index (BMI) [Ratio] 54.91 kg/m2 Karl Arrington MD Work Phone: [facility] 12-22-2023 12:17-0400 Body weight 149.69 kg Karl Arrington MD Work Phone: [facility] 12-10-2023 09:24-0400 Body height 165.1 cm Roslyn Rodriguez MD Work Phone: [facility] 12-10-2023 09:24-0400 Body mass index (BMI) [Ratio] 54.91 kg/m2 Roslyn Rodriguez MD Work Phone: [facility] 12-10-2023 09:24-0400 Body weight 149.69 kg Roslyn Rodriguez MD Work Phone: [facility] 12-10-2023 09:24-0400 Diastolic blood pressure 76 mm[Hg] Roslyn Rodriguez MD Work Phone: [facility] 12-10-2023 09:24-0400 Heart rate 47 /min Roslyn Rodriguez MD Work Phone: [facility] 12-10-2023 09:24-0400 Systolic blood pressure 116 mm[Hg] Roslyn Rodriguez MD Work Phone: [facility] 08-29-2023 11:25-0400 Body height 165.1 cm [facility] 08-29-2023 11:25-0400 Body mass index (BMI) [Ratio] 54.1 kg/m2 [facility] 08-29-2023 11:25-040 Body temperature 98 [degF] [facility] 08-29-2023 11:25040 Body weight 147.41 kg [facility] 08-29-2023 11:25-0400 Heart rate 101 /min [facility] 08-29-2023 11:25040 Respiratory rate 18 /min [facility] 08-29-2023 11:25-0400 SaO2% (BldA) [Mass fraction] 97 % [facility] Encounters Encounter Date Encounter Type Care Provider Facility Start: 03-13-2025 End: 03-13-2025 Telemedicine consultation with patient Kamryn Draper MD Work Phone: [facility] Comment on above: PCOS (polycystic ova kailyn syndrome) (Primary Dx); Female infertility Start: 03-13-2025 End: 03-13-2025 ambulatory KAMRYN DRAPER [facility] Start: 02-23-2025 End: 02-23-2025 Office outpatient visit 40 minutes [facility] 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 Work Phone: [facility] Comment on above: Obesity, class 2 (Pr imary Dx); BMI 37.0-37.9, adult; PCOS (polycystic ovarian syndrome); Insulin resistance; History of infertility Start: 02-23-2025 End: 02-23-2025 ambulatory [facility] Ambulatory Start: 01-26-2025 End: 01-26-2025 ambulatory [facility] Start: 01-25-2025 End: 01-25-2025 ambulatory [facility] Start: 01-24-2025 End: 01-26-2025 Clinisync Result Encounter Generic External Data Provider [facility] External Department Unsolicited Start: 01-24-2025 End: 01-26-2025 Clinisync Result Encounter Generic External Data Provider [facility] External Department Unsolicited Start: 01-24-2025 End: 01-24-2025 ambulatory [facility] Start: 01-16-2025 End: 01-16-2025 ambulatory [facility] Start: 01-03-2025 End: 01-04-2025 Clinisync Result Encounter Generic External Data Provider [facility] External Department Unsolicited Start: 01-03-2025 End: 01-04-2025 Clinisync Result Encounter Generic External Data Provider [facility] External Department Unsolicited Start: 12-14-2024 End: 12-14-2024 ambulatory [facility] Start: 12-13-2024 End: 12-13-2024 ambulatory [facility] Start: 12-12-2024 End: 12-12-2024 Clinisync Result Encounter Generic External Data Provider [facility] External Department Unsolicited Start: 12-12-2024 End: 12-12-2024 Clinisync Result Encounter Generic External Data Provider [facility] External Department Unsolicited Start: 12-12-2024 End: 12-12-2024 ambulatory [facility] Start: 11-16-2024 End: 11-16-2024 Office outpatient visit 40 minutes Karl Arrington MD Work Phone: [facility] Comment on above: BMI 39.0-39.9,adult; BMI 30.0-30.9,adult Start: 11-16-2024 End: 11-16-2024 ambulatory [facility] Saurabh BURGER [facility] Ambulatory Start: 11-14-2024 End: 11-14-2024 Office outpatient visit 15 minutes Deanna Graf NP Work Phone: [facility] Comment on above: Plantar wart, right foot (Primary Dx); Class 3 severe obesity due to excess calories without serious comorbidity with body mass index (BMI) of 40.0 to 44.9 in adult Start: 11-14-2024 End: 11-14-2024 ambulatory DEANNA GRAF Not Available Start: 11-14-2024 End: 11-14-2024 Bamboo flowsheet Deanna Graf NP Work Phone: [facility] Start: 11-14-2024 End: 11-14-2024 Pradeepo merline Graf [employer] Work Phone: [facility] Start: 11-08-2024 End: 11-08-2024 [facility] Start: 11-04-2024 End: 11-04-2024 [facility] Start: 10-18-2024 End: 10-18-2024 [facility] Start: 10-17-2024 End: 10-18-2024 Clinisync Result Encounter Generic External Data Provider [facility] External Department Unsolicited Start: 10-17-2024 End: 10-18-2024 Clinisync Result Encounter Generic External Data Provider [facility] External Department Unsolicited Start: 10-17-2024 End: 10-17-2024 [facility] Start: 10-16-2024 End: 10-16-2024 [facility] Start: 09-29-2024 End: 09-29-2024 Telemedicine consultation with patient Justino Sanders 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 Work Phone: Dillon Carlos Comment on above: Female infertility [ N97.9] (Primary Dx) Start: 09-29-2024 End: 09-29-2024 ambulatory JUSTINO SANDERS [facility] Start: 09-28-2024 End: 09-28-2024 [facility] Start: 09-28-2024 End: 09-28-2024 Encounter for blood typing [facility] Start: 09-17-2024 End: 09-17-2024 Clinisync [...] Start: 09-15-2024 End: 09-15-2024 ambulatory ROSLYN [facility] Start: 08-30-2024 End: 08-30-2024 ambulatory JOE MARTINEZ Not Available Start: 08-09-2024 End: 08-09-2024 Office outpatient visit 40 minutes Karl Arrington MD Work Phone: [facility] Comment on above: Class 3 obesity (Carla justino Dx); BMI 40.0-44.9, adult (Multi); Encounter for weight management Start: 08-09-2024 End: 08-09-2024 ambulatory KARL BURGER NURY [facility] Ambulatory Start: 08-01-2024 End: 08-01-2024 Clinisync Result Encounter Generic External Data Provider [facility] External Department Unsolicited Start: 08-01-2024 End: 08-01-2024 Clinisync Result Encounter Generic External Data Provider [facility] External Department Unsolicited Start: 07-18-2024 End: 07-18-2024 ambulatory [facility] Start: 07-18-2024 End: 07-18-2024 Encounter for gynecological examination (general) (routine) without abnormal findings [facility] Start: 07-18-2024 End: 07-18-2024 Subsequent hospital visit by physician Lalit Bedolla MD Work Phone: [facility] Start: 07-18-2024 End: 07-20-2024 Clinisync Result Encounter Generic External Data Provider [facility] External Department Unsolicited Start: 07-18-2024 End: 07-20-2024 Clinisync Result Encounter Generic External Data Provider [facility] External Department Unsolicited Start: 06-10-2024 End: 06-11-2024 Clinisync Result Encounter Joe Martinez DO Work Phone: [facility] External Department Unsolicited Start: 06-10-2024 End: 06-11-2024 Clinisync Result Encounter Joe Martinez DO Work Phone: [facility] External Department Unsolicited Start: 12-22-2023 End: 12-22-2023 Office consultation new/estab patient 60 min Karl Arrington MD Work Phone: [facility] Comment on above: BMI 50.0-59.9, adult (Multi) (Primary Dx); Encounter for weight management; Super obesity Start: 12-10-2023 End: 12-10-2023 Patient encounter procedure Roslyn Rodriguez MD Work Phone: [facility] Comment on above: Secondary oligomenor alicia (Primary [...] encounter status Roslyn Rodriguez MD Work Phone: [facility] Work Phone: Start: 09-14-2023 End: 09-14-2023 ambulatory LALIT BEDOLLA [facility] Start: 08-29-2023 End: 08-29-2023 ambulatory [facility] Work Phone: Start: 08-29-2023 End: 08-29-2023 Patient encounter procedure [facility] Physician [facility] Work Phone: Start: 09-30-2022 End: 10-01-[address] JOE MARTINEZ . Facility: Start: 07-15-2022 End: 07-15-2022 Subsequent hospital visit by physician Lalit Bedolla MD Other Phone: [facility] Procedures Date Procedure Procedure Detail Performing Clinician Start: 03-13-2025 Follow-up visit Follow-up KAMRYN DRAPER Start: 01-24-2025 ALL PROGESTERONE Generi c External Data Provider Start: 01-03-2025 ALL HEPATITIS C AB Gene tatyana External Data Provider Start: 01-03-2025 HBSAG SCREEN Generic Ex ternal Data Provider Start: 01-03-2025 RAPID PLASMA REAGIN, QUANT Generic External Data Provider Start: 12-12-2024 TBH PREG QUANT HCG Gene tatyana External Data Provider Start: 10-17-2024 ALL PROGESTERONE Generi c External Data Provider Start: 09-17-2024 ALL CBC WITH AUTO DIFF Generic External Data Provider Start: 08-01-2024 TB PREG QUANT HCG Gene tatyana External Data Provider Start: 07-18-2024 Microscopic observat ion [Identifier] in Cervix by Cyto stain Karl Arrington MD Work Phone: Start: 07-18-2024 MHPT HPV DNA HIGH RISK Generic External Data Provider Start: 06-10-2024 ALL PROGESTERONE Generi c External Data Provider Start: 08-29-2023 Quick Strep (POC) Start: 07-15-2023 Microscopic observat ion [Identifier] in Cervix by Cyto stain Joe Martinez DO Work Phone: Start: 07-23-2021 Microscopic observat ion [Identifier] in Cervix by Cyto stain Lalit Bedolla MD Other Phone: Plan of Treatment Date Care Activity Detail Author Start: 2040 Zoster Vaccines (1 of 2) Zoster Vaccines (1 of 2) [facility] Start: 11-27-2031 DTaP/Tdap/Td vaccine (7 - Td or Tdap) DTaP/Tdap/Td vaccine (7 - Td or Tdap) [facility] Start: 11-27-2031 DTaP/Tdap/Td Vaccines (7 - Td or Tdap) DTaP/Tdap/Td Vaccines (7 - Td or Tdap) [facility] Start: 07-18-2029 Screening for malignant neoplasm of cervix [facility] Start: 07-15-2028 Screening for malignant neoplasm of cervix [facility] Start: 07-18-2027 Screening for malignant neoplasm of cervix [facility] Start: 07-15-2026 Screening for malignant neoplasm of cervix Pap Smear [facility] Start: 07-19-2025 Yearly Adult Physical Yearly Adult Physical [facility] Start: 07-18-2025 Depression Screen Depression Screen [facility] Start: 07-18-2025 End: 07-18-2025 Patient encounter procedure 07/18/2025 8:30 AM EST Office Visit [facility] [address] [place] [address] Nadja Brewster APRN - MOBILE PET GROOMER [address] [place] [address] annual [facility] Comment on above: annual Start: 06-19-2025 End: 06-19-2025 Telemedicine consultation with patient 06/19/2025 3:00 PM EST Telemedicine Dillon Carlos [address] [place] [address] [place] [address] [address] Department of ENGAGEMENT LIAISON/[place] [address] Dillon Carlos Start: 03-30-2025 End: 03-30-2025 Telemedicine consultation with patient 03/30/2025 2:00 PM EDT Telemedicine Dillon Carlos [address] [place] [phone] Roslyn Rodriguez MD [address] [place], [place] [id number] Dillon Carlos Start: 03-13-2025 End: 03-13-2025 Telemedicine consultation with patient 03/13/2025 3:00 PM EDT Telemedicine Dillon Carlos [address] [place] [id number] [place] [address] [address] Department of ENGAGEMENT LIAISON/[place] [address] Dillon Carlos Start: 02-13-[address] [facility] Start: 11-14-2024 End: 11-14-2024 Patient encounter procedure 11/14/2024 2:30 PM EDT Office Visit [facility] [address] [place] [id number] [place] [address] [place], [place] [id number] Arrived [facility] Comment on above: Arrived Start: 09-15-2024 End: 09-15-2025 CBC panel - Blood by Automated count CBC Lab Routine Class 3 severe obesity with body mass index (BMI) of 40.0 to 44.9 in adult, unspecified obesity type, unspecified whether serious comorbidity present Expected: 09/15/2024 (Approximate), Expires: 09/15/2025 [facility] Work Phone: Comment on above: Expected: 09/15/2024 (Approximate), Expi res: 09/15/2025 Start: 09-15-2024 End: 09-15-2025 Chlamydia trachomatis and Neisseria gonorrhoeae DNA [Identifier] in Unspecified specimen by ROBBY with probe detection C. trachomatis / N. gonorrhoeae, Amplified, Urogenital Lab Routine Screening for STDs (sexually transmitted diseases) Expected: 09/15/2024 (Approximate), Expires: 09/15/2025 [facility] Work Phone: Comment on above: Expected: 09/15/2024 (Approximate), Expi res: 09/15/2025 Start: 09-15-2024 End: 09-15-2025 Comprehensive metabolic 2000 panel - Serum or Plasma Comprehensive Metabolic Panel Lab Routine Class 3 severe obesity with body mass index (BMI) of 40.0 to 44.9 in adult, unspecified obesity type, unspecified whether serious comorbidity present Expected: 09/15/2024 (Approximate), Expires: 09/15/2025 [facility] Work Phone: Comment on above: Expected: 09/15/2024 (Approximate), Expi res: 09/15/2025 Start: 09-15-2024 End: 09-15-2025 Hemoglobin A1c/Hemoglobin.total in Blood Hemoglobin A1C Lab Routine Screening for diabetes mellitus Expected: 09/15/2024 (Approximate), Expires: 09/15/2025 [facility] Work Phone: Comment on above: Expected: 09/15/2024 (Approximate), Expi res: 09/15/2025 Start: 09-15-2024 End: 09-15-2025 Hepatitis B virus surface Ag [Presence] in Serum or Plasma by Immunoassay Hepatitis B surface antigen Lab Routine Screening for STDs (sexually transmitted diseases) Expected: 09/15/2024 (Approximate), Expires: 09/15/2025 [facility] Service Area Work Phone: Comment on above: Expected: 09/15/2024 (Approximate), Expi res: 09/15/2025 Start: 09-15-2024 End: 09-15-2025 Hepatitis C virus Ab [Presence] in Serum Hepatitis C Antibody Lab Routine Screening for STDs (sexually transmitted diseases) Expected: 09/15/2024 (Approximate), Expires: 09/15/2025 [facility] Work Phone: Comment on above: Expected: 09/15/2024 (Approximate), Expi res: 09/15/2025 Start: 09-15-2024 End: 09-15-2025 HIV 1+2 Ab+HIV1 p24 Ag [Presence] in Serum or Plasma by Immunoassay HIV 1/2 Antigen/Antibody Screen with Reflex to Confirmation Lab Routine Screening for STDs (sexually transmitted diseases) Expected: 09/15/2024 (Approximate), Expires: 09/15/2025 [facility] Work Phone: Comment on above: Expected: 09/15/2024 (Approximate), Expi res: 09/15/2025 Start: 09-15-2024 End: 09-15-2025 Lipid 1996 panel - Serum or Plasma Lipid Panel Lab Routine Class 3 severe obesity with body mass index (BMI) of 40.0 to 44.9 in adult, unspecified obesity type, unspecified whether serious comorbidity present Expected: 09/15/2024 (Approximate), Expires: 09/15/2025 [facility] Work Phone: Comment on above: Expected: 09/15/2024 (Approximate), Expi res: 09/15/2025 Start: 09-15-2024 End: 09-15-2025 Progesterone [Mass/volume] in Serum or Plasma Progesterone Lab Routine Primary oligomenorrhea Expected: 09/15/2024 (Approximate), Expires: 09/15/2025 [facility] Work Phone: Comment on above: Expected: 09/15/2024 (Approximate), Expi res: 09/15/2025 Start: 09-15-2024 End: 09-15-2025 Treponema pallidum IgG+IgM Ab [Presence] in Serum by Immunoassay Syphilis Screen with Reflex Lab Routine Screening for STDs (sexually transmitted diseases) Expected: 09/15/2024 (Approximate), Expires: 09/15/2025 [facility] Work Phone: Comment on above: Expected: 09/15/2024 (Approximate), Expi res: 09/15/2025 Start: 09-15-2024 End: 09-15-2024 Telemedicine consultation with patient 09/15/2024 1:30 PM EDT Telemedicine Dillon Carlos [address] [place] [phone] Roslyn Rodriguez MD [address] [place] [address] Dillon Carlos Start: 07-23-2024 Screening for malignant neoplasm of cervix [facility] Start: 07-18-2024 Screening for malignant neoplasm of cervix HPV (without or with Pap) [facility] Start: 02-14-2024 COVID-19 Vaccine ( season) COVID-19 Vaccine ( season) [facility] Start: 02-14-2024 COVID-19 Vaccine ( season) COVID-19 Vaccine () [facility] Start: 02-14-[address] [facility] Start: 01-14-2024 Influenza vaccination Flu vaccine (#1) [facility] Start: 12-10-2023 End: 12-09-2024 17-Hydroxyprogesterone [Mass/volume] in Serum or Plasma 17-Hydroxyprogesterone Lab Routine Secondary oligomenorrhea Expected: 12/10/2023 (Approximate), Expires: 12/09/2024 [facility] Work Phone: Comment on above: Expected: 12/10/2023 (Approximate), Expi res: 12/09/2024 Start: 12-10-2023 End: 12-09-2024 Blood type and Indirect antibody screen panel - Blood Type And Screen Lab Routine Encounter for Rh blood typing Expected: 12/10/2023 (Approximate), Expires: 12/09/2024 [facility] Work Phone: Comment on above: Expected: 12/10/2023 (Approximate), Expi res: 12/09/2024 Start: 12-10-2023 End: 12-09-2024 Dehydroepiandrosterone sulfate (DHEA-S) [Mass/volume] in Serum or Plasma Dhea-Sulfate Lab Routine Secondary oligomenorrhea Expected: 12/10/2023 (Approximate), Expires: 12/09/2024 [facility] Work Phone: Comment on above: Expected: 12/10/2023 (Approximate), Expi res: 12/09/2024 Start: 12-10-2023 End: 12-09-2024 Hemoglobin A1c/Hemoglobin.total in Blood Hemoglobin A1C Lab Routine Screening for diabetes mellitus Expected: 12/10/2023 (Approximate), Expires: 12/09/2024 [facility] Work Phone: Comment on above: Expected: [...] Fertility testing Expected: 12/10/2023 (Approximate), Expires: 12/09/2024 [facility] Work Phone: Comment on above: Expected: 12/10/2023 (Approximate), Expi res: 12/09/2024 Start: 12-10-2023 End: 12-09-2024 Prolactin [Mass/volume] in Serum or Plasma Prolactin Lab Routine Secondary oligomenorrhea Expected: 12/10/2023 (Approximate), Expires: 12/09/2024 [facility] Work Phone: Comment on above: Expected: 12/10/2023 (Approximate), Expi res: 12/09/2024 Start: 12-10-2023 End: 12-09-2024 Rubella virus IgG Ab [Units/volume] in Serum Rubella Antibody, Igg Lab Routine Encounter for screening for other viral diseases Expected: 12/10/2023 (Approximate), Expires: 12/09/2024 [facility] Work Phone: Comment on above: Expected: 12/10/2023 (Approximate), Expi res: 12/09/2024 Start: 12-10-2023 End: 12-09-2024 Testosterone,Free and Total Testosterone,Free and Total Lab Routine Secondary oligomenorrhea Expected: 12/10/2023 (Approximate), Expires: 12/09/2024 [facility] Work Phone: Comment on above: Expected: 12/10/2023 (Approximate), Expi res: 12/09/2024 Start: 12-10-2023 End: 12-09-2024 TSH with reflex to Free T4 if abnormal TSH with reflex to Free T4 if abnormal Lab Routine Secondary oligomenorrhea Expected: 12/10/2023 (Approximate), Expires: 12/09/2024 [facility] Work Phone: Comment on above: Expected: 12/10/2023 (Approximate), Expi res: 12/09/2024 Start: 12-10-2023 End: 12-09-2024 Varicella zoster virus IgG Ab [Presence] in Serum by Immunoassay Varicella Zoster Antibody, Igg Lab Routine Encounter for screening for other viral diseases Expected: 12/10/2023 (Approximate), Expires: 12/09/2024 [facility] Work Phone: Comment on above: Expected: 12/10/2023 (Approximate), Expi res: 12/09/2024 Start: 07-15-2023 End: 07-15-2023 Patient encounter procedure 07/15/2023 Office Visit Obstetrics and Gynecology Nadja Brewster, WATER PUMPING STATION ENGINEER - MOBILE PET GROOMER [address] [place] [address] [facility] Start: 02-13-2023 COVID-19 Vaccine ( season) COVID-19 Vaccine ( season) [facility] Start: 02-13-2023 COVID-19 Vaccine ( season) COVID-19 Vaccine ( season) [facility] Start: 04-21-2022 COVID-19 Vaccine (2 - Pfizer risk series) COVID-19 Vaccine (2 - Pfizer risk series) [facility] Start: 01-13-2022 Influenza vaccination Flu vaccine (#1) [facility] Start: 2017 HPV Vaccines (1 - 3-dose standard series) HPV Vaccines (1 - 3-dose standard series) [facility] Start: 09-24-2011 Screening for malignant neoplasm of cervix [facility] Start: 2009 Hepatitis B vaccine (1 of 3 - 19+ 3-dose series) Hepatitis B vaccine (1 of 3 - 19+ 3-dose series) [facility] Start: 2009 Hepatitis B Vaccines (1 of 3 - 19+ 3-dose series) Hepatitis B Vaccines (1 of 3 - 19+ 3-dose series) [facility] Start: [address] [facility] Start: 2005 HIV screening HIV screen [facility] Start: 09-24-2003 Varicella vaccination Varicella Vaccines (1 of 2 - 13+ 2-dose series) [facility] Start: 09-24-2003 Varicella vaccine (1 of 2 - 13+ 2-dose series) Varicella vaccine (1 of 2 - 13+ 2-dose series) [facility] Start: 2002 Depression Screen Depression Screen [facility] Start: 09-24-1991 Varicella vaccine (1 of 2 - 2-dose childhood series) Varicella vaccine (1 of 2 - 2-dose childhood series) [facility] Start: 1990 HIV screening HIV Screening [facility] Start: 1990 Lipid panel Lipid Panel [facility] Start: 1990 Yearly Adult Physical Yearly Adult Physical [facility] Immunizations Immunization Date Immunization Notes Care Provider Fa pablo 09-17-1995 diphtheria, tetanus toxoids and acellular pertussis vaccine Lalit Bedolla MD Other Phone: [facility] [employer] Phone: 09-17-1995 poliovirus vaccine, inactivated Lalit Bedolla MD Other Phone: [employer] Phone: 03-29-1992 diphtheria, tetanus toxoids and acellular pertussis vaccine Lalit Bedolla MD Other Phone: [employer] Phone: 03-29-1992 poliovirus vaccine, inactivated Lalit Bedolla MD Other Phone: [employer] Phone: 12-26-1991 Hib, unspecified Lalit lopez MD Other Phone: [employer] Phone: 12-26-1991 measles, mumps and rubella virus vaccine Lalit Bedolla MD Other Phone: [employer] Phone: 03-31-1991 diphtheria, tetanus toxoids and acellular pertussis vaccine Lalti Bedolla MD Other Phone: [employer] Phone: 03-31-1991 Hib, unspecified Lalit lopez MD Other Phone: [employer] Phone: 01-25-1991 diphtheria, tetanus toxoids and acellular pertussis vaccine Lalit Bedolla MD Other Phone: [employer] Phone: 01-25-1991 Hib, unspecified Lalit lopez MD Other Phone: [employer] Phone: 01-25-1991 poliovirus vaccine, inactivated Lalit Bedolla MD Other Phone: [employer] Phone: 1990 diphtheria, tetanus toxoids and acellular pertussis vaccine Lalit Bedolla MD Other Phone: [facility] 1990 Hib, unspecified Lalit lopez MD Other Phone: [employer] Phone: 1990 poliovirus vaccine, inactivated Lalit Bedolla MD Other Phone: [employer] Phone: Payers Date Payer Category Payer Private Health Insurance [id number] 2021 Unknown [id number] 2021 Unknown [id number] 1990 Unknown [id number] 2.16.84 0.1.708670.3.579.2.593 1990 Unknown [id number] 2.16.8 40.1.807157.3.579.2.1286 1990 Unknown [id number] 2.16. 840.1.048681.3.579.2.175 1990 Unknown [id number] 2.16.84 0.1.492748.3.579.2.1259 1990 Unknown [id number] 2.16.84 0.1.261946.3.579.2.1259 1990 Unknown [id number] 2.16. 840.1.261287.3.579.2.124 1990 Unknown [id number] 2.16. 840.1.635661.3.579.2.1245 1990 Unknown [id number] 2.16. 840.1.175579.3.579.2.1245 1990 Unknown [id number] 2.16. 840.1.587537.3.579.2.124 1990 Unknown [id number] 2.16. 840.1.501247.3.579.2.124 1990 Unknown [id number] 2.16. 840.1.986218.3.579.2.1244 1990 Unknown [id number] 2.16. 840.1.794271.3.579.2.1245 1990 Unknown [id number] 2.16. 840.1.692652.3.579.2.1245 11-1991 Unknown [id number] 2.16. 840.1.786540.3.579.2.1244 1990 Unknown [id number] 2.16. 840.1.150830.3.579.2.1244 1990 Unknown [id number] 2.16. 840.1.498921.3.579.2.1244 1990 Unknown [id number] 2.16. 840.1.687960.3.579.2.1244 1990 Unknown [id number] 2.16. 840.1.095491.3.579.2.1244 1990 Unknown [id number] 2.16. 840.1.362749.3.579.2.1244 1990 Unknown [id number] 2.16. 840.1.931903.3.579.2.1244 1990 Unknown [id number] 2.16. 840.1.152453.3.579.2.1243 1990 Unknown [id number] 2.16. 840.1.288570.3.579.2.1243 1990 Unknown [id number] 2.16. 840.1.734633.3.579.2.1243 1990 Unknown [id number] 2.16. 840.1.662602.3.579.2.1243 1959 Unknown [id number] Social History Date Type Detail Facility Start: 08-29-2023 End: 12-10-2023 Tobacco smoking status [facility] Never smoked tobacco [facility] Start: 07-15-2022 End: 03-13-2025 Alcohol intake Current drinker of alcohol (finding) [employer] Phone: Start: 07-15-2022 History SDOH Financial 5 [facility] Work Phone: Start: 07-15-2022 History SDOH Food Worry 1 [employer] Phone: Start: 07-15-2022 Alcohol Comment I may have one drink every couple weeks [facility] Work Phone: Start: 1990 Sex Assigned At Not on file [facility] Work Phone: Start: 1990 Sex Assigned At Female [facility] Start: 05-05-2023 End: 12-10-2023 Tobacco use and exposure Smokeless tobacco non-user [facility] Work Phone: Start: 12-10-[address] [facility] Work Phone: Start: 12-10-2023 End: 03-13-2025 Gender identity Not on file [facility] Work Phone: Start: 11-30-2023 End: 12-22-2023 Exposure to SARS-CoV-2 (event) Not sure [facility] Start: 12-10-2023 End: 03-13-2025 History of [address] [facility] Work Phone: Start: 05-06-2023 Alcohol Comment caffeine: 1-2 cups per day iced tea, coffee, diet pop [facility] Start: 06-16-2023 How hard is it for you to pay for the very basics like food, housing, medical care, and heating Not hard at all [employer] (I/We) worried khushboo er (my/our) food would run out before (I/we) got money to buy more. Never true [employer] Start: 07-30-2024 End: 09-29-2024 Exposure to SARS-CoV-2 (event) Unable to assess [facility] How often do you nee d to have someone help you when you read instructions, pamphlets, or other written material from your doctor or pharmacy [SILS] Never [facility] Within the last year , have you been afraid of your partner or ex-partner? No [facility] Do you belong to any clubs or organizations such as adventism groups, unions, fraternal or athletic groups, or [...] Healthcare Functional Status Date Assessment Result Facility 03-13-2025 Patient Health [facility] ionnaire 2 item (PHQ-2) [Reported] [facility] Work Phone: 03-13-2025 [facility] suicide s everity rating scale screener - recent [C-SSRS] [facility] Work Phone: 03-13-[address] [facility] 03-13-2025 [facility] Work Phone: 02-23-2025 Patient Health Quest ionnaire 2 item (PHQ-2) [Reported] [facility] Work Phone: 11-14-2024 Patient Health Quest ionnaire 2 item (PHQ-2) [Reported] [facility] 11-14-2024 Total score [AUDIT-C] 3 11/15/19 25 11:57 AM EDT Mychart, Generic [facility] 11-14-2024 How often to you hav e a drink containing alcohol? 2-4 times a month 11/14/2024 11:57 AM EDT Mychart, Generic 2-4 times a month [facility] 11-14-[address] inks containing alcohol do you have on a typical day? 1 or 2 11/14/2024 11:57 AM EDT Mychart, Generic 1 or 2 [facility] 11-14-2024 How often do you hav e 6 or more drinks on 1 occasion? Less than monthly 11/14/2024 11:57 AM EDT Mychart, Generic Less than monthly [facility] 09-29-2024 [place] - suicide s everity rating scale screener - recent [C-SSRS] [facility] Work Phone: 09-29-2024 Patient Health Quest ionnaire 2 item (PHQ-2) [Reported] [facility] Work Phone: [facility] Work Phone: Clinical Notes 12-10-2023 to 03-13-2025 Roslyn Rodriguez MD - 03/13/2025 3:00 PM EDTBABDOUL Vasquez - 02/23/2025 3:00 PM EDTPatient InstructionsReedwin Arrington MD - 11/16/2024 1:00 PM EDTPatient Instructions Note Date & Type Note Facility 03-13-2025 History of Present illness Narrative Virtual or Telephone Consent: An interactive audio and video telecommunication system which permits real time communications between the patient (at the originating site) and provider (at the distant site) was utilized to provide this telehealth service Partner is absent for today's visit. Authorization to share is not on file. Discussion limited to patient's individual care. (Patient reports signing it with partner) Follow Up Visit HPI Patient is a 34 y.o. female with PCOS with primary infertility x 4 years presenting today for follow up visit. At last appt was interested in starting OI again now that she has lost weight. Plan at last appt Patient interested in trying OI again now [...] to stay on Mounjaro until + test Interval history- Continuing Mounjaro/lifestyle modifications has lost 100 pounds in total - Tried above cycles all the way up to letrozole 7.5 + clomid 100 mg without ovulating Patient had A1C 12/2024: 4.8% Testing to date: Prior Labs- 2020 [facility]- 19 PRL 22 TSH 0.99 HgA1C 5.2% Hysterosalpingogram: None Saline Infused Sonography: Thinks she had this done in [place] and was told tubes patent Has had normal diagnostic hysteroscopy at [facility] -Reports she did have lysis of adhesions on a hysteroscopy prior to FETs ANIMAL STICKER Pelvic Ultrasound: US PELVIS (09/01/2024): FINDINGS: UTERUS [...] flow within the bilateral ovaries. Partner SA: (from Dr. Rodriguez's note) Aamir Fischer Partner : Partner :: [birth year]/92 Done in [place] 2020 Was told normal Genetic screening Hx: none Treatment to date: Had fertility assessment at [facility]- 2020 Was given diagnosis of PCOS [...] Letrozole./Clomid and Letrozole clomid combination without ovulating Fertility Cycles Cycle Name Treatment Start Date Type Outcome Cycle Created on 09/20/2024 Active Medical History[1] Surgical History[2] Medications Ordered Prior to Encounter[3] BMI: BMI Readings from Last 1 Encounters: 02/23/25 37.67 kg/m VITALS: There were no vitals taken for this visit. LMP: No LMP recorded. ASSESSMENT 34 y.o. female with PCOS with primary infertility x 4 years and class II obesity on moun presenting today for follow up visit. PCOS - patient did not ovulate with letrozole + clomid - discussed monitoring with trigger vs. FET of remaining embryo (1 euploid and 1 mosaic) vs. Laparoscopic ovarian drilling vs. SO/monitoring - pt wants least invasive option first prior to FET. However, would likely do FET prior to surgery - discussed risks with SO and multiples - plan for letrozole 7.5 mg+ clomid 150 mg/monitoring/trigger/TIC+cd 21 P4 x 3 cycles (however if not responding after one cycle needs follow up to discuss next steps) FOLLOW UP Consults: none Engaged MD Take vitamins, vitamin D 2000 IUs daily Discussed that treatment cannot proceed until checklist items are complete. Additional testing for BMI < 18 or > 40: completed at last appt; BMI now < 40. Patient to schedule follow up visit in 3 months. Advised patient to arrange this now with the front office clerk. Chart to primary nurse for care coordination and patient check list/education. MD Completion: Ectopic Risk: No Medically Complex: Yes obesity on Outstanding boarding pass items: none ([facility] Fertility Plan Update: - plan for letrozole 7.5 mg + clomid 150/monitoring/trigger/TIC+cd 21 P4 x 3 cycles (however if not responding after one cycle needs follow up to discuss next steps) Intimate Exam Performed: No, an intimate exam was not performed at this encounter. Kamryn Draper 03/13/2025 9:44 AM I reviewed the sung and critical portions of the history and physical exam and/or was physically present for the sung and critical portions performed by the fellow. I reviewed the fellow's documentation and discussed the patient with the fellow. I agree with the fellow's medical decision making as documented on the fellow's note. Agree with above fellow note. Reasonable to try max dose oral meds (letrozole 7.5 mg + clomid 150 mg) with office monitoring and trigger. If she does not respond to this she will consider transfer of her previously frozen embryo vs. Other options (e.g. Letrozole +FSH for IUI). Roslyn Rodriguez 03/17/25 12:09 PM [1] Past Medical History: Diagnosis Date Insulin resistance Polycystic ovary syndrome [2] Past Surgical History: Procedure Laterality Date HYSTEROSCOPY Bilateral TONSILLECTOMY [3] Current Outpatient Medications on File Prior to Visit Medication Sig Dispense Refill clomiPHENE (Clomid) 50 mg tablet Take 2 tablets (100 mg) by mouth once daily. Cycle days 3-7 10 tablet 0 clomiPHENE (Clomid) 50 mg tablet Take 2 tablets (100 mg) by mouth once daily. Cycle days 3-7 10 tablet 0 letrozole (Femara) 2.5 mg tablet Take 3 tablets (7.5 mg total) by mouth once daily. Take 3 tablets by mouth cycle days 3-7 after negative urine test every cycle before starting letrozole. 15 tablet 0 medroxyPROGESTERone (Provera) 10 mg tablet Take 1 tablet (10 mg) by mouth once daily. Take days for 10 days each month get menses 10 tablet 0 medroxyPROGESTERone (Provera) 10 mg tablet Take 1 tablet (10 mg) by mouth once daily. 10 tablet 0 norgestimate-ethinyl estradioL (Sprintec, 28,) 0.25-35 mg-mcg tablet Take 1 tablet by mouth once daily. (Patient not taking: Reported on 12/22/2023) 28 tablet 12 tirzepatide, weight loss, (Zepbound) 10 mg/0.5 mL injection Inject 10 mg under the skin every 7 days. 4 each 2 No current facility-administered medications on file prior to visit. documented in this encounter [facility] Work Phone: 02-23-2025 History of Present illness Narrative Holli Fischer is a 34 y.o. female with a hx of obesity, infertility, PCOS, and insulin resistance who presents for weight management and obesity medicine follow up. EVELIO 11/16/24 with Jennyfer Josue, initial visit with this provider Seen Lexie Finch 01/16/25 She has had 100 pound weight loss since 01/14/24 with use of Mounjaro and with nutritional intervention/changes to diet, and consistent physical exercise 5 times per week with strength and resistance Current Plan 1. Nutrition: Mediterranean Diet and Healthy Plate 2. Sleep: Stable 3. Stress: Stable 4. Exercise: Incorporating consistently- mon-fri at the [facility] 5. Appetite control: Stable Obesity medication: Zepbound- 10 mg 6. Prior Goals: Specific Prior Goals set: 11/16/24with Karl Arrington MD add strength training to 3 days a week New Goals: Nutrition- continue with plan you discussed at your last consult with Lexie Finch RD that includes Healthy Plate, meal prep and mindful eating, Exercise- continue with 5 days a week of strength and resistance exercise, Medication- Zepbound 10mg/0.5 ml, and Follow-up- 1-2 months Weight trend: Wt Readings from Last 10 Encounters: 02/23/25 103 kg (226 lb 6.4 oz) 01/16/25 103 kg (228 lb) 11/16/24 108 kg (237 lb) 09/29/24 113 kg (248 lb 8 oz) 09/14/24 114 kg (252 lb 6.4 oz) 08/09/24 122 kg (268 lb) 01/14/24 147 kg (324 lb) 12/22/23 150 kg (330 lb) 12/10/23 150 kg (330 lb) 02/23/25 103 kg (226 lb) Recent weight: Current Medications[1] ROS: System: normal Eyes : [...] Substance and Sexual Activity Alcohol use: Yes Alcohol/week: 1.0 standard drink of alcohol Types: 1 Standard drinks or equivalent per week Comment: Occassionally Drug use: Never Sexual activity: Yes Partners: Male control/protection: None Other Topics Concern Not on file Social History Narrative Not on file Social Drivers of Health Financial Resource Strain: Low Risk (11/14/2024) Received from [facility] Overall Financial Resource Strain (CARDIA) Difficulty of Paying Living Expenses: Not hard at all Food Insecurity: No Food Insecurity (11/14/2024) Received from [facility] Hunger Vital Sign Within the past 12 months, you worried that your food would run out before you got the money to buy more.: Never true Within the past 12 months, the food you bought just didn't last and you didn't have money to get more.: Never true Transportation Needs: No Transportation Needs (11/14/2024) Received from [facility] PRAPARE - Transportation Lack of Transportation (Medical): No Lack of Transportation (Non-Medical): No Physical Activity: Sufficiently Active (11/14/2024) Received from [facility] Exercise Vital Sign On average, how many days per week do you engage in moderate to strenuous exercise (like a brisk walk)?: 5 days On average, how many minutes do you engage in exercise at this level?: 70 min Stress: No Stress Concern Present (11/14/2024) Received from [facility] [employer] - Occupational Stress Questionnaire Feeling of Stress : Only a little Social Connections: Socially Integrated (11/14/2024) Received from [facility] Social Connection and Isolation Panel In a typical week, how many times do you talk on the phone with family, friends, or neighbors?: Three times a week How often do you get together with friends or relatives?: Once a week How often do you attend adventism or episcopal services?: More than 4 times per year Do you belong to any clubs or organizations such as adventism groups, unions, fraternal or athletic groups, or school groups?: Yes How often do you attend meetings of the clubs or organizations you belong to?: 1 to 4 times per year Are you , , , , never , or living with a partner?: Intimate Partner Violence: Not At Risk (11/14/2024) Received from [facility] Humiliation, Afraid, Rape, and Kick questionnaire Within the last year, have you been afraid of your partner or ex-partner?: No Within the last year, have you been humiliated or emotionally abused in other ways by your partner or ex-partner?: No Within the last year, have you been kicked, hit, slapped, or otherwise physically hurt by your partner or ex-partner?: No Within the last year, have you been raped or forced to have any kind of sexual activity by your partner or ex-partner?: No Housing Stability: Low Risk (11/14/2024) Received from [facility] Housing Stability Vital Sign In the last 12 months, was there a time when you were not able to pay the mortgage or rent on time?: No In the past 12 months, how many times have you moved where you were living?: 0 At any time in the past 12 months, were you homeless or living in a half-way (including now)?: No Objective Physical Exam: Height 1.651 m (5' 5 ), weight 103 kg (226 lb 6.4 oz). General : alert and oriented X3, no acute distress Eyes : EOMI Assessment/Plan Barbara Fischer is a 34 y.o. female with a hx of obesity, infertility, PCOS, and insulin resistance who presents for follow up for weight management and obesity medicine visit. A/P Follow up: Weight loss goals met with loss of 100 pounds over the last year Problem List Items Addressed This Visit Obesity, class 2 - Primary BMI 37.0-37.9, adult PCOS (polycystic ovarian syndrome) Insulin resistance History of infertility New Goals: Nutrition- continue with plan you discussed at your last consult with Lexie Finch RD that includes Healthy Plate, meal prep and mindful eating, Exercise- continue with 5 days a week of strength and resistance exercise, Medication- Zepbound 10mg/0.5 ml, and Follow-up- 1-2 months [facility] Topic: Fad diets and supplements Dietitian Present during [facility]: Lexie Finch RD, CSOWM, LD, CDCES Weight Management : Reviewed the principles of energy metabolism, caloric intake and expenditure, and rationale for a treatment program. Also reinforced need for reduced calorie, low fat diet and increased physical activity. Follow up in a group or individual visit as determined. [1] Current Outpatient Medications: clomiPHENE (Clomid) 50 mg tablet, Take 2 tablets (100 mg) by mouth once daily. Cycle days 3-7, Disp: 10 tablet, Rfl: 0 letrozole (Femara) 2.5 mg tablet, Take 3 tablets (7.5 mg total) by mouth once daily. Take 3 tablets by mouth cycle days 3-7 after negative urine test every cycle before starting letrozole., Disp: 15 tablet, Rfl: 0 medroxyPROGESTERone (Provera) 10 mg tablet, Take 1 tablet (10 mg) by mouth once daily., Disp: 10 tablet, Rfl: 0 tirzepatide, weight loss, (Zepbound) 10 mg/0.5 mL injection, Inject 10 mg under the skin every 7 days., Disp: 4 each, Rfl: 2 clomiPHENE (Clomid) 50 mg tablet, Take 2 tablets (100 mg) by mouth once daily. Cycle days 3-7, Disp: 10 tablet, Rfl: 0 medroxyPROGESTERone (Provera) 10 mg tablet, Take 1 tablet (10 mg) by mouth once daily. Take days for 10 days each month get menses, Disp: 10 tablet, Rfl: 0 norgestimate-ethinyl estradioL (Sprintec, 28,) 0.25-35 mg-mcg tablet, Take 1 tablet by mouth once daily. (Patient not taking: Reported on 12/22/2023), Disp: 28 tablet, Rfl: 12 [2] Past Medical History: Diagnosis Date Insulin resistance Polycystic ovary syndrome [3] Past Surgical History: Procedure Laterality Date HYSTEROSCOPY Bilateral TONSILLECTOMY documented in this encounter [facility] Work Phone: 02-23-2025 Instructions ABDOUL Lou - 02/23/2025 3:00 PM EDT New Goals: Nutrition- continue with plan you discussed at your last consult with Lexie Finch RD that includes Healthy Plate, meal prep and mindful eating, Exercise- continue with 5 days a week of strength and resistance exercise, Medication- Zepbound 10mg/0.5 ml, and Follow-up- 1-2 months documented in this encounter [facility] Work Phone: 11-16-2024 History of Present illness Narrative Subjective [...] Resource Strain: Low Risk (07/15/2022) Received from [facility] Overall Financial Resource Strain (CARDIA) Difficulty of Paying Living Expenses: Not hard at all Food Insecurity: No Food Insecurity (05/25/2023) [facility] Within the past 12 months [...] Mediterranean lifestyle, ketosis diet. Has met with Lexie Finch, make some good dietary changes. 12/22/23: [...] to 10mg/wk. 7. Goal: to meet with Lexie Finch RD. To add ST 3x/wk. Follow up in a group visit. Karl Arrington MD [1] Current Outpatient Medications: clomiPHENE (Clomid) [...] HYSTEROSCOPY Bilateral TONSILLECTOMY documented in this encounter [facility] Work Phone: 11-14-2024 History of Present [...] mg weekly currently. She is seeing an copyright manager in [place] due to fertility issues in attempting to lose weight before completing her next round of IVF. She does have a group nutrition follow-up with her copyright manager video call scheduled for Thursday. She will [...] fail to improve. documented in this encounter [facility] 09-29-2024 History of Present illness Narrative Boarding [...] Carrier Screening Myriad 2bP: Declined N/A 09/21/2024 ANIMAL STICKER Waiver [x] Date Done Male Labs (required if IUI) Results/Comments AAMIR FISCHER ( ) Hep B sAg Hep [...] lab she wants the order sent to. Justino Sanders 09/29/24 12:55 PM documented in this encounter [facility] Work Phone: 09-15-2024 History of Present [...] for follow up visit. Interval history- On Naveen and has made lifestyle modifications Goes to [...] patent Has had normal diagnostic hysteroscopy at [facility] -Reports she did have lysis of adhesions on a hysteroscopy prior to FETs ANIMAL STICKER Pelvic Ultrasound: US PELVIS (09/01/2024): FINDINGS: UTERUS [...] Partner : Partner :: [birth year]92 Done in [place] 2020 Was told normal Myriad screening: None Treatment to date: Had fertility assessment at [facility]- 2020 Was given diagnosis of PCOS [...] 09/15/2024 1:35 PM documented in this encounter [facility] Work Phone: 08-09-2024 History of Present [...] Resource Strain: Low Risk (07/15/2022) Received from [facility] Overall Financial Resource Strain (CARDIA) Difficulty of Paying Living Expenses: Not hard at all Food Insecurity: No Food Insecurity (05/25/2023) Received from [employer] [employer] Hunger Screening Within the past 12 months [...] Mediterranean lifestyle, ketosis diet. Has met with Lexie Finch, make some good dietary changes. 12/22/23: [...] training. Follow up in a group visit. Karl Arrington MD documented in this encounter [facility] Work Phone: 12-10-2023 History of Present illness Narrative Visit Type: In Person NEW FERTILITY PATIENT VISIT Referred by: Referred by:: Joe Jamil Accompanied today by: Who is accompanying [...] as clinical hirsutism Had fertility assessment at [facility]- 2020 Was given diagnosis of PCOS [...] patent Has had normal diagnostic hysteroscopy at [facility] -Reports she did have lysis of adhesions on a hysteroscopy prior to FETs ANIMAL STICKER Pelvic Ultrasound: 2020 1. 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 Work Phone: 12-10-2023 Instructions Roslyn Rodriguez [...] 12/10/2023 9:38 AM documented in this encounter [facility] Work Phone: Evaluation note No assessment inform ation available [facility] Work Phone: Evaluation note Diagnosis Secondary [...] (Multi) [E66.01, Z68.43] documented in this encounter [facility] Work Phone: Evaluation note* Diagnosis BMI 50.0-59.9, adult (Multi)- Primary Encounter for weight management Super obesity documented in this encounter [facility] Work Phone: Evaluation note* Diagnosis Class 3 obesity- Primary BMI 40.0-44.9, adult (Multi) Encounter for weight management documented in this encounter [facility] Work Phone: Evaluation note* Diagnosis Screening [...] [E28.2] Polycystic ovaries documented in this encounter [facility] Work Phone: Evaluation note* Diagnosis Female infertility [N97.9]- Primary Female infertility of unspecified origin documented in this encounter [facility] Work Phone: Evaluation note* Diagnosis Plantar wart, right foot- Primary Plantar wart Class 3 severe obesity due to excess calories without serious comorbidity with body mass index (BMI) of 40.0 to 44.9 in adult [facility] Diagnosis BMI 39.0-39.9,adult BMI 30.0-30.9,adult documented in this encounter [facility] Work Phone: Evaluation note* Diagnosis Obesity, class 2- Primary BMI 37.0-37.9, adult PCOS (polycystic ovarian syndrome) Polycystic ovaries Insulin resistance Other abnormal glucose History of infertility documented in this encounter [facility] Work Phone: Evaluation note* Diagnosis PCOS (polycystic ovarian syndrome)- Primary Polycystic ovaries Female infertility Female infertility of unspecified origin documented in this encounter [facility] Work Phone: History of Present illness Narrative* Karl Arrington MD - 12/22/2023 2:30 PM EDT [...] Resource Strain: Low Risk (07/15/2022) Received from [facility] Overall Financial Resource Strain (CARDIA) Difficulty of Paying Living Expenses: Not hard at all Food Insecurity: No Food Insecurity (05/25/2023) Received from [facility] [employer] Hunger Screening Within the past 12 months [...] The patient will be referred to the Manager Advertising for education on their diet of choice. [...] weight. Follow up in a group visit. Karl [facility]rington [facility] Reason for referral (narrative)* Consultation (Routine) - Authorized Specialty Diagnoses / Procedures Referred By Pily lott Referred To Contact Nutrition Diagnoses BMI 50.0-59.9, adult (Multi) Karl Orozco MD [address] [facility] [address] [place] [address] Referral ID Status Reason Start Date Expiration Date Visits Requested Visits Authorized [id number] Authorized Specialty Services Required 12/22/2023 12/21/[address] [facility] Work Phone: Summary Purpose Family History No Family History Records FoundNo Family History Records FoundNo Family History Records FoundNo Family History Records FoundNo Family History Records FoundNo Family History Records FoundNo Family History Records Found Advance Directives No Advanced Directives Records Found Advance Directive Response Recorded Date/ Time Advance Directives No August 28, 024 11:00am Chief Complaint and Reason for Visit Chief Complaint left ear pain, runny nose, congestion, cough Additional Source Comments Care Teams (unrecognized sec tion and content) Calf Skinner Relationship Specialty [place] [address] [place] [address] PCP - General Family Medicine 10/18/16 Team Status: Active Member Role Status Dates Outreach [facility] Primary Care Provider Active Team Status: Inactive Member Role Status Dates Polly Jurado [employer] Attending Provider Active S tart: August 29, 2023 End: August 29, 2023 Outreach [facility] Primary Care Provider Active Start: August 29, 2023 End: August 29, 2023 Calf Skinner Relationship Specialty [place] [address] [facility] [place] [address] PCP - General Family Medicine 10/21/22 Calf Skinner Relationship Specialty Start Date End Date Lalit Bedolla MD PCP - General Family Medicine 04/01/16 Calf Skinner Relationship Specialty [place] [address] [facility] [place] [address] PCP - General Family Medicine 10/21/22 Calf Skinner Relationship Specialty Start Date End Date Dipika Cox LPN Licensed Practical Nurse Reproductive Endocrinology and Infertility 09/14/24 Calf Skinner Relationship Specialty [place] [address] [facility] [place] [address] PCP - General Family Medicine 10/21/22 Calf Skinner Relationship Specialty Start Date End Date Dipika Cox LPN Licensed Practical Nurse Reproductive Endocrinology and Infertility 09/14/24 Calf Skinner Relationship Specialty [place] [address] [facility] [place] [address] PCP - General Family Medicine 10/21/22 Calf Skinner Relationship Specialty [place] [address] [place] [address] PCP - General Family Medicine 10/21/22 Calf Skinner Relationship Specialty Start Date End Date Dipika Cox LPN Licensed Practical Nurse Reproductive Endocrinology and Infertility 09/14/24 Calf Skinner Relationship Specialty Start Date End Date Dipika Cox LPN Licensed Practical Nurse Reproductive Endocrinology and Infertility 09/14/24 INFORMATION SOURCE (unrecogn ized section and content) DATE CREATED AUTHOR 10/05/2022 [facility] DATE CREATED AUTHOR AUTHOR'S ORGANIZ ATION 09/14/2023 [facility] DATE CREATED AUTHOR AUTHOR'S ORGANIZ ATION 07/26/2024 [facility] DATE CREATED AUTHOR AUTHOR'S ORGANIZ ATION 10/02/2024 [facility] DATE CREATED AUTHOR AUTHOR'S ORGANIZ ATION 11/15/2024 [facility] EPIC DATE CREATED AUTHOR AUTHOR'S ORGANIZ ATION 03/18/[address] [facility] DATE CREATED AUTHOR AUTHOR'S ORGANIZ ATION 03/21/2025 [facility] Goals (unrecognized section and content) Goals [...] for weight management group meeting Reason Comments Follow-up group Specialty Diagnoses / Procedures Referred By Pily lott Referred To Contact Endocrinology Diagnoses BMI 39.0-39.9,adult Procedures Follow Up In Endocrinology Karl Orozco MD Phone: tel: fax: Referral ID Status Reason Start Date Expiration Date V isits Requested Visits Authorized [id number] Authorized 11/16/2024 11/16/2025 1 1 Reason Comments Follow-up FOR RECORDS PERTAINING TO PATIENTS WHO ARE [...] BE BASED ON THE PRIMARY CLINICAL RECORDS. [facility]. provides no warranty or guarantee of the accuracy or completeness of information in this document.
== END 2025-03-29 10:42 | disposition home or self-care (01) ==
LOC: LAB 10:43
PROVIDERS: PCP Family Medicine
DX: E28.2 Polycystic ovarian syndrome (principal); Z32.00 Encounter for pregnancy test, result unknown
CPT/HCPCS: 36415; 84144; 84702

== ENCOUNTER 2025-04-24 12:25 | Emergency (ER) | payer OTHER, SELFPAY ==
--- OUTSIDE RECORDS SUMMARY | 2025-04-24 09:15 | XMS_ITS | Encounter Summary ---
Author Organization [facility] Address [address] [place] [address] Phone Care Team Providers Care Wine Blender Name Role Phone Dipika Cox LPN Unavailable Un available Reason for Referral * Imaging (Emergency) - Pending ReviewSpecialtyDiagnoses / ProceduresReferred By ContactReferred To ContactReproductive Endocrinology and Infertility Diagnoses Female infertility Procedures JOSEPH US Pelvis Limited Follicles - Follicle Studies Performed CHG US PELVIC NONOBSTETRIC IMAGE DCMTN LIMITED/F/U Yariel Roldan MD [address] [facility] [address] [place] [address] Phone: tel: fax: Referral IDStatusReasonStart DateExpiration DateVisits RequestedVisits [id number] Review Perform Procedure / Reason for Visit * Imaging (Emergency) - AuthorizedSpecialtyDiagnoses / ProceduresReferred By ContactReferred To ContactReproductive Endocrinology and Infertility Diagnoses Female infertility Procedures JOSEPH US Pelvis Limited Follicles - Follicle Studies Performed CHG US PELVIC NONOBSTETRIC IMAGE DCMTN LIMITED/F/U Teena Jones, SODA DRIER FEEDER-PORTRAIT STUDIO PHOTOGRAPHER [address] [place] [address] Phone: tel: fax: Dillon Carlos [address] [address] Phone: tel: fax: Referral IDStatusReasonStart DateExpiration DateVisits RequestedVisits [id number] Perform Procedure Encounter Details DateTypeDepartmentCare Team (Latest Contact Info)Exfkprhgwbd88/10/2025 9:15 AM ESTAncillary Procedure Dillon Carlos [address] [place] [address] Female infertility Social History Tobacco UseTypesPacks/DayYears UsedDateSmoking Tobacco: NeverSmokeless Tobacco: NeverAlcohol UseStandard Drinks/WeekCommentsYes1 (1 standard drink = 0.6 oz pure alcohol)OccassionallyPHQ-2AnswerDate RecordedPatient Health Questionnaire-2 Ruqky134CommentsNoSex and Gender InformationValueDate Recorded Sex Assigned at BirthNot on fileLegal UxoAmaulf12/02/2024 8:19 AM ESTGender IdentityNot on fileSexual OrientationNot on filedocumented as of this encounter Functional Status documented as of this encounter Plan of Treatment DateTypeDepartmentCare Team (Latest Contact Info)Dwincxtdgpx62/05/2026 3:00 PM ESTTelemedicine Dillon Carlos [address] [place] [address] [place] [address] [address] [facility] Department of JEWISH HISTORY PROFESSOR/[place] [address] NameTypePriorityAssociated DiagnosesOrder ScheduleREI US Pelvis Limited Follicles - Follicle Studies PerformedImagingSTAT Female infertility Expected: 04/24/2025 (Approximate), Expires: 04/24/2026Estradiol [Lab Collect] LabSTAT Female infertility Expected: 04/24/2025 (Approximate), Expires: 04/24/2026Progesterone [Clinic Collect]LabSTAT Female infertility Expected: 04/24/2025 (Approximate), Expires: 08/22/2025Luteinizing Hormone (LH) [Lab Collect]LabSTAT Female infertility Expected: 04/24/2025 (Approximate), Expires: 08/22/2025documented as of this encounter Procedures Procedure NamePriorityDate/TimeAssociated DiagnosisCommentsREI US PELVIS LIMITED FOLLICLES-FOLLICLE STUDIES KJBMCEWLWQQGB75/10/2025 9:55 AM EST Female infertility documented in this encounter Results * JOSEPH US Pelvis Limited Follicles - Follicle Studies Performed (04/24/2025 9:55 AM EST)Anatomical RegionLateralityModalityAbdominalUltrasoundSpecimen (Source) Anatomical Location / LateralityCollection Method / VolumeCollection Time Received Time Narrative 04/24/2025 12:34 PM EST Follicle scan performed with follicle measurements in report. Authorizing ProviderResult TypeResult StatusDawguadalupe Jones SODA DRIER FEEDER-CNPIMG US PROCEDURESFinal Result documented in this encounter Visit Diagnoses Diagnosis Female infertility Female infertility of unspecified origin documented in this encounter Additional Health Concerns AssessmentNoted TimeA fall risk assessment has been completed for the patient 03/13/2025 1:27 PM EDTdocumented as of this encounter Care Teams Team MemberRelationshipSpecialtyStart DateEnd Date Dipika Cox LPN Licensed Practical NurseReproductive Endocrinology and Infertility09/14/24 documented as of this encounter
[2025-04-24 12:29] VITALS: BP 118/77; PULSE 59; TEMP 36.5; O2SAT 98; BMI 33.5
--- OUTSIDE RECORDS SUMMARY | 2025-04-24 12:56 | XMS_ITS | Clinical Summary ---
Author Organization [facility] Address [address] [place] [address] Phone Care Team Providers Care Brusher Name Role Phone Dipika Cox LPN Unavailable Un available Allergies No known active allergies Medications MedicationSigDispense QuantityRefillsLast FilledStart DateEnd DateStatus norgestimate-ethinyl estradioL (Sprintec, 28,) 0.25-35 mg-mcg tablet Indications:Secondary oligomenorrheaTake 1 tablet by mouth once daily. 28 tablet 120/ctive Additional Information Patient not taking.Reported on 12/22/2023 medroxyPROGESTERone (Provera) 10 mg tablet Indications:Female infertilityTake 1 tablet (10 mg) by mouth once daily. Take days for 10 days each month get menses 10 tablet 501/ctive clomiPHENE (Clomid) 50 mg tablet Indications:Female infertilityTake 2 tablets (100 mg) by mouth once daily. Cycle days 3-7 10 tablet /6Active medroxyPROGESTERone (Provera) 10 mg tablet Indications:Female infertilityTake 1 tablet (10 mg) by mouth once daily. 10 tablet 507/ctive clomiPHENE (Clomid) 50 mg tablet Indications:Female infertilityTake 2 tablets (100 mg) by mouth once daily. Cycle days 3-7 10 tablet 507/ctive tirzepatide, weight loss, (Zepbound) 10 mg/0.5 mL injection Indications:BMI 37.0-37.9, adultInject 10 mg under the skin every 7 days. Please dispense pens 4 each 5Active medroxyPROGESTERone (Provera) 10 mg tablet Indications:Female infertilityTake 1 tablet (10 mg) by mouth once daily. 10 tablet ctive clomiPHENE (Clomid) 50 mg tablet Indications:Female infertilityTake 3 tablets (150 mg) by mouth once daily. Cycle days 3-7 15 tablet ctive letrozole (Femara) 2.5 mg tablet Indications:Female infertilityTake 3 tablets (7.5 mg total) by mouth once daily. Take 3 tablets by mouth cycle days 3-7 after negative urine test every cycle before starting letrozole. 15 tablet /ctive choriogonadotropin laxmi (Ovidrel) 250 mcg/0.5 mL injection Indications:Female infertilityInject 250 mcg (1 syringe) under the skin as a one time dose, as directed per provider for trigger. 1 each 04/20/2025 11:31 AM EST04/14/2025tive letrozole (Femara) 2.5 mg tablet Indications:Female infertilityTake 3 tablets (7.5 mg total) by mouth once daily. Take 3 tablets by mouth cycle days 3-7 after negative urine test every cycle before starting letrozole. 15 tablet Expired Active Problems ProblemNoted DateDiagnosed DateBMI 39.0-39.9,adult02/27/2025Obesity, class 2 02/27/2025MI 37.0-37.9, adult02/27/2025PCOS (polycystic ovarian syndrome) 02/27/2025Insulin cjepluxoba64/15/2025History of /15/2025 Encounters DateTypeDepartmentCare RlxsXxdkqvnwunq11/10/2025 9:15 AM ESTAncillary Procedure Dillon Carlos [address] [place] [address] Female bshrfqhscti55/10/2025Lab Requisition [facility] [address] [place] [phone] Teena Jones, OIL DEVELOPER-ASSISTANT ACCOUNTING MANAGER Female infertility, qutntfviuap43/10/2025Lab Requisition [facility] [address] [place] [address] Teena Jones, OIL DEVELOPER-ASSISTANT ACCOUNTING MANAGER Female infertility, rskdwxrvcix11/10/3021Olvrff48/01/2025Telephone [facility] [address] [place] [address] Aliza Swanson MD 04/14/2025[facility] [address] [place] [address] Susie Zaidi Set Up Initial Fill - Outreach Call - choriogonadotropin laxmi (Ovidrel) for Fertility Core04/14/2025[facility] [address] [place] [address] Susie Zaidi 04/14/2025Telephone Dillon Carlos [address] [place] [address] Kaylee Ramirez, PERFECTO 04/14/2025Orders Only Dillon Carlos [address] [place] [address] Kaylee Ramirez, PERFECTO Female bcudlwypdwq46/16/2025 11:30 PM EDTOrders Only Dillon Carlos [address] [place] [address] Female nquwyoztcmk97/15/2025Orders Only [facility] [address] [place] [phone] Noemi Marie, PERFECTO examination or test, unconfirmed; PCOS (polycystic ovarian syndrome)03/21/2025Orders Only [facility] [address] [place] [address] John Benjamin, PharmD BMI 37.0-37.9, adult (Primary Dx)03/20/2025[facility] [address] [facility] [address] [place] [address] Doris Gonsalves, OIL DEVELOPER-ASSISTANT ACCOUNTING MANAGER BMI 37.0-37.9, adult03/17/[address] [place] [address] Doris Gonsalves, OIL DEVELOPER-ASSISTANT ACCOUNTING MANAGER 03/13/2025 3:00 PM EDTTelemedicine Dillon Parkon [address] [place] [address] Kamryn Garcia MD PCOS (polycystic ovarian syndrome) (Primary Dx); Female aupytwmpsdu75/29/2640Qllckn73/22/20[address] [place] [address] Doris Gonsalves, OIL DEVELOPER-ASSISTANT ACCOUNTING MANAGER Prior Authorization (zepbound)02/23/2025 3:[address] [place] [address] Doris Gonsalves, OIL DEVELOPER-ASSISTANT ACCOUNTING MANAGER Obesity, class 2 (Primary Dx); BMI 37.0-37.9, adult; PCOS (polycystic ovarian syndrome); Insulin resistance; History of infertility Discharge Disposition: Home02/23/20250734Ywfasx09/14/2025 11:05 PM EDTOrders Only Dillon Parkon [address] [place] [address] 01/25/2025 11:35 PM EDTOrders Only [facility] [address] [place] [address] 01/24/2025 11:30 PM EDTOrders Only GENESIS Carlos [address] [place] [address] from Last 3 Months Social History Tobacco UseTypesPacks/DayYears UsedDateSmoking Tobacco: NeverSmokeless Tobacco: Never Tobacco Cessation:Counseling Given: Not Answered Alcohol UseStandard Drinks/WeekCommentsYes1 (1 standard drink = 0.6 oz pure alcohol)OccassionallyPHQ-2AnswerDate RecordedPatient Health Questionnaire-2 Igdzx370CommentsNoSex and Gender InformationValueDate Recorded Sex Assigned at BirthNot on fileLegal IdjLuzsmd06/02/2024 8:19 AM ESTGender IdentityNot on fileSexual OrientationNot on file Last Filed Vital Signs Vital SignReadingTime TakenCommentsBlood Lqwwfnlg238/7606 9:24 AM EDT Wmuij372212/10/2023 9:24 AM EDTTemperature--Respiratory Rate--Oxygen Saturation-- Inhaled Oxygen Concentration--Ukeszg960 kg (224 lb 9.6 oz)03/13/2025 1:26 PM EDT Khtijq627.1 cm (5' 5 )03/13/2025 1:26 PM EDTBody Mass Index37.3809 1:26 PM EDT Plan of Treatment DateTypeDepartmentCare Team (Latest Contact Info)Smltouxjruc23/05/2026 3:00 PM ESTTelemedicine [facility] [address] [address] [place] [address] Department of TEMPERING KILN TENDER/[place] [address] Health MaintenanceDue DateLast DoneCommentsHIV Lhkyctkyi85/11/1991Lipid Panel 1990Hepatitis C Cimxikvah59/11/2009Hepatitis B Vaccines (1 of 3 - 19+ 3- dose series)2009HPV/Ycdlat4109/24/2011HPV Vaccines (1 - 3-dose standard series)2017COVID-19 Vaccine (2 - Pfizer risk series) Influenza Vaccine (#1)5Yearly Adult Rukjkevp01/602/08/2024, 07/15/2023, 07/15/2022, Additional history existsCervical Cancer Screening 07/18/2027Pap Smear/08/2024DTaP/Tdap/Td Vaccines (7 - Td or Tdap) /, 09/17/1995, 03/29/1992, Additional history existsZoster Vaccines (1 of 2)2040HIB UuyggachUtfgifspz91/13/1992, 03/31/1991, 01/25/1991, Additional history existsMMR ZrtfsbstYtglunjgd26/13/1992IPV Vaccines Dqcraihcy19/04/1996, 03/29/1992, 01/25/1991, Additional history existsHepatitis A VaccinesAged OutNo longer eligible based on patient's age to complete this topicMeningococcal VaccineAged OutNo longer eligible based on patient's age to complete this topicPneumococcal Vaccine: Pediatrics and At-Risk Adult Patients Aged OutNo longer eligible based on patient's age to complete this topic Rotavirus VaccinesAged OutNo longer eligible based on patient's age to complete this topic Procedures Procedure NamePriorityDate/TimeAssociated DiagnosisCommentsESTRADIOLSTAT 04/24/2025 10:41 AM EST Female infertility, unspecified JOSEPH US PELVIS LIMITED FOLLICLES-FOLLICLE STUDIES CISEGOTINOMUH16/10/2025 9:55 AM EST Female infertility VAGHRWPEDTDIPstdcxu75/15/2025 HUMAN CHORIONIC GONADOTROPIN, SERUM FQRRMZIFQEWYAfwkfkr19/15/2025 from Last 3 Months Results * Estradiol (04/24/2025 10:41 AM EST)ComponentValueRef RangeTest MethodAnalysis TimePerformed AtPathologist GcsgtxqelGqicqqxag10ub/mL LAB IMMUNOASSAY METHOD 04/24/2025 12:52 PM [facility] LABSpecimen (Source)Anatomical Location / LateralityCollection Method / VolumeCollection TimeReceived TimeBlood Venous blood specimen / Abbtlnz1404/24/2025 10:41 AM EST04/24/2025 11:46 AM EST Narrative [facility] - 04/24/2025 12:52 PM EST REF VALUES FOLLICULAR PHASE ?20-144 MID CYCLE ? 64-357 LUTEAL PHASE ?56-214 POSTMENOPAUSE < 32 PREPUBERTY < 20 FEMALE 10-18Y ?8-110 MALE 10-18Y < 20 ADULT MALE < 40 Estradiol measurement is performed using the Chari Keyona Access Estradiol Immunoassay. Estradiol testing is performed using a different test methodology at [facility] than other [facility]. Direct result comparison should only be made within the same method. Authorizing ProviderResult TypeResult StatusDawguadalupe Jones APRN-[facility] BLOOD ORDERABLESFinal ResultPerforming OrganizationAddressCity/State/ZIP CodePhone Number [facility] [address] [place] [address] * JOSEPH US Pelvis Limited Follicles - Follicle Studies Performed (04/24/2025 9:55 AM EST)Anatomical RegionLateralityModalityAbdominalUltrasoundSpecimen (Source) Anatomical Location / LateralityCollection Method / VolumeCollection Time Received Time Narrative 04/24/2025 12:34 PM EST Follicle scan performed with follicle measurements in report. Authorizing ProviderResult TypeResult StatusDablanca Jones OIL DEVELOPER-CNPG US PROCEDURESFinal Result * Progesterone (03/29/2025)ComponentValueRef RangeTest MethodAnalysis Time Performed AtPathologist SignatureProgesterone External0.3ng/mLREI LAB RIS Specimen (Source)Anatomical Location / LateralityCollection Method / Volume Collection TimeReceived TimeBloodVenous blood specimen / Lwjwned2703/29/2025 Narrative Authorizing ProviderResult TypeResult StatusArpit BAR[facility] BLOOD ORDERABLES Final ResultPerforming OrganizationAddressCity/State/ZIP CodePhone Number [facility] [address] [place] [address] * Human Chorionic Gonadotropin, Serum Quantitative (03/29/2025)ComponentValueRef RangeTest MethodAnalysis TimePerformed AtPathologist SignaturehCG Quantitative jaxabexd6qWS/LREI LAB RISSpecimen (Source)Anatomical Location / Laterality Collection Method / VolumeCollection TimeReceived TimeBloodVenous blood specimen / Bsayuwi1803/29/2025 Narrative Authorizing ProviderResult TypeResult StatusAdam T Woods MDLAB BLOOD ORDERABLES Final ResultPerforming OrganizationAddressCity/State/ZIP CodePhone Number [facility] [address] [address] from Last 3 Months Insurance Care Teams Team MemberRelationshipSpecialtyStart DateEnd Date Dipika Cox LPN Licensed Practical NurseReproductive Endocrinology and Infertility09/14/24
--- OUTSIDE RECORDS SUMMARY | 2025-04-24 12:56 | XMS_ITS | Encounter Summary ---
Author Organization [facility] Address [address] [place] [address] Phone Care Team Providers Care Internal Combustion Engine Inspector Name Role Phone Dipika Cox LPN Unavailable Un available Encounter Details DateTypeDepartmentCare Team (Latest Contact Info)Kuzbqwrofcl50/31/2025Specialty Pharmacy [facility] [address] [place] [address] Susie Zaidi Set Up Initial Fill - Outreach Call - choriogonadotropin laxmi (Ovidrel) for Fertility Core Social History Tobacco UseTypesPacks/DayYears UsedDateSmoking Tobacco: NeverSmokeless Tobacco: NeverAlcohol UseStandard Drinks/WeekCommentsYes1 (1 standard drink = 0.6 oz pure alcohol)OccassionallyPHQ-2AnswerDate RecordedPatient Health Questionnaire-2 Kqnjc693CommentsNoSex and Gender InformationValueDate Recorded Sex Assigned at BirthNot on fileLegal VlzPpgepq67/02/2024 8:19 AM ESTGender IdentityNot on fileSexual OrientationNot on filedocumented as of this encounter Plan of Treatment DateTypeDepartmentCare Team (Latest Contact Info)Bcdpfhxgifm09/05/2026 3:00 PM ESTTelemedicine [place] [phone] [place] [address] [address] Department of PLATE WORKER/[place] [address] documented as of this encounter Visit Diagnoses Not on filedocumented in this encounter Additional Health Concerns AssessmentNoted TimeA fall risk assessment has been completed for the patient 03/13/2025 1:27 PM EDTdocumented as of this encounter Care Teams Team MemberRelationshipSpecialtyStart DateEnd Date Dipika Cox, TERRELL Licensed Practical NurseReproductive Endocrinology and Infertility09/14/24 documented as of this encounter
--- OUTSIDE RECORDS SUMMARY | 2025-04-24 12:56 | XMS_ITS | Clinical Summary ---
Author Organization [employer] Address [id number] [place] [address] Care Team Providers Care Vacuum Spindle Sander Name Role Phone Lalit Bedolla MD Primary Care Provider [phone] Allergies No known active allergies Medications MedicationSigDispense QuantityRefillsLast FilledStart DateEnd DateStatus vit 91/iron/folic/dha ( + DHA ORAL) Take 1 tablet by mouth.07/13/2020ctive metFORMIN XR (GLUCOPHAGE-XR) 750 mg 24 hr tablet Take 1 tablet (750 mg total) by mouth.07/13/2020ctive INOSITOL ORAL Take by mouth.Active clomiPHENE (CLOMID) 50 mg tablet 1 tab daily starting day 3 of cycle for 5 days 5 tablet 03/06/2021ctive Additional Information Patient not taking.Reported on 05/25/2023 medroxyPROGESTERone (PROVERA) 10 mg tablet 1 tab daily for 20 days 20 tablet 04/03/2021ctive Additional Information Patient not taking.Reported on 09/14/2023 Active Problems No known active problems Social History Tobacco UseTypesPacks/DayYears UsedDateSmoking Tobacco: NeverSmokeless Tobacco: NeverChildcareAnswerDate VxzmnmhzStffjsdccMmukyvy59/11/2019EmploymentAnswerDate VvrwzcieSorqvlyzzoWogjmko30/11/2019Hunger ScreeningAnswerDate RecordedWithin the past 12 months we worried whether our food would run out before we got money to buy more.Never True05/25/2023Within the past 12 months the food we bought just didn't last and we didn't have money to get more.Never True3Purpose - LifeAnswerDate RecordedPurpose and direction in smszViwkatp75/01/2021 CommentsNoSex and Gender InformationValueDate RecordedSex Assigned at Sazhdw8003/06/2021 8:51 AM EDTLegal YlsZbpqhc85/04/2015 8:43 PM EDTGender Identity Ffopcd3103/06/2021 8:51 AM EDTSexual AbkymxspiwhKsmtksgx32/22/2021 8:51 AM EDT Last Filed Vital Signs Vital SignReadingTime TakenCommentsBlood Smtotsko952/8404 8:08 AM EDT Zrbdc7354/01/2024 8:08 AM JYVSzwnwikuayg24.4 ??C (97.5 ??F)09/14/2023 8:08 AM EDTRespiratory Rqqs372109/14/2023 8:08 AM EDTOxygen Aekcdfwuql791%09/14/2023 8:08 AM EDTInhaled Oxygen Concentration--Zsgmzv231.7 kg (330 lb)09/14/2023 8:08 AM MPOHhokqg982.1 cm (5' 5 )05/25/2023 4:43 PM ESTBody Mass Index54.9105/25/2023 4:43 PM EST Plan of Treatment Health MaintenanceDue DateLast DoneCommentsDepression Ohfdnerpr81/11/2003Adult BMI Coispykvk97Tobacco Hdyydvjeg34/OVID-19 Vaccine ( season), 08/17/2020, 07/27/2020 Influenza Xrmbqlt4002/13/2025Pap Smear, 07/15/2023, 07/15/2022, Additional history existsDTaP,Tdap and Td Vaccines (7 - Td or Tdap) /, 09/17/1995, 03/29/1992, Additional history exists Medical Devices Not on file Procedures Procedure NamePriorityDate/TimeAssociated DiagnosisCommentsHIGH RISK HPV W/GIANNI Ttpcrke7407/15/2021 10:07 AM EST from Last 3 Months or Most Recently Relevant to Health Maintenance Results * High risk HPV w/gianni (07/15/2021 10:07 AM EST)ComponentValueRef RangeTest MethodAnalysis TimePerformed AtPathologist SignatureHpv specimen typeThinPrep 07/16/2021 10:07 AM ESTSUNQUESTHpv 16NegativeNegative^Pztjwcfr56/02/2022 1:23 PM [facility] LABHpv 18NegativeNegative^Avwqarjx01/02/2022 1:23 PM [facility] LABOther high risk hpvNegative Negative^Fmbyoyze57/02/2022 1:23 PM [facility] LABComment: HPV types 31,33,35,39,45,52,56,58,59,66 and 68 DNA were undetectable. Specimen (Source)Anatomical Location / LateralityCollection Method / Volume Collection TimeReceived OtwyXBPUQ12/31/2022 10:07 AM EST07/16/2021 10:07 AM EST Narrative Authorizing ProviderResult TypeResult StatusJulie A Beam SENIOR INFORMATION SECURITY CONSULTANT-CNPLAB BLOOD ORDERABLESFinal ResultPerforming OrganizationAddressCity/State/ZIP CodePhone Number [facility] [address] [facility], [address] [place] [address] from Last 3 Months or Most Recently Relevant to Health Maintenance Insurance Care Teams Team MemberRelationshipSpecialtyStart [place] [address] [place] [address] [facility] - [facility]/19
--- OUTSIDE RECORDS SUMMARY | 2025-04-24 12:56 | XMS_ITS | Clinical Summary ---
Author Organization [facility] Address [address] [place] [address] Care Team Providers Care Apartment Community Assistant Manager Name Role Phone Lalit Bedolla MD Primary Care Provider [phone] Allergies No known active allergies Medications MedicationSigDispense QuantityRefillsLast FilledStart DateEnd DateStatus Tirzepatide (Mounjaro) 7.5 MG/0.5ML solution auto-injector 5Active Active Problems ProblemNoted DateDiagnosed MsguAdthecbjzp66/26/2024Migraine with aura and without status migrainosus, not ktdyfafkiwv62/21/2023Morbid (severe) obesity due to excess acvqocyd70/21/2023PCOS (polycystic ovarian syndrome)10/19/2019 Encounters DateTypeDepartmentCare RpktOfortjuenvz99/15/2025Clinisync Result Encounter [facility] Unsolicited Provider, Generic External Data 5Clinisync Result Encounter [facility] External Department Unsolicited Provider, Generic External Data from Last 3 Months Family History Medical HistoryRelationNameCommentsNo Known ProblemsSisterRelationNameStatus CommentsFatherAliveMaternal GrandmotherAliveMotherAliveSister Social History Tobacco UseTypesPacks/DayYears UsedDateSmoking Tobacco: NeverSmokeless Tobacco: Never Tobacco Cessation:Counseling Given: Not Answered Alcohol UseStandard Drinks/WeekCommentsYes0 (1 standard drink = 0.6 oz pure alcohol)caffeine: 1-2 cups per day iced tea, coffee, diet [id number] Health LiteracyAnswerDate RecordedHow often do you need to have someone help you when you read instructions, pamphlets, or other written material from your doctor or pharmacy?Never11/14/2024Humiliation, Afraid, Rape, and Kick questionnaireAnswer Date RecordedWithin the last year, have you been afraid of your partner or ex-partner?No11/14/2024Within the last year, have you been humiliated or emotionally abused in other ways by your partner or ex-partner?No11/14/2024 Within the last year, have you been kicked, hit, slapped, or otherwise physically hurt by your partner or ex-partner?No11/14/2024Within the last year, have you been raped or forced to have any kind of sexual activity by your part ner or ex-partner?No11/14/2024Social Connection and Isolation PanelAnswerDate RecordedIn a typical week, how many times do you talk on the phone with family, friends, or neighbors?Three times a week11/14/2024How often do you get together with friends or relatives?Once a week11/14/2024How often do you attend sabianist or religion services?More than 4 times per year11/14/2024Do you belong to any clubs or organizations such as sabianist groups, unions, fraternal or athletic sarbjit ups, or school groups?Yes11/14/2024How often do you attend meetings of the clubs or organizations you belong to?1 to 4 times per year11/14/2024re you , , , , never , or living with a partner? 11/14/2024UDIT-CAnswerDate RecordedQ1: How often do you have a drink containing alcohol?2-4 times a month11/14/2024Q2: How many drinks containing alcohol do you have on a typical day when you are drinking?1 or Q3: How often do you have six or more drinks on one occasion?Less than twkxvhf0511/14/2024Overall Financial Resource Strain (CARDIA)AnswerDate RecordedHow hard is it for you to pay for the very basics like food, housing, medical care, and heating?Not hard at all11/14/2024PHQ-2AnswerDate RecordedPatient Health Questionnaire-2 Score0 06/02/2025[facility] [place] [facility] - Occupational Stress QuestionnaireAnswerDate RecordedDo you feel stress - tense, restless, nervous, or anxious, or unable to sleep at night because yourmind is troubled all the time - these days?Only a pmeglq9711/14/2024Exercise Vital SignAnswerDate Recorded On average, how many days per week do you engage in moderate to strenuous exercise (like a brisk walk)?5 days11/14/2024On average, how many minutes do you engage in exercise at this level?70 min11/14/2024Hunger Vital SignAnswerDate RecordedWithin the past 12 months, you worried that your food would run out before you got the money to buymore.Never true11/14/2024Within the past 12 months, the food you bought just didn't last and you didn't have money to get more.Never true11/14/2024PRAPARE - TransportationAnswerDate RecordedIn the past 12 months, has lack of transportation kept you from medical appointments or from getting medications?No11/14/2024In the past 12 months, has lack of transportation kept you from meetings, work, or from getting things needed for daily living?No11/14/2024Housing Stability Vital SignAnswerDate RecordedIn the last 12 months, was there a time when you were not able to pay the mortgage or rent on time?No11/14/2024In the past 12 months, how many times have you moved where you were living?t any time in the past 12 months, were you homeless or living in a fci (including now)?No11/14/2024Comments UnknownSex and Gender InformationValueDate RecordedSex Assigned at BirthNot on fileLegal RnjJkhaqd82/15/2023 8:09 PM EDTGender IdentityNot on fileSexual OrientationNot on file Last Filed Vital Signs Vital SignReadingTime TakenCommentsBlood Aazgmnhk424/68011/14/2024 2:12 PM EDT Iiscb245411/14/2024 2:12 PM QOYMsxgwjopvgu69.2 ??C (97.2 ??F)11/14/2024 2:12 PM EDTRespiratory Rate--Oxygen Tarzbkfwdt41%11/14/2024 2:12 PM EDTInhaled Oxygen Concentration--Kcfhvw209 kg (242 lb)11/14/2024 2:12 PM DRPOovrse321.1 cm (5' 5 ) 11/14/2024 2:12 PM EDTBody Mass Index40.27011/14/2024 2:12 PM EDT Plan of Treatment Health MaintenanceDue DateLast DoneCommentsCOVID-19 Vaccine ( season) 503/10/2020, 07/27/2020Influenza Vaccine (#1)2025Pap Smear 802/08/2024, 07/18/2024, 07/15/2023, Additional history existsCervical Cancer Fkrbxkhhl05/03/2030HPV/Gewfrp16/03/, 07/18/2024, 07/15/2023, Additional history existsPneumococcal Vaccine: Pediatrics (0 to 5 Years) and At-Risk Patients (6 to 64 Years)Aged OutNo longer eligible based on patient's age to complete this topic Procedures Procedure NamePriorityDate/TimeAssociated DiagnosisCommentsALL PROGESTERONE Xdsksok5003/29/2025 10:51 AM EDT [facility] PREG QUANT WNAKwdddkb08/15/2025 10:51 AM EDT ALL TXGMTSGBZCZXUumspxq32/12/2025 7:32 AM EDT from Last 3 Months Results * [facility] PREG QUANT HCG (03/29/2025 10:51 AM EDT)ComponentValueRef RangeTest Method Analysis TimePerformed AtPathologist SignatureHCG QUANTITATIVE<1mIU/mLTBH Comment: 5-50 ? 0.2-1 WEEK 50-500 ? 1-2 WEEKS 100-5,000 ?2-3 WEEKS 500-10,000 ? 3-4 WEEKS 1,000-50,000 ?? 4-5 WEEKS 10,000-100,000 5-6 WEEKS 15,000-200,000 6-8 WEEKS 10,000-100,000 2-3 MONTHS Specimen (Source)Anatomical Location / LateralityCollection Method / Volume Collection TimeReceived Time03/29/2025 10:51 AM EDT1 10:51 AM EDT Narrative [facility] - 03/29/2025 11:41 AM EDT Authorizing ProviderResult TypeResult StatusGeneric External Data Provider CLINISYNCFinal ResultPerforming OrganizationAddressCity/State/ZIP CodePhone Number [facility]IN[facility] * ALL PROGESTERONE (03/29/2025 10:51 AM EDT) Only the most recent of2 resultswithin the time period is included. ComponentValueRef RangeTest MethodAnalysis TimePerformed AtPathologist Signature PROGESTERONE0.3. ng/mLTBHComment: ? Follicular phase ? 0.1 - ?? 0.9 ? Luteal phase ? 1.8 - ??23.9 ? Ovulation phase ?0.1 - ??12.0 ?First trimester ?11.0 - ??44.3 ?Second trimester ?? 25.4 - ??83.3 ?Third trimester ?58.7 - 214.0 ? Postmenopausal ? 0.0 - ?? 0.1 Performed at: ??[facility] - [facility] [place] [id number] [place], [place] ??[id number] Rough Carpenter: Michel Carlos PhD, Phone: ??[phone] Specimen (Source)Anatomical Location / LateralityCollection Method / Volume Collection TimeReceived Time03/29/2025 10:51 AM EDT1 10:51 AM EDT Narrative [facility] - 03/30/2025 4:07 AM EDT Authorizing ProviderResult TypeResult StatusGeneric External Data Provider CLINISYNCFinal ResultPerforming OrganizationAddressCity/State/ZIP CodePhone Number [facility]IN[facility] from Last 3 Months Insurance Care Teams Team MemberRelationshipSpecialtyStart [place] [address] [place], [place] [id number] PCP - GeneralFamily Medicine10/21/22
--- OUTSIDE RECORDS SUMMARY | 2025-04-24 12:56 | XMS_ITS | Encounter Summary ---
Author Organization [facility] Address [address] [place] [address] Phone Care Team Providers Care Commercial Property Manager Name Role Phone Dipika Cox LPN Unavailable Un available Encounter Details DateTypeDepartmentCare Team (Latest Contact Info)Lusnmxuhwji50/10/2025Travel Social History Tobacco UseTypesPacks/DayYears UsedDateSmoking Tobacco: NeverSmokeless Tobacco: NeverAlcohol UseStandard Drinks/WeekCommentsYes1 (1 standard drink = 0.6 oz pure alcohol)OccassionallyPHQ-2AnswerDate RecordedPatient Health Questionnaire-2 Fedrp721CommentsNoSex and Gender InformationValueDate Recorded Sex Assigned at BirthNot on fileLegal KfeXoetrp14/02/2024 8:19 AM ESTGender IdentityNot on fileSexual OrientationNot on filedocumented as of this encounter Functional Status documented as of this encounter Plan of Treatment DateTypeDepartmentCare Team (Latest Contact Info)Tcbrtpjgfzu62/05/2026 3:00 PM ESTTelemedicine Dillon Carlos [address] [phone] [place] [address] [address] Department of MAINTENANCE TEAM LEADER/[place] [address] documented as of this encounter [...]
--- OUTSIDE RECORDS SUMMARY | 2025-04-24 12:56 | XMS_ITS | Encounter Summary ---
Author Organization [facility] Address [address] [place] [address] Phone Care Team Providers Care Wrapper Stemmer Hand Name Role Phone Dipika Cox LPN Unavailable Un available Encounter Details DateTypeDepartmentCare Team (Latest Contact Info)Dltyrzjoqlq80/01/2025Telephone [facility] [address] [address] [place] [address] [address] Department of BLOW MOULDING MACHINE OPERATOR/[place] [address] Social History Tobacco UseTypesPacks/DayYears UsedDateSmoking Tobacco: NeverSmokeless Tobacco: NeverAlcohol UseStandard Drinks/WeekCommentsYes1 (1 standard drink = 0.6 oz pure alcohol)OccassionallyPHQ-2AnswerDate RecordedPatient Health Questionnaire-2 Iikla697CommentsNoSex and Gender InformationValueDate Recorded Sex Assigned at BirthNot on fileLegal GnlPpkywu53/02/2024 8:19 AM ESTGender IdentityNot on fileSexual OrientationNot on filedocumented as of this encounter Miscellaneous Notes * Telephone Encounter - Aliza Swanson MD - 04/15/2025 9:48 AM EDT Patient called stating that pharmacy does not have clomid in stock. Plan is for letrozole + clomid TIC. Per pharmacy, will get in either Thursday or Thursday. Patient would be CD5 on Thursday. Instructed patient that she could either find out what pharmacy has clomid in stock and fill there or could wait and start meds as late as CD5. Patient voiced understanding and will reach out to [facility] pharmacy to see if there are other pharmacies that have medication in stock. All questions answered Aliza Swanson MD documented in this encounter Plan of Treatment DateTypeDepartmentCare Team (Latest Contact Info)Dofmijcehwe24/05/2026 3:00 PM ESTTelemedicine [facility] [address] [address] [place] [address] Department of BLOW MOULDING MACHINE OPERATOR/[place] [address] documented as of this encounter [...]
--- OUTSIDE RECORDS SUMMARY | 2025-04-24 12:56 | XMS_ITS | Encounter Summary ---
Author Organization [facility] Address [address] [place] [address] Phone Care Team Providers Care Watcher Automat Long Goods Name Role Phone Jorge LuisGonzaloDipika LPN Unavailable Un available Encounter Details DateTypeDepartmentCare Team (Latest Contact Info)Vqtymtccxxn92/10/2025Lab Requisition [facility] [address] [place] [phone] Teena Jones, SLAB OFF MILL TENDER-DAIRY NUTRITION CONSULTANT [address] [place], [place] [phone] Female infertility, unspecified Social History Tobacco UseTypesPacks/DayYears UsedDateSmoking Tobacco: NeverSmokeless Tobacco: NeverAlcohol UseStandard Drinks/WeekCommentsYes1 (1 standard drink = 0.6 oz pure alcohol)OccassionallyPHQ-2AnswerDate RecordedPatient Health Questionnaire-2 Gucqz889CommentsNoSex and Gender InformationValueDate Recorded Sex Assigned at BirthNot on fileLegal RhoUaqwwf89/02/2024 8:19 AM ESTGender IdentityNot on fileSexual OrientationNot on filedocumented as of this encounter Functional Status documented as of this encounter Plan of Treatment DateTypeDepartmentCare Team (Latest Contact Info)Jqicvwgechi11/05/2026 3:00 PM ESTTelemedicine [facility] [address] [place] [phone] [place] [address] [facility] Department of BIOFUELS PRODUCTION TECHNICIAN/[place] [address] NameTypePriorityAssociated DiagnosesDate/TimeProgesteroneLabSTAT Female infertility, unspecified 04/24/2025 10:41 AM ESTdocumented as of this encounter Visit Diagnoses Diagnosis Female infertility, unspecified documented in this encounter Additional Health Concerns AssessmentNoted TimeA fall risk assessment has been completed for the patient 03/13/2025 1:27 PM EDTdocumented as of this encounter Care Teams Team MemberRelationshipSpecialtyStart DateEnd Date Dipika Cox, TERRELL Licensed Practical NurseReproductive Endocrinology and Infertility09/14/24 documented as of this encounter
--- OUTSIDE RECORDS SUMMARY | 2025-04-24 12:56 | XMS_ITS | Encounter Summary ---
Author Organization [facility] Address [address] [place] [address] Phone Care Team Providers Care Information Security Architect Name Role Phone Dipika Cox LPN Unavailable Un available Reason for Referral * Medications - Pending ReviewSpecialtyDiagnoses / ProceduresReferred By Contact Referred To Contact Diagnoses Female infertility Teena Jones APRN-CNP [address] [place] [address] Phone: tel: fax: Referral IDStatusReasonStart DateExpiration DateVisits RequestedVisits [id number] * Imaging (Emergency) - AuthorizedSpecialtyDiagnoses / ProceduresReferred By ContactReferred To ContactReproductive Endocrinology and Infertility Diagnoses Female infertility Procedures JOSEPH US Pelvis Limited Follicles - Follicle Studies Performed CHG US PELVIC NONOBSTETRIC IMAGE DCMTN LIMITED/F/U Teena Jones APRN-CNP [address] [place] [address] Phone: tel: fax: Dillon Carlos [address] [place] [phone] Phone: tel: fax: Referral IDStatusReasonStart DateExpiration DateVisits RequestedVisits [id number] Perform Procedure 10/31/ Encounter Details DateTypeDepartmentCare Team (Latest Contact Info)Twnbswrhpic90/31/2025Orders Only Dillon [facility] [address] [place] [phone] Kaylee Ramirez RN Female infertility Social History Tobacco UseTypesPacks/DayYears UsedDateSmoking Tobacco: NeverSmokeless Tobacco: NeverAlcohol UseStandard Drinks/WeekCommentsYes1 (1 standard drink = 0.6 oz pure alcohol)OccassionallyPHQ-2AnswerDate RecordedPatient Health Questionnaire-2 Iblxr332CommentsNoSex and Gender InformationValueDate Recorded Sex Assigned at BirthNot on fileLegal JkeCsbpme82/02/2024 8:19 AM ESTGender IdentityNot on fileSexual OrientationNot on filedocumented as of this encounter Plan of Treatment DateTypeDepartmentCare Team (Latest Contact Info)Bmorjhjkaiv34/05/2026 3:00 PM ESTTelemedicine Carranza Risshaggy Carlos [address] [place] [address] [place] [address] Department of GENERAL SURGERY PHYSICIAN ASSISTANT/House Staff [place], [place] [phone] NameTypePriorityAssociated DiagnosesOrder ScheduleEstradiol [Lab Collect]LabSTAT Female infertility Expected: 04/14/2025 (Approximate), Expires: 04/14/2026Progesterone [Lab Collect]LabSTAT Female infertility Expected: 04/14/2025 (Approximate), Expires: 08/12/2025Luteinizing Hormone (LH) [Lab Collect]LabSTAT Female infertility Expected: 04/14/2025 (Approximate), Expires: 08/12/2025Progesterone [Lab Collect]LabSTAT Female infertility Expected: 04/14/2025 (Approximate), Expires: 08/12/2025documented as of this encounter Results * JOSEPH US Pelvis Limited Follicles - Follicle Studies Performed (04/24/2025 9:55 AM EST)Anatomical RegionLateralityModalityAbdominalUltrasoundSpecimen (Source) Anatomical Location / LateralityCollection Method / VolumeCollection Time Received Time Narrative 04/24/2025 12:34 PM EST Follicle scan performed with follicle measurements in report. Authorizing ProviderResult TypeResult StatusDawguadalupe Jones WET MIX OPERATOR-CNPIMG US PROCEDURESFinal Result documented in this encounter Visit Diagnoses Diagnosis Female infertility Female infertility of unspecified origin Female infertility Female infertility of unspecified origin documented in this encounter Additional Health Concerns AssessmentNoted TimeA fall risk assessment has been completed for the patient 03/13/2025 1:27 PM EDTdocumented as of this encounter Care Teams Team MemberRelationshipSpecialtyStart DateEnd Date Dipika Cox LPN Licensed Practical NurseReproductive Endocrinology and Infertility09/14/24 documented as of this encounter
--- OUTSIDE RECORDS SUMMARY | 2025-04-24 12:56 | XMS_ITS | Encounter Summary ---
Author Organization [facility] Address [address] [place] [address] Phone Care Team Providers Care Cattle Farmer Name Role Phone Dipika Cox LPN Unavailable Un available Encounter Details DateTypeDepartmentCare Team (Latest Contact Info)Zcprcnpfalr48/10/2025Lab Requisition [facility] [address] [place] [address] Teena Jones, RN MEDICAL INPATIENT SERVICES-[facility] [address] [place] [address] Female infertility, unspecified Social History Tobacco UseTypesPacks/DayYears UsedDateSmoking Tobacco: NeverSmokeless Tobacco: NeverAlcohol UseStandard Drinks/WeekCommentsYes1 (1 standard drink = 0.6 oz pure alcohol)OccassionallyPHQ-2AnswerDate RecordedPatient Health Questionnaire-2 Bmjwx968CommentsNoSex and Gender InformationValueDate Recorded Sex Assigned at BirthNot on fileLegal YdiYcpwow11/02/2024 8:19 AM ESTGender IdentityNot on fileSexual OrientationNot on filedocumented as of this encounter Functional Status documented as of this encounter Plan of Treatment DateTypeDepartmentCare Team (Latest Contact Info)Vjqncaoseqr41/05/2026 3:00 PM ESTTelemedicine [facility] [address] [place] [phone] [place] [address] Department of ONCOLOGY ADMIN/[place] [address] NameTypePriorityAssociated DiagnosesDate/TimeLuteinizing HormoneLabSTAT Female infertility, unspecified 04/24/2025 10:41 AM ESTdocumented as of this encounter Procedures Procedure NamePriorityDate/TimeAssociated DiagnosisCommentsESTRADIOLSTAT 04/24/2025 10:41 AM EST Female infertility, unspecified documented in this encounter Results * Estradiol (04/24/2025 10:41 AM EST)ComponentValueRef RangeTest MethodAnalysis TimePerformed AtPathologist RjboasbpjPhkhbxhom55en/mL LAB IMMUNOASSAY METHOD 04/24/2025 12:52 PM [facility] LABSpecimen (Source)Anatomical Location / LateralityCollection Method / VolumeCollection TimeReceived TimeBlood Venous blood specimen / Ocgpsff4904/24/2025 10:41 AM EST04/24/2025 11:46 AM EST Narrative [facility] - 04/24/2025 12:52 PM EST REF VALUES FOLLICULAR PHASE ?20-144 MID CYCLE ? 64-357 LUTEAL PHASE ?56-214 POSTMENOPAUSE < 32 PREPUBERTY < 20 FEMALE 10-18Y ?8-110 MALE 10-18Y < 20 ADULT MALE < 40 Estradiol measurement is performed using the [employer] [place] Access Estradiol Immunoassay. Estradiol testing is performed using a different test methodology at [facility] than other [facility]. Direct result comparison should only be made within the same method. Authorizing ProviderResult TypeResult StatusDawguadalupe Jones RN MEDICAL INPATIENT SERVICES-CNPLAB BLOOD ORDERABLESFinal ResultPerforming OrganizationAddressCity/State/ZIP CodePhone Number [facility] [address] [place] [address] documented in this encounter Visit Diagnoses Diagnosis Female infertility, unspecified documented in this encounter Additional Health Concerns AssessmentNoted TimeA fall risk assessment has been completed for the patient 03/13/2025 1:27 PM EDTdocumented as of this encounter Care Teams Team MemberRelationshipSpecialtyStart DateEnd Date Dipika Cox, TERRELL Licensed Practical NurseReproductive Endocrinology and Infertility09/14/24 documented as of this encounter
--- OUTSIDE RECORDS SUMMARY | 2025-04-24 12:56 | XMS_ITS | Encounter Summary ---
Author Organization [facility] Address [address] [place] [address] Phone Care Team Providers Care Pharmacometrician Name Role Phone Jorge Luis-Dipika Soto LPN Unavailable Un available Encounter Details DateTypeDepartmentCare Team (Latest Contact Info)Susjifnznwr85/31/2025Specialty Pharmacy [facility] [address] [place] [address] Susie Zaidi Social History Tobacco UseTypesPacks/DayYears UsedDateSmoking Tobacco: NeverSmokeless Tobacco: NeverAlcohol UseStandard Drinks/WeekCommentsYes1 (1 standard drink = 0.6 oz pure alcohol)OccassionallyPHQ-2AnswerDate RecordedPatient Health Questionnaire-2 Peekl048CommentsNoSex and Gender InformationValueDate Recorded Sex Assigned at BirthNot on fileLegal RnbPpismd17/02/2024 8:19 AM ESTGender IdentityNot on fileSexual OrientationNot on filedocumented as of this encounter Plan of Treatment DateTypeDepartmentCare Team (Latest Contact Info)Wtscjvjqjwc71/05/2026 3:[address] [facility] [place] [address] [place] [address] Department of AMMUNITION COMPONENTS INSPECTOR/House Staff [place], [place] [phone] documented as of this encounter Visit Diagnoses Not on filedocumented in this encounter Additional Health Concerns AssessmentNoted TimeA fall risk assessment has been completed for the patient 03/13/2025 1:27 PM EDTdocumented as of this encounter Care Teams Team MemberRelationshipSpecialtyStart DateEnd Date Dipika Cox LPN Licensed Practical NurseReproductive Endocrinology and Infertility09/14/24 documented as of this encounter
--- OUTSIDE RECORDS SUMMARY | 2025-04-24 12:56 | XMS_ITS | Clinical Summary ---
Author Organization [facility] Address [address], [address] [place] [address] Care Team Providers Care Technology Applications Engineer Name Role Phone Lalit Bedolla MD Primary Care Provider [phone] Allergies No known active allergies Medications MedicationSigDispense QuantityRefillsLast FilledStart DateEnd DateStatus albuterol sulfate HFA (PROVENTIL;VENTOLIN;PROAIR) 108 (90 Base) MCG/ACT inhaler INHALE 1 TO 2 PUFFS BY MOUTH EVERY 4 TO 6 HOURS NEEDED FOR WHEEZING FOR COUGH FOR SHORTNESS OF OBQFFB764Active Tirzepatide (MOUNJARO) 7.5 MG/0.5ML SOAJ Inject into the skin4Active medroxyPROGESTERone (PROVERA) 10 MG tablet Take 1 tablet by mouth every morning for 10 days 10 tablet 5Active Active Problems ProblemNoted DateDiagnosed DateMigraine with aura and without status migrainosus, not phvqxabqvva15/21/2023Morbid (severe) obesity due to excess fgkjxgaw56/21/2023Irregular zocwno3510/19/2019PCOS (polycystic ovarian syndrome) 10/19/2019 Immunizations ImmunizationAdministration DatesNext IpuCDiD8809/17/1995,03/29/1992,03/31/1991, 01/25/1991,1990Hib, pmtnacmyvun38/13/1992,03/31/1991,01/25/1991,1990 MMR, PRIORIX, M-M-R II, (age 12m+), SC, 0.5mL12/26/1991Poliovirus, IPOL, (age 6w+), SC/IM, 0.5mL09/17/1995,03/29/1992,01/25/1991,1990 Family History RelationNameStatusCommentsFatherAliveMaternal GrandfatherDeceasedMaternal GrandmotherDeceasedMotherAlivePaternal GrandfatherAlivePaternal GrandmotherAlive SisterAlive Social History Tobacco UseTypesPacks/DayYears UsedDateSmoking Tobacco: NeverSmokeless Tobacco: Never Tobacco Cessation:Counseling Given: Not Answered Alcohol UseStandard Drinks/WeekCommentsYes0 (1 standard drink = 0.6 oz pure alcohol)I may have one drink every couple weeksOverall Financial Resource Strain (CARDIA)AnswerDate RecordedHow hard is it for you to pay for the very basics like food, housing, medical care, and heating?Not hard at all07/15/2022HQ-2 AnswerDate RecordedPHQ-9 Total Pkdvm597Hunger Vital SignAnswerDate RecordedWithin the past 12 months, you worried that your food would run out before you got the money to buymore.Never true07/15/2022Within the past 12 months, the food you bought just didn't last and you didn't have money to get more.Never true07/15/2022Food InsecurityAnswerDate RecordedWithin the past 12 months, you worried that your food would run out before you got the money to buy more.Within the past 12 months, the food you bought just didn't last and you didn't have money to get more.regnantCommentsNoSex and Gender InformationValueDate RecordedSex Assigned at BirthNot on fileLegal Sex Ldsutq6907/25/2012 5:01 PM ESTGender IdentityNot on fileSexual OrientationNot on file Last Filed Vital Signs Vital SignReadingTime TakenCommentsBlood Xdfzcvui609/7002/08/2024 8:25 AM EST Xxxzv729707/15/2022 8:00 AM KNDMqyfpqcwhcy37.5 ??C (97.7 ??F)07/13/2020 10:02 AM ESTRespiratory Lonj515806/28/2015 4:10 PM ESTOxygen Saturation--Inhaled Oxygen Concentration--Klvcrv228.1 kg (278 lb)07/18/2024 8:25 AM NTQHggnep509.1 cm (5' 5 )07/18/2024 8:25 AM ESTBody Mass Index46.26007/18/2024 8:25 AM EST Plan of Treatment DateTypeDepartmentCare Team (Latest Contact Info)Umkuxbahckh36/03/2026 8:30 AM ESTOffice Visit [facility] [address] [place] [address] [phone] Nadja Brewster APRN - PUBLIC RELATIONS STUDIES DIRECTOR [address] [phone] annualHealth MaintenanceDue DateLast DoneCommentsVaricella vaccine (1 of 2 - 13+ 2-dose series)09/24/2003HIV qzknet9509/23/2005Hepatitis C vntlib7809/23/2008 Hepatitis B vaccine (1 of 3 - 19+ 3-dose series)2009Flu vaccine (#1) 5COVID-19 Vaccine ( season)510/, 08/17/2020, 1Depression Tahkyv64602/08/2024, 07/18/2024Pap smear07/18/2027 07/18/2024, 07/15/2023, 07/15/2022, Additional history existsCervical cancer htjogq3107/18/2029HPV (without or with Pap)/08/2024, 07/15/2023, 07/15/2022, Additional history existsDTaP/Tdap/Td vaccine (7 - Td or Tdap) /, 09/17/1995, 03/29/1992, Additional history existsHib ybporazHzrekwckj33/13/1992, 03/31/1991, 01/25/1991, Additional history exists Polio mojwrctJtnkwahjt46/04/1996, 03/29/1992, 01/25/1991, Additional history existsHPV vaccine (No Doses Required)CompletedHepatitis A vaccineAged OutNo longer eligible based on patient's age to complete this topicMeningococcal (ACWY) vaccineAged OutNo longer eligible based on patient's age to complete this topicMeningococcal B vaccineAged OutNo longer eligible based on patient's age to complete this topicPneumococcal 0-49 years VaccineAged OutNo longer eligible based on patient's age to complete this topic Procedures Procedure NamePriorityDate/TimeAssociated DiagnosisCommentsHUMAN PAPILLOMAVIRUS (HPV) DNA PROBE THIN PREP HIGH WCWURbevmvu88/03/2025 12:00 AM EST PERIANESTHESIA NURSE LPHZXLKJTwqyaaf83/03/2025 12:00 AM EST from Last 3 Months or Most Recently Relevant to Health Maintenance Results * Human papillomavirus (HPV) DNA probe thin prep high risk (07/18/2024 12:00 AM EST)ComponentValueRef RangeTest MethodAnalysis TimePerformed AtPathologist SignatureSpecimen DescriptionCERVICAL MBTHYPSF70/03/2025 12:00 AM ESTWebChalet LABORATORIESHPV Sample.THIN PREP07/18/2024 12:00 AM ESTMERMerrimack Pharmaceuticals LABORATORIESHPV, Genotype 16Not DetectedNot Hrisolip93/03/2025 12:00 AM [facility] HPV, Genotype 18Not DetectedNot Scztngkk18/03/2025 12:00 AM ESTWebChalet LABORATORIESHPV, High Risk OtherNot DetectedNot Wnkihybp18/03/2025 12:00 AM ESTWebChalet LABORATORIESHPV, Mjwtqldenwiqmi41/03/2025 12:00 AM [facility] HealthComment: This test amplifies and detects DNA of 14 high-risk HPV types associated with cervical cancer and its precursor lesions (HPV types 16,18, 31, 33, 35, 39, 45, 51, 52, 56, 58, 59, 66, and 68). ? Sensitivity may be affected by specimen collection methods, stage of infection, and the presence of interfering substances. Results should be interpreted in conjunction with other available laboratory and clinical data. A negative high-risk HPV result does not exclude the possibility of future cytologic HSIL or underlying CIN2-3 or cancer. ? This test is intended for medical purposes only and is not valid for the evaluation of suspected sexual abuse or for other forensic purposes. Specimen (Source)Anatomical Location / LateralityCollection Method / Volume Collection TimeReceived TimeCERVICAL BLMUPLUC16/03/2025 Narrative Authorizing ProviderResult TypeResult StatusJulie A Beam X RAY TECHNOLOGIST - CNPHEMATOLOGY ORDERABLESFinal ResultPerforming OrganizationAddressCity/State/[place] [address], [facility] [phone] * PERIANESTHESIA NURSE Cytology (07/18/2024 12:00 AM EST)ComponentValueRef RangeTest Method Analysis TimePerformed AtPathologist SignatureCytology ReportPath Number: [id number] DIAGNOSIS Imaged ThinPrep Pap - Cervical (1 monolayer slide): Specimen Adequacy: ? Satisfactory for evaluation. ? - Endocervical/transformation zone component present. Descriptive Diagnosis: ? Negative for intraepithelial lesion or malignancy. Comments: ? Specimen was screened at [facility], [address] [place] [id number] [employer] Screener: ??CS Rescreened By: ??JL Electronically Signed Out LUCIANO Hinojosa(ASCP) /07/25/2024 Procedure/Addendum HPV Procedure Report ? Date Ordered: ? 07/19/2024 ? Status: Signed Out ? Date Complete: ? 07/20/2024 ? By: System Interface ? Date Reported: ? 07/20/2024 ? Sample: ??HPV Type 16 ?Result: ?? Not Detected ?Ref Range: Not Detected Sample: ??HPV Type 18 ?Result: ?? Not Detected ?Ref Range: Not Detected Sample: ??Other High Risk HPV ?Result: ?? Not Detected ?Ref Range: Not Detected Sample: ??HPV Interp ?Result: ? Ref Range: This test amplifies and detects DNA of 14 high-risk HPV types associated with cervical cancer and its precursor lesions (HPV types 16,18, 31, 33, 35, 39, 45, 51, 52, 56, 58, 59, 66, and 68). ? Sensitivity may be affected by specimen collection methods, stage of infection, and the presence of interfering substances. Results should be interpreted in conjunction with other available laboratory and clinical data. A negative high-risk HPV result does not exclude the possibility of future cytologic HSIL or underlying CIN2-3 or cancer. ? This test is intended for medical purposes only and is not valid for the evaluation of suspected sexual abuse or for other forensic purposes. Performed at [facility], [address] [place] [address] ??[phone]. ?? Source of Specimen: A: Imaged ThinPrep Pap - Cervical (1 monolayer slide) HPV Reflex?......................HPV Regardless Clinical History Z01.419 Routine slag mixer exam without abnormal findings Z11.51 Encounter for screening for HPV Processing Lab: [address] [phone] Interpretation performed at [facility], [address] [place] [id number] This Pap Test has been evaluated with [...] result. GYNECOLOGIC CYTOLOGY REPORT Patient Name: BROOK FISCHER [facility] Rec: [id number] [facility] ??LABORATORIES CONSULTING PATHOLOGISTS [facility] ANATOMIC PATHOLOGY [address] ??[place], [place] [phone] [facility] LABSSpecimen (Source)Anatomical Location / LateralityCollection Method / VolumeCollection TimeReceived Time CERVICAL LFMQUSBF54/03/140971/09/2024 7:25 AM EST Narrative Authorizing ProviderResult TypeResult StatusJulie Todd Brewster X RAY TECHNOLOGIST - PUBLIC RELATIONS STUDIES DIRECTOR PATHOLOGY/CYTOLOGY ORDERABLESFinal ResultPerforming OrganizationAddress City/State/ZIP CodePhone Number [employer] [facility] [address] [place] [address], [facility] [phone] [facility] [facility] from Last 3 Months or Most Recently Relevant to Health Maintenance Insurance Care Teams Team MemberRelationshipSpecialtyStart DateEnd Date Lalit Bedolla MD PCP - GeneralFamily Ymfqcdju67/18/16
--- OUTSIDE RECORDS SUMMARY | 2025-04-24 12:56 | XMS_ITS ---
Author Organization [facility] Address [address] [place] [address] Phone Care Team Providers Care Nutrition Representative Name Role Phone Dipika Cox LPN Unavailable Un available Fertility Core Status:Enrolled (Active) Start date:04/14/2025 Enrollment date:04/14/2025 Enrollment reason:Identified from a specialty prescription Current support & services provided:Refill Management, Benefits and PA Management Primary medications:choriogonadotropin laxmi (Active) Continued Care and Services Coordination
--- OUTSIDE RECORDS SUMMARY | 2025-04-24 12:56 | XMS_ITS | Encounter Summary ---
Author Organization [facility] Address [address] [place] [address] Phone Care Team Providers Care Remittance Clerk Name Role Phone Dipika Cox LPN Unavailable Un available Encounter Details DateTypeDepartmentCare Team (Latest Contact Info)Hotibstlqdp85/31/2025Telephone Dillon Pearce [facility] [address] [phone] Pablo Aguilar RN Social History Tobacco UseTypesPacks/DayYears UsedDateSmoking Tobacco: NeverSmokeless Tobacco: NeverAlcohol UseStandard Drinks/WeekCommentsYes1 (1 standard drink = 0.6 oz pure alcohol)OccassionallyPHQ-2AnswerDate RecordedPatient Health Questionnaire-2 Oqsad765CommentsNoSex and Gender InformationValueDate Recorded Sex Assigned at BirthNot on fileLegal FimPebctr95/02/2024 8:19 AM ESTGender IdentityNot on fileSexual OrientationNot on filedocumented as of this encounter Miscellaneous Notes * Telephone Encounter - Pablo Aguilar RN - 04/14/2025 9:39 AM EDT Patient called with menses for TIC cycle Cycle #: TIC #4 (1st with 7.5mg Letrozole & 150mg Clomid) Medication: Letrozole and Clomid Ovulation: Trigger Sperm Source: partner fresh Luteal Support: None Additional Medications: Patient takes Mounjaro, plan to stop with +UPT Boarding Pass signed off: Yes IUI order pended: N/A Additional Information: Protocol: letrozole 7.5 mg + clomid 150/monitoring/trigger/TIC+cd 21 P4 x 3cycles (however if not responding after one cycle needs follow up to discuss next steps). Telephone call to patient in response to [employer] message. LMP 04/14. Letrozole and Clomid RX sent to [facility] on file, per patient request. Trigger shot sent to [facility]. Patient advised to confirm negative UPT before starting letrozole. Patient will call back to schedule monitoring for 04/24 (CD11) andwill present to outpatient lab on 05/04 for CD21 P4 per protocol. Patient added to noon huddle for 05/04. Patient verbalized understanding and agreed with plan, message sent to front desk person to assist with scheduling. 04/14/25 at 9:47 AM - PABLO AGUILAR RN documented in this encounter Plan of Treatment DateTypeDepartmentCare Team (Latest Contact Info)Mwujtocomrd32/05/2026 3:00 PM ESTTelemedicine Dillon Carlos [address] [phone] [place] [address] Department of [employer]ICAL ENGINEER/[place] [address] documented as of this encounter Visit Diagnoses Not on filedocumented in this encounter Additional Health Concerns AssessmentNoted TimeA fall risk assessment has been completed for the patient 03/13/2025 1:27 PM EDTdocumented as of this encounter Care Teams Team MemberRelationshipSpecialtyStart DateEnd Date Dipika Cox LPN Licensed Practical NurseReproductive Endocrinology and Infertility09/14/24 documented as of this encounter
--- OUTSIDE RECORDS SUMMARY | 2025-04-24 13:13 | XMS_ITS | CCD ---
Author Organization [facility] Care Team Providers Care Certified Medical Biller Name Role Phone Lalit Bedolla MD Primary Care Provider JUAN ., DR LOPEZ Admitting Unavailable JUAN ., DR LOPEZ Attending Unavailable [facility], DR VAZQUEZ Primary Care Unavailable JUAN ., DR LOPEZ Consulting Unavailable LALIT BEDOLLA Referring Unavailable LALIT BEDOLLA Primary Care Unavailable JOSÉ HERNANDEZ Attending Unavail able Unavailable Primary Care Provider UnavailLalit Newman MD Primary Care Provider [phone] Lalit Bedolla MD Primary Care Provider NADJA BREWSTER Referring Unavailable LALIT BEDOLLA Primary Care Unavailable Unavailable Primary Care Provider UnavailDipika Ford LPN Unavailable Un available JOE MARTINEZ Referring Unavailable DEANNA GRAF Attending Unavailable LEXIE FINCH Attending Unavailable JENNYFER ARRINGTON, REVITAL L Referring Unav ailable BREE GONSALVES Attending Unavailable JENNYFER ARRINGTON, REVITAL L Referring Unav ailable JENNYFER ARRINGTON, REVITAL L Attending Unav ailable JENNYFER ARRINGTON, REVITAL L Attending Unav ailable ROSLYN RODRIGUEZ Attending Unavailable TERE SANDERS Attending Unavailable KAMRYN DRAPER Attending Unavailable Medications Current Medications MedicationDrug Class(es)DatesSig (Normalized)Sig (Original)[id number] 200 actuat albuterol 0.09 mg/actuat metered dose inhaler (1 source)beta2-Adrenergic AgonistStart: 47-24-9096cwab 1-2 puff(s) by mouth every four to six hours as needed for coughalbuterol sulfate HFA (PROVENTIL;VENTOLIN;PROAIR) 108 (90 Base) MCG/ACT inhaler INHALE 1 TO 2 PUFFSBY MOUTH EVERY 4 TO 6 HOURS NEEDED FOR WHEEZING FOR COUGH FOR SHORTNESS OF BREATH 05/24/2024 ActiveclomiPHENE citrate 50 mg oral tablet (5 sources)Estrogen Agonist/AntagonistStart: 10-18-2024 End: 56-04-4897vbjjoNXGBE (Clomid) 50 mg tablet Indications: Female infertility Take 2 tablets (100 mg) by mouth once daily. Cycle days 3-7 10 tablet 01/06/2025 01/06/2026 ActiveEthinyl Estradiol / norgestimate (8 sources)Progestin, EstrogenStart: 13-55-3380jwgw 1 tablet by mouth once daily norgestimate-ethinyl estradioL (Sprintec, 28,) 0.25-35 mg-mcg tablet Indications: Secondary oligomenorrhea Take 1 tablet by mouth once daily. 28 tablet 12 12/10/2023 ActiveStart: 12-10-2023 End: 73-52-0688vilp 1 tablet by mouth once dailynorgestimate-ethinyl estradioL (Sprintec, 28,) 0.25-35 mg-mcg tablet Indications: Secondary oligomenorrhea Take 1 tablet by mouth once daily. 28 tablet 12 12/10/2023 12/09/2024 Activeletrozole 2.5 mg oral tablet (4 sources)Aromatase InhibitorStart: 01-06-2025 End: 18-52-5322kavn 3 tablets by mouth once daily, then take 3 tablets by mouth once daily, then take 3-7 tablets by mouth onceletrozole (Femara) 2.5 mg tablet Indications: Female infertility Take 3 tablets (7.5 mg total) by mouth once daily. Take 3 tablets by mouth cycle days 3-7 after negative urine test every cycle before starting letrozole. 15 tablet 01/06/2025 04/06/2025 ActiveStart: 10-18-2024 End: 09-41-8268ogzu 2 tablets by mouth once daily, then take 2 tablets by mouth once daily, then take 3-7 tablets by mouth onceletrozole (Femara) 2.5 mg tablet Indications: Female infertility Take 2 tablets (5 mg total) by mouth once daily. Take 2 tablets by mouth cycle days 3-7 after negative urine test every cycle before starting letrozole. 10 tablet 10/18/2024 01/16/2025 ActiveStart: 09-30-2024 End: 71-05-0648ijhj 3 tablets by mouth once daily, then take 3 tablets by mouth once daily, then take 3-7 tablets by mouth onceletrozole (Femara) 2.5 mg tablet Indications: Female infertility Take 3 tablets (7.5 mg total) by mouth once daily. Take 3 tablets by mouth cycle days 3-7 after negative urine test every cycle before starting letrozole. 15 tablet 09/30/2024 12/29/2024 ActivemedroxyPROGESTERone acetate 10 mg oral tablet (19 sources)ProgestinStart: 45-69-9319Qmupivckcrmintoaisd Active MG PO August 29, 2023 12:00amStart: 07-06-2023 End: 59-87-6559dfnl 1 tablet by mouth once dailymedroxyPROGESTERone (Provera) 10 mg tablet Indications: Female infertility Take 1 tablet (10 mg) bymouth once daily. 10 tablet 12/14/2024 12/14/2025 Epzfoe85 hr metFORMIN hydrochloride 500 mg extended release oral tablet (2 sources)BiguanideStart: 61-68-3817Hkwsukgep Active MG PO August 29, 2023 12:00amStart: 54-74-4963irye 2 tablets by mouth twice daily, then take 2 tablets by mouth twice dailymetFORMIN (GLUCOPHAGE-XR) 500 MG extended release tablet Take 2 tablets by mouth 2 times daily Take2 tablets by mouth twice daily. 60 tablet 12 07/15/2021 ActiveTirzepatide (MOUNJARO) 7.5 MG/0.5ML SOAJ (1 source)Start: 07-67-7037Evvwvjcnpbl (MOUNJARO) 7.5 MG/0.5ML SOAJ Inject into the skin 01/23/2024 ActiveTirzepatide (Mounjaro) 7.5 MG/0.5ML solution auto-injector (6 sources)Start: 69-52-5773Qaezkybjhjq (Mounjaro) 7.5 MG/0.5ML solution auto- injector 08/15/2024 Activetirzepatide, weight loss, (Zepbound) 10 mg/0.5 mL injection (3 sources)Start: 27-40-1704oyhmthxtwvm, weight loss, (Zepbound) 10 mg/0.5 mL injection Indications: BMI 37.0-37.9, adult Inject 10 mg under the skin every 7 days. 4 each 2 03/01/2025 ActiveStart: 70-45-6386gprdojikrff, weight loss, (Zepbound) 10 mg/0.5 mL injection Indications: BMI 39.0-39.9,adult Pcqldd67 mg under the skin every 7 days. 4 each 2 11/16/2024 Active Completed/Discontinued Medications MedicationDrug Class(es)DatesSig (Normalized)Sig (Original)tirzepatide (Mounjaro) 5 mg/0.5 mL pen injector (1 source)Start: 03-30-2024 End: 87-98-4483zixaadajvwv (Mounjaro) 5 mg/0.5 mL pen injector Indications: BMI 50.0-59.9, adult (Multi) Inject 5 mg under the skin every 7 days. 2 mL 2 03/30/2024 08/08/2024 Discontinued (Med List Cleanup)tirzepatide (Mounjaro) 7.5 mg/0.5 mL pen injector (4 sources)Start: 06-19-2024 End: 94-60-6274nomyuw 7.5 mg by subcutaneous injection every weektirzepatide (Mounjaro) 7.5 mg/0.5 mL pen injector Indications: Constitutional obesity Inject 7.5 mgunder the skin 1 (one) time per week. 2 mL 2 06/19/2024 11/16/2024 Discontinued (Dose adjustment)Start: 73-30-3641gbyolm 7.5 mg by subcutaneous injection every weektirzepatide (Mounjaro) 7.5 mg/0.5 mL pen injector Indications: Constitutional obesity Inject 7.5 mgunder the skin 1 (one) time per week. 2 mL 2 06/19/2024 Active Problems Active Problems Problem ClassificationProblemDateDocumented DateEpisodic/ChronicFemale infertility (8 sources)Female infertility associated with anovulation; Translations: [Female infertility]Onset: 73-36-1345CuocjpyIwvgvyvr; including migraine (13 sources)Migraine with aura; Translations: [Migraine with aura, not intractable, without status migrainosus]Onset: 457667-78-8703Ojdxbyg Menstrual disorders (18 sources)Irregular periods; Translations: [Irregular menstruation, unspecified]Onset: 061491-43-0884WydtnayTwlob endocrine disorders (19 sources)Polycystic ovary syndrome; Translations: [Polycystic ovarian syndrome]Onset: 093544-05-3704IwergutWoomb female genital disorders (3 sources)H/O: Disorder; Translations: [Personal history of other diseases of the female genital tract]Onset: 174095-43-2716MxyetwmoAzsrb nutritional; endocrine; and metabolic disorders (4 sources)Severe obesity; Translations: [Morbid (severe) obesity due to excess calories]68-51-7418MvblzbkAlbhq nutritional; endocrine; and metabolic disorders (2 sources)Body mass index 40+ - severely obese; Translations: [Body mass index (BMI) 50.0-59.9, adult]51-12-6628OeqguepQlisw nutritional; endocrine; and metabolic disorders (1 source)Morbid obesity; Translations: [Obesity, unspecified]74-58-6749Ldmlwri Other nutritional; endocrine; and metabolic disorders (13 sources)Obesity caused by energy imbalance; Translations: [Morbid (severe) obesity due to excess calories]Onset: 795350-91-9278ZiiwflmNwdiy nutritional; endocrine; and metabolic disorders (1 source)Obese class III; Translations: [Class 3 obesity]17-37-6116UfwysphHsjkj nutritional; endocrine; and metabolic disorders (9 sources)Body mass index 30+ - obesity; Translations: [Body mass index (BMI) 39.0-39.9, adult]Onset: 379120-15-5675AqspxgcXleet nutritional; endocrine; and metabolic disorders (3 sources)Obese class II; Translations: [Obesity, class 2]Onset: 02-27-2025 83-41-9213ZacqwnzWwzfu nutritional; endocrine; and metabolic disorders (3 sources)Insulin resistance; Translations: [Insulin resistance]Onset: 727267-38-4526OkidzbgOlnns nutritional; endocrine; and metabolic disorders (2 sources)Body mass index (BMI) 39.0-39.9, adult; Translations: [Body mass index (BMI) 39.0-39.9, adult]Onset: 40-54-0654CoiffhdYxnwy nutritional; endocrine; and metabolic disorders (2 sources)Body mass index (BMI) 30.0-30.9, adult; Translations: [Body mass index (BMI) 30.0-30.9, adult]Onset: 56-69-2024FdzklcfVwqjq nutritional; endocrine; and metabolic disorders (4 sources)Body mass index (BMI) 40.0-44.9, adult; Translations: [Body mass index (BMI) 40.0-44.9, adult (Multi)]Onset: 59-73-5159NxxowknNvlov nutritional; endocrine; and metabolic disorders (2 sources)Morbid (severe) obesity due to excess calories; Translations: [Morbid (severe) obesity due to excess calories (Multi)]Onset: 66-97-8670VadqrfnPszxg upper respiratory infections (1 source)Acute sinusitis, unspecified; Translations: [Acute sinusitis, unspecified]Onset: 07-28-5524LzgrflaqFcyppu media and related conditions (1 source)Unspecified Eustachian tube disorder, unspecified ear; Translations: [Unspecified eustachian tube disorder, unspecified ear]Onset: 78-43-5454Ldeqsrgk Unclassified (1 source)EaracheOnset: 82-97-6803Koqzhbxbdvlu (2 sources)Patient Education; Translations: [Patient Education]Onset: 01-16-2025 Unclassified (2 sources)Nutrition Counseling; Translations: [Nutrition Counseling]Onset: 21-56-5229Rfbgqorkerxd (2 sources)Obesity, class 3; Translations: [Obesity, class 3]Onset: 08-09-2024 Viral infection (2 sources)Plantar wart of right foot; Translations: [Plantar wart]11-14-2024 Episodic Past or Other Problems Problem ClassificationProblemDateDocumented DateEpisodic/Chronic Administrative/social admission (2 sources)Persons encountering health services in other specified circumstances; Translations: [Persons encountering health services in other specified circumstances]Onset: 62-07-1309GgcinlqxDrtzesvwiyowb and procreative management (2 sources)Encounter for fertility testing; Translations: [Encounter for fertility testing]Onset: 90-61-1714JwpkpwjjEvgiqaebopbar and screening for infectious disease (16 sources)Patient encounter status; Translations: [Encounter for screening for other viral diseases]Onset: 144729-33-7870LgyvtnlxLgcpn screening for suspected conditions (not mental disorders or infectious disease) (4 sources)Encounter for screening for other suspected endocrine disorder; Translations: [Encounter for screening for diabetes mellitus]Onset: 09-15-2024 EpisodicUnclassified (5 sources)Onset: 09-14-2024 Resolved: 155406-94-4547Cgybfsaejrgx (2 sources)Obesity, class 3; Translations: [Obesity, class 3]Onset: 08-09-2024 Results Test NameValueInterpretationReference RangeFacilityTBH PREG QUANT HCGon 27-93-2691CTS QUANTITATIVE<1mIU/mLNOMS HealthcareComment on above:5-50 0.2-1 WEEK 50-500 1-2 WEEKS 100-5,000 2-3 WEEKS 500-10,000 3-4 WEEKS 1,000-50,000 4-5 WEEKS 10,000-100,000 5-6 WEEKS 15,000-200,000 6-8 WEEKS 10,000-100,000 2-3 MONTHS CLINISYNCNORI HealthcareALL PROGESTERONEon 54-07-0407EMXWIBKTZYIK5.2 ng/mL.NOMS HealthcareComment on above:Follicular phase 0.1 - 0.9 Luteal phase 1.8 - 23.9 Ovulation phase 0.1 - 12.0 First trimester 11.0 - 44.3 Second trimester 25.4 - 83.3 Third trimester 58.7 - 214.0 Postmenopausal 0.0 - 0.1 Performed at: - [facility] [id number] Logging Operations Inspector: Michel Carlos PhD, Phone: [phone] [facility] HealthcareALL HEPATITIS C ABon 59-46-2220NQP ANTIBODYNon-Reactive Non ReactiveNOMS HealthcareComment on above:HCV antibody alone does not differentiate between previously resolved infection and active infection. Equivocal and Reactive HCV antibody results should be followed up with an HCV RNA test to support the diagnosis of active HCV infection. HBSAG SCREENon 42-37-3145NEQFR SCREENNegativeNegativeNORI HealthcareComment on above:Performed at: [address] [id number] Logging Operations Inspector: Michel Carlos PhD, Phone: [phone] No Panel Informationon 36-28-6397LEJRYQRCTZHVU HealthcareRAPID PLASMA REAGIN, QUANTon 17-31-7475RWQTH PLASMA REAGIN, QUANTNon-ReactiveNonRea<1:1 titerNOMS HealthcareComment on above:Please Note: This test does not meet current guidelines for screening and diagnosis of syphilis. This test is intended for following treatment response in patients being treated for syphilis infection. To screen for syphilis infection, a reflex cascade that includes both RPR and a treponema-specific assay should be utilized, such as Treponema pallidum (Syphilis) Screening Bowdle (935045) or Rapid Plasma Reagin (RPR) Test With Reflex to Quantitative RPR and Confirmatory Treponema pallidum Antibodies (110978). Performed at: [address] [id number] Logging Operations Inspector: Michel Carlos PhD, Phone: [phone] TBH PREG QUANT HCGon 80-02-3489IZK QUANTITATIVE<1mIU/mLNOMS HealthcareComment on above:5-50 0.2-1 WEEK 50-500 1-2 WEEKS 100-5,000 2-3 WEEKS 500-10,000 3-4 WEEKS 1,000-50,000 4-5 WEEKS 10,000-100,000 5-6 WEEKS 15,000-200,000 6-8 WEEKS 10,000-100,000 2-3 MONTHS CLINISYNCNOMS HealthcareALL PROGESTERONEon 72-39-4680VBAILLNGZZNE4.2 ng/mL.[facility] HealthcareComment on above:Follicular phase 0.1 - 0.9 Luteal phase 1.8 - 23.9 Ovulation phase 0.1 - 12.0 First trimester 11.0 - 44.3 Second trimester 25.4 - 83.3 Third trimester 58.7 - 214.0 Postmenopausal 0.0 - 0.1 Performed at: [address] [id number] Logging Operations Inspector: Michel Carlos PhD, Phone: [phone] [facility] GreeneRPR (DX) W/REFL TITER AND T. PALLIDUM AB, IAon 03-56-0332GLR (DX) W/REFL TITER AND CONFIRMATORY TESTINGNon-ReactiveNormal NON-REACTIVEQuest DiagnosticsComment on above:Result Comment: No laboratory evidence of syphilis. If recent exposure is suspected, submit a new sample in 2-4 weeks. Your request to have a duplicate copy faxed has been acknowledged. Queued to: [id number] By: #### 4439, 802, 1005, 17679 #### [facility] [address], [address] [place], [place] [address] Welfare Aide: Ryan MARTINEZLLA AB (IGG), IMMUNE STATUSon 09-30-2024 RUBELLA AB (IGG), IMMUNE STATUS3.96 IndexNormalQuest DiagnosticsComment on above:Order Comment: PATIENT REFUSED SOME TESTING; PATIENT ENCOURAGED TO RETURN. Result Comment: Index Interpretation ----- <0.90 Not consistent with immunity 0.90-0.99 Equivocal > or = 1.00 Consistent with immunity The presence of rubella IgG antibody suggests immunization or past or current infection with rubella virus.Performed By: #### 4439, 802, 1005, 26521 #### [facility] [address], [address] [place] [phone] Welfare Aide: Ryan Mena MDTEST AUTHORIZATIONon 89-18-4105UFDREG CONTACT: Melony NAVARRO SMITHNormalQuest DiagnosticsComment on above:Performed By: #### 4439, 802, 1005, 29344 #### [facility] [address], [address] [place], [place] [address] Welfare Aide: Ryan Mena [facility] HOSPITALNormalQuest DiagnosticsComment on above:Result Comment: Please have the ordering physician or his or her authorized assisted sales representative sign a copy of this report and promptly return it by faxing it to: [phone] or by returning the form to your cutting machine operator helper.Performed By: #### 4439, 802, 1005, 95937 #### [facility] [place] [address] Welfare Aide: Ryan MCGUIREEPORT ALWAYS MESSAGE SIGNATURENormalQuest DiagnosticsComment on above:Result Comment: The laboratory testing on this patient was verbally requested or confirmed by the ordering physician or his or her authorized assisted sales representative after contact with an employee of [employer]. Federal regulations require that we maintain on file written authorization for all laboratory testing. Accordingly we are asking that the ordering physician or his or her authorized assisted sales representative sign a copy of this report and promptly return it to the manager client service. Signature: Performed By: #### 4439, 802, 1005, 76317 #### [facility] [place] [address] Welfare Aide: Ryan Mena MDTEST CODE:[id number] DiagnosticsComment on above:Performed By: #### 4439, 802, 1005, 78048 #### [facility] [place] [address] Welfare Aide: Ryan Mena MDTEST NAME:RPR (DX) W/REFL TITER AND SYPNormal [facility] DiagnosticsComment on above:Performed By: #### 4439, 802, 1005, 51224 #### [facility] [place] [address] Welfare Aide: Ryan Mena MDVARICELLA ZOSTER VIRUS ANTIBODY (IGG)on 69-08-4539JXXPTLJQI ZOSTER VIRUS ANTIBODY (IGG)16.30 S/CONormalQuest Diagnostics Comment on above:Result Comment: Signal to Cut-off S/CO Interpretation --------- [...] is Varicella Zoster Virus Antibody Immunity Screen, ACIF.Performed By: #### 4439, 802, 1005, 369[address] #### [employer] [facility] [place] [address] [facility] [place] [facility], [address] [place] [address] Welfare Aide: Ryan Beaulieu type and Indirect antibody screen panel (Bld)on 55-96-4841APJ group Nom (Bld)ONCommunity Regional Medical CenterComment on above:Performed By: #### 32470-7 #### GLENROY Wiley ([id number]) [facility] ([facility]) [address] [place], [place] [address]Mdbtk group antibody screen QlNegativeNoMercy Health Willard HospitalComment on above:Performed By: #### 35551-9 #### GLENROY Wiley ([id number]) [facility] ([facility]) [address] [place], [place] [address]P Ag Ql (Bld)PositiveNoMercy Health Willard HospitalComment on above:Result Comment: 2nd ABO test required. Order and Collect VERABPerformed By: #### 66082-5 #### GLENROY Wiley ([id number]) [facility] ([facility]) [address] [place], [place] [address]UQL CBC WITH AUTO DIFFon 60-88-1258HNIHEOBRI ABSOLUTE AUTO0 NOMS HealthcareBasophils/100 WBC (Bld)0.4 %0.2 - 2.0 %[facility] Eosinophils/100 WBC (Bld)1.1 %0.9 - 7.0 %NOMS HealthcareErythrocyte distribution width (RBC) [Ratio]12.8 %11.0 - 15.0 %[facility] NetworkHematocrit (Bld) [Volume fraction]38.9 %36.0 - 48.0 %[facility] NetworkHemoglobin (Bld) [Mass/Vol]12.7 g/dL 12.0 - 16.0 g/dLNortheast Missouri Rural Health NetworkIMMATURE GRANULOCYTES ABS AUTO0.02NOMS [facility] Immature granulocytes/100 WBC (Bld)0.2 %0.0 - 0.5 %[facility] NetworkLYMPHOCYTES ABSOLUTE AUTO2.8NOMineral Area Regional Medical CenterLymphocytes/100 WBC (Bld)28 %20.5 - 60.0 %[facility] HospitalH (RBC) [Entitic mass]29.1 pg26.7 - 34.0 pgPerry County Memorial HospitalHC (RBC) [Mass/Vol]32.6 g/dL29.9 - 35.2 g/dLNortheast Missouri Rural Health NetworkMCV (RBC) [Entitic vol]89 fL 81.0 - 99.0 fLNortheast Missouri Rural Health NetworkMONOCYTES ABSOLUTE AUTO0.8NOMineral Area Regional Medical Center Monocytes/100 WBC (Bld)7.9 %1.7 - 12.0 %[facility] NetworkNEUTROPHILS ABSOLUTE AUTO 6.3NOMS [facility] HospitalNeutrophils/100 WBC (Bld)62.4 %43.0 - 75.0 %[facility] Platelet mean volume (Bld) [Entitic vol]10.5 fL9.5 - 13.5 fLNortheast Missouri Rural Health NetworkTB EO #0.1NOMS HealthcareTBH [id number] [facility] HospitalTB RBC4.37NOMS [facility] WBC 10.1NOMS HealthcareCLINISYNCNOMS HealthcareUS PELVIC COMPLETE W/ TVon 08-30-2024 US PELVIC COMPLETE W/ TVEXAM: US PELVIC COMPLETE W/ TV HISTORY: PCOS, infertility. COMPARISON: None available. TECHNIQUE: Two-dimensional transabdominal grayscale ultrasound imaging of the pelvis was performed.Color flow Doppler imaging of the ovaries was [...] II, MD, PHD at 01-Sep-2024 08:42:54 AM [facility] TeleradiologyNormalNot AvailableComment on above:Order Comment: US PELVIS-TRANSVAG IF INDICATED No LMP recorded.TBH PREG QUANT HCGon 08-08-0757YLY QUANTITATIVE<1mIU/mLNOMS HealthcareComment on above:5-50 0.2-1 WEEK 50-500 1-2 WEEKS 100-5,000 2-3 WEEKS 500-10,000 3-4 WEEKS 1,000-50,000 4-5 WEEKS 10,000-100,000 5-6 WEEKS 15,000-200,000 6-8 WEEKS 10,000-100,000 2-3 MONTHS CLINISYNCNOMS HealthcareHPV DNA High Riskon 49-66-3902MKK InterCleveland Clinic Marymount HospitalComment on above:Result Comment: This test amplifies and detects DNA [...] suspected sexual abuse or for other forensic purposes.Performed By: #### HPVH #### [facility] [address] [place] [address] Logging Operations Inspector: Gopi Yoder MDHPV Type 16Not detectedNoProvidence Portland Medical CenterComment on above:Performed By: #### HPVH #### [facility] [address] [place] [address] Logging Operations Inspector: Gopi Yoder MDHPV Type 18Not detectedLegacy Meridian Park Medical CenterComment on above:Performed By: #### HPVH #### [facility] [address] [place] [address] Logging Operations Inspector: Gopi Yoder MDOther High Risk HPVNot detectedLegacy Meridian Park Medical CenterComment on above:Performed By: #### HPVH #### [employer] [address] [place] [phone] Logging Operations Inspector: WES Wilde HPV DNA HIGH RISKon 45-62-4596WSQQ HPV INTERKings County Hospital CenterComment on above:This test amplifies and detects DNA of 14 [...] or for other forensic purposes. MHPT HPV SAMPLE.THIN [facility] HospitalMHPT HPV TYPE 16Not detectedNOTDETNortheast Missouri Rural Health NetworkMHPT HPV TYPE 18Not detectedNOTBaptist Memorial Hospital for WomenMHPT OTHER HIGH RISK HPVNot detectedNOTDEParkwest Medical CenterMHPT SOURCECERVICAL [facility] Original Ordering Provider: NADJA TURNERMacon General HospitalHPV DNA High Riskon [id number] Sample.[facility] Comment on above:Performed By: #### HPVH #### [address] [address] Logging Operations Inspector: Gopi Yoder [facility] Ironton CampusComment on above:Performed By: #### HPVH #### [facility] HospitalCultureMap [address] [address] Logging Operations Inspector: Gopi Yoder [facility] – NORMANytology Reporton [id number] report Cyto stain.thin prep Doc (Cvx/Vag)(NOTE) Path Number: [id number] DIAGNOSIS Imaged ThinPrep Pap - Cervical (1 monolayer slide): Specimen Adequacy: Satisfactory for evaluation. - Endocervical/transformation zone component present. Descriptive Diagnosis: Negative for intraepithelial lesion or malignancy. Comments: Specimen was screened at [facility], [address] [place] [address] [employer] Screener: Rescreened By: HOOD Electronically Signed [...] other forensic purposes. Performed at [facility], [address] [place] [address] . Source of Specimen: A: Imaged ThinPrep Pap - Cervical (1 monolayer slide) HPV Reflex?......................HPV Regardless Clinical History Z01.419 Routine watchstander exam without abnormal findings Z11.51 Encounter for screening for HPV Processing Lab: [place] [address] [place] [address] [place] [address] This Pap Test has been evaluated with [...] GYNECOLOGIC CYTOLOGY REPORT Patient Name: BARBARA FISCHER [facility] Rec: [id number] [facility] ANATOMIC PATHOLOGY [address] [facility]. [place], [place] [address] NormalMercy Keck Hospital Of UscALL PROGESTERONEon 07-65-4024IWPTUOIXDJLY0.2 ng/mL.NOMS HealthcareComment on above:Follicular phase 0.1 - 0.9 Luteal phase 1.8 - 23.9 Ovulation phase 0.1 - 12.0 First trimester 11.0 - 44.3 Second trimester 25.4 - 83.3 Third trimester 58.7 - 214.0 Postmenopausal 0.0 - 0.1 Performed at: - [address] [id number] Logging Operations Inspector: Michel Carlos PhD, Phone: [phone] CLINISYNCNOMS HealthcareInfluenza virus B Ag [Presence] in Upper respiratory specimen by Rapid immunoassayon 08-88-7351FPVMQ Ag IA.rapid Ql (Nph)Negative [facility] HospitalNo Panel Informationon 71-85-5134Kbymxguzg Type A (Rapid)NegativeCleveland Clinic Lutheran HospitalPO SARS CoV-2 Antigen NegativeCleveland Clinic Lutheran HospitalNo Panel InformationOrdered By: Polly Jurado on 30-95-0534Ylrek Strep (POC)[facility] PROGESTERONEon 27-02-9303Zdthluyacjvo6.2 ng/mLNormalOhiohealth Grady Memorial HospitalComment on above:Result Comment: Follicular phase 0.1 - 0.9 Luteal phase 1.8 - 23.9 Ovulation phase 0.1 - 12.0 First trimester 11.0 - 44.3 Second trimester 25.4 - 83.3 Third trimester 58.7 - 214.0 Postmenopausal 0.0 - 0.1Performed By: #### PROGES #### [facility] [address] [place] [address] Dr. Ruth Conte Vital Signs Date TimeVital SignValuePerforming MkbrpcpzfVhdrwjif52-10-2472 13:26-0400Body eqrwvk056.1 Joy Draper MD Work Phone: [facility]09-29-2025 13:26-0400 Body mass index (BMI) [Ratio]37.38 kg/i4FrpjmynKamryn Draper MD Work Phone: [facility]09-29-2025 13:26-0400 Body wvorif207.88 kgKamryn Draper MD Work Phone: [facility]09-11-2025 13:47-0400 Body fhufpx970.1 cmDarryli Brina HOUSEKEEPER NANNY-MANUFACTURING MECHANIC Work Phone: [facility]09-11-2025 13:47-0400 Body mass index (BMI) [Ratio]37.67 kg/e7Lgomug Brina HOUSEKEEPER NANNY-MANUFACTURING MECHANIC Work Phone: [facility]09-11-2025 13:47-0400 Body .69 kgBrandi Brina HOUSEKEEPER NANNY-MANUFACTURING MECHANIC Work Phone: [facility]06-04-2025 13:14-0400 Body tmrjuh380.1 [facility]alkenrick [facility] MD Work Phone: [facility]06-04-2025 13:14-0400 Body mass index (BMI) [Ratio]39.44 kg/r4IikzlmiKarl Arrington MD Work Phone: [facility]06-04-2025 13:14-0400 Body uuiogx879.5 kgReedwin Arrington MD Work Phone: [facility]06-02-2025 14:12-0400 Body pekelw136.1 cmAbob Graf REFRIGERATION UNIT REPAIRER Work Phone: [phone]06-02-2025 14:12-0400Body mass index (BMI) [Ratio]40.27 kg/e6RwzztDeanna Graf REFRIGERATION UNIT REPAIRER Work Phone: [phone]06-02-2025 14:12-0400Body temperature 97.2 [degF]Deanna Graf REFRIGERATION UNIT REPAIRER Work Phone: [phone] [place], [place] [address]Ywrzvgonko54-61-3172 14:12-0400Body .77 kgDeanna Graf REFRIGERATION UNIT REPAIRER Work Phone: [phone]55[facility] NetworkBucigvxbrx86-38-2441 14:12-0400Diastolic blood mm[Hg]Deanna Graf REFRIGERATION UNIT REPAIRER Work Phone: [phone] [place], [place] [address]Cgsdckyicw64-15-5084 14:12-0400Heart rate63 /min Deanna Graf REFRIGERATION UNIT REPAIRER Work Phone: [phone] NetworkMfmsewnjqi70-48-0292 14:12-3785VhW7% (BldA) [Mass fraction]99 %Deanna Graf REFRIGERATION UNIT REPAIRER Work Phone: [phone]92[facility] NetworkNpelzooxrc34-58-9052 14:12-0400Systolic blood mm[Hg]Deanna Graf REFRIGERATION UNIT REPAIRER Work Phone: [phone]04-17-2025 12:07-0400Body fovgqe228.1 cmTere SCHREIBER Work Phone: [facility]04-17-2025 12:07-0400 Body mass index (BMI) [Ratio]41.35 kg/m2Tere SCHREIBER Work Phone: [phone] [place], [place] 9555404-17-2025 12:07-0400 Body .72 kgTere SCHREIBER Work Phone: 1)[address] [place], [place] 9555404-02-2025 15:34-0400 Body afnzve445.1 Devon Rodriguez MD Work Phone: [phone] [place], [place] 9555404-02-2025 15:34-0400 Body mass index (BMI) [Ratio]42 kg/j5YyiyywRoslyn Rodriguez MD Work Phone: [phone])[address] [place], [place] 9555404-02-2025 15:34-0400 Body hjmugf461.49 kgRoslyn Rodriguez MD Work Phone: 1()[address] [place], [place] 9555402-25-2025 08:28-0500 Body ufaseq986.1 Kunal Arrington MD Work Phone: 1()3-[address] [place], [place] 3661302-25-2025 08:28-0500 Body mass index (BMI) [Ratio]44.6 kg/p9Grhtmndedwin Arrington MD Work Phone: 1()419-[address] [place], [place] 3661302-25-2025 08:28-0500 Body jjinbu221.56 kgKarl Arrington MD Work Phone: 1()595-[address] [place], [place] 3661307-09-2024 12:17-0400 Body wroukx076.1 cmRkenrick Arrington MD Work Phone: 1()686-[facility]07-09-2024 12:17-0400 Body mass index (BMI) [Ratio]54.91 kg/z9NyvgggaKarl Arrington MD Work Phone: 1(216)749-[facility]07-09-2024 12:17-0400 Body .69 kgKarl Arrington MD Work Phone: 1([phone])053-[facility]06-27-2024 09:24-0400 Body .1 Devon Rodriguez MD Work Phone: [phone] [place], [place] 2294006-27-2024 09:24-0400 Body mass index (BMI) [Ratio]54.91 kg/t9TsgpruRoslyn Rodriguez MD Work Phone: 1([phone])[facility] [place], [place] 2294006-27-2024 09:24-0400 Body cqbddo491.69 kgRoslyn Rodriguez MD Work Phone: [phone])[address] [place], [place] 9555406-27-2024 09:24-0400 Diastolic blood mm[Hg]Roslyn Rodriguez MD Work Phone: 1(216)[address] [place], [place] 9555406-27-2024 09:24-0400 Heart rate47 /Keyshawn Rodriguez MD Work Phone: 1(723)[address] [place], [place] 9555406-27-2024 09:24-0400 Systolic blood mm[Hg]Roslyn Rodriguez MD Work Phone: [phone] [place], [place] 9555403-16-2024 11:25-0400 Body wjowes758.1 cmC[facility] Clinic Luther[facility] Hospital03-16-2024 11:25-0400Body mass index (BMI) [Ratio]54.1 kg/w9YsejjcaxiCleveland Clinic Lutheran Hospital03-16-2024 11:25-0400Body zcywkucqsto24 [degF][facility]03-16-2024 11:25-0400Body ohwupg103.41 kgCleveland Clinic Lutheran Hospital03-16-2024 11:25-0400Heart pulg781 /[facility]03-16-2024 11:25-0400Respiratory rate18 /[facility]03-16-2024 11:25-8762GhV4% (BldA) [Mass fraction]97 %[facility] Encounters Encounter DateEncounter TypeCare ProviderFacilityStart: 03-30-2025 End: 15-52-8155uejosdpifzMRQLYEWilson Healthtart: 03-29-2025 End: 19-11-1967Nanczgsre Result EncounterGeneric External Data ProviderNOMS External Department UnsolicitedStart: 03-29-2025 End: 00-38-1089Chwodamir Result EncounterGeneric External Data ProviderNOMS External Department UnsolicitedStart: 03-13-2025 End: 17-43-5043Dznjncpsbytq consultation with Jose Draper MD Work Phone: [facility] Pearce AshfieldComment on above:PCOS (polycystic ovarian syndrome) (Primary Dx); Female infertilityStart: 03-13-2025 End: 56-14-2619phmwdedxnnVBDGYRC K AYYARUProMedica Toledo Hospitaltart: 02-23-2025 End: 06-10-8625Tvgkrp outpatient visit 40 minutesBree Gonsalves HOUSEKEEPER NANNY-MANUFACTURING MECHANIC Work Phone: [facility] HospitalComuniversity of [facility] health on above:Obesity, class 2 (Primary Dx); BMI 37.0-37.9, adult; PCOS (polycystic ovarian syndrome); Insulin resistance; History of infertilityStart: 02-23-2025 End: 03-24-8040zophccrpwnMIBJBH Reji [facility] AmbulatoryStart: 01-26-2025 End: 83-04-2476uiccuvxkdxZUFYVKCommunity Regional Medical Centertart: 01-25-2025 End: 20-79-0526dubybiskqsNCJWKJCommunity Regional Medical Centertart: 01-24-2025 End: 79-10-1319Mmkngbogz Result EncounterGeneric External Data ProviderNOMS External Department UnsolicitedStart: 01-24-2025 End: 32-28-4184Gqvvwdaum Result EncounterGeneric External Data ProviderNOMS External Department UnsolicitedStart: 01-24-2025 End: 17-17-7833wrbqehcbkfPIBZIMCommunity Regional Medical Centertart: 01-16-2025 End: 51-00-3099vrvyasxmghGZKFCAPFSouth [facility] AmbulatoryStart: 01-03-2025 End: 24-68-2737Nzfnbbubx Result EncounterGeneric External Data ProviderNOMS External Department UnsolicitedStart: 01-03-2025 End: 75-99-9949Lrdtuqiry Result EncounterGeneric External Data ProviderNOMS External Department UnsolicitedStart: 12-14-2024 End: 70-90-0058eulctfboauQFOQNOOhioHealth Hardin Memorial Hospitaltart: 12-13-2024 End: 78-13-1044grkdfqptmhPZXTWLBluffton Hospitaltart: 12-12-2024 End: 92-29-0277Uzatxskkt Result EncounterGeneric External Data ProviderNOMS External Department UnsolicitedStart: 12-12-2024 End: 40-93-1427Dtxvrumdz Result EncounterGeneric External Data ProviderNOMS External Department UnsolicitedStart: 12-12-2024 End: 19-49-5147wtgvbdwwqjALFXIEBluffton Hospitaltart: 11-16-2024 End: 69-05-5827Nsgnqa outpatient visit 40 minutesKarl Arrington MD Work Phone: [phone] [place], [place] [address]Comment on above:BMI 39.0-39.9,adult; BMI 30.0-30.9,adultStart: 11-16-2024 End: 64-29-0825ddrviunvjiUMIOXPJ L GORODESKI [facility] AmbulatoryStart: 11-14-2024 End: 10-31-4812Gzsofv outpatient visit 15 minutesDeanna Graf NP Work Phone: noms GSRW FMComment on above:Plantar wart, right foot (Primary Dx); Class 3 severe obesity due to excess calories without serious comorbidity with body mass index (BMI) of 40.0 to 44.9 in adultStart: 11-14-2024 End: 38-70-3059rdsfkbpodbWMVTA ALEXANDERNot AvailableStart: 11-14-2024 End: 88-89-9073Qpxgaxjennifer Graf NP Work Phone: noms GSRW FMStart: 11-14-2024 End: 92-99-8305Nzzpbljennifer Graf NP Work Phone: noms GSRW FMStart: 11-08-2024 End: 05-50-5825pufpvkfytkFQIRAIOhioHealth Hardin Memorial Hospitaltart: 11-04-2024 End: 99-64-0451pbllzebnelXEGHOZOhioHealth Hardin Memorial Hospitaltart: 10-18-2024 End: 95-99-6616xmmdwoykrrSXHTLYOhioHealth Hardin Memorial Hospitaltart: 10-17-2024 End: 98-59-0328Txbtdmngl Result EncounterGeneric External Data ProviderNOMS External Department UnsolicitedStart: 10-17-2024 End: 02-26-7440Mpdemfiww Result EncounterGeneric External Data ProviderNOMS External Department UnsolicitedStart: 10-17-2024 End: 08-55-8751ifmzegdltnYGCABZBluffton Hospitaltart: 10-16-2024 End: 48-74-3799rxivxhmjgaKLXTKGCommunity Regional Medical Centertart: 09-29-2024 End: 22-39-2323Cxgjrtbgvrpd consultation with Lucie SCHREIBER Work Phone: uh Dillon DialloilionComment on above:Female infertility [N97.9] (Primary Dx)Start: 09-29-2024 End: 45-62-8301zlkpqdnxggOGSK L [facility] Memorial Hospitaltart: 09-28-2024 End: 19-85-8644ugqunyirnqDGYMRLCommunity Regional Medical Centertart: 09-28-2024 End: 29-45-8738Qqckrspis for blood typingOhioHealth Hardin Memorial Hospitaltart: 09-17-2024 End: 34-85-9775Bqniykfgr Result EncounterGeneric External Data ProviderNOMS External Department UnsolicitedStart: 09-17-2024 End: 73-75-2491Xoibyngpp Result EncounterGeneric External Data ProviderNOMS External Department UnsolicitedStart: 09-15-2024 End: 44-04-4304Ugzvshvtgwrc consultation with Juanito Rodriguez MD Work Phone: uh Dillon ParkonComment on above:Screening for STDs (sexually transmitted diseases) (Primary Dx); Class 3 severe obesity with body mass index (BMI) of 40.0 to 44.9 in adult, unspecified obesity type, unspecified whether serious comorbidity present; Thyroid disorder screening; Screening for diabetes mellitus; Primary oligomenorrhea; Fertility testing; PCOS (polycystic ovarian syndrome) [E28.2]Start: 09-15-2024 End: 22-15-5393qkdjwrwnwpSXMOGIMercy Health St[facility] CenterStart: 08-30-2024 End: 88-72-0759rjcvqkzcbtJNLZZ FAZIONot AvailableStart: 08-09-2024 End: 22-97-0380Fukalt outpatient visit 40 minutesRevispanish fork hospital Saurabh Arrington MD Work Phone: [facility] HospitalComment on above:Class 3 obesity (Primary Dx); BMI 40.0-44.9, adult (Multi); Encounter for weight managementStart: 08-09-2024 End: 19-87-0228hsykyhfgqwNGWEXGN Saurabh CAPELLANCarePartners Rehabilitation Hospital AmbulatoryStart: 08-01-2024 End: 17-08-2089Cnkpaweym Result EncounterGeneric External Data ProviderNOMS External Department UnsolicitedStart: 08-01-2024 End: 99-31-0746Qwyhwstgl Result EncounterGeneric External Data ProviderNOMS External Department UnsolicitedStart: 07-18-2024 End: 96-73-3829hnwvzgttnjLHYAWMartins Ferry Hospitaltart: 07-18-2024 End: 84-06-0404Ubmlabsgl for gynecological examination (general) (routine) without abnormal findingsMercy Hospitaltart: 07-18-2024 End: 92-71-7334Etfjifwmva hospital visit by Connor Bedolla MD Work Phone: stVZ [facility] LAB DOCTORStart: 07-18-2024 End: 35-56-4517Uwnbohkac Result EncounterGeneric External Data ProviderNOMS External Department UnsolicitedStart: 07-18-2024 End: 59-31-9016Ufcvcvxgy Result EncounterGeneric External Data ProviderNOMS External Department UnsolicitedStart: 06-10-2024 End: 03-88-5886Efoddkabh Result EncounterCorey Juan DO Work Phone: noms External Department UnsolicitedStart: 06-10-2024 End: 42-53-4268Bdyjrfldn Result EncounterCoreblayne Martinez DO Work Phone: noms External Department UnsolicitedStart: 12-22-2023 End: 88-95-9562Fgcunp consultation new/estab patient 60 claudeRevital Saurabh Arrington MD Work Phone: [facility] HospitalComuniversity of [facility] health on above:BMI 50.0-59.9, adult (Multi) (Primary Dx); Encounter for weight management; Super obesityStart: 12-10-2023 End: 95-10-8325Leqtqfi encounter procedureRoslyn Rodriguez MD Work Phone: [facility] HospitalComment on above: Secondary oligomenorrhea (Primary Dx); Fertility testing; Screening for thyroid disorder; Screening for diabetes mellitus; Encounter for screening for other viral diseases; Encounter for Rh blood typing; Screening for STDs (sexually transmitted diseases); Screening for genetic disease carrier status; Class 3 severe obesity due to excess calories with body mass index (BMI) of 50.0 to 59.9 in adult, unspecified whether serious comorbidity present (Multi) [E66.01, Z68.43]Start: 12-10-2023 End: 85-72-8105Osxqxpu encounter statusRoslyn Rodriguez MD Work Phone: [facility] Work Phone: Start: 09-14-2023 End: 76-96-1979hlzswecrztAXMVW [facility] Ambulatory PPGStart: 08-29-2023 End: 40-23-5493kpkgrbuexnXjieqfqbgMercy Health [facility] Work Phone: Start: 08-29-2023 End: 39-18-2030Emycwvl encounter procedureDavis [facility] Work Phone: Start: 09-30-2022 End: 74-78-6285adyluwjxwdGM JOE MARTINEZ .Facility:J2Lyndk: 07-15-2022 End: 59-58-8124Edlihiatgf hospital visit by Connor Bedolla MD Other Phone: ST[facility] Procedures DateProcedureProcedure DetailPerforming ClinicianStart: 82-11-6919UDT PREG QUANT HCGGeneric External Data ProviderStart: 97-31-7069Xtkaei-up visitFollow-up KAMRYN K AYYARStart: 33-05-9200VRQ PROGESTERONEGeneric External Data Provider Start: 42-17-3412WCA HEPATITIS C ABGeneric External Data ProviderStart: 38-68-2670BWWOL SCREENGeneric External Data ProviderStart: 73-30-7595DQWBO PLASMA REAGIN, QUANTGeneric External Data ProviderStart: 60-33-1992YVY PREG QUANT HCGGeneric External Data ProviderStart: 42-53-8138DLE PROGESTERONEGeneric External Data ProviderStart: 83-77-5465AWE CBC WITH AUTO DIFFGeneric External Data ProviderStart: 03-21-7130FDR PREG QUANT HCGGeneric External Data Provider Start: 04-88-1538Snkmmeajerb observation [Identifier] in Cervix by Cyto stain Karl Arrington MD Work Phone: Start: 04-19-1973NOFL HPV DNA HIGH RISKGeneric External Data ProviderStart: 83-36-6532NIM PROGESTERONEGeneric External Data ProviderStart: 87-99-2191Gbqjy Strep (POC)Start: 84-65-0968Qbbufkhekfb observation [Identifier] in Cervix by Cyto stainJoe Martinez DO Work Phone: Start: 91-63-0782Ozbhqwgiscb observation [Identifier] in Cervix by Cyto stainLalit Bedolla MD Other Phone: Plan of Treatment DateCare ActivityDetailAuthorStart: 73-90-0534Xjzykt Vaccines (1 of 2)Zoster Vaccines (1 of 2)[facility] CenterStart: 37-78-2155ZZjR/Tdap/Td vaccine (7 - Td or Tdap)DTaP/Tdap/Td vaccine (7 - Td or Tdap)[facility]ITALStart: 60-29-0363VQvA/Tdap/Td Vaccines (7 - Td or Tdap)DTaP/Tdap/Td Vaccines (7 - Td or Tdap)[facility] CenterStart: 07-18-2029 Screening for malignant neoplasm of cervixNOMS HealthcareStart: 07-15-2028 Screening for malignant neoplasm of cervixNOMS HealthcareStart: 07-18-2027 Screening for malignant neoplasm of cervixUnOhioHealth Start: 94-20-6477Jvwwmjktm for malignant neoplasm of cervixPap SmearNOMS HealthcareStart: 74-10-5251Jybmpa Adult PhysicalYearly Adult PhysicalUnOhioHealthStart: 34-70-0561Wmwfzfeccs ScreenDepression ScreenBon [facility] CenterStart: 07-18-2025 End: 52-20-7396Gthfsfw encounter /03/2026 8:30 AM EST Office Visit [facility] Obstetrics & Gynecology [address] [place] [phone] Nadja Brewster APRN - MANUFACTURING MECHANIC [address] [place] [address] annualTrinity Health [facility] Hospital Obstetrics & GynecologyComment on above:annualStart: 06-19-2025 End: 28-12-7896Zeamihugmbve consultation with osrzssq8906/19/2025 3:00 PM EST Telemedicine Dillon Carlos [address] [place] [address] [place] [address] [facility] Department of FOREST WORKER/[place] [address] Dillon ParkonStart: 03-30-2025 End: 01-51-4017Llandhuftjod consultation with ltfbjfv2003/30/2025 2:00 PM EDT Telemedicine Dillon Carlos [address] [place] [address] Roslyn Rodriguez MD [address] [place] [address] [facility] Pearce PavilionStart: 03-13-2025 End: 11-65-7209Rtdmgckpvpiy consultation with yejfxfc6803/13/2025 3:00 PM EDT Telemedicine [facility] Dialloilion [address] [place] [phone] [place] [address] [address] Department of FOREST WORKER/[place] [address] Dillon Pearce PavilionStart: 14-03-2021Hzdmqljwl vaccinationFairfield Medical CenterStart: 11-14-2024 End: 82-03-2233Wtazdds encounter /02/2025 2:30 PM EDT Office Visit [facility] [address] [place] [address] [place] [address] [place], [place] [address] ArrivedNOMS R FMComment on above:ArrivedStart: 09-15-2024 End: 57-64-3903BNW panel - Blood by Automated countCBC Lab Routine Class 3 severe obesity with body mass index (BMI) of 40.0 to 44.9 in adult, unspecified obesity type, unspecified whether serious comorbidity present Expected: 09/15/2024 (Approximate), Expires: 09/15/2025[facility] Work Phone: Comment on above:Expected: 09/15/2024 (Approximate), Expires: 09/15/2025Start: 09-15-2024 End: 22-44-2126Qcefflfgd trachomatis and Neisseria gonorrhoeae DNA [Identifier] in Unspecified specimen by ROBBY with probe detectionC. trachomatis / N. gonorrhoeae, Amplified, Urogenital Lab Routine Screening for STDs (sexually nagel smitted diseases) Expected: 09/15/2024 (Approximate), Expires: 09/15/2025 [facility] Work Phone: Comment on above:Expected: 09/15/2024 (Approximate), Expires: 09/15/2025Start: 09-15-2024 End: 79-79-8738Pmtkwpyhmjvwf metabolic 2000 panel - Serum or PlasmaComprehensive Metabolic Panel Lab Routine Class 3 severe obesity with body mass index (BMI) of 40.0to 44.9 in adult, unspecified obesity type, unspecified whether serious comorbidity present Expected: 09/15/2024 (Approximate), Expires: 09/15/2025 [facility] Work Phone: Comment on above:Expected: 09/15/2024 (Approximate), Expires: 09/15/2025Start: 09-15-2024 End: 48-43-0705Qmvgbrckag A1c/Hemoglobin.total in BloodHemoglobin A1C Lab Routine Screening for diabetes mellitus Expected: 09/15/2024 (Approximate), Expires: 09/15/2025[facility]Ohio[facility] Work Phone: Comment on above:Expected: 09/15/2024 (Approximate), Expires: 09/15/2025Start: 09-15-2024 End: 53-14-5632Uoakdmjmv B virus surface Ag [Presence] in Serum or Plasma by ImmunoassayHepatitis B surface antigen Lab Routine Screening for STDs (sexually transmitted diseases) Expected: 09/15/2024 (Approximate), Expires: 09/15/2025 [facility] Service Area Work Phone: Comment on above:Expected: 09/15/2024 (Approximate), Expires: 09/15/2025Start: 09-15-2024 End: 17-77-1926Xtczxlnnr C virus Ab [Presence] in SerumHepatitis C Antibody Lab Routine Screening for STDs (sexually transmitted diseases) Expected: 09/15/2024 (Approximate), Expires: 09/15/2025[facility] Work Phone: Comment on above:Expected: 09/15/2024 (Approximate), Expires: 09/15/2025Start: 09-15-2024 End: 69-39-2515CKE 1+2 Ab+HIV1 p24 Ag [Presence] in Serum or Plasma by ImmunoassayHIV 1/2 Antigen/Antibody Screen with Reflex to Confirmation Lab Routine Screening for STDs (sexually transmitted diseases) Expected: 09/15/2024 (Approximate), Expires: 09/15/2025[facility] Work Phone: Comment on above:Expected: 09/15/2024 (Approximate), Expires: 09/15/2025Start: 09-15-2024 End: 75-70-4123Irfem 1996 panel - Serum or PlasmaLipid Panel Lab Routine Class 3 severe obesity with body mass index (BMI) of 40.0 to 44.9 in adult,unspecified obesity type, unspecified whether serious comorbidity present Expected: 09/15/2024 (Approximate), Expires: 09/15/2025[facility] Work Phone: Comment on above:Expected: 09/15/2024 (Approximate), Expires: 09/15/2025Start: 09-15-2024 End: 06-68-8434Xczyxzlqawsu [Mass/volume] in Serum or PlasmaProgesterone Lab Routine Primary oligomenorrhea Expected: 09/15/2024 (Approximate), Expires: 09/15/2025[facility] Work Phone: Comment on above:Expected: 09/15/2024 (Approximate), Expires: 09/15/2025Start: 09-15-2024 End: 48-82-6109Ofhwbcovv pallidum IgG+IgM Ab [Presence] in Serum by Immunoassay Syphilis Screen with Reflex Lab Routine Screening for STDs (sexually transmitted diseases) Expected: 09/15/2024 (Approximate), Expires: 09/15/2025[facility] Work Phone: Comment on above:Expected: 09/15/2024 (Approximate), Expires: 09/15/2025Start: 09-15-2024 End: 33-44-6969Mebtwutgplia consultation with lbaawmr1109/15/2024 1:30 PM EDT Telemedicine [facility] [address] [place] [phone] Roslyn Rodriguez MD [address] [place] [address] Dillon Pearce PavilionStart: 87-00-8331Hulrpcthq for malignant neoplasm of cervixSOUTHAMPTON [facility] Start: 39-46-1386Rpevxcobp for malignant neoplasm of cervixHPV (without or with Pap)[facility]ITALStart: 57-68-4170ZROMF-19 Vaccine ( season)COVID-19 Vaccine ()[facility] Start: 99-11-2634ENJUJ-19 Vaccine ( season)COVID-19 Vaccine ( season)[facility] CenterStart: 18-19-5449Kixcppavb vaccination [facility] CenterStart: 13-90-3450Dugxwohkh vaccinationFlu vaccine (#1)[facility] Centerart: 12-10-2023 End: 23-14-260357896752-Whavctfpmybeeawqtvr [Mass/volume] in Serum or Wbrikz11- Hydroxyprogesterone Lab Routine Secondary oligomenorrhea Expected: 12/10/2023 (Approximate), Expires: 12/09/2024[facility] Work Phone: Comment on above:Expected: 12/10/2023 (Approximate), Expires: 12/09/2024Start: 12-10-2023 End: 14-09-6420Yjbkc type and Indirect antibody screen panel - BloodType And Screen Lab Routine Encounter for Rh blood typing Expected: 12/10/2023 (Approximate), Expires: 12/09/2024[facility] Work Phone: Comment on above:Expected: 12/10/2023 (Approximate), Expires: 12/09/2024Start: 12-10-2023 End: 73-99-9807Ugygiwdqtjvnajacpvzujw sulfate (DHEA-S) [Mass/volume] in Serum or PlasmaDhea-Sulfate Lab Routine Secondary oligomenorrhea Expected: 12/10/2023 (Approximate), Expires: 12/09/2024[facility] Work Phone: Comment on above:Expected: 12/10/2023 (Approximate), Expires: 12/09/2024Start: 12-10-2023 End: 56-71-7447Vwovqgnlbf A1c/Hemoglobin.total in BloodHemoglobin A1C Lab Routine Screening for diabetes mellitus Expected: 12/10/2023 (Approximate), Expires: 12/09/2024[facility] Work Phone: Comment on above:Expected: 12/10/2023 (Approximate), Expires: 12/09/2024Start: 12-10-2023 End: 39-04-7268Usofaipvd inhibiting substance [Mass/volume] in Serum or Plasma Antimullerian Hormone (Amh) Lab Routine Fertility testing Expected: 12/10/2023 (Approximate), Expires: 12/09/2024[facility] Service Area Work Phone: Comment on above:Expected: 12/10/2023 (Approximate), Expires: 12/09/2024Start: 12-10-2023 End: 81-61-5282Seesnqmlzyac [Mass/volume] in Serum or PlasmaProgesterone Lab Routine Fertility testing Expected: 12/10/2023 (Approximate), Expires: 12/09/2024[facility] Work Phone: Comment on above:Expected: 12/10/2023 (Approximate), Expires: 12/09/2024Start: 12-10-2023 End: 11-74-0467Riqlfdfvl [Mass/volume] in Serum or PlasmaProlactin Lab Routine Secondary oligomenorrhea Expected: 12/10/2023 (Approximate), Expires: 12/09/2024 [facility] Work Phone: Comment on above:Expected: 12/10/2023 (Approximate), Expires: 12/09/2024Start: 12-10-2023 End: 67-70-1234Otrsvkx virus IgG Ab [Units/volume] in SerumRubella Antibody, Igg Lab Routine Encounter for screening for other viral diseases Expected: 024 (Approximate), [facility]: [facility]: Comment on above:Expected: 12/10/2023 (Approximate), Expires: 12/09/2024Start: 12-10-2023 End: 85-82-1979Wxfozegrftov,Free and TotalTestosterone,Free and Total Lab Routine Secondary oligomenorrhea Expected: 12/10/2023 (Approximate), Expires: [facility] Work Phone: Comment on above:Expected: 12/10/2023 (Approximate), Expires: 12/09/2024Start: 12-10-2023 End: 88-75-3921CHD with reflex to Free T4 if abnormalTSH with reflex to Free T4 if abnormal Lab Routine Secondary oligomenorrhea Expected: 12/10/2023 (Ap proximate), Expires: 12/09/2024[facility] Work Phone: Comment on above:Expected: 12/10/2023 (Approximate), Expires: 12/09/2024Start: 12-10-2023 End: 59-85-0035Gmagqtqxr zoster virus IgG Ab [Presence] in Serum by Immunoassay Varicella Zoster Antibody, Igg Lab Routine Encounter for screening for other viral diseases Expected: 12/10/2023 (Approximate), Expires: 12/09/2024[facility] Work Phone: Comment on above:Expected: 12/10/2023 (Approximate), Expires: 12/09/2024Start: 07-15-2023 End: 56-24-2019Wrxcwhv encounter glwxxeceu30/31/2024 Office Visit Obstetrics and Gynecology Nadja Brewster APRN - MANUFACTURING MECHANIC [address] [place] [address] [facility] Obstetrics & Gynecology Start: 58-44-5572HRZOL-19 Vaccine ( season)COVID-19 Vaccine ( season)[facility]: 54-42-2552VZEQT-19 Vaccine ( season)COVID-19 Vaccine ( season)[facility]: 18-99-4477SHRTM-19 Vaccine (2 - Pfizer risk series) COVID-19 Vaccine (2 - Pfizer risk series)[facility]: 89-98-2424Pifxvgwqb vaccinationFlu vaccine (#1)[facility]: 23-27-0460TUI Vaccines (1 - 3-dose standard series)HPV Vaccines (1 - 3-dose standard series)[facility]: 38-54-4109Fdwsaanot for malignant neoplasm of cervixOhioHealth [facility]: 2009 Hepatitis B vaccine (1 of 3 - 19+ 3-dose series)Hepatitis B vaccine (1 of 3 - 19+ 3-dose series)[facility]: 38-37-1855Yvqucxbwu B Vaccines (1 of 3 - 19+ 3-dose series)Hepatitis B Vaccines (1 of 3 - 19+ 3-dose series) [facility]: 00-19-8638Rhdhpainv C screening [facility]: 50-45-2845VCG screeningHIV screenBON [facility]: 55-61-9356Hdznqygdm vaccinationVaricella Vaccines (1 of 2 - 13+ 2-dose series)[facility]: 09-24-2003 Varicella vaccine (1 of 2 - 13+ 2-dose series)Varicella vaccine (1 of 2 - 13+ 2- dose series)[facility]: 98-72-8973Rusuhxxbpt ScreenDepression ScreenBON [facility]: 68-24-0100Bjiwfhvpr vaccine (1 of 2 - 2- dose childhood series)Varicella vaccine (1 of 2 - 2-dose childhood series)[facility]: 30-78-3942KSL screeningHIV ScreeningOhioHealth [facility]: 89-75-9418Xpoil panelLipid PanelOhioHealth [facility]: 49-39-4976Eeqhyc Adult PhysicalYearly Adult PhysicalFairfield Medical Center Immunizations Immunization DateImmunizationNotesCare YryngvzxXquwaxhl55-88-8685vneiylkkuv, tetanus toxoids and acellular pertussis vaccineLalit Bedolla MD Other Phone: [employer] Phone: [phone] vaccine, inactivatedLalit Bedolla MD Other Phone: [employer] Phone: [phone], tetanus toxoids and acellular pertussis vaccineLalit Bedolla MD Other Phone: [employer] Phone: [phone] vaccine, inactivatedLalit Bedolla MD Other Phone: [employer] Phone: [phone], Kwasi Bedolla MD Other Phone: [employer] Phone: [phone], mumps and rubella virus vaccine Lalit Bedolla MD Other Phone: [employer] Phone: [phone], tetanus toxoids and acellular pertussis vaccineLalit Bedolla MD Other Phone: [employer] Phone: [phone], Kwasi Bedolla MD Other Phone: [employer] Phone: [phone], tetanus toxoids and acellular pertussis vaccineLalit Bedolla MD Other Phone: [employer] Phone: [phone], unspecifiedLalit Bedolla MD Other Phone: [facility] [employer] Phone: [phone] vaccine, inactivatedLalit Bedolla MD Other Phone: [facility] [employer] Phone: [phone], tetanus toxoids and acellular pertussis vaccineLalit Bedolla MD Other Phone: [facility] BreakTheCrates.com06-12-1991Hib, unspecified Lalit Bedolla MD Other Phone: [facility] [employer] Phone: [phone] vaccine, inactivatedLalit Bedolla MD Other Phone: [facility] [employer] Phone: Payers DatePayer CategoryPayerPolicy [id number] Health Insurance [id number] [id number] 1.2.840.543213.1.13.239.2.7.3.084[id number] 2.16.840.1.115785.3.57[id number] 2.16.840.1.583071.3.579.[id number] 2.16.840.1.225741.3.57[id number] 2.16.840.1.121683.3.57[id number] 2.840.1.760911.3.57[id number] 2.840.1.623217.3.57[id number] 2.840.1.041653.3.57[id number] 2.840.1.753575.3.57[id number] 2..1.188652.3.57[id number] 2..1.305652.3.57[id number] 2..1.798750.3.579.[id number] 2..1.858101.3.57[id number] 2..1.849769.3.57[id number] 2..1.452716.3.57[id number] 2.0.1.130033.3.57[id number] 2.0.1.818693.3.57[id number] 2.840.1.426895.3.57[id number] 2.0.1.740715.3.57[id number] 2..840.1.087722.3.57[id number] 2.16.840.1.218213.3.57[id number] 2.16.840.1.213934.3.57[id number] 2.16.840.1.302516.3.579.2.[id number] 2.16.840.1.092026.3.57[id number] 2..840.1.212688.3.579.[id number] 2..0.1.170844.3.579.[id number] Social History DateTypeDetailFacilityStart: 05-05-2023 End: 19-01-9308Oydfced smoking status NHISNever smoked tobaccoCENTRA HEALTH Business CombinedStart: 07-15-2022 End: 29-46-9248Vmmvoad intakeCurrent drinker of alcohol (finding)[facility] [employer]Kill Phone: start: 66-18-7841Umkvuos SDOH Khpjeoehr3ZSA [facility]OSPITALLancope Phone: start: 84-73-9481Xapxvau SDOH Food Tvfdx2XUG [facility] Card[employer] Phone: start: 77-60-6651Lichwyf CommentI may have one drink every couple weeksHENRICO DOCTORS' HOSPITAL—PARHAM CAMPUSLancope Phone: start: 18-64-9648Jgu Assigned At BirthNot on fileHENRICO DOCTORS' HOSPITAL—PARHAM CAMPUSLancope Phone: start: 72-30-1852Lhx [facility]ertart: 05-05-2023 End: 96-48-6963Mmlbouo use and exposureSmokeless tobacco non-userFairfield Medical Center Work Phone: Start: 95-52-8675Ryygrtt CommentOccassionally [facility] Work Phone: Start: 12-10-2023 End: 16-18-1572Eiheev identityNot on fileUnOhioHealth Work Phone: Start: 11-30-2023 End: 30-51-7219Ltmzsdzx to SARS-CoV-2 (event)Not sureFairfield Medical CenterStart: 12-10-2023 End: 09-07-9742Eyhdxxg of Social functionUnOhioHealth Work Phone: Start: 56-97-5044Qhdgefe Commentcaffeine: 1-2 cups per day iced tea, coffee, diet popHIGHLAND RIDGE HOSPITAL HealthcareStart: 08-27-2022 End: 69-50-2942Lxz hard is it for you to pay for the very basics like food, housing, medical care, and heatingNot hard at allWellmont Health System LaroscoCarilion [facility](I/We) worried whether (my/our) food would run out before (I/we) got money to buy more. Never [facility]askiStart: 07-30-2024 End: 78-75-3208Huuaahtn to SARS-CoV-2 (event)Unable to assessFairfield Medical CenterHow often do you need to have someone help you when you read instructions, pamphlets, or other written material from your doctor or pharmacy [SILS]NeverNOMS HealthcareWithin the last year, have you been afraid of your partner or ex-partner?NoNOMS HealthcareDo you belong to any clubs or organizations such as nondenominational groups, unions, fraternal or athletic groups, or school groups?YesNOMS HealthcareAre you now , , , , never or living with a partner?MarriedNOMS HealthcareHow often to you have a drink containing alcohol?2-4 times a monthNORI HealthcareHow many standard drinks containing alcohol do you have on a typical day?1 or 2NOMS HealthcareHow often do you have 6 or more drinks on 1 occasion?Less than monthlyNORI HealthcareDo you feel stress - tense, restless, nervous, or anxious, or unable to sleep at night because yourmind is troubled all the time - these days [OSQ]Only a littleNORI Healthcare Functional Status XrddLsyihhsgsqGslzyeOgnvuqbf27-65-9293Rpyzcab Health Questionnaire 2 item (PHQ- 2) [Reported][facility] Work Phone: [phone]gwmc - suicide severity rating scale screener - recent [C-SSRS][facility] Work Phone: [phone]rz statusUnOhioHealth09-29-2025[facility] Work Phone: [phone]spu Health Questionnaire 2 item (PHQ-2) [Reported][facility] Work Phone: [phone]ejo Health Questionnaire 2 item (PHQ-2) [Reported][facility] [place] [facility] NetworkDrjkekphzy38-33-9654Bguyk score [AUDIT-C]3 11/14/2024 11:57 AM EDT Mychart, GenericNortheast [place] [facility] Health NetworkLsdzgmtcve11-26-1976Lin often to you have a drink containing alcohol?2-4 times a month 11/14/2024 11:57 AM EDT Mychart, Generic 2- 4 times a monthNortheast [place] [facility] Health NetworkVtqarptpcb85-53-6464Vai many standard drinks containing alcohol do you have on a typical day?1 or 2 11/14/2024 11:57 AM EDT Mychart, Generic 1 or 2NOMS Burrgjnrxl56-53-8013Qmh often do you have 6 or more drinks on 1 occasion?Less than monthly 11/14/2024 11:57 AM EDT Mychart, Generic Less than monthlyNOMineral Area Regional Medical CenterCnmwdmonhy31-19-9547Htjyfffk - suicide severity rating scale screener - recent [C-SSRS][facility] Work Phone: [phone]wdgu Health Questionnaire 2 item (PHQ-2) [Reported][facility] Work Phone: [facility] Work Phone: Clinical Notes 12-10-2023 to 03-13-2025 Note Date & NpvoYkrtCleqsamd59-92-0936 History of Present illness Narrative* Roslyn Rodriguez MD - 03/13/2025 3:00 PM EDT Virtual or Telephone Consent: An interactive audio and video telecommunication system which permitsreal time communications between the patient (at the originating site) and provider (at the distantsite) was utilized to provide this telehealth service [...] Sonography: Thinks she had this done in [place] and was told tubes patent Has had normal diagnostic hysteroscopy at [facility] -Reports she did have lysis of adhesions on a hysteroscopy prior to FETs 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 PCOS [...] patient to arrange this now with the frontdesk. Chart to primary nurse for care coordination and patient check list/education. MD Completion: Ectopic Risk: No Medically Complex: Yes obesity on Naveen Outstanding boarding pass items: none (A1C done on 01/03/2025- patient to [employer] results) Fertility Plan Update: - plan for letrozole 7.5 mg + clomid 150/monitoring/trigger/TIC+cd 21 P4 x 3 cycles (however if notresponding after one cycle needs follow up to [...] respond to this she will consider transfer ofher previously frozen embryo vs. Other options (e.g. [...] mg) by mouth once daily. Take days for10 days each month get menses 10 tablet [...] file prior to visit. documented in this [facility] Work Phone: [phone]) 819-436009-11-2025 History of Present illness Narrative* Bree Gonsalves, HOUSEKEEPER NANNY-MANUFACTURING MECHANIC - 02/23/2025 3:00 PM EDT Holli Fischer is a 34 y.o. female with a hx of obesity, infertility, PCOS, and insulin resistance whopresents for weight management and obesity medicine follow [...] 3. Stress: Stable 4. Exercise: Incorporating consistently- thu-thu at the [facility] 5. Appetite control: Stable Obesity medication: Zepbound- 10 mg 6. Prior Goals: Specific Prior Goals set: 11/16/24with Karl Arrington MD add strength training to 3 days a week New Goals: Nutrition- continue with plan you discussed at your last consult with Lexieele Bakerp RD that includes Healthy Plate, meal prep [...] Resource Strain: Low Risk (11/14/2024) Received from [facility] [place] [facility] Overall Financial Resource Strain (CARDIA) Difficulty of Paying Living Expenses: Not hard at all Food Insecurity: No Food Insecurity (11/14/2024) Received from [facility] [place] [facility] Hunger Vital Sign Within the past 12 months, you worried that your food would run out before you got the money to buymore.: Never true Within the past 12 months, the food you bought just didn't last and you didn't have money to get more.: Never true Transportation Needs: No Transportation Needs (11/14/2024) Received from [facility] [place] [facility] PRAPARE - Transportation Lack of Transportation (Medical): No Lack of Transportation (Non-Medical): No Physical Activity: Sufficiently Active (11/14/2024) Received from [facility] [place] [facility] Exercise Vital Sign On average, how many days per week do you engage in moderate to strenuous exercise (like a brisk walk)?: 5 days On average, how many minutes do you engage in exercise at this level?: 70 min Stress: No Stress Concern Present (11/14/2024) Received from [facility] [place] [facility] [employer] [place] [employer] - Occupational Stress Questionnaire Feeling of Stress : Only a little Social Connections: Socially Integrated (11/14/2024) Received from [facility] [place] [facility] Social Connection and Isolation Panel In a typical week, how many times do you talk on the phone with family, friends, or neighbors?: Three times a week How often do you get together with friends or relatives?: Once a week How often do you attend nondenominational or voodoo services?: More than 4 times per year Do you belong to any clubs or organizations such as nondenominational groups, unions, fraternal or athletic groups, or school groups?: Yes How often do you attend meetings of the clubs or organizations you belong to?: 1 to 4 times per year Are you , , , , never , or living with a partner?: Intimate Partner Violence: Not At Risk (11/14/2024) Received from [facility] [place] [facility] Humiliation, Afraid, Rape, and Kick questionnaire Within [...] Housing Stability: Low Risk (11/14/2024) Received from [facility] [place] [facility] Housing Stability Vital Sign In the last 12 months, was there a time when you were not able to pay the mortgage or rent on time?: No In the past 12 months, how many times have you moved where you were living?: 0 At any time in the past 12 months, were you homeless or living in a usp (including now)?: No Objective Physical Exam: Height 1.651 m (5' 5 ), weight 103 kg (226 lb 6.4 oz). General : alert and oriented X3, no acute distress Eyes : EOMI Assessment/Plan Barbara Fischer is a 34 y.o. female with a hx of obesity, infertility, PCOS, and insulin resistance whopresents for follow up for weight management and [...] Zepbound 10mg/0.5 ml, and Follow-up- 1-2 months [facility] Topic: Fad diets and supplements Dietitian Present during [facility]: Lexie Finch RD, CSOWM, LD, CDCES Weight [...] total) by mouth once daily. Take 3 tabletsby mouth cycle days 3-7 after negative urine test every cycle before starting letrozole.,Disp: 15 tablet, Rfl: 0 medroxyPROGESTERone (Provera) 10 [...] Date HYSTEROSCOPY Bilateral TONSILLECTOMY documented in this [facility] Work Phone: [phone] Instructions* Patient Instructions* ABDOUL Lou - 02/23/2025 3:00 PM EDT New Goals: Nutrition- continue with plan you discussed at your last consult with Lexie Chester RD that includes Healthy Plate, meal prep and mindful eating, Exercise- continue with 5 days a week of strength and resistance exercise, Medication- Zepbound 10mg/0.5 ml, and Follow-up- 1-2 months documented in this encounterFairfield Medical Center Work Phone: [phone] History of Present illness Narrative* Karl Arrington MD - 11/16/2024 1:00 PM EDT Subjective Barbara Fischer is a 34 y.o. female with a hx of PCOS, insulin resistance, infertility who presents forweight management and obesity. Virtual: Current Plan 1. [...] Resource Strain: Low Risk (07/15/2022) [facility] from [facility] Overall Financial Resource Strain (CARDIA) Difficulty of Paying Living Expenses: Not hard at all Food Insecurity: No Food Insecurity (05/25/2023) Received from [facility] [place] Hunger Screening Within the past 12 months [...] total) by mouth once daily. Take 3 tabletsby mouth cycle days 3-7 after negative urine test every cycle before starting letrozole.,Disp: 15 tablet, Rfl: 0 letrozole (Femara) 2.5 [...] Date HYSTEROSCOPY Bilateral TONSILLECTOMY documented in this [facility] Work Phone: [phone] History of Present illness Narrative* Deanna Graf NP - 11/14/2024 2:30 PM EDT Images from the original note were not included. Barbara Fischer is a 34 y.o. female presents with chief complaint of Plantar Warts (Wart on right toe) HPI: Patient presents today with complaints of plantar wart to right 3rd toe. She states she had noticeda few days ago when she started having pain that toe. She also has large calluses. Patient has beenworking out frequently due to trying to lose weight. She is down about 100 lb from last year. She is taking Mounjaro 7.5 mg weekly currently. She is seeing an kitchen operator in [place] due to fertility issues in attempting to lose weight before completing her next round of IVF. She does have a group nutrition follow-up with her kitchen operator video call scheduled for Thursday. She will [...] or fail to improve. documented in this encounterN[facility] [place] [facility] NetworkLkkseedzrs92-36-7332 History of Present illness Narrative* Tere Sanders, HOUSEKEEPER NANNY-MANUFACTURING MECHANIC - 09/29/2024 12:45 PM EDT Boarding Pass Oral TIC/IUI Age: 33 y.o. Provider: Roslyn Rodriguez MD Primary Nurse: Chetan Reasons for Treatment: Polycystic Ovarian Syndrome Last BMI 25 : 42.00 kg/m Past Medical History: Diagnosis [...] Carrier Screening Myriad 2bP: Declined N/A 09/21/2024 INSTRUCTIONAL WRITER Waiver [x] Date Done Male Labs (required [...] be taken prior to taking the medication. Completion: Ectopic Risk: No Medically Complex: Yes-Obesity on Mounjaro Boarding pass reviewed with: Protocol: Letrozole 7.5mg with TI x 3 cycles. Plan on cd 21 progesterone the first cycle to confirmovulation. Sperm: partner Testing up to date. yes [...] Sanders 09/29/24 12:55 PM documented in this [facility] Work Phone: [phone]) [phone] History of Present illness Narrative* Roslyn Rodriguez MD - 09/15/2024 1:30 PM EDT Images from the original note were not included. Virtual or Telephone Consent: An interactive audio and video telecommunication system which permitsreal time communications between the patient (at the originating site) and provider (at the distantsite) was utilized to provide this telehealth service and Verbal consent was requested and obtainedfrcachorro Fischer on this date, 09/15/24 for a telehealth visit. MD reviewed, Authorization status not noted. Follow Up Visit HPI Patient is a 33 y.o. female with Polycystic Ovarian Syndrome presenting today for follow upvisit. 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 Take days for10 days each month get menses 10 tablet [...] is also teratogenic and therefore patients must takea test and document that is negative, before [...] Rodriguez 09/15/2024 1:35 PM documented in this [facility] Work Phone: [phone]) 242-323402-25-2025 History of Present illness Narrative* Karl Arrington MD - 08/09/2024 8:30 AM EST Subjective Barbara Fischer is a 33 y.o. female with a hx of PCOS, insulin resistance, infertility who presents forweight management and obesity. Virtual: Current Plan 1. [...] Resource Strain: Low Risk (07/15/2022) Received from [facility] [employer] [place] [facility] [place] [facility] Overall Financial Resource Strain (CARDIA) Difficulty of Paying Living Expenses: Not hard at all Food Insecurity: No Food Insecurity (05/25/2023) Received from [employer] [employer] Hunger Screening Within the past 12 months [...] visit. Karl Arrington MD documented in this [facility] Work Phone: [phone]) 556-346006-27-2024 History of Present illness Narrative* Roslyn Rodriguez MD - 12/10/2023 9:15 AM EDT Visit Type: In Person NEW FERTILITY PATIENT VISIT Referred by: Referred by:: Joe Jamil Accompanied today by: Who is accompanying you to your visit:: Spouse, Aamir Fischer is a 33 y.o. 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 The Uterus is [...] Ectopic 0 Multiple 0 Live Births 0 INSTRUCTIONAL WRITER HISTORY Have you ever been diagnosed with a sexually transmitted disease? 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 Reviewed evaluation of such as well. We discussed various methods for achieving pregnancyin some detail including, ovulation induction, insemination, superovulation [...] on fertility and outcomes, including increased risk ofmiscarriage, gestational diabetes, preeclampsia, IUGR, and still . We discussed the importanceof weight loss for optimizing fertility and outcomes. [...] recommend BMI <45 ideal) achieved can try ovulationinduction with letrozole If no success would consider FET with remaining embryos After that can consider IVF again (retrieval) Counseled about contraception and menstrual cycle management- patient would like to try OCP; counseled about increased risks of DVT/PE with estrogen-containing OCP Roslyn Rodriguez 12/10/2023 9:38 AM [facility] Work Phone: [phone]) 802-704606-27-2024 Instructions* Patient Instructions* Roslyn Rodriguez MD - 12/10/2023 9:15 AM EDT ASSESSMENT 33 y.o. female with primary infertility x 4, suspected oligoovulation and the following pertinent medical issues: Obesity BMI=54 . Partner SA: Normal COUNSELING We discussed causes of infertility including hormonal, egg quality issues, structural problems suchas endometriosis, adhesions, or tubal problems, uterine factors such as polyps or fibroids, and sperm issues. Reviewed evaluation of such as well. We discussed various methods for achieving pregnancyin some detail including, ovulation induction, insemination, superovulation [...] on fertility and outcomes, including increased risk ofmiscarriage, gestational diabetes, preeclampsia, IUGR, and still . We discussed the importanceof weight loss for optimizing fertility and outcomes. [...] recommend BMI <45 ideal) achieved can try ovulationinduction with letrozole If no success would consider FET with remaining embryos After that can consider IVF again (retrieval) Counseled about contraception and menstrual cycle management- patient would like to try OCP; counseled about increased risks of DVT/PE with estrogen-containing OCP Roslyn Rodriguez 12/10/2023 9:38 AM [facility] Work Phone: Evaluation noteNo assessment information available [facility] Work Phone: Evaluation note* Diagnosis Secondary oligomenorrhea- Primary Scanty or infrequent [...] (Multi) [E66.01, Z68.43] documented in this encounter [facility] Work Phone: Evaluation note* Diagnosis BMI 50.0-59.9, adult (Multi)- Primary Encounter for weight management Super obesity documented in this encounter [facility] Work Phone: Evaluation note* Diagnosis Class 3 obesity- Primary BMI 40.0-44.9, adult (Multi) Encounter for weight management documented in this encounter [facility] Work Phone: Evaluation note* Diagnosis [...] [E28.2] Polycystic ovaries documented in this encounter [facility] Work Phone: Evaluation note* Diagnosis Female infertility [N97.9]- Primary Female infertility of unspecified origin documented in this encounter [facility] Work Phone: Evaluation note* Diagnosis Plantar wart, right foot- Primary Plantar wart Class 3 severe obesity due to excess calories without serious comorbidity with body mass index (BMI) of 40.0 to 44.9 in adult [facility] Diagnosis BMI 39.0-39.9,adult BMI 30.0-30.9,adult documented in this encounter [facility] Work Phone: Evaluation note* Diagnosis Obesity, class 2- Primary BMI 37.0-37.9, adult PCOS (polycystic ovarian syndrome) Polycystic ovaries Insulin resistance Other abnormal glucose History of infertility documented in this encounter [facility] Work Phone: Evaluation note* Diagnosis PCOS (polycystic ovarian syndrome)- Primary Polycystic ovaries Female infertility Female infertility of unspecified origin documented in this encounter [facility] Work Phone: History of Present [...] Resource Strain: Low Risk (07/15/2022) Received from [facility] Overall Financial Resource Strain (CARDIA) Difficulty of Paying Living Expenses: Not hard at all Food Insecurity: No Food Insecurity (05/25/2023) Received from [facility] Hunger Screening Within the past [...] The patient will be referred to the Chemist Water [employer]ification for education on their diet of choice. [...] visit. Karl Arrington MD [facility] Work Phone: Reason for referral (narrative)* Consultation (Routine) - AuthorizedSpecialtyDiagnoses / ProceduresReferred By Contact Referred To ContactNutrition Diagnoses BMI 50.0-59.9, adult (Multi) Karl Orozco MD [address] [facility] [address] [place] [address] Referral IDStatusReasonStart DateExpiration DateVisits RequestedVisits [id number] Specialty Services Required [facility] Work Phone: Summary Purpose Family [...] Care Teams (unrecognized sec tion and content) Team MemberRelationshipSpecialtyStart DateEnd Date Lalit Bedolla MD [address] [address] PCP - GeneralFamily [id number]/18/16 Team Status: Active Member Role Status Dates Outreach [facility] Primary Care Provider Active Team Status: Inactive Member Role Status Dates Polly Jurado NP-C Attending Provider Active S tart: August 29, 2023 End: August 29, 2023[facility] Care ProviderActiveStart: August 29, 2023 End: August 29, 2023Team MemberRelationshipSpecialtyStart [place] [id number] [address] PCP - GeneralFamily Medicine10/21/22Team MemberRelationshipSpecialtyStart DateEnd Date Lalit Bedolla MD PCP - GeneralFamily [id number]/18/16Team MemberRelationshipSpecialtyStart [place] [id number] [address] PCP - GeneralFamily Medicine10/21/22Team MemberRelationshipSpecialtyStart DateEnd Date Dipika Cox LPN Licensed Practical NurseReproductive Endocrinology and Infertility09/14/24Team MemberRelationshipSpecialtyStart [place] [id number] [address] PCP - GeneralFamily Medicine10/21/22Team MemberRelationshipSpecialtyStart DateEnd Date Dipika Cox LPN Licensed Practical NurseReproductive Endocrinology and Infertility09/14/24Team MemberRelationshipSpecialtyStart [place] [address] [place] [address] PCP - GeneralFamily Medicine10/21/22Team MemberRelationshipSpecialtyStart [place] [address] [place] [address] PCP - GeneralMercyone [facility] Medical Centerly Medicine10/21/22Team MemberRelationshipSpecialtyStart DateEnd Date Dipika Cox LPN Licensed Practical NurseReproductive Endocrinology and Infertility09/14/24Team MemberRelationshipSpecialtyStart DateEnd Date Dipika Cox LPN Licensed Practical NurseReproductive Endocrinology and Infertility09/14/24 INFORMATION SOURCE (unrecogn ized section and content) DATE CREATED AUTHOR 10/05/2022 [facility] DATE CREATED AUTHOR AUTHOR'S ORGANIZ ATION 09/14/2023 [facility] DATE CREATED AUTHOR AUTHOR'S ORGANIZ ATION 07/26/2024 [facility] DATE CREATED AUTHOR AUTHOR'S ORGANIZ ATION 10/02/2024 [facility] DATE CREATED AUTHOR AUTHOR'S ORGANIZ ATION 11/15/2024 [facility] DATE CREATED AUTHOR AUTHOR'S ORGANIZ ATION 03/21/[address] [facility] DATE CREATED AUTHOR AUTHOR'S ORGANIZ ATION 04/15/2025 [facility] Goals (unrecognized section and content) Goals may be documented in a n alternate section Reason for Visit (unrecogniz ed section and content) ReasonCommentsNew [facility]inet Fertility ConsultationReasonCommentsConsultWeight managementReasonCommentsFollow-upFollow up for weight management group meeting ReasonCommentsPlantar WartsWart on right toeReasonCommentsFollow-upFollow up for weight management group meetingReasonCommentsFollow-upgroupSpecialtyDiagnoses / ProceduresReferred By ContactReferred To ContactEndocrinology Diagnoses BMI 39.0-39.9,adult Procedures Follow Up In Endocrinology Karl Orozco MD Phone: tel: fax: Referral IDStatusReasonStart DateExpiration DateVisits RequestedVisits [id number] FOR RECORDS PERTAINING TO PATIENTS WHO ARE [...] BE BASED ON THE PRIMARY CLINICAL RECORDS. [facility]. provides no warranty or guarantee of the accuracy or completeness of information in this document.
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
== END 2025-04-24 13:23 | disposition home or self-care (01) ==
PROVIDERS: Emergency Provider Student in an Organized Health Care Education/Training Program; PCP Family Medicine
DX: S16.1XXA Strain of muscle, fascia and tendon at neck level, initial encounter (principal); V49.49XA Driver injured in collision with other motor vehicles in traffic accident, initial encounter; Y92.410 Unspecified street and highway as the place of occurrence of the external cause
CPT/HCPCS: 99281